=== PATIENT | female | born 1945 | race American Indian/Alaskan Native ===

== ENCOUNTER 2021-04-24 01:42 | Inpatient (IN) ==
[2021-04-24 02:52] LABS: Basophils # (auto) 0.02 K/uL (0-0.2); Basophils % (auto) 0.2 %; Eosinophils # (auto) 0.03 K/uL (0-0.5); Eosinophils % (auto) 0.3 %; Hematocrit (blood only) 36.5 % (37-47); Hemoglobin 12.3 g/dL (12.0-16.0); Immature Granulocytes # (auto) 0.02 K/uL (0.00-0.02); Immature Granulocytes % (auto) 0.2 %; Lymphocytes % (auto) 19.5 %; Mean Corpuscular Hemoglobin 28.2 pg (25-34); Mean Corpuscular Hgb Conc 33.7 g/dL (32-36); Mean Corpuscular Volume 83.7 fL (80-100); Mean Platelet Volume 10.1 fL (7.4-10.4); Monocytes # (auto) 0.61 K/uL (0.11-0.59); Monocytes % (auto) 5.4 %; Neutrophils # (auto) 8.41 K/uL (1.4-6.5); Neutrophils % (auto) 74.4 %; Platelet Count 335 K/uL (130-400); RDW Coefficient of Variation 14.4 % (11.5-14.5); RDW Standard Deviation 44.2 fL (36.4-46.3); Red Blood Count 4.36 M/uL (4.2-5.4); White Blood Count 11.29 K/uL (4.8-10.8)
[2021-04-24 03:00] LABS: Alanine Aminotransferase 16 U/L (12-78); Aspartate Aminotransferase 17 U/L (15-37); BUN Creatinine Ratio 13.5 (10-20); Blood Urea Nitrogen 15 mg/dl (7-18); Calcium 9.3 mg/dl (8.5-10.1); Carbon Dioxide 25 mmol/L (21-32); Chloride 102 mmol/L (98-107); Est GFR (African American) 58.6 ml/min; Est GFR (Non-African American) 50.5 ml/min; Glucose 231 mg/dl (70-99); Magnesium 1.7 mg/dl (1.8-2.4); Potassium 3.6 mmol/L (3.5-5.1); Sodium 136 mmol/L (136-145)
[2021-04-24 03:11] LABS: Albumin Globulin Ratio 0.8 (0.9-2); Alkaline Phosphatase 123 U/L (45-117); Bilirubin,Total 0.8 mg/dl (0.2-1)
[2021-04-24 03:23] LABS: T4 Free Thyroxine 0.98 ng/dl (0.8-1.6)
--- NOTE | 2021-04-24 04:06 | Emergency Department Note ---
Impression & Plan Fall, Hyperglycemia due to diabetes mellitus, Acute on chronic alteration in mental status Admit to the [facility] ED Provider Note NAME: TIP SAVAGE AGE: 76 SEX: F ARRIVES VIA: Ambulance INFORMANT: Patient [id number] ED PROVIDER(S): Arlet Powers DO CHIEF COMPLAINT: Fall PLAN: Disposition: Admit to the [facility] Condition: Stable MEDICAL DECISION MAKING: This is a 76-year-old female patient was found on the floor by her roommate. The patient has had increased falls and weakness over the past couple of weeks. Much of the history was obtained by the patient's brother in law who is at the bedside. He admits that he sees her every 2-3 weeks. Apparently the patient lives with a longtime roommate who is not a load out supervisor but a friend. The patient apparently takes care of her own ADLs and doses her own insulin and checks her own blood sugar. The patient's daily mental status and orientation status is questionable. She does have a history of a traumatic brain injury. She has not been getting out of the house much over the past 18 months according to the jqmijsa-ge-akr. They were concerned tonight because she was found on the floor by the roommate and then fell again prior to getting into bed. The obtgcto-on-lpp does have concern about the patient being able to care for self at home. CT scan of the brain and C-spine was negative for anything acute. The patient was noted to be hyper glycemic but no evidence of DKA. On physical exam, the patient does have significant confusion but this seems to be baseline for her. I discussed the case with the [facility] and they will evaluate for further management. Triage Nursing notes reviewed and agree with them. Additional history obtained from the [id number]-sg-jfi who is at the bedside Vital Signs: reviewed and remarkable for hypertension Differential diagnosis: Hypoglycemia, hyperglycemia, head injury, C-spine injury, stroke Diagnostics interpreted by me: ECG: Normal sinus rhythm at a rate of 62 with T wave inversion in the anterior and lateral leads which is new from the patient's previous EKG which was in 2001. There is no ectopy and no signs of ischemia. Cardiac Monitoring: Normal sinus rhythm at 65 Laboratory studies: See below Imaging studies: As per stat read CT head: Mild diffuse cortical atrophy. Mild chronic ischemic white matter disease. Normal size of the ventricles and extra-axial spaces for the patient's age. Normal basal ganglia and thalamic Normal brainstem Normal cerebellum. There is no demonstrated extra-axial, intraparenchymal intraventricular hemorrhage. There are no findings of an acute ischemic infarction. Normal calvarium. There is no demonstrated fracture. Normal soft tissue structures. Normal visualized paranasal sinuses. 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 Impression: no CT evidence for an acute brain abnormality. CT C-spine: No fracture or malalignment. There is no prevertebral soft tissue swelling. There are mild degenerative changes of the spine. HPI: 76/F arrives for evaluation of fall. The patient was found on the floor by roommate at 8:45 PM. According to the uengbrp-di-anl, the patient has had increased falls and weakness over the past couple weeks. Otherwise, the patient lives with roommate and cares for herself. She typically doses her own insulin. Tonight, the patient did suffer this fall and was found on the floor by the roommate. The kqefyqj-vj-nkd came over and they fed the patient pizza because they thought this could be a sugar issue. Once they found the sugar was high they dosed her with insulin. As they were attempted to get her in bed, she did suffer another slip and fall and found that her sugar was high so they decided to bring her to the emergency department. ROS: See above HPI for pertinent positives & negatives. A total of 10 systems reviewed and were otherwise negative. PAST MEDICAL History:Insulin-dependent diabetes, lupus, traumatic brain injury PAST SURGICAL HISTORY:See Below FAMILY HISTORY:See Below SOCIAL HISTORY:Patient lives with a roommate HOME MEDICATIONS:See list ALLERGIES:See list VITALS:See Below PHYSICAL EXAMINATION: HEENT: Head - normocephalic and atraumatic Pupils are equal, round, and reactive to light. Extraocular eye muscles are intact, and sclera are anicteric. Nose - moist nasal mucosa without discharge. Mouth - moist buccal mucosa. Oropharynx is nonerythematous and there is no tonsillar exudate or edema noted. Neck: Supple; no cervical lymphadenopathy or thyromegaly Heart: Regular rate and rhythm. There is a normal S1 and S2 with no murmurs, clicks, or gallops appreciated. Lungs: Clear to auscultation bilaterally with no wheezes, rales, or rhonchi. Abdomen: Soft, completely nontender, nondistended, with good bowel sounds. There are no palpable pulsatile masses or hepatosplenomegaly. There is no guarding, rigidity, or rebound noted. Extremities: No evidence of cyanosis, clubbing, or edema. There are easily palpable peripheral pulses. Skin: warm and dry with good turgor and no rashes. ED COURSE: Times/Reassessment 0310: The patient was evaluated in room A2. A complete history and physical was performed. An order was placed for continuous cardiac monitoring. The patient was in a normal sinus rhythm at a rate of 65. I had an extensive conversation with the patient's [id number] at the bedside. A twelve-lead EKG was obtained. Laboratory studies were drawn as above. The patient went for CT scan of the brain and cervical spine. I reevaluated the patient after she had been here for some time and her mental status remained unchanged. She was pleasantly confused and slow to answer questions. Her vital signs remained stable. I explained to the patient that she would be admitted to the hospital by the [facility] service. Arlet Powers DO Past Med/Surg History Social History Smoking Status: Unknown if ever smoked Hx Alcohol Use: No Hx Substance Use: No Preferred Language: Tuvaluan Communication Ability: Effective Certified Shorthand Reporter Required: No Current Living Situation: Family Feels Safe at Home: Yes Safety Concerns: Feels Safe At This Time Assistive Devices: Cane and Walker Allergies Allergies Allergy/AdvReac Type Severity Reaction Status Date / Time morphine Allergy Unknown Verified 04/24/21 07:10 esomeprazole AdvReac Unknown Skin Verified 04/24/21 07:10 irritation,swelling,difficulty breathing. sucralfate AdvReac Unknown Skin Verified 04/24/21 07:10 irritation,swelling,difficulty breathing. Home Meds Home Medications Medication Instructions Recorded Confirmed alprazolam 0.5 mg tablet 0.5 mg PO BID PRN 04/24/21 04/24/21 cholecalciferol (vitamin D3) 25 25 mcg PO DAILY 04/24/21 04/24/21 mcg (1,000 unit) capsule (Vitamin D3) fexofenadine 60 mg tablet 60 mg PO DAILY 04/24/21 04/24/21 fluticasone propionate 50 2 spray INTRANASAL DAILY 04/24/21 04/24/21 mcg/actuation nasal spray,suspension folic acid 1 mg tablet 1 mg PO DAILY 04/24/21 04/24/21 furosemide 20 mg tablet 40 mg PO DAILY 04/24/21 04/24/21 insulin aspart U-100 100 unit/mL 0 sliding scale dose SUBCUT UD 04/24/21 04/24/21 subcutaneous solution (Novolog U-100 Insulin aspart) insulin glargine 100 unit/mL 40 unit SUBCUT HS 04/24/21 04/24/21 subcutaneous solution (Lantus U-100 Insulin) lansoprazole 30 mg capsule,delayed 30 mg PO DAILYBB 04/24/21 04/24/21 release levothyroxine 125 mcg tablet 125 mcg PO DAILYBB 04/24/21 04/24/21 lisinopril 20 mg tablet 20 mg PO DAILY 04/24/21 04/24/21 metformin 500 mg tablet,extended 1,000 mg PO QDD 04/24/21 04/24/21 release 24 hr nystatin 100,000 unit/gram topical 1 applic TOPICAL TID 04/24/21 04/24/21 powder tramadol 50 mg tablet 50 mg PO Q6H PRN 04/24/21 04/24/21 Results & Data (ED) Vital Signs Vital Signs - 24 hr 04/24/21 01:59 04/24/21 02:00 04/24/21 02:03 Temperature 36.9 C Temperature Source Oral Pulse Rate 62 66 64 Pulse Rate from SpO2 Sensor 62 61 Respiratory Rate 12 17 16 Blood Pressure 205/107 H Blood Pressure Mean 139 Pulse Oximetry 99 98 100 Oxygen Delivery Method Room Air Sepsis Recent Fever Within 48 Hours No Sepsis New/Unexplained Change in Mental Status No Sepsis Action Taken by Nursing No Action Required 04/24/21 02:30 04/24/21 03:00 04/24/21 03:30 Temperature Temperature Source Pulse Rate 67 71 67 Pulse Rate from SpO2 Sensor Respiratory Rate 18 15 21 Blood Pressure 211/82 H 186/88 H 207/89 H Blood Pressure Mean 125 120 128 Pulse Oximetry 99 96 Oxygen Delivery Method Sepsis Recent Fever Within 48 Hours Sepsis New/Unexplained Change in Mental Status Sepsis Action Taken by Nursing 04/24/21 04:04 04/24/21 04:30 04/24/21 05:00 Temperature Temperature Source Pulse Rate 65 71 70 Pulse Rate from SpO2 Sensor Respiratory Rate 22 20 15 Blood Pressure Blood Pressure Mean Pulse Oximetry Oxygen Delivery Method Sepsis Recent Fever Within 48 Hours Sepsis New/Unexplained Change in Mental Status Sepsis Action Taken by Nursing 04/24/21 05:30 Temperature Temperature Source Pulse Rate 69 Pulse Rate from SpO2 Sensor Respiratory Rate 13 Blood Pressure 171/70 H Blood Pressure Mean 103 Pulse Oximetry Oxygen Delivery Method Sepsis Recent Fever Within 48 Hours Sepsis New/Unexplained Change in Mental Status Sepsis Action Taken by Nursing Laboratory Data Result diagrams: 04/24/21 02:10 04/24/21 02:10 Lab Results 04/24/21 04/24/21 04/24/21 Range/Units 02:10 02:10 02:10 WBC 11.29 H (4.8-10.8) K/uL RBC 4.36 (4.2-5.4) M/uL Hgb 12.3 (12.0-16.0) g/dL Hct 36.5 L (37-47) % MCV 83.7 (80-100) fL MCH 28.2 (25-34) pg MCHC 33.7 (32-36) g/dL RDW Std Deviation 44.2 (36.4-46.3) fL RDW Coeff of Chris 14.4 (11.5-14.5) % Plt Count 335 (130-400) K/uL MPV 10.1 (7.4-10.4) fL Immature Gran % (Auto) 0.2 % Neut % (Auto) 74.4 % Lymph % (Auto) 19.5 % [place] % (Auto) 5.4 % Eos % (Auto) 0.3 % Baso % (Auto) 0.2 % Neut # (Auto) 8.41 H (1.4-6.5) K/uL Lymph # (Auto) 2.20 (1.2-3.4) K/uL [place] # (Auto) 0.61 H (0.11-0.59) K/uL Eos # (Auto) 0.03 (0-0.5) K/uL Baso # (Auto) 0.02 (0-0.2) K/uL Immature Gran # (Auto) 0.02 (0.00-0.02) K/uL Sodium 136 (136-145) mmol/L Potassium 3.6 (3.5-5.1) mmol/L Chloride 102 (98-107) mmol/L Carbon Dioxide 25 (21-32) mmol/L Anion Gap 9.0 (3-11) BUN 15 (7-18) mg/dl Creatinine 1.08 (0.6-1.2) mg/dl Est Cr Clr Drug Dosing Not Reportable Est GFR ( Amer) 58.6 ml/min Est GFR (Non-Af Amer) 50.5 ml/min BUN/Creatinine Ratio 13.5 (10-20) Glucose 231 H (70-99) mg/dl Estimat Average Glucose mg/dl Hemoglobin A1c (4.5-5.6) % Calcium 9.3 (8.5-10.1) mg/dl Magnesium 1.7 L (1.8-2.4) mg/dl Total Bilirubin 0.8 (0.2-1) mg/dl AST 17 (15-37) U/L ALT 16 (12-78) U/L Alkaline Phosphatase 123 H (45-117) U/L Total Creatine Kinase 176 (26-192) U/L Total Protein 7.0 (6.4-8.2) gm/dl Albumin 3.0 L (3.4-5.0) gm/dl Globulin 4.0 (2.5-4.0) gm/dl Albumin/Globulin Ratio 0.8 L (0.9-2) TSH 4.560 H (0.300-4.500) uIu/ml Free T4 0.98 (0.8-1.6) ng/dl Lyme Disease IgG Ab (Negative) Lyme Disease IgM Ab (Negative) SARS-CoV-2, RNA, NAAT (NEGATIVE) 04/24/21 04/24/21 04/24/21 Range/Units 02:10 05:10 05:45 WBC (4.8-10.8) K/uL RBC (4.2-5.4) M/uL Hgb (12.0-16.0) g/dL Hct (37-47) % MCV (80-100) fL MCH (25-34) pg MCHC (32-36) g/dL RDW Std Deviation (36.4-46.3) fL RDW Coeff of Chris (11.5-14.5) % Plt Count (130-400) K/uL MPV (7.4-10.4) fL Immature Gran % (Auto) % Neut % (Auto) % Lymph % (Auto) % [place] % (Auto) % Eos % (Auto) % Baso % (Auto) % Neut # (Auto) (1.4-6.5) K/uL Lymph # (Auto) (1.2-3.4) K/uL [place] # (Auto) (0.11-0.59) K/uL Eos # (Auto) (0-0.5) K/uL Baso # (Auto) (0-0.2) K/uL Immature Gran # (Auto) (0.00-0.02) K/uL Sodium (136-145) mmol/L Potassium (3.5-5.1) mmol/L Chloride (98-107) mmol/L Carbon Dioxide (21-32) mmol/L Anion Gap (3-11) BUN (7-18) mg/dl Creatinine (0.6-1.2) mg/dl Est Cr Clr Drug Dosing Est GFR ( Amer) ml/min Est GFR (Non-Af Amer) ml/min BUN/Creatinine Ratio (10-20) Glucose (70-99) mg/dl Estimat Average Glucose 160 mg/dl Hemoglobin A1c 7.2 H (4.5-5.6) % Calcium (8.5-10.1) mg/dl Magnesium (1.8-2.4) mg/dl Total Bilirubin (0.2-1) mg/dl AST (15-37) U/L ALT (12-78) U/L Alkaline Phosphatase (45-117) U/L Total Creatine Kinase (26-192) U/L Total Protein (6.4-8.2) gm/dl Albumin (3.4-5.0) gm/dl Globulin (2.5-4.0) gm/dl Albumin/Globulin Ratio (0.9-2) TSH (0.300-4.500) uIu/ml Free T4 (0.8-1.6) ng/dl Lyme Disease IgG Ab Negative (Negative) Lyme Disease IgM Ab Equivocal A (Negative) SARS-CoV-2, RNA, NAAT NEGATIVE (NEGATIVE) Administered Medications Doxycycline Hyclate (Doxycycline Hyclate 100 Mg Cap) 100 mg PO BID EDWIGE Stop: 05/04/21 20:59 Last Admin: 04/24/21 20:18 Dose: 100 mg Documented by: [id number] Enoxaparin Sodium (Enoxaparin Inj 40 Mg/0.4 Ml Syr) 40 mg SQ QAM EDWIGE Stop: 05/24/21 08:59 Last Admin: 04/24/21 08:47 Dose: 40 mg Documented by: [id number] Fluticasone Propionate (Fluticasone Propionate Na Spr 16 Gm Btl) 2 sprays NA DAILY EDWIGE Stop: 05/24/21 08:59 Last Admin: 04/24/21 08:47 Dose: 2 sprays Documented by: [id number] Folic Acid (Folic Acid 1 Mg Tab) 1 mg PO DAILY EDWIGE Stop: 05/24/21 08:59 Last Admin: 04/24/21 08:46 Dose: 1 mg Documented by: [id number] Insulin Aspart (Insulin Aspart 100 Units/Ml 3 Ml Pen) 0 units SC ACHS EDWIGE Stop: 05/24/21 07:29 Last Admin: 04/24/21 20:20 Dose: Not Given Documented by: [id number] Cosigned by: [id number] Admin: 04/24/21 20:19 Dose: Not Given Documented by: [id number] Cosigned by: [id number] Admin: 04/24/21 20:16 Dose: 4 units Documented by: [id number] Cosigned by: [id number] Admin: 04/24/21 08:43 Dose: 4 units Documented by: [id number] Cosigned by: [id number] Lansoprazole (Lansoprazole 30 Mg Soltab) 30 mg PO DAILYBB EDWIGE Stop: 05/24/21 07:59 Last Admin: 04/24/21 08:46 Dose: 30 mg Documented by: [id number] Discontinued Medications Aspirin (Aspirin 81 Mg Chew) 324 mg PO NOW STA Stop: 04/24/21 05:51 Last Admin: 04/24/21 06:03 Dose: 324 mg Documented by: [id number] Potassium Chloride/Sodium Chloride (Normal Saline W/20 Meq Kcl) 20 meq in 1,000 mls @ 50 mls/hr IV .Q20H STA Stop: 04/25/21 01:46 Last Infusion: 04/24/21 18:16 Dose: 0 mls/hr Documented by: [id number] Admin: 04/24/21 06:04 Dose: 50 mls/hr Documented by: [id number] Magnesium Sulfate/Dextrose (Magnesium Sulfate / D5w) 1 gm in 100 mls @ 50 mls/hr IV ONE STA Stop: 04/24/21 08:32 Last Infusion: 04/24/21 09:46 Dose: 0 mls/hr Documented by: [id number] Admin: 04/24/21 07:42 Dose: 50 mls/hr Documented by: [id number] Insulin Glargine (Insulin Glargine Solostar 100 Units/Ml 3 Ml Pen) 10 units SC NOW STA Stop: 04/24/21 05:44 Last Admin: 04/24/21 06:03 Dose: 10 units Documented by: [id number] Cosigned by: [id number] Insulin Glargine (Insulin Glargine Solostar 100 Units/Ml 3 Ml Pen) 5 units SC NOW STA Stop: 04/24/21 19:24 Last Admin: 04/24/21 20:17 Dose: 5 units Documented by: [id number] Cosigned by: [id number] Lisinopril (Lisinopril 20 Mg Tab) 20 mg PO NOW STA Stop: 04/24/21 05:19 Last Admin: 04/24/21 05:40 Dose: 20 mg Documented by: [id number] Lisinopril (Lisinopril 5 Mg Tab) 5 mg PO QAM EDWIGE Stop: 05/24/21 08:59 Last Admin: 04/24/21 08:46 Dose: 5 mg Documented by: [id number] Lisinopril (Lisinopril 10 Mg Tab) 10 mg PO NOW STA Stop: 04/24/21 19:22 Last Admin: 04/24/21 20:18 Dose: 10 mg Documented by: [id number] Imaging Data Radiologist's Impression: Brain MRI 04/24/21 06:04 MR brain wo con HISTORY: 76 years-old Female aphasia acute weakness with strokelike symptoms COMPARISON: MRA of the head of same day TECHNIQUE: Multiplanar multisequence MRI of the brain was obtained without the use of IV contrast. FINDINGS: Strip Polisher localizer images demonstrate no gross extracranial abnormality. Study is motion degraded. There is no restricted diffusion to suggest acute or subacute infarct. No acute intracranial hemorrhage, midline shift, abnormal extra-axial collection, hydrocephalus or intracranial mass. No pathologic blooming artifact. Age-related involutional changes with mild ex vacuo ventriculomegaly. Mild T2/FLAIR hyperintensities are noted throughout the white matter. 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 No acute calvarial fracture. The mastoid air cells and paranasal sinuses are clear. Unremarkable orbits and soft tissues. IMPRESSION: 1. No acute intracranial abnormality. No acute or subacute infarct. 2. Age-related involutional changes with mild chronic microvascular ischemic disease. ACT 112: Negative or not required by law. The above report was generated using voice recognition software. It may contain grammatical, syntax or spelling errors. Electronically signed by: Ry Franks M.D. 04/24/2021 4:51 PM Head MRA 04/24/21 06:04 MR ANGIOGRAM OF THE BRAIN CLINICAL HISTORY: Aphasia. Generalized weakness. Falls. COMPARISON STUDY: CT of the brain dated 04/24/2021. TECHNIQUE: 3-D [id number] MR angiography of the intracranial circulation is performed. 3-D tumble views are created and assessed. IV contrast was not administered for this examination. The examination is degraded by motion artifact. FINDINGS: The right A1 segment appears atretic. The internal carotid arteries are patent bilaterally, as are the anterior and middle cerebral arteries. Apparent attenuation of the distal right MCA flow void is likely artifactual. The vertebrobasilar system and posterior cerebral arteries are patent. The left vertebral artery is dominant. There is no aneurysm, high-grade stenosis, or focal vessel cutoff seen throughout the intracranial circulation. The brain parenchyma is normal as visualized. IMPRESSION: Grossly unremarkable MR angiogram of the brain noting a motion compromised examination. ACT 112: Negative or not required by law. Electronically signed by: Bobo Mccarty M.D. 04/24/2021 4:37 PM Discharge Plan Visit Data Chief Complaint: Altered Mental Status Stated Complaint: AMS ED Provider: Arlet Powers Discharge Problem: Fall, Hyperglycemia due to diabetes mellitus, Acute on chronic alteration in mental status Discharge Problem: Fall Qualifiers: Encounter type: initial encounter Qualified Code(s): W19.XXXA - Unspecified fall, initial encounter
[2021-04-24] MEDS ORDERED: lisinopril 20 MG TAB PO STA (05:18)
[2021-04-24] MEDS ORDERED: INSULIN GLARGINE SOLOSTAR 100 UNITS/ML 3 ML PEN SC STA ×2 (05:43→19:23)
--- NOTE | 2021-04-24 05:44 | History & Physical Report ---
Date of Service April 24, 2021 Assessment & Plan (1) Encephalopathy: Plan: Possible aphasia Rule out CVA given patient risk factors Fall ? Possible syncopal event Rule out orthostasis, arrhythmia, obstructive cardiac pathology, seizures (hx traumatic brain injury) hypertension, elevated secondary to illness hyperlipidemia/statin intolerance as per records DM2 insulin requiring, BSGs elevated, recent outpatient hemoglobin A1c of 6.10 February 2020 SLE as per records, patient claims she has had SLE since she was 27 years old. 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 Symptoms attributed to fibromyalgia as per outpatient note from 2019. Hypothyroidism, TSH slightly elevated Possible functional disability, patient not answering calls from outpatient case management the last few months Med telemetry Neurochecks Aspirin for stroke prevention MRI/MRA brain Additional stroke work-up pending MRI results Permissive hypertension until acute stroke ruled out Syncope work-up : Check orthostatic vitals, TTE, EEG Basal insulin, ISS BG goal 1 10-1 40, carb count coverage, update hemoglobin A1c PT OT eval Social service RE discharge planning DVT prophylaxis per Lovenox subcu DNR as per patient's prior directives as per sister, Ms. Beata Garcia. She requests updates from providers through [phone]. Text document was generated using [employer] voice recognition software. It may contain grammatical or spelling errors. Kindly contact undersigned for clarification of any documentation item in question. History of Present Illness Chief Complaint: Fall, confusion as per records Primary Care Provider: Barbara Gill MD History obtained from patient, family, and records. Unable to obtain reliable history from patient secondary to aphasia/disorientation. Medical history significant for hypertension, hyperlipidemia/statin intolerance as per records, DM2 insulin requiring, unspecified SLE as per records, fibromyalgia, history postconcussion syndrome/traumatic brain injury as per records, GERD, PTSD. Patient found by housemate on the floor last night. Increased falling and weakness over the last few weeks. Unclear if patient passing out. Patient unable to qualify questions regarding chest pain, shortness of breath, headache, syncope, abdominal pain symptoms. Patient roommate alerted patient's sister and [id number]. Family noted patient to be disoriented. More confused than usual. Seems to have trouble getting words out. Patient brought to the ER for evaluation. 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 sucralfate AdvReac Unknown Skin Verified 04/24/21 07:10 irritation,swelling,difficulty breathing. Home Medications Medication Instructions Recorded Confirmed Type alprazolam 0.5 mg tablet 0.5 mg PO BID PRN 04/24/21 04/24/21 History cholecalciferol (vitamin D3) 25 25 mcg PO DAILY 04/24/21 04/24/21 History mcg (1,000 unit) capsule (Vitamin D3) fexofenadine 60 mg tablet 60 mg PO DAILY 04/24/21 04/24/21 History fluticasone propionate 50 2 spray INTRANASAL DAILY 04/24/21 04/24/21 History mcg/actuation nasal spray,suspension folic acid 1 mg tablet 1 mg PO DAILY 04/24/21 04/24/21 History furosemide 20 mg tablet 40 mg PO DAILY 04/24/21 04/24/21 History insulin aspart U-100 100 unit/mL 0 sliding scale dose SUBCUT UD 04/24/21 04/24/21 History subcutaneous solution (Novolog U-100 Insulin aspart) insulin glargine 100 unit/mL 40 unit SUBCUT HS 04/24/21 04/24/21 History subcutaneous solution (Lantus U-100 Insulin) lansoprazole 30 mg capsule,delayed 30 mg PO DAILYBB 04/24/21 04/24/21 History release levothyroxine 125 mcg tablet 125 mcg PO DAILYBB 04/24/21 04/24/21 History lisinopril 20 mg tablet 20 mg PO DAILY 04/24/21 04/24/21 History metformin 500 mg tablet,extended 1,000 mg PO QDD 04/24/21 04/24/21 History release 24 hr nystatin 100,000 unit/gram topical 1 applic TOPICAL TID 04/24/21 04/24/21 History powder tramadol 50 mg tablet 50 mg PO Q6H PRN 04/24/21 04/24/21 History Past Med/Surg History Social History Smoking Status: Unknown if ever smoked Feels Safe at Home: Yes Assistive Devices: Cane and Walker Review of Systems Review of Systems: As per HPI, all 10 systems reviewed, all other ROS negative Physical Exam Physical Exam: GENERAL: Disoriented, aphasic, obese, no respiratory distress SKIN: Normal color, warm HEENT: [place] palpebral conjunctivae, no ptosis, dry buccal mucosa NECK : Supple, short neck, no tenderness CHEST : CTA, no tenderness HEART : RRR, no obvious murmurs ABDOMEN: Some distention, nontender EXTREMITIES : Minimal LE swelling, no LE tenderness, no other conspicuous deformities noted NEUROLOGIC : Disoriented, aphasic, no facial asymmetry, gait and stance not assessed Results & Data Results & Data ([facility]) Vital Signs (Past 12 Hours) Vital Signs Temp Pulse Resp BP Pulse Ox 04/24/21 04:04 65 22 04/24/21 03:30 67 21 207/89 H 96 04/24/21 03:00 71 15 186/88 H 04/24/21 02:30 67 18 211/82 H 99 04/24/21 02:03 36.9 C 64 16 205/107 H 100 04/24/21 02:00 66 17 98 04/24/21 01:59 62 12 99 Laboratory Results Laboratory Results WBC 11.29 K/uL (4.8-10.8) H 04/24/21 02:10 RBC 4.36 M/uL (4.2-5.4) 04/24/21 02:10 Hgb 12.3 g/dL (12.0-16.0) 04/24/21 02:10 Hct 36.5 % (37-47) L 04/24/21 02:10 MCV 83.7 fL (80-100) 04/24/21 02:10 MCH 28.2 pg (25-34) 04/24/21 02:10 MCHC 33.7 g/dL (32-36) 04/24/21 02:10 RDW Std Deviation 44.2 fL (36.4-46.3) 04/24/21 02:10 RDW Coeff of Chris 14.4 % (11.5-14.5) 04/24/21 02:10 Plt Count 335 K/uL (130-400) 04/24/21 02:10 MPV 10.1 fL (7.4-10.4) 04/24/21 02:10 Immature Gran % (Auto) 0.2 % 04/24/21 02:10 Neut % (Auto) 74.4 % 04/24/21 02:10 Lymph % (Auto) 19.5 % 04/24/21 02:10 [place] % (Auto) 5.4 % 04/24/21 02:10 Eos % (Auto) 0.3 % 04/24/21 02:10 Baso % (Auto) 0.2 % 04/24/21 02:10 Neut # (Auto) 8.41 K/uL (1.4-6.5) H 04/24/21 02:10 Lymph # (Auto) 2.20 K/uL (1.2-3.4) 04/24/21 02:10 [place] # (Auto) 0.61 K/uL (0.11-0.59) H 04/24/21 02:10 Eos # (Auto) 0.03 K/uL (0-0.5) 04/24/21 02:10 Baso # (Auto) 0.02 K/uL (0-0.2) 04/24/21 02:10 Immature Gran # (Auto) 0.02 K/uL (0.00-0.02) 04/24/21 02:10 Sodium 136 mmol/L (136-145) 04/24/21 02:10 Potassium 3.6 mmol/L (3.5-5.1) 04/24/21 02:10 Chloride 102 mmol/L (98-107) 04/24/21 02:10 Carbon Dioxide 25 mmol/L (21-32) 04/24/21 02:10 Anion Gap 9.0 (3-11) 04/24/21 02:10 BUN 15 mg/dl (7-18) 04/24/21 02:10 Creatinine 1.08 mg/dl (0.6-1.2) 04/24/21 02:10 Est Cr Clr Drug Dosing Not Reportable 04/24/21 02:10 Est GFR ( Amer) 58.6 ml/min 04/24/21 02:10 Est GFR (Non-Af Amer) 50.5 ml/min 04/24/21 02:10 BUN/Creatinine Ratio 13.5 (10-20) 04/24/21 02:10 Glucose 231 mg/dl (70-99) H 04/24/21 02:10 Calcium 9.3 mg/dl (8.5-10.1) 04/24/21 02:10 Magnesium 1.7 mg/dl (1.8-2.4) L 04/24/21 02:10 Total Bilirubin 0.8 mg/dl (0.2-1) 04/24/21 02:10 AST 17 U/L (15-37) 04/24/21 02:10 ALT 16 U/L (12-78) 04/24/21 02:10 Alkaline Phosphatase 123 U/L (45-117) H 04/24/21 02:10 Total Protein 7.0 gm/dl (6.4-8.2) 04/24/21 02:10 Albumin 3.0 gm/dl (3.4-5.0) L 04/24/21 02:10 Globulin 4.0 gm/dl (2.5-4.0) 04/24/21 02:10 Albumin/Globulin Ratio 0.8 (0.9-2) L 04/24/21 02:10 TSH 4.560 uIu/ml (0.300-4.500) H 04/24/21 02:10 Free T4 0.98 ng/dl (0.8-1.6) 04/24/21 02:10 SARS-CoV-2, RNA, NAAT NEGATIVE (NEGATIVE) 04/24/21 05:[address] head initial read: Mild diffuse cortical atrophy. Mild chronic ischemicwhite matter disease. Normal size of the ventricles and extra-axial spaces for the patient's age. Normal basal ganglia and thalami. Normal brainstem. Normal cerebellum. There is no demonstrated extra-axial, intraparenchymal, or intraventricular hemorrhage. There are no findings of an acute ischemic infarction. Normal calvarium. There is no demonstrated fracture. Normal soft tissue structures. Normal visualized paranasal sinuses. 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 CT cervical spine initial read: No fracture or malalignment. There is no prevertebral soft tissue swelling. There are mild degenerative changes of the spine. Chest x-ray as per my interpretation atelectasis EKG as per my interpretation: Rate 60, NSR, LAD, LAFB, diffuse T wave abnormalities
[2021-04-24] MEDS ORDERED: NSS + 20MEQ KCL 20 MEQ/1,000 ML BAG IV STA (05:47)
[2021-04-24] MEDS ORDERED: ASPIRIN 81 MG CHEW PO STA (05:50)
[2021-04-24] MEDS ORDERED: MAGNESIUM SULFATE / D5W 1 GM/100 ML BAG IV STA (06:33)
[2021-04-24] MEDS ORDERED: GLUCOSE 40% GEL 15 GM TUBE PO PRN (06:39)
[2021-04-24] MEDS ORDERED: CARBOHYDRATES FOR HYPOGLYCEMIA PO PRN (06:39)
[2021-04-24] MEDS ORDERED: GLUCOSE 10 TABS/TUBE PO PRN (06:39)
[2021-04-24] MEDS ORDERED: PROMETHAZINE HCL 12.5 MG in SODIUM CHLORIDE 0.9% 50 ML IV PRN (06:39)
[2021-04-24] MEDS ORDERED: GLUCAGON FOR INJ 1 MG VIAL SQ PRN (06:39)
[2021-04-24] MEDS ORDERED: DEXTROSE 50% 50 ML SYRINGE IV PRN (06:39)
--- NOTE | 2021-04-24 07:18 | CT Scan Report ---
HEAD CT NONCONTRAST CT DOSE: 1048.11 mGy.cm HISTORY: fall TECHNIQUE: Multiaxial CT images of the head were performed without the use of intravenous contrast. A utomated exposure control was utilized for this study. A dose lowering technique was utilized adheri ng to the principles of ALARA. Comparison: Head CT 04/16/2011. Findings: The paranasal sinuses and mastoid air cells are clear. The calvarium and skull base are int act. There is no mass, hematoma, midline shift, acute infarct. White matter hypodensity is nonspecifi c but suggestive of microvascular ischemic change. The ventricles and sulci demonstrate mild age-rela celine involutional changes. Impression: No acute intracranial abnormality. Atrophy and microvascular ischemic changes. ACT 112: Negative or not required by law. Electronically signed by: Gamal Humphries M.D. 04/24/2021 7:16 AM
--- NOTE | 2021-04-24 07:21 | CT Scan Report ---
CERVICAL SPINE CT CT DOSE: HISTORY: fall TECHNIQUE: Multiaxial CT images of the cervical spine were performed and reformatted in the sagittal and coronal plane without the use of contrast. A dose lowering technique was utilized adhering to th e principles of ALARA. COMPARISON: None. FINDINGS: No fractures. No subluxation. Prevertebral soft tissues and the C1-C2 interval are intact. No pneumothorax. Degenerative changes within the cervical spine. IMPRESSION: No fractures within the cervical spine. ACT 112: Negative or not required by law. Electronically signed by: Gamal Humphries M.D. 04/24/2021 7:19 AM
--- NOTE | 2021-04-24 08:10 | XRay Report ---
XR chest 1V portable HISTORY: weakness COMPARISON: None. FINDINGS: There are low lung volumes. No pleural effusions. No pneumothorax. The lungs are clear. The heart is borderline enlarged. There is prominence of the right hilum. IMPRESSION: 1. No focal lung consolidations to suggest pneumonia. 2. Right hilar prominence which could be due to the AP portable technique. Follow-up PA and lateral v iews of the chest are recommended to exclude the possibility of a right hilar soft tissue abnormality . ACT 112: Negative or not required by law. Electronically signed by: Gamal Humphries M.D. 04/24/2021 8:09 AM
[2021-04-24 08:41] LABS: Estimated Average Glucose 160 mg/dl; Hemoglobin A1C 7.2 % (4.5-5.6)
[2021-04-24] MEDS: INSULIN ASPART 100 UNITS/ML 3 ML PEN SC SCH ×4 (08:43→20:20)
[2021-04-24] MEDS: FOLIC ACID 1 MG TAB PO SCH (08:46)
[2021-04-24] MEDS: LANSOPRAZOLE 30 MG SOLTAB PO SCH (08:46)
[2021-04-24] MEDS: ENOXAPARIN INJ 40 MG/0.4 ML SYR SQ SCH (08:47)
[2021-04-24] MEDS: FLUTICASONE PROPIONATE NA SPR 16 GM BTL SCH (08:47)
[2021-04-24] MEDS ORDERED: lisinopril 5 MG TAB PO SCH (09:00)
[2021-04-24 09:08] LABS: Lyme Ab IgG w/WB Rflx Negative (Negative)
[2021-04-24 09:19] LABS: Lyme Ab IgM w/WB Rflx Equivocal (Negative)
--- NOTE | 2021-04-24 15:32 | Electroencephalogram ---
EEG Procedure Note Date of Service April 24, 2021 Start / End Times Start Time: 1225 End Time: 1245 Referring Physician Gt Rodrigues MD History Syncope with confusion question seizure Home Medication List Medication Instructions Recorded Confirmed Type alprazolam 0.5 mg tablet 0.5 mg PO BID PRN 04/24/21 04/24/21 History cholecalciferol (vitamin D3) 25 25 mcg PO DAILY 04/24/21 04/24/21 History mcg (1,000 unit) capsule (Vitamin D3) fexofenadine 60 mg tablet 60 mg PO DAILY 04/24/21 04/24/21 History fluticasone propionate 50 2 spray INTRANASAL DAILY 04/24/21 04/24/21 History mcg/actuation nasal spray,suspension folic acid 1 mg tablet 1 mg PO DAILY 04/24/21 04/24/21 History furosemide 20 mg tablet 40 mg PO DAILY 04/24/21 04/24/21 History insulin aspart U-100 100 unit/mL 0 sliding scale dose SUBCUT UD 04/24/21 04/24/21 History subcutaneous solution (Novolog U-100 Insulin aspart) insulin glargine 100 unit/mL 40 unit SUBCUT HS 04/24/21 04/24/21 History subcutaneous solution (Lantus U-100 Insulin) lansoprazole 30 mg capsule,delayed 30 mg PO DAILYBB 04/24/21 04/24/21 History release levothyroxine 125 mcg tablet 125 mcg PO DAILYBB 04/24/21 04/24/21 History lisinopril 20 mg tablet 20 mg PO DAILY 04/24/21 04/24/21 History metformin 500 mg tablet,extended 1,000 mg PO QDD 04/24/21 04/24/21 History release 24 hr nystatin 100,000 unit/gram topical 1 applic TOPICAL TID 04/24/21 04/24/21 History powder tramadol 50 mg tablet 50 mg PO Q6H PRN 04/24/21 04/24/21 History Inpatient Medication List Enoxaparin Sodium (Enoxaparin Inj 40 Mg/0.4 Ml Syr) 40 mg SQ QAM EDWIGE Stop: 05/24/21 08:59 Last Admin: 04/24/21 08:47 Dose: 40 mg Documented by: [id number] Fluticasone Propionate (Fluticasone Propionate Na Spr 16 Gm Btl) 2 sprays NA DAILY EDWIGE Stop: 12/19/21 08:59 Last Admin: 04/24/21 08:47 Dose: 2 sprays Documented by: [id number] Folic Acid (Folic Acid 1 Mg Tab) 1 mg PO DAILY EDWIGE Stop: 05/24/21 08:59 Last Admin: 04/24/21 08:46 Dose: 1 mg Documented by: [id number] Potassium Chloride/Sodium Chloride (Normal Saline W/20 Meq Kcl) 20 meq in 1,000 mls @ 50 mls/hr IV .Q20H STA Stop: 04/25/21 01:46 Last Admin: 04/24/21 06:04 Dose: 50 mls/hr Documented by: [id number] Insulin Aspart (Insulin Aspart 100 Units/Ml 3 Ml Pen) 0 units SC ACHS EDWIGE Stop: 05/24/21 07:29 Last Admin: 04/24/21 08:43 Dose: 4 units Documented by: [id number] Cosigned by: [id number] Lansoprazole (Lansoprazole 30 Mg Soltab) 30 mg PO DAILYBB EDWIGE Stop: 05/24/21 07:59 Last Admin: 04/24/21 08:46 Dose: 30 mg Documented by: [id number] Lisinopril (Lisinopril 5 Mg Tab) 5 mg PO QAM EDWIGE Stop: 05/24/21 08:59 Last Admin: 04/24/21 08:46 Dose: 5 mg Documented by: [id number] Discontinued Medications Aspirin (Aspirin 81 Mg Chew) 324 mg PO NOW STA Stop: 04/24/21 05:51 Last Admin: 04/24/21 06:03 Dose: 324 mg Documented by: [id number] Magnesium Sulfate/Dextrose (Magnesium Sulfate / D5w) 1 gm in 100 mls @ 50 mls/hr IV ONE STA Stop: 04/24/21 08:32 Last Infusion: 04/24/21 09:46 Dose: 0 mls/hr Documented by: [id number] Admin: 04/24/21 07:42 Dose: 50 mls/hr Documented by: [id number] Insulin Glargine (Insulin Glargine Solostar 100 Units/Ml 3 Ml Pen) 10 units SC NOW STA Stop: 04/24/21 05:44 Last Admin: 04/24/21 06:03 Dose: 10 units Documented by: [id number] Cosigned by: [id number] Lisinopril (Lisinopril 20 Mg Tab) 20 mg PO NOW STA Stop: 04/24/21 05:19 Last Admin: 04/24/21 05:40 Dose: 20 mg Documented by: [id number] Description This is a 21 electrode EEG with a single channel dedicated to limited EKG. The electrodes were placed in accordance with the International 10-20 system. This EEG was done as a bedside recording is of good technical quality despite the fact the video analysis demonstrates quite a bit of patient movement and rotation. There are surprisingly little muscle artifact. Drowsiness light sleep not recorded. Photic stimulation was performed. During wakefulness there is evidence for background rhythm in the alpha range which is of up to 9 Hz maximum frequency 30 V maximal amplitude and symmetrical in maximum posterior head regions. Polymorphic slightly lower frequency modest voltage theta activity seen centrally and symmetrically and beta activity seen bifrontally Photic stimulation provokes a minimal driving response No potentially epileptogenic patterns are seen Interpretation Essentially normal EEG during wakefulness without evidence for a focal generalized encephalopathy and without evidence for potentially epileptogenic patterns Clinical Correlation This is a normal EEG without evidence for focal generalized encephalopathy and without evidence for potentially epileptogenic activity Jacques Gray MD
--- NOTE | 2021-04-24 15:56 | XRay Report ---
KUB HISTORY: Screening for MRI For MRI COMPARISON: Abdominal radiograph 04/16/2011 FINDINGS: Nonobstructive bowel gas pattern. Mild fecal retention of the right hemicolon. Calcificatio ns of the right hemipelvis redemonstrated suggestive of calcified uterine fibroid measuring up to 3.3 cm. Arterial calcifications. No opaque foreign bodies. No renal calculi. No ureteral calculi. No pn eumoperitoneum or pneumatosis. Lumbar levoscoliosis. Displaced acute versus subacute fracture of the lateral right ninth rib. IMPRESSION: 1. Nonobstructive bowel gas pattern. 2. No opaque foreign bodies. 3. Displaced acute versus subacute fracture of the lateral right ninth rib. Correlate with point tend daniel. ACT 112: Negative or not required by law. The above report was generated using voice recognition software. It may contain grammatical, syntax o r spelling errors. Electronically signed by: Ry Franks M.D. 04/24/2021 3:54 PM
--- NOTE | 2021-04-24 16:39 | Magnetic Resonance Report ---
MR ANGIOGRAM OF THE BRAIN CLINICAL HISTORY: Aphasia. Generalized weakness. Falls. COMPARISON STUDY: CT of the brain dated 04/24/2021. TECHNIQUE: 3-D [id number] MR angiography of the intracranial circulation is performed. 3-D tumble views are created and assessed. IV contrast was not administered for this examination. The examinati on is degraded by motion artifact. FINDINGS: The right A1 segment appears atretic. The internal carotid arteries are patent bilaterally, as are the anterior and middle cerebral arteries. Apparent attenuation of the distal right MCA flow void is likely artifactual. The vertebrobasilar system and posterior cerebral arteries are patent. Th e left vertebral artery is dominant. There is no aneurysm, high-grade stenosis, or focal vessel cuto ff seen throughout the intracranial circulation. The brain parenchyma is normal as visualized. IMPRESSION: Grossly unremarkable MR angiogram of the brain noting a motion compromised examination. ACT 112: Negative or not required by law. Electronically signed by: Bobo Mccarty M.D. 04/24/2021 4:37 PM
--- NOTE | 2021-04-24 16:53 | Magnetic Resonance Report ---
MR brain wo con HISTORY: 76 years-old Female aphasia acute weakness with strokelike symptoms COMPARISON: MRA of the head of same day TECHNIQUE: Multiplanar multisequence MRI of the brain was obtained without the use of IV contrast. FINDINGS: Segment Block Layer localizer images demonstrate no gross extracranial abnormality. Study is motion degraded. There is no restricted diffusion to suggest acute or subacute infarct. No acute intracranial hemorrhage, m idline shift, abnormal extra-axial collection, hydrocephalus or intracranial mass. No pathologic bloo criss artifact. Age-related involutional changes with mild ex vacuo ventriculomegaly. Mild T2/FLAIR hy perintensities are noted throughout the white matter. 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 No acute calvarial fracture. The mastoid air cells and paranasal sin uses are clear. Unremarkable orbits and soft tissues. IMPRESSION: 1. No acute intracranial abnormality. No acute or subacute infarct. 2. Age-related involutional changes with mild chronic microvascular ischemic disease. ACT 112: Negative or not required by law. The above report was generated using voice recognition software. It may contain grammatical, syntax o r spelling errors. Electronically signed by: Ry Franks M.D. 04/24/2021 4:51 PM
--- NOTE | 2021-04-24 18:19 | Hospitalist Progress Note ---
Date of Service April 24, 2021 Assessment & Plan (1) Encephalopathy: Plan: Encephalopathy H/O traumatic brain injury Unclear Etiology Unknown baseline mental status --MRI Brain:No acute intracranial abnormality. No acute or subacute infarct. Age-related involutional changes with mild chronic microvascular ischemic disease. --MRA:Grossly unremarkable MR angiogram of the brain noting a motion compromised examination. --EEG:Essentially normal EEG during wakefulness without evidence for a focal generalized encephalopathy and without evidence for potentially epileptogenic patterns Follows simple commands Ammonia levels within normal limits TSH normal UA not suggestive of UTI Poor historian Drug screen pending No obvious source of infection Neurology consult next Hold sedative meds (benzos, fexofenadine at home ) for now Equivocal Lyme's disease Follow-up serology Empirically start on doxycycline Fall Possible syncopal event Monitor on telemetry Echo reviewed PT/OT Hypertension Resume home medication Monitor Hyperlipidemia Statin intolerance as per records DM II HbA1c 7.2 Continue insulin therapy SLE as per records [employer] doubtful about diagnosis. Symptoms attributed to fibromyalgia as per outpatient note from 2019. Hypothyroidism Continue levothyroxine Possible functional disability Patient not answering calls from outpatient case management the last few months Management to help with discharge planning Magnesium Replace electrolytes as needed DVT Px: Lovenox SQ Code Status DNR/DNI Admission and Anticipated Discharge Date Admission Date: April 24, 2021 Subjective Patient is seen and examined at bedside Patient unable to provide much history Follows simple commands Has expressive aphasia Review of Systems Review of Systems: Other Physical Exam Physical Exam: Physical Exam: Vitals signs as noted above General Appearance:Morbidly Obese, no apparent distress Head: normocephalic, Atraumatic Eyes: normal inspection, EOMI Neck: supple, Trachea midline Respiratory/Chest: Normal breath sounds, CTA Cardiovascular: S1, S2, No murmur Abdomen/GI:Soft, Non tender, Bowel sounds present Extremities/Musculoskeletal:normal inspection, no edema Neurologic/Psych:AA, grossly no focal neurological deficits, +follows simple commands, + confused Skin: normal color, warm Results & Data Results & Data ([facility]) Vital Signs (Past 12 Hours) Vital Signs Pulse Pulse Resp BP BP Pulse Ox Pulse Ox 04/24/21 14:30 63 17 168/104 H 04/24/21 14:00 61 28 H 182/98 H 04/24/21 13:50 60 20 194/105 H 100 04/24/21 13:00 62 15 100 04/24/21 12:00 64 14 100 04/24/21 11:00 63 17 100 99 04/24/21 09:15 62 18 178/69 H 99 Laboratory Results Short CBC 04/24/21 Range/Units 02:10 WBC 11.29 H (4.8-10.8) K/uL Hgb 12.3 (12.0-16.0) g/dL Hct 36.5 L (37-47) % Plt Count 335 (130-400) K/uL BMP 04/24/21 02:10 Sodium 136 Potassium 3.6 Chloride 102 Carbon Dioxide 25 BUN 15 Creatinine 1.08 Glucose 231 H Calcium 9.3 Cardiac Enzymes 04/24/21 Range/Units 02:10 Total Creatine Kinase 176 (26-192) U/L Liver Function 04/24/21 Range/Units 02:10 Total Bilirubin 0.8 (0.2-1) mg/dl AST 17 (15-37) U/L ALT 16 (12-78) U/L Alkaline Phosphatase 123 H (45-117) U/L Albumin 3.0 L (3.4-5.0) gm/dl
--- NOTE | 2021-04-24 18:30 | Electrocardiogram Report ---
Test Reason : Blood Pressure : / mmHG Vent. Rate : 062 BPM Atrial Rate : 062 BPM P-R Int : 176 ms QRS Dur : 070 ms QT Int : 416 ms P-R-T Axes : 069 -23 041 degrees QTc Int : 422 ms Poor data quality, interpretation may be adversely affected Normal sinus rhythm Abnormal ECG When compared with ECG of 16-APR-2011 17:21, ST now depressed in Anterior leads Nonspecific T wave abnormality, worse in Inferior leads T wave inversion now evident in Anterolateral leads Confirmed by Darci Faulkner ([id number]) on 04/24/2021 6:30:09 PM Referred By: REFERRED SELF Confirmed By:Darci Faulkner
[2021-04-24] MEDS ORDERED: lisinopril 10 MG TAB PO STA (19:21)
[2021-04-24] MEDS: DOXYCYCLINE HYCLATE 100 MG CAP PO SCH (20:18)
[2021-04-25] MEDS: LEVOTHYROXINE SODIUM 125 MCG TABLET PO SCH (06:32)
[2021-04-25] MEDS: LANSOPRAZOLE 30 MG SOLTAB PO SCH (06:32)
[2021-04-25 06:37] LABS: Basophils # (auto) 0.03 K/uL (0-0.2); Basophils % (auto) 0.4 %; Eosinophils # (auto) 0.08 K/uL (0-0.5); Hematocrit (blood only) 32.6 % (37-47); Hemoglobin 10.9 g/dL (12.0-16.0); Immature Granulocytes # (auto) 0.02 K/uL (0.00-0.02); Immature Granulocytes % (auto) 0.3 %; Lymphocytes # (auto) 2.07 K/uL (1.2-3.4); Lymphocytes % (auto) 26.5 %; Mean Corpuscular Hemoglobin 28.2 pg (25-34); Mean Corpuscular Hgb Conc 33.4 g/dL (32-36); Mean Corpuscular Volume 84.5 fL (80-100); Mean Platelet Volume 10.5 fL (7.4-10.4); Monocytes % (auto) 6.4 %; Neutrophils # (auto) 5.12 K/uL (1.4-6.5); Neutrophils % (auto) 65.4 %; Platelet Count 267 K/uL (130-400); RDW Coefficient of Variation 14.7 % (11.5-14.5); RDW Standard Deviation 45.1 fL (36.4-46.3); Red Blood Count 3.86 M/uL (4.2-5.4); White Blood Count 7.82 K/uL (4.8-10.8)
[2021-04-25 07:15] LABS: Calcium 8.8 mg/dl (8.5-10.1); Creatinine Clr Calc Pharmacy 47.7 ml/min; Est GFR (Non-African American) 48.4 ml/min; Magnesium 1.9 mg/dl (1.8-2.4); Potassium 3.2 mmol/L (3.5-5.1)
[2021-04-25] MEDS: INSULIN ASPART 100 UNITS/ML 3 ML PEN SC SCH ×4 (08:18→21:23)
[2021-04-25] MEDS ORDERED: INSULIN GLARGINE SOLOSTAR 100 UNITS/ML 3 ML PEN SC SCH (09:00)
[2021-04-25] MEDS ORDERED: lisinopril 20 MG TAB PO SCH (09:00)
[2021-04-25] MEDS: ASPIRIN 81 MG ECTAB PO SCH (10:00)
[2021-04-25] MEDS: lisinopril 10 MG TAB PO SCH (10:39)
[2021-04-25] MEDS: ENOXAPARIN INJ 40 MG/0.4 ML SYR SQ SCH (10:39)
[2021-04-25] MEDS: DOXYCYCLINE HYCLATE 100 MG CAP PO SCH ×2 (10:39→21:23)
[2021-04-25] MEDS: FOLIC ACID 1 MG TAB PO SCH (10:39)
[2021-04-25] MEDS: FLUTICASONE PROPIONATE NA SPR 16 GM BTL SCH (10:39)
[2021-04-25] MEDS ORDERED: POTASSIUM CHLORIDE CRTAB 20 MEQ TABCR PO STA (12:54)
--- NOTE | 2021-04-25 13:21 | Communication Note ---
Date of Service: April 25, 2021 Eri Sornesen is 76 years old right-handed and theoretically patient of Dr. Joshi but is not seeing her since the spring of this year and at times by case management to get in touch with her have been unsuccessful. She has a number of chronic ongoing medical problems including diabetes hypertension theoretically lupus although there is some question of how valid this diagnosis is, fibromyalgia, GERD, is moderately over nourished, and her medication list includes alprazolam cholecalciferol, fexofenadine, fluticasone, folic acid, Lasix, insulin, lansoprazole, levothyroxine, lisinopril, Metformin, nystatin and tramadol In this setting she was admitted to the hospital because of having been found in a confused state on the floor of her home yesterday and has been in the emergency room ever since. Her mental status is gradually improved and she is now released according to what she tells me back to her normal state but yesterday was dazed confused to the point that she had an EEG done which was normal and an MRI scan which showed some small vessel disease but really was not that impressively abnormal for a woman of her age and with her underlying vascular risk factors There has been some family stress she apparently is not speaking to a lot of her first-order relatives, lives with her , has a car that is inoperable and cannot transport herself will appointments, feels her may have some mental health issues yet denies that she is under stress or that she is depressed although admits to having been depressed She has very little recall of what happened yesterday but claims to have good recall of the days leading up to that and good recall of all events of occurred since her admission to the hospital he shortly afterwards. She is little irritated that she is unable to be permitted to walk to the bathroom by herself but admits that sometimes she has lightheaded episodes when she stands up too quickly and is not clear whether the event yesterday may have been precipitated by 1 of these events which are suggestive of his orthostasis Family history is as outlined in the chart and is largely noncontributory Social history details are also outlined in chart with some of the other issues of family stress and relationship problems outlined above Systems review reveals no recent fever sweats or chills apparently some increased episodes of lightheadedness and falling but no actual head injury, no new issues referable to HEENT cardiovascular pulmonary gastrointestinal genitourinary musculoskeletal dermatologic neurologic systems Exam today reveals blood pressure 172/83 pulse 60 and regular respirations are 16 she is a temperature 36.7 O2 saturation of 95% on room air She is awake alert knows she is in the hospital and tell me the date is Tuesday knows it is football game knows Thanksgiving is next week knows name of her physician but has vague recall what may have happened yesterday Cranial nerves are intact with normal eye movements facial tone and strength facial sensation clear speech I see no tremors tics choreiform activity drift pronation sign. I did not get her up for ambulation but facility rapid repetitive motions in the lower extremities appeared to be normal reflexes were hypoactive at the knees absent at the ankles normal in the upper extremities toes were downgoing no Ralph signs were seen. Strength testing was good without atrophy or fasciculations and sensory examination reveals some vibratory loss proprioception loss of light touch loss consistent with a presumptive diabetic polyneuropathy and limited to the lower extremities EEG was normal MRI is unremarkable for age Laboratory studies have shown a mild anemia, hypokalemia, modest elevation of the glucose levels, and are otherwise unremarkable. I do not see that his CPK TSH B12 have been done and they do not see evidence that there is a urinary tract infection Diagnosis here remains that of a transient encephalopathy of uncertain cause possibly posttraumatic although there is no clear evidence for head injury, possibly due to some orthostatic hypotension with syncope and then a minor closed head injury or possibly seizure although the story is very odd there is no manifestations clinically and EEG is normal There are clearly some underlying family stress issues and one wonders if there is an underlying anxiety and depression issue but she denies this and is not willing or desirous of seeing psychotherapy at present time She clearly has a diabetic neuropathy may have some orthostatic hypotension due to the an autonomic issue My suggestions would be that when she is admitted to the hospital she be seen by physical therapy, have her orthostatic blood pressures checked, and I would check a CPK TSH and a B12 levels for sake of completeness if they have not already been done I will check back with her tomorrow either by computer or by direct visit and may arrange for her to have an outpatient 72-hour EEG monitoring study. Unfortunately her compliance with follow-up is very limited she has no transportation and scheduling this may not be feasible. She clearly needs to get back with her primary care physician for evaluation The above note was generated utilizing voice recognition technology and may have punctuation or spelling errors pronoun usage errors and syntax errors Jacques Gray MD
[2021-04-25] MEDS: INSULIN GLARGINE SOLOSTAR 100 UNITS/ML 3 ML PEN SC SCH (13:28)
--- NOTE | 2021-04-25 21:17 | Hospitalist Progress Note ---
Date of Service April 25, 2021 Assessment & Plan (1) Encephalopathy: Plan: Encephalopathy H/O traumatic brain injury Unclear Etiology Unknown baseline mental status --MRI Brain:No acute intracranial abnormality. No acute or subacute infarct. Age-related involutional changes with mild chronic microvascular ischemic disease. --MRA:Grossly unremarkable MR angiogram of the brain noting a motion compromised examination. --EEG:Essentially normal EEG during wakefulness without evidence for a focal generalized encephalopathy and without evidence for potentially epileptogenic patterns Follows simple commands Ammonia levels within normal limits TSH normal UA not suggestive of UTI Poor historian No obvious source of infection Appreciate Neurology Input Hold sedative meds (benzos, fexofenadine at home ) for now Mental status back to baseline B12 levels pending May need outpatient 72-hour EEG as per neurology Needs follow-up with neurology upon discharge Equivocal Lyme's disease Follow-up serology--pending Empirically start on doxycycline Fall Possible syncopal event Monitor on telemetry Echo reviewed PT/OT Hypertension Resume home medication Monitor Hyperlipidemia Statin intolerance as per records DM II HbA1c 7.2 Continue insulin therapy SLE as per records [facility]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 Symptoms attributed to fibromyalgia as per outpatient note from 2019. Hypothyroidism Continue levothyroxine Possible functional disability Patient not answering calls from outpatient case management the last few months Management to help with discharge planning Magnesium Replace electrolytes as needed DVT Px: Lovenox SQ Code Status DNR/DNI Admission and Anticipated Discharge Date Admission Date: April 24, 2021 Subjective Patient is seen and examined at bedside Ental status seem to be back to baseline States having dizziness intermittently Also reports chronic neuropathic pain in lower extremity Denies any chest pain, shortness of breath, nausea, abdominal pain Offers no other complaints Speech much clear today. Patient could not recollect events prior to admission Review of Systems Review of Systems: All systems reviewed & are unremarkable except as noted in Subjective Physical Exam Physical Exam: Physical Exam: Vitals signs as noted above General Appearance:Morbidly Obese, no apparent distress Head: normocephalic, Atraumatic Eyes: normal inspection, EOMI Neck: supple, Trachea midline Respiratory/Chest: Normal breath sounds, CTA Cardiovascular: S1, S2, No murmur Abdomen/GI:Soft, Non tender, Bowel sounds present Extremities/Musculoskeletal:normal inspection, no edema Neurologic/Psych:AA, grossly no focal neurological deficits Skin: normal color, warm Results & Data Results & Data ([place]) Vital Signs (Past 12 Hours) Vital Signs Temp Pulse Pulse Pulse Resp BP BP 04/25/21 19:03 36.7 C 70 18 04/25/21 15:13 04/25/21 15:03 36.8 C 18 04/25/21 13:30 36.9 C 79 18 173/85 H 04/25/21 13:00 70 16 178/85 H 04/25/21 11:09 68 16 172/83 H 04/25/21 11:00 04/25/21 09:15 36.7 C 74 20 173/72 H BP Pulse Ox Pulse Ox 04/25/21 19:03 163/67 H 96 04/25/21 15:13 99 04/25/21 15:03 98 04/25/21 13:30 97 04/25/21 13:00 98 04/25/21 11:09 95 04/25/21 11:00 98 04/25/21 09:15 98 Laboratory Results Short CBC 04/25/21 Range/Units 05:44 WBC 7.82 (4.8-10.8) K/uL Hgb 10.9 L (12.0-16.0) g/dL Hct 32.6 L (37-47) % Plt Count 267 (130-400) K/uL BMP 04/25/21 05:44 Sodium 141 Potassium 3.2 L Chloride 108 H Carbon Dioxide 26 BUN 11 Creatinine 1.12 Glucose 173 H Calcium 8.8 Cardiac Enzymes 04/25/21 Range/Units 13:54 Total Creatine Kinase 83 (26-192) U/L
[2021-04-25] MEDS: ACETAMINOPHEN 325 MG TAB PO PRN (21:23)
[2021-04-26] MEDS: ACETAMINOPHEN 325 MG TAB PO PRN (02:39)
[2021-04-26 03:05] LABS: Appearance Urine Cloudy (Clear); Bacteria Urine Automated 2+ (Negative); Bilirubin Urine Negative (Negative); Blood Urine 1+ (Negative); Color Urine Yellow; Epithelial Cell Urine Auto >30 /lpf (0-5); Glucose Urine UA Trace (Negative); Ketones Urine Negative (Negative); Leukocyte Esterase Urine 3+ (Negative); Nitrite Urine Negative (Negative); Protein Urine 3+ (Negative); Specific Gravity Urine 1.019 (1.000-1.030); Urobilinogen Urine Negative (Negative); WBC Urine Automated >30 /hpf (0-5)
[2021-04-26 03:17] LABS: Cast Urine Automated 0 /lpf (0-5); RBC Urine Automated 0-4 /hpf (0-4)
[2021-04-26 03:41] LABS: Amphetamines+Metham, Urine Neg (Neg); Barbiturates, Urine Neg (Neg); Benzodiazepine, Urine Neg (Neg); Cocaine, Urine Neg (Neg); MDMA (Ecstacy), Urine Neg (Neg); Methadone, Urine Neg (Neg); Opiate, Urine Neg (Neg); Phencyclidine, Urine Neg (Neg)
[2021-04-26] MEDS: LANSOPRAZOLE 30 MG SOLTAB PO SCH (05:30)
[2021-04-26] MEDS: LEVOTHYROXINE SODIUM 125 MCG TABLET PO SCH (05:30)
[2021-04-26] MEDS: ENOXAPARIN INJ 40 MG/0.4 ML SYR SQ SCH (08:06)
[2021-04-26] MEDS: FLUTICASONE PROPIONATE NA SPR 16 GM BTL SCH (08:06)
[2021-04-26] MEDS: INSULIN ASPART 100 UNITS/ML 3 ML PEN SC SCH ×4 (08:07→20:59)
[2021-04-26] MEDS: FOLIC ACID 1 MG TAB PO SCH (08:07)
[2021-04-26] MEDS: lisinopril 10 MG TAB PO SCH (08:07)
[2021-04-26] MEDS: ASPIRIN 81 MG ECTAB PO SCH (08:07)
[2021-04-26] MEDS: DOXYCYCLINE HYCLATE 100 MG CAP PO SCH ×2 (08:07→21:02)
[2021-04-26] MEDS: INSULIN GLARGINE SOLOSTAR 100 UNITS/ML 3 ML PEN SC SCH (08:08)
[2021-04-26 08:24] LABS: Basophils # (auto) 0.03 K/uL (0-0.2); Basophils % (auto) 0.4 %; Eosinophils # (auto) 0.12 K/uL (0-0.5); Eosinophils % (auto) 1.8 %; Hematocrit (blood only) 32.8 % (37-47); Immature Granulocytes # (auto) 0.03 K/uL (0.00-0.02); Immature Granulocytes % (auto) 0.4 %; Lymphocytes # (auto) 2.37 K/uL (1.2-3.4); Lymphocytes % (auto) 35.5 %; Mean Corpuscular Hemoglobin 28.4 pg (25-34); Mean Corpuscular Hgb Conc 33.5 g/dL (32-36); Mean Corpuscular Volume 84.5 fL (80-100); Mean Platelet Volume 10.7 fL (7.4-10.4); Monocytes # (auto) 0.33 K/uL (0.11-0.59); Monocytes % (auto) 4.9 %; Neutrophils # (auto) 3.79 K/uL (1.4-6.5); Platelet Count 247 K/uL (130-400); RDW Coefficient of Variation 14.6 % (11.5-14.5); RDW Standard Deviation 45.1 fL (36.4-46.3); Red Blood Count 3.88 M/uL (4.2-5.4); White Blood Count 6.67 K/uL (4.8-10.8)
[2021-04-26 08:49] LABS: BUN Creatinine Ratio 16.8 (10-20); Calcium 8.6 mg/dl (8.5-10.1); Creatinine Clr Calc Pharmacy 54.2 ml/min; Est GFR (African American) 70.2 ml/min; Est GFR (Non-African American) 60.5 ml/min; Magnesium 1.7 mg/dl (1.8-2.4); Potassium 3.4 mmol/L (3.5-5.1)
[2021-04-26] MEDS ORDERED: amLODIPine BESYLATE 5 MG TAB PO SCH (09:30)
[2021-04-26] MEDS ORDERED: POTASSIUM CHLORIDE CRTAB 20 MEQ TABCR PO STA (09:35)
[2021-04-26] MEDS ORDERED: MAGNESIUM SULFATE / D5W 1 GM/100 ML BAG IV ONE (10:00)
[2021-04-26] MEDS: cefTRIAXone SODIUM 1,000 MG in DEXTROSE 5% 50 ML IV SCH (10:09)
--- NOTE | 2021-04-26 11:36 | Communication Note ---
Date of Service: April 26, 2021 Mrs. Gallagher is now up on the floor is back to her baseline has some recollection of the confusional events that occurred several days ago prompting her admission and apparently now recalls that she was having trouble urinating and a urinalysis that has just been done is consistent with a urinary tract infection and she is on ceftriaxone. Certainly this could explain the entire picture with an encephalopathy related to urinary tract infection resulting in increasing gait instability superimposed upon her diabetic neuropathy, fall and confusion. Currently she is alert cooperative remembers seeing me in the emergency room is oriented and is beginning to piece together some memories from the day in question when she was admitted and confused state We really do not have any other good explanation so far for her problems her laboratory studies were largely normal with exception of the urinalysis and a B12 is pending. Imaging studies and EEG are normal. My thoughts regarding a 72-hour EEG are now going to be put on the "back burner" as I think the urinary tract infection may be the best overall explanation for her transient encephalopathy 1 can never totally exclude an underlying cognitive impairment issue as individuals who suffer from this are more readily rendered delirious and confused in the setting of an infectious illness and she may require an outpatient evaluation for this issue but not until her current encephalopathy is totally cleared and we do have confirmation of a urinary tract infection with cultures We will check by tomorrow but for now neurology is not recommending any further evaluation and I think the 72-hour EEG suggestion of an outpatient basis can be tabled Jacques Gray MD
--- NOTE | 2021-04-26 19:06 | Hospitalist Progress Note ---
Date of Service April 26, 2021 Assessment & Plan (1) Encephalopathy: Plan: Encephalopathy H/O traumatic brain injury Unclear Etiology Unknown baseline mental status --MRI Brain:No acute intracranial abnormality. No acute or subacute infarct. Age-related involutional changes with mild chronic microvascular ischemic disease. --MRA:Grossly unremarkable MR angiogram of the brain noting a motion compromised examination. --EEG:Essentially normal EEG during wakefulness without evidence for a focal generalized encephalopathy and without evidence for potentially epileptogenic patterns Follows simple commands Ammonia levels within normal limits TSH normal Negative toxicology screen Poor historian Appreciate Neurology Input Hold sedative meds (benzos, fexofenadine at home ) for now Mental status back to baseline B12 levels normal May need outpatient 72-hour EEG as per neurology Needs follow-up with neurology upon discharge Equivocal Lyme's disease Follow-up serology--pending Continue doxycycline for now Suspected UTI Urine culture pending Empirically started on Rocephin Fall Possible syncopal event Monitor on telemetry Echo reviewed PT/OT Hypertension Resume home medication Monitor Hyperlipidemia Statin intolerance as per records DM II HbA1c 7.2 Continue insulin therapy 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 Symptoms attributed to fibromyalgia as per outpatient note from 2019. Hypothyroidism Continue levothyroxine Possible functional disability Patient not answering calls from outpatient case management the last few months Management to help with discharge planning Magnesium Replace electrolytes as needed DVT Px: Lovenox SQ Code Status DNR/DNI Admission and Anticipated Discharge Date Admission Date: April 24, 2021 Subjective Patient is seen and examined at bedside Reports dysuria which is slowly improving No other complaints Denies any chest pain, shortness of breath, nausea, abdominal pain Lyme serology, urine culture pending Review of Systems Review of Systems: All systems reviewed & are unremarkable except as noted in Subjective Physical Exam Physical Exam: Physical Exam: Vitals signs as noted above General Appearance:Morbidly Obese, no apparent distress Head: normocephalic, Atraumatic Eyes: normal inspection, EOMI Neck: supple, Trachea midline Respiratory/Chest: Normal breath sounds, CTA Cardiovascular: S1, S2, No murmur Abdomen/GI:Soft, Non tender, Bowel sounds present Extremities/Musculoskeletal:normal inspection, no edema Neurologic/Psych:AA, grossly no focal neurological deficits Skin: normal color, warm Results & Data Results & Data ([facility]) Vital Signs (Past 12 Hours) Vital Signs Temp Pulse Resp BP Pulse Ox 04/26/21 15:53 36.6 C 71 18 160/67 H 98 04/26/21 11:19 36.8 C 67 18 176/78 H 98 Laboratory Results Short CBC 04/26/21 Range/Units 07:42 WBC 6.67 (4.8-10.8) K/uL Hgb 11.0 L (12.0-16.0) g/dL Hct 32.8 L (37-47) % Plt Count 247 (130-400) K/uL BMP 04/26/21 07:42 Sodium 140 Potassium 3.4 L Chloride 109 H Carbon Dioxide 22 BUN 16 Creatinine 0.93 Glucose 198 H Calcium 8.6 Urine 04/26/21 Range/Units 02:45 Urine Color Yellow Urine Appearance Cloudy A (Clear) Urine pH 6.0 (4.5-7.5) Ur Specific [place] 1.019 (1.000-1.030) Urine Protein 3+ H (Negative) Urine Glucose (UA) Trace H (Negative)
[2021-04-26] MEDS ORDERED: amLODIPine BESYLATE 5 MG TAB PO ONE ×2 (19:30→23:19)
[2021-04-26] MEDS: traMADol HCL 50 MG TABLET PO PRN (23:52)
[2021-04-26] MEDS: MELATONIN 3 MG TAB PO PRN (23:52)
[2021-04-27] MEDS: LIDOCAINE 5% 1 PATCH TD SCH ×2 (01:28→20:39)
[2021-04-27] MEDS: LANSOPRAZOLE 30 MG SOLTAB PO SCH (05:28)
[2021-04-27] MEDS: lisinopril 40 MG TAB PO SCH (05:28)
[2021-04-27] MEDS: LEVOTHYROXINE SODIUM 125 MCG TABLET PO SCH (05:28)
[2021-04-27 08:02] LABS: Basophils # (auto) 0.03 K/uL (0-0.2); Basophils % (auto) 0.4 %; Eosinophils # (auto) 0.21 K/uL (0-0.5); Eosinophils % (auto) 2.9 %; Hematocrit (blood only) 32.7 % (37-47); Hemoglobin 10.8 g/dL (12.0-16.0); Immature Granulocytes # (auto) 0.01 K/uL (0.00-0.02); Immature Granulocytes % (auto) 0.1 %; Lymphocytes # (auto) 2.11 K/uL (1.2-3.4); Lymphocytes % (auto) 28.8 %; Mean Corpuscular Hemoglobin 27.9 pg (25-34); Mean Corpuscular Volume 84.5 fL (80-100); Mean Platelet Volume 10.4 fL (7.4-10.4); Monocytes # (auto) 0.39 K/uL (0.11-0.59); Monocytes % (auto) 5.3 %; Neutrophils # (auto) 4.57 K/uL (1.4-6.5); Neutrophils % (auto) 62.5 %; Platelet Count 220 K/uL (130-400); RDW Coefficient of Variation 14.8 % (11.5-14.5); RDW Standard Deviation 45.5 fL (36.4-46.3); Red Blood Count 3.87 M/uL (4.2-5.4); White Blood Count 7.32 K/uL (4.8-10.8)
[2021-04-27] MEDS: ASPIRIN 81 MG ECTAB PO SCH (08:02)
[2021-04-27] MEDS: FOLIC ACID 1 MG TAB PO SCH (08:02)
[2021-04-27] MEDS: FLUTICASONE PROPIONATE NA SPR 16 GM BTL SCH (08:02)
[2021-04-27] MEDS: amLODIPine BESYLATE 5 MG TAB PO SCH (08:02)
[2021-04-27] MEDS: DOXYCYCLINE HYCLATE 100 MG CAP PO SCH ×2 (08:02→20:39)
[2021-04-27] MEDS: ENOXAPARIN INJ 40 MG/0.4 ML SYR SQ SCH (08:02)
[2021-04-27] MEDS: INSULIN ASPART 100 UNITS/ML 3 ML PEN SC SCH ×4 (08:03→20:38)
[2021-04-27] MEDS: INSULIN GLARGINE SOLOSTAR 100 UNITS/ML 3 ML PEN SC SCH (08:03)
[2021-04-27 08:39] LABS: BUN Creatinine Ratio 15.7 (10-20); Calcium 8.4 mg/dl (8.5-10.1); Creatinine Clr Calc Pharmacy 44.6 ml/min; Est GFR (Non-African American) 48.4 ml/min; Magnesium 1.7 mg/dl (1.8-2.4); Potassium 3.6 mmol/L (3.5-5.1)
[2021-04-27] MEDS ORDERED: amLODIPine BESYLATE 5 MG TAB PO SCH (09:00)
[2021-04-27] MEDS ORDERED: lisinopril 40 MG TAB PO SCH (09:00)
[2021-04-27] MEDS: cefTRIAXone SODIUM 1,000 MG in DEXTROSE 5% 50 ML IV SCH (09:30)
[2021-04-27] MEDS ORDERED: MAGNESIUM SULFATE / D5W 1 GM/100 ML BAG IV ONE (10:00)
[2021-04-27] MEDS: traMADol HCL 50 MG TABLET PO PRN ×2 (15:36→20:40)
--- NOTE | 2021-04-27 16:26 | Communication Note ---
Date of Service: April 27, 2021 Despite the urinalysis which is highly suggestive of a urinary tract infection urine cultures have revealed multiple organisms likely contaminant and urinary tract infection therefore unlikely and probably in retrospect was not the cause for the encephalopathy and resultant confusional episode Patient remains bedbound I think she should start getting physical therapy she should have her orthostatic blood pressures checked and today she is a little vague and has been all along so 1 has to wonder about an underlying cognitive impairment For now neurology really does not have any further suggestions. I doubt this was a seizure with a postictal state. I certainly cannot totally exclude the diagnosis however Clinically this appears to be some form of delirium which is resolving, we have no evidence for a cerebrovascular accident and all we do see on exam is a little diabetic polyneuropathy Again I would emphasize the need to have her evaluated by physical therapy and check her ambulatory status and safety as apparently there were some falls at home performed she was brought in and I think we will arrange to have her follow-up in our clinic in about a month or so after discharge to assess how she is doing after a presumptive delirium has cleared and decide then whether she needs neurocognitive assessment, possibly the 72-hour EEG etc. Neurology is therefore going to sign off the case at this point
[2021-04-27] MEDS: MAGNESIUM CHLORIDE 64MG DELAYED REL TAB PO SCH (18:13)
--- NOTE | 2021-04-27 20:14 | Hospitalist Progress Note ---
Date of Service April 27, 2021 Assessment & Plan (1) Encephalopathy: Plan: Encephalopathy H/O traumatic brain injury Unclear Etiology Unknown baseline mental status --MRI Brain:No acute intracranial abnormality. No acute or subacute infarct. Age-related involutional changes with mild chronic microvascular ischemic disease. --MRA:Grossly unremarkable MR angiogram of the brain noting a motion compromised examination. --EEG:Essentially normal EEG during wakefulness without evidence for a focal generalized encephalopathy and without evidence for potentially epileptogenic patterns Follows simple commands Ammonia levels within normal limits TSH normal Negative toxicology screen Poor historian Appreciate Neurology Input Hold sedative meds (benzos, fexofenadine at home ) for now Mental status back to baseline B12 levels normal May need outpatient 72-hour EEG as per neurology Needs follow-up with neurology upon discharge Needs rehab placement Equivocal Lyme's disease Follow-up serology--pending Continue doxycycline for now Suspected UTI Urine culture negative Received Rocephin empirically Fall Possible syncopal event Monitor on telemetry Echo reviewed PT/OT Hypertension Resume home medication Monitor Hyperlipidemia Statin intolerance as per records DM II HbA1c 7.2 Continue insulin therapy SLE as per records [facility]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 Symptoms attributed to fibromyalgia as per outpatient note from 2019. Hypothyroidism Continue levothyroxine Possible functional disability Patient not answering calls from outpatient case management the last few months Management to help with discharge planning Magnesium Replace electrolytes as needed DVT Px: Lovenox SQ Code Status DNR/DNI Disposition Rehab as able Admission and Anticipated Discharge Date Admission Date: April 24, 2021 Subjective Patient is seen and examined at bedside Mental status seem to be much improved Needs rehab placement Urine culture negative Denies any chest pain, shortness of breath, nausea, abdominal pain Lyme serology pending Review of Systems Review of Systems: All systems reviewed & are unremarkable except as noted in Subjective Physical Exam Physical Exam: Physical Exam: Vitals signs as noted above General Appearance:Morbidly Obese, no apparent distress Head: normocephalic, Atraumatic Eyes: normal inspection, EOMI Neck: supple, Trachea midline Respiratory/Chest: Normal breath sounds, CTA Cardiovascular: S1, S2, No murmur Abdomen/GI:Soft, Non tender, Bowel sounds present Extremities/Musculoskeletal:normal inspection, no edema Neurologic/Psych:AA, grossly no focal neurological deficits Skin: normal color, warm Results & Data Results & Data ([facility]) Vital Signs (Past 12 Hours) Vital Signs Temp Pulse Resp BP Pulse Ox 04/27/21 15:00 36.5 C 73 18 154/84 H 98 Laboratory Results Short CBC 04/27/21 Range/Units 07:46 WBC 7.32 (4.8-10.8) K/uL Hgb 10.8 L (12.0-16.0) g/dL Hct 32.7 L (37-47) % Plt Count 220 (130-400) K/uL BMP 04/27/21 07:46 Sodium 138 Potassium 3.6 Chloride 107 Carbon Dioxide 21 BUN 18 Creatinine 1.12 Glucose 249 H Calcium 8.4 L
[2021-04-27] MEDS: MELATONIN 3 MG TAB PO PRN (20:40)
[2021-04-28] MEDS: LANSOPRAZOLE 30 MG SOLTAB PO SCH (05:48)
[2021-04-28] MEDS: traMADol HCL 50 MG TABLET PO PRN ×2 (05:48→18:19)
[2021-04-28] MEDS: LEVOTHYROXINE SODIUM 125 MCG TABLET PO SCH (05:48)
[2021-04-28] MEDS: MAGNESIUM CHLORIDE 64MG DELAYED REL TAB PO SCH ×2 (08:24→18:19)
[2021-04-28] MEDS: ASPIRIN 81 MG ECTAB PO SCH (08:25)
[2021-04-28] MEDS: FLUTICASONE PROPIONATE NA SPR 16 GM BTL SCH (08:25)
[2021-04-28] MEDS: ENOXAPARIN INJ 40 MG/0.4 ML SYR SQ SCH (08:25)
[2021-04-28] MEDS: amLODIPine BESYLATE 5 MG TAB PO SCH (08:25)
[2021-04-28] MEDS: DOXYCYCLINE HYCLATE 100 MG CAP PO SCH ×2 (08:25→20:03)
[2021-04-28] MEDS: FOLIC ACID 1 MG TAB PO SCH (08:26)
[2021-04-28] MEDS: lisinopril 40 MG TAB PO SCH (08:26)
[2021-04-28] MEDS: INSULIN GLARGINE SOLOSTAR 100 UNITS/ML 3 ML PEN SC SCH (08:30)
[2021-04-28] MEDS: INSULIN ASPART 100 UNITS/ML 3 ML PEN SC SCH ×4 (08:30→20:04)
[2021-04-28] MEDS: cefTRIAXone SODIUM 1,000 MG in DEXTROSE 5% 50 ML IV SCH (08:33)
[2021-04-28 09:23] LABS: Creatinine Clr Calc Pharmacy 51.7 ml/min; Est GFR (African American) 66.7 ml/min; Est GFR (Non-African American) 57.5 ml/min; Potassium 3.8 mmol/L (3.5-5.1)
--- NOTE | 2021-04-28 17:22 | Hospitalist Progress Note ---
Date of Service April 28, 2021 Assessment & Plan (1) Encephalopathy: Plan: Encephalopathy H/O traumatic brain injury Unclear Etiology Unknown baseline mental status --MRI Brain:No acute intracranial abnormality. No acute or subacute infarct. Age-related involutional changes with mild chronic microvascular ischemic disease. --MRA:Grossly unremarkable MR angiogram of the brain noting a motion compromised examination. --EEG:Essentially normal EEG during wakefulness without evidence for a focal generalized encephalopathy and without evidence for potentially epileptogenic patterns Follows simple commands Ammonia levels within normal limits TSH normal Negative toxicology screen Poor historian Appreciate Neurology Input Hold sedative meds (benzos, fexofenadine at home ) for now Mental status back to baseline B12 levels normal May need outpatient 72-hour EEG as per neurology Needs follow-up with neurology upon discharge Plan to discharge to rehab facility once arranged No signs of withdrawal Equivocal Lyme's disease Follow-up serology--pending Continue doxycycline for now Suspected UTI Urine culture negative Received Rocephin empirically Fall Possible syncopal event Monitor on telemetry Echo reviewed PT/OT Hypertension Resume home medication Monitor Hyperlipidemia Statin intolerance as per records DM II HbA1c 7.2 Continue insulin therapy 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 Symptoms attributed to fibromyalgia as per outpatient note from 2019. Hypothyroidism Continue levothyroxine Possible functional disability Patient not answering calls from outpatient case management the last few months Management to help with discharge planning Magnesium Replace electrolytes as needed DVT Px: Lovenox SQ Code Status DNR/DNI Disposition Rehab when arranged Admission and Anticipated Discharge Date Admission Date: April 24, 2021 Subjective Patient is seen and examined at bedside No new complaints Waiting for placement Denies any chest pain, shortness of breath, nausea, abdominal pain Lyme serology pending Review of Systems Review of Systems: All systems reviewed & are unremarkable except as noted in Subjective Physical Exam Physical Exam: Physical Exam: Vitals signs as noted above General Appearance:Morbidly Obese, no apparent distress Head: normocephalic, Atraumatic Eyes: normal inspection, EOMI Neck: supple, Trachea midline Respiratory/Chest: Normal breath sounds, CTA Cardiovascular: S1, S2, No murmur Abdomen/GI:Soft, Non tender, Bowel sounds present Extremities/Musculoskeletal:normal inspection, no edema Neurologic/Psych:AA, grossly no focal neurological deficits Skin: normal color, warm Results & Data Results & Data ([facility]) Vital Signs (Past 12 Hours) Vital Signs Temp Pulse Pulse Resp BP BP Pulse Ox 04/28/21 16:00 36.9 C 65 20 167/61 H 96 04/28/21 14:19 63 04/28/21 11:00 36.7 C 69 20 144/71 H 99 04/28/21 07:15 58 L 04/28/21 07:00 36.7 C 71 20 162/78 H 97 Laboratory Results BMP 04/28/21 08:20 Sodium 138 Potassium 3.8 Chloride 109 H Carbon Dioxide 20 L BUN 18 Creatinine 0.97 Glucose 209 H Calcium 9.0
[2021-04-28] MEDS: LIDOCAINE 5% 1 PATCH TD SCH (20:03)
[2021-04-28] MEDS: ACETAMINOPHEN 325 MG TAB PO PRN (21:00)
[2021-04-29 02:47] LABS: 18KDIGG Band NON-REACTIVE; 23KDIGG Band NON-REACTIVE; 23KDIGM Band NON-REACTIVE; 28KDIGG Band NON-REACTIVE; 30KDIGG Band NON-REACTIVE; 39KDIGG Band NON-REACTIVE; 39KDIGM Band NON-REACTIVE; 41KDIGG Band REACTIVE; 41KDIGM Band NON-REACTIVE; 45KDIGG Band NON-REACTIVE; 58KDIGG Band REACTIVE; 66KDIGG Band NON-REACTIVE; 93KDIGG Band NON-REACTIVE; Lyme Antibodies, WB IgG NEGATIVE (NEGATIVE); Lyme Antibodies, WB IgM NEGATIVE (NEGATIVE)
[2021-04-29] MEDS: ACETAMINOPHEN 325 MG TAB PO PRN ×2 (04:47→14:47)
[2021-04-29] MEDS: LEVOTHYROXINE SODIUM 125 MCG TABLET PO SCH (06:44)
[2021-04-29] MEDS: MAGNESIUM CHLORIDE 64MG DELAYED REL TAB PO SCH ×2 (06:44→17:13)
[2021-04-29 07:23] LABS: BUN Creatinine Ratio 19.6 (10-20); Calcium 8.9 mg/dl (8.5-10.1); Creatinine Clr Calc Pharmacy 40.6 ml/min; Est GFR (African American) 49.1 ml/min; Est GFR (Non-African American) 42.3 ml/min; Magnesium 1.8 mg/dl (1.8-2.4); Potassium 4.1 mmol/L (3.5-5.1)
[2021-04-29] MEDS: amLODIPine BESYLATE 5 MG TAB PO SCH (08:31)
[2021-04-29] MEDS: DOXYCYCLINE HYCLATE 100 MG CAP PO SCH ×2 (08:31→19:44)
[2021-04-29] MEDS: ASPIRIN 81 MG ECTAB PO SCH (08:31)
[2021-04-29] MEDS: ENOXAPARIN INJ 40 MG/0.4 ML SYR SQ SCH (08:31)
[2021-04-29] MEDS: FLUTICASONE PROPIONATE NA SPR 16 GM BTL SCH (08:31)
[2021-04-29] MEDS: FOLIC ACID 1 MG TAB PO SCH (08:32)
[2021-04-29] MEDS: lisinopril 40 MG TAB PO SCH (08:32)
[2021-04-29] MEDS: INSULIN GLARGINE SOLOSTAR 100 UNITS/ML 3 ML PEN SC SCH (08:32)
[2021-04-29] MEDS: INSULIN ASPART 100 UNITS/ML 3 ML PEN SC SCH ×4 (08:33→21:40)
[2021-04-29] MEDS: LANSOPRAZOLE 30 MG SOLTAB PO SCH (08:38)
[2021-04-29] MEDS: traMADol HCL 50 MG TABLET PO PRN (12:39)
[2021-04-29] MEDS: LIDOCAINE 5% 1 PATCH TD SCH (19:44)
--- NOTE | 2021-04-29 19:45 | Hospitalist Progress Note ---
Date of Service April 29, 2021 delayed entry date of service noted above Assessment & Plan (1) Encephalopathy: Plan: per Dr. Artis's notes with addendum: Encephalopathy H/O traumatic brain injury Unclear Etiology Unknown baseline mental status --MRI Brain:No acute intracranial abnormality. No acute or subacute infarct. Age-related involutional changes with mild chronic microvascular ischemic disease. --MRA:Grossly unremarkable MR angiogram of the brain noting a motion compromised examination. --EEG:Essentially normal EEG during wakefulness without evidence for a focal generalized encephalopathy and without evidence for potentially epileptogenic patterns Follows simple commands Ammonia levels within normal limits TSH normal Negative toxicology screen Poor historian Appreciate Neurology Input Hold sedative meds (benzos, fexofenadine at home ) for now Mental status back to baseline B12 levels normal May need outpatient 72-hour EEG as per neurology Needs follow-up with neurology upon discharge Plan to discharge to rehab facility once arranged No signs of withdrawal 04/29 oriented but has intermittent confusion suspect underlying delirium continue delirium prevention strategies awaiting placement to Rehab Equivocal Lyme's disease Follow-up serology--negative d/c Doxycycline Suspected UTI Urine culture negative d/c Ceftriaxone Fall Possible syncopal event Monitor on telemetry Echo reviewed PT/OT Hypertension Resume home medication Monitor Hyperlipidemia Statin intolerance as per records DM II HbA1c 7.2 Continue insulin therapy SLE as per records [facility]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 Symptoms attributed to fibromyalgia as per outpatient note from 2019. Hypothyroidism Continue levothyroxine Possible functional disability Patient not answering calls from outpatient case management the last few months Management to help with discharge planning Magnesium Replace electrolytes as needed DVT Px: Lovenox SQ Code Status DNR/DNI Disposition Rehab when arranged Admission and Anticipated Discharge Date Admission Date: April 24, 2021 Subjective ff up for encephalopathy etc seen with MITCHELL Shankar at bedside throughout whole encounter noticed to be intermittently confused throughout the day alert, cheerful, oriented x 2 answers some questions appropriately, get confused with others no chest pain, dyspnea, palpitations, dizziness no headache, dizziness no other symptoms Review of Systems Review of Systems: all noted and negative except for above Physical Exam Physical Exam: General- oriented x 2, not in distress, speaks in sentences with no effort or accessory muscle use Eyes- anicteric Neck- no JVD Lungs- clear breath sounds bilaterally, no rales/wheezes Heart- normal rate, regular rhythm; no murmurs Abdomen- normal bowel sounds, nondistended, soft, nontender Extremities- no pretibial edema, no calf tenderness Neuro- alert, oriented x 2; no gross focal neurologic deficits Skin- warm & dry Results & Data Results & Data ([facility]) Vital Signs (Past 12 Hours) Vital Signs Temp Pulse Pulse Resp BP BP Pulse Ox 04/29/21 15:35 36.9 C 72 18 158/71 H 96 04/29/21 14:37 72 04/29/21 12:14 37.4 C 82 18 191/83 H 100 04/29/21 08:00 36.6 C 74 18 172/74 H 95 all noted and reviewed including below
[2021-04-30] MEDS: LANSOPRAZOLE 30 MG SOLTAB PO SCH (05:41)
[2021-04-30] MEDS: LEVOTHYROXINE SODIUM 125 MCG TABLET PO SCH (05:41)
[2021-04-30] MEDS: MAGNESIUM CHLORIDE 64MG DELAYED REL TAB PO SCH ×2 (05:41→18:12)
[2021-04-30] MEDS: FOLIC ACID 1 MG TAB PO SCH (08:26)
[2021-04-30] MEDS: lisinopril 40 MG TAB PO SCH (08:26)
[2021-04-30] MEDS: amLODIPine BESYLATE 5 MG TAB PO SCH (08:26)
[2021-04-30] MEDS: INSULIN ASPART 100 UNITS/ML 3 ML PEN SC SCH ×4 (08:27→20:23)
[2021-04-30] MEDS: ASPIRIN 81 MG ECTAB PO SCH (08:27)
[2021-04-30] MEDS: ENOXAPARIN INJ 40 MG/0.4 ML SYR SQ SCH (08:29)
[2021-04-30] MEDS: DOXYCYCLINE HYCLATE 100 MG CAP PO SCH (08:29)
[2021-04-30] MEDS: INSULIN GLARGINE SOLOSTAR 100 UNITS/ML 3 ML PEN SC SCH (08:30)
[2021-04-30] MEDS: FLUTICASONE PROPIONATE NA SPR 16 GM BTL SCH (08:30)
[2021-04-30] MEDS: traMADol HCL 50 MG TABLET PO PRN ×2 (08:57→21:47)
[2021-04-30] MEDS: hydrALAZINE HCL 25 MG TAB PO SCH ×2 (11:45→20:31)
--- NOTE | 2021-04-30 12:58 | Psychiatric Consultation ---
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 It is not surprising that she would decompensate outside of her home setting with ongoing hospitalization even if her delirium is resolving, particularly if underlying cognitive decline as suggested by neuro. Worsening of symptoms at night suggests some sundowning. (1) Paranoid: (2) Acute on chronic alteration in mental status: (3) Hyperglycemia due to diabetes mellitus: patient is being referred to SNF if her paranoia results in behavioral disturbance that impacts care I'd typically recommend Zyprexa 2.5 mg qhs but her blood glucose have been consistently over 200 so either Haldol 1-2 mg or standing Risperdal 0.5 mg hs may be preferred. Risk Factors Assessment Do You Have Access To A Gun?: No Psych History Identifying Data Eri is a 76-year-old female from [place] who was admitted medically with AMS on 04/24/21 s/p fall and noted to be having hallucinations and some behavioral disturbance overnight. Consult is by the [facility] hospitalist service. Chief Complaint "I'm not hearing things but the nurse told me my house is sold and it upset me". History of Present Illness It was felt her AMS/encephalopathy was resolving and work up was relatively unremarkable but now there is concern patient seeing visions of animals or people in her room and seems more paranoid. She became more confused again overnight and was quite irritable with staff. It does not appear from the chart that she was aggressive or required prn medication. She doesn't remember falling and states that she owns her home and her "roommate" lives downstairs and has known her for 8 years. She essentially denies all symptoms and reports she's just upset that no one tells her what is going on and that her sister isn't taking her calls. She admits she relies on her dmdcxgb-pt-gdw for "pretty much everything" related to groceries and transportation. Her is gone for some time and mother May 12, 2020. She denies depression and stated "we don't talk about those things" referring to her family. She whispered at times but otherwise was calm in bed. Additional history was obtained by the liaison from [id number] with patient permission. The patient has a long history of paranoia dating back to a paperwork issue with the bank when she and her were buying a home. Her symptoms became more dramatic in 1998 following a head injury where she fell out of bed. She has never sought psychiatric care or taken medications. Past Psychiatric History Previous Psych History: denied Do You Have Access To A Gun?: No History of Previous Suicide Attempt: No Allergies Allergy/AdvReac Type Severity Reaction Status Date / Time morphine Allergy Unknown Verified 04/24/21 07:10 esomeprazole AdvReac Unknown Skin Verified 04/24/21 07:10 irritation,swelling,difficulty breathing. sucralfate AdvReac Unknown Skin Verified 04/24/21 07:10 irritation,swelling,difficulty breathing. Home Medications Medication Instructions Recorded Confirmed Type alprazolam 0.5 mg tablet 0.5 mg PO BID PRN 04/24/21 04/24/21 History cholecalciferol (vitamin D3) 25 25 mcg PO DAILY 04/24/21 04/24/21 History mcg (1,000 unit) capsule (Vitamin D3) fexofenadine 60 mg tablet 60 mg PO DAILY 04/24/21 04/24/21 History fluticasone propionate 50 2 spray INTRANASAL DAILY 04/24/21 04/24/21 History mcg/actuation nasal spray,suspension folic acid 1 mg tablet 1 mg PO DAILY 04/24/21 04/24/21 History furosemide 20 mg tablet 40 mg PO DAILY 04/24/21 04/24/21 History insulin aspart U-100 100 unit/mL 0 sliding scale dose SUBCUT UD 04/24/21 04/24/21 History subcutaneous solution (Novolog U-100 Insulin aspart) insulin glargine 100 unit/mL 40 unit SUBCUT HS 04/24/21 04/24/21 History subcutaneous solution (Lantus U-100 Insulin) lansoprazole 30 mg capsule,delayed 30 mg PO DAILYBB 04/24/21 04/24/21 History release levothyroxine 125 mcg tablet 125 mcg PO DAILYBB 04/24/21 04/24/21 History lisinopril 20 mg tablet 20 mg PO DAILY 04/24/21 04/24/21 History metformin 500 mg tablet,extended 1,000 mg PO QDD 04/24/21 04/24/21 History release 24 hr nystatin 100,000 unit/gram topical 1 applic TOPICAL TID 04/24/21 04/24/21 History powder tramadol 50 mg tablet 50 mg PO Q6H PRN 04/24/21 04/24/21 History Personal History Highest Grade Completed: High School Graduate Patient History Social History Smoking Status: Unknown if ever smoked Hx Alcohol Use: No Hx Substance Use: No Preferred Language: Faroese Communication Ability: Impaired 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 Current Living Situation: Family Feels Safe at Home: Yes Safety Concerns: Feels Safe At This Time Assistive Devices: Glasses and Walker Physical Exam Psychiatric: Orientation: alert, oriented to person and oriented to place Apperance: appropriately groomed Eye Contact: + fair eye contact Motor Behavior: no abnormal motor movements Speech: normal rate/rhythm/volume of speech (but soft at times) Affect: + constricted affect Mood: + anxious mood Thought Process: + circumstantial thought process and + concrete thought process Thought Content: + paranoid Suicidal Thoughts: denies suicidal thoughts Homicidal Thoughts: denies homicidal thoughts Hallucinations: no auditory hallucinations and no visual hallucinations Cognition: language grossly intact Estimated Intelligence: consistent with education level Insight: + limited insight Judgement: + limited judgement Vital Signs (Past 24 Hours): Last Vital Signs Temp 36.9 C 04/29/21 23:00 Pulse 83 04/30/21 04:14 Resp 18 04/29/21 23:00 BP 180/78 H 04/29/21 23:00 Pulse Ox 95 04/29/21 23:00 Review of Systems Unobtainable due to cognitive status Results & Data ([facility]) Laboratory Results 04/30/21 04/30/21 04/29/21 Range/Units 11:42 07:35 21:32 POC Glucose 268 H 215 H 223 H (70-99) mg/dl 04/29/21 Range/Units 16:30 POC Glucose 197 H (70-99) mg/dl Medications Administered Acetaminophen (Acetaminophen 325 Mg Tab) 650 mg PO Q4H PRN PRN Reason: Pain or Fever Stop: 05/24/21 06:38 Last Admin: 04/29/21 14:47 Dose: 650 mg Documented by: [id number] Admin: 04/29/21 04:47 Dose: 650 mg Documented by: [id number] Admin: 04/28/21 21:00 Dose: 650 mg Documented by: [id number] Admin: 04/26/21 02:39 Dose: 650 mg Documented by: [id number] Admin: 04/25/21 21:23 Dose: 650 mg Documented by: [id number] Amlodipine Besylate (Amlodipine Besylate 5 Mg Tab) 10 mg PO QAM [facility] Stop: 05/27/21 08:59 Last Admin: 04/30/21 08:26 Dose: 10 mg Documented by: [id number] Admin: 04/29/21 08:31 Dose: 10 mg Documented by: [id number] Admin: 04/28/21 08:25 Dose: 10 mg Documented by: [id number] Admin: 04/27/21 08:02 Dose: 10 mg Documented by: [id number] Aspirin (Aspirin 81 Mg Ectab) [facility] [place]: 05/25/21 08:59 Last Admin: 04/30/21 08:27 Dose: 81 mg Documented by: [id number] Admin: 04/29/21 08:31 Dose: 81 mg Documented by: [id number] Admin: 04/28/21 08:25 Dose: 81 mg Documented by: [id number] Admin: 04/27/21 08:02 Dose: 81 mg Documented by: [id number] Admin: 04/26/21 08:07 Dose: 81 mg Documented by: [id number] Admin: 04/25/21 10:00 Dose: 81 mg Documented by: [id number] Doxycycline Hyclate (Doxycycline Hyclate 100 Mg Cap) 100 mg PO BID [facility] Stop: 05/04/21 20:59 Last Admin: 04/30/21 08:29 Dose: 100 mg Documented by: [id number] Admin: 04/29/21 19:44 Dose: 100 mg Documented by: [id number] Admin: 04/29/21 08:31 Dose: 100 mg Documented by: [id number] Admin: 04/28/21 20:03 Dose: 100 mg Documented by: [id number] Admin: 04/28/21 08:25 Dose: 100 mg Documented by: [id number] Admin: 04/27/21 20:39 Dose: 100 mg Documented by: [id number] Admin: 04/27/21 08:02 Dose: 100 mg Documented by: [id number] Admin: 04/26/21 21:02 Dose: 100 mg Documented by: [id number] Admin: 04/26/21 08:07 Dose: 100 mg Documented by: [id number] Admin: 04/25/21 21:23 Dose: 100 mg Documented by: [id number] Admin: 04/25/21 10:39 Dose: 100 mg Documented by: [id number] Admin: 04/24/21 20:18 Dose: 100 mg Documented by: [id number] Enoxaparin Sodium (Enoxaparin Inj 40 Mg/0.4 Ml Syr) 40 mg SQ QAM [facility] Stop: 05/24/21 08:59 Last Admin: 04/30/21 08:29 Dose: 40 mg Documented by: [id number] Admin: 04/29/21 08:31 Dose: 40 mg Documented by: [id number] Admin: 04/28/21 08:25 Dose: 40 mg Documented by: [id number] Admin: 04/27/21 08:02 Dose: 40 mg Documented by: [id number] Admin: 04/26/21 08:06 Dose: 40 mg Documented by: [id number] Admin: 04/25/21 10:39 Dose: 40 mg Documented by: [id number] Admin: 04/24/21 08:47 Dose: 40 mg Documented by: [id number] Fluticasone Propionate (Fluticasone Propionate Na Spr 16 Gm Btl) 2 sprays NA DAILY [facility] Stop: 05/24/21 08:59 Last Admin: 04/30/21 08:30 Dose: 2 sprays Documented by: [id number] Admin: 04/29/21 08:31 Dose: 2 sprays Documented by: [id number] Admin: 04/28/21 08:25 Dose: 2 sprays Documented by: [id number] Admin: 04/27/21 08:02 Dose: 2 sprays Documented by: [id number] Admin: 04/26/21 08:06 Dose: 2 sprays Documented by: [id number] Admin: 04/25/21 10:39 Dose: 2 sprays Documented by: [id number] Admin: 04/24/21 08:47 Dose: 2 sprays Documented by: [id number] Folic Acid (Folic Acid 1 Mg Tab) 1 mg PO DAILY [facility] Stop: 05/24/21 08:59 Last Admin: 04/30/21 08:26 Dose: 1 mg Documented by: [id number] Admin: 04/29/21 08:32 Dose: 1 mg Documented by: [id number] Admin: 04/28/21 08:26 Dose: 1 mg Documented by: [id number] Admin: 04/27/21 08:02 Dose: 1 mg Documented by: [id number] Admin: 04/26/21 08:07 Dose: 1 mg Documented by: [id number] Admin: 04/25/21 10:39 Dose: 1 mg Documented by: [id number] Admin: 04/24/21 08:46 Dose: 1 mg Documented by: [id number] Hydralazine HCl (Hydralazine Hcl 25 Mg Tab) 25 mg PO BID [facility] Stop: 05/30/21 10:44 Last Admin: 04/30/21 11:45 Dose: 25 mg Documented by: [id number] Insulin Aspart (Insulin Aspart 100 Units/Ml 3 Ml Pen) 0 units SC ACHS [facility] Stop: 05/24/21 07:29 Last Admin: 04/30/21 08:27 Dose: 5 units Documented by: [id number] Cosigned by: [id number] Admin: 04/29/21 21:40 Dose: 4 units Documented by: [id number] Cosigned by: [id number] Admin: 04/29/21 17:11 Dose: 6 units Documented by: [id number] Cosigned by: [id number] Admin: 04/29/21 12:42 Dose: 5 units Documented by: [id number] Cosigned by: [id number] Admin: 04/29/21 08:33 Dose: 6 units Documented by: [id number] Cosigned by: [id number] Admin: 04/28/21 20:04 Dose: 2 units Documented by: [id number] Cosigned by: [id number] Admin: 04/28/21 16:57 Dose: 6 units Documented by: [id number] Cosigned by: [id number] Admin: 04/28/21 12:43 Dose: 10 units Documented by: [id number] Cosigned by: [id number] Admin: 04/28/21 08:30 Dose: 7 units Documented by: [id number] Cosigned by: [id number] Admin: 04/27/21 20:38 Dose: 4 units Documented by: [id number] Cosigned by: [id number] Admin: 04/27/21 16:59 Dose: 8 units Documented by: [id number] Cosigned by: [id number] Admin: 04/27/21 12:19 Dose: 7 units Documented by: [id number] Cosigned by: [id number] Admin: 04/27/21 08:03 Dose: 9 units Documented by: [id number] Cosigned by: [id number] Admin: 04/26/21 20:59 Dose: 3 units Documented by: [id number] Cosigned by: [id number] Admin: 04/26/21 17:08 Dose: 6 units Documented by: [id number] Cosigned by: [id number] Admin: 04/26/21 12:10 Dose: 9 units Documented by: [id number] Cosigned by: [id number] Admin: 04/26/21 08:07 Dose: 7 units Documented by: [id number] Cosigned by: [id number] Admin: 04/25/21 21:23 Dose: 5 units Documented by: [id number] Cosigned by: [id number] Admin: 04/25/21 17:02 Dose: 8 units Documented by: [id number] Cosigned by: [id number] Admin: 04/25/21 12:48 Dose: 9 units Documented by: [id number] Cosigned by: [id number] Admin: 04/25/21 08:18 Dose: 2 units Documented by: [id number] Cosigned by: [id number] Admin: 04/24/21 20:20 Dose: Not Given Documented by: [id number] Cosigned by: [id number] Admin: 04/24/21 20:19 Dose: Not Given Documented by: [id number] Cosigned by: [id number] Admin: 04/24/21 20:16 Dose: 4 units Documented by: [id number] Cosigned by: [id number] Admin: 04/24/21 08:43 Dose: 4 units Documented by: [id number] Cosigned by: [id number] Insulin Glargine (Insulin Glargine Solostar 100 Units/Ml 3 Ml Pen) 20 units SC DAILY [facility] Stop: 05/25/21 08:59 Last Admin: 04/30/21 08:30 Dose: 20 units Documented by: [id number] Cosigned by: [id number] Admin: 04/29/21 08:32 Dose: 20 units Documented by: [id number] Cosigned by: [id number] Admin: 04/28/21 08:30 Dose: 20 units Documented by: [id number] Cosigned by: [id number] Admin: 04/27/21 08:03 Dose: 20 units Documented by: [id number] Cosigned by: [id number] Admin: 04/26/21 08:08 Dose: 20 units Documented by: [id number] Cosigned by: [id number] Admin: 04/25/21 13:28 Dose: Not Given Documented by: [id number] Lansoprazole (Lansoprazole 30 Mg Soltab) 30 mg PO DAILYBB [facility] Stop: 05/24/21 07:59 Last Admin: 04/30/21 05:41 Dose: 30 mg Documented by: [id number] Admin: 04/29/21 08:38 Dose: Not Given Documented by: [id number] Admin: 04/28/21 05:48 Dose: 30 mg Documented by: [id number] Admin: 04/27/21 05:28 Dose: 30 mg Documented by: [id number] Admin: 04/26/21 05:30 Dose: 30 mg Documented by: [id number] Admin: 04/25/21 06:32 Dose: 30 mg Documented by: [id number] Admin: 04/24/21 08:46 Dose: 30 mg Documented by: [id number] Levothyroxine Sodium (Levothyroxine Sodium 125 Mcg Tablet) 125 mcg PO DAILYBB [facility] Stop: 05/25/21 06:29 Last Admin: 04/30/21 05:41 Dose: 125 mcg Documented by: [id number] Admin: 04/29/21 06:44 Dose: 125 mcg Documented by: [id number] Admin: 04/28/21 05:48 Dose: 125 mcg Documented by: [id number] Admin: 04/27/21 05:28 Dose: 125 mcg Documented by: [id number] Admin: 04/26/21 05:30 Dose: 125 mcg Documented by: [id number] Admin: 04/25/21 06:32 Dose: 125 mcg Documented by: [id number] Lidocaine (Lidocaine 5% 1 Patch) 1 patch TD HS [facility] Stop: 05/26/21 23:39 Last Admin: 04/29/21 19:44 Dose: 1 patch Documented by: [id number] Admin: 04/28/21 20:03 Dose: 1 patch Documented by: [id number] Admin: 04/27/21 20:39 Dose: 1 patch Documented by: [id number] Admin: 04/27/21 01:28 Dose: 1 patch Documented by: [id number] Lisinopril (Lisinopril 40 Mg Tab) 40 mg PO DAILY [facility] Stop: 05/27/21 04:39 Last Admin: 04/30/21 08:26 Dose: 40 mg Documented by: [id number] Admin: 04/29/21 08:32 Dose: 40 mg Documented by: [id number] Admin: 04/28/21 08:26 Dose: 40 mg Documented by: [id number] Admin: 04/27/21 05:28 Dose: 40 mg Documented by: [id number] Magnesium Chloride (Magnesium Chloride 64mg Delayed Rel Tab) 64 mg PO Q12H [facility] Stop: 05/27/21 18:59 Last Admin: 04/30/21 05:41 Dose: 64 mg Documented by: [id number] Admin: 04/29/21 17:13 Dose: 64 mg Documented by: [id number] Admin: 04/29/21 06:44 Dose: 64 mg Documented by: [id number] Admin: 04/28/21 18:19 Dose: 64 mg Documented by: [id number] Admin: 04/28/21 08:24 Dose: 64 mg Documented by: [id number] Admin: 04/27/21 18:13 Dose: 64 mg Documented by: [id number] Melatonin (Melatonin 3 Mg Tab) 3 mg PO HS PRN PRN Reason: Sleep Stop: 05/26/21 23:38 Last Admin: 04/27/21 20:40 Dose: 3 mg Documented by: [id number] Admin: 04/26/21 23:52 Dose: 3 mg Documented by: [id number] Miscellaneous (Remove Lidoderm Patch) 1 ea N/A QAM [facility] Stop: 05/26/21 09:59 Last Admin: 04/30/21 08:30 Dose: 1 ea Documented by: [id number] Admin: 04/29/21 09:00 Dose: 1 ea Documented by: [id number] Admin: 04/28/21 09:00 Dose: 1 ea Documented by: [id number] Admin: 04/27/21 08:04 Dose: Not Given Documented by: [id number] Admin: 04/27/21 01:36 Dose: Not Given Documented by: [id number] Tramadol HCl (Tramadol Hcl 50 Mg Tablet) 25 mg PO QID PRN PRN Reason: Pain Stop: 05/26/21 23:37 Last Admin: 04/30/21 08:57 Dose: 25 mg Documented by: [id number] Admin: 04/29/21 12:39 Dose: 25 mg Documented by: [id number] Admin: 04/28/21 18:19 Dose: 25 mg Documented by: [id number] Admin: 04/28/21 05:48 Dose: 25 mg Documented by: [id number] Admin: 04/27/21 20:40 Dose: 25 mg Documented by: [id number] Admin: 04/27/21 15:36 Dose: 25 mg Documented by: [id number] Admin: 04/26/21 23:52 Dose: 25 mg Documented by: [id number] Coding Level of Care Code 92995 [facility] Intl Hosp Care Lvl 2 Diagnoses Hyperglycemia due to diabetes mellitus E11.65 Acute on chronic alteration in mental status R41.82 Paranoid F22
--- NOTE | 2021-04-30 13:54 | Hospitalist Progress Note ---
Date of Service April 30, 2021 Assessment & Plan (1) Encephalopathy: Plan: per Dr. Artis's notes with addendum: Encephalopathy H/O traumatic brain injury Unclear Etiology Unknown baseline mental status --MRI Brain:No acute intracranial abnormality. No acute or subacute infarct. Age-related involutional changes with mild chronic microvascular ischemic disease. --MRA:Grossly unremarkable MR angiogram of the brain noting a motion compromised examination. --EEG:Essentially normal EEG during wakefulness without evidence for a focal generalized encephalopathy and without evidence for potentially epileptogenic patterns Follows simple commands Ammonia levels within normal limits TSH normal Negative toxicology screen Poor historian Appreciate Neurology Input Hold sedative meds (benzos, fexofenadine at home ) for now Mental status back to baseline B12 levels normal May need outpatient 72-hour EEG as per neurology Needs follow-up with neurology upon discharge Plan to discharge to rehab facility once arranged No signs of withdrawal 04/30 oriented but has intermittent confusion suspect underlying delirium continue delirium prevention strategies Psych consulted awaiting placement to Rehab Lyme disease ruled out Follow-up serology--negative d/c Doxycycline UTI ruled out Urine culture negative d/c Ceftriaxone Fall Possible syncopal event Monitor on telemetry Echo reviewed PT/OT Hypertension add Hydralazine 25mg BID Monitor Hyperlipidemia Statin intolerance as per records DM II HbA1c 7.2 Continue insulin therapy SLE as per records [facility] 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 Symptoms attributed to fibromyalgia as per outpatient note from 2019. Hypothyroidism Continue levothyroxine Possible functional disability Patient not answering calls from outpatient case management the last few months Management to help with discharge planning Magnesium Replace electrolytes as needed DVT Px: Lovenox SQ Code Status DNR/DNI Disposition Rehab when arranged Admission and Anticipated Discharge Date Admission Date: April 24, 2021 Subjective ff up for encephalopathy, etc seen with RN at bedside throughout whole encounter last night, patient was having hallucinations seen resting in bed, alert, oriented x 2 but mostly confused no chest pain, dyspnea, palpitations, dizziness no headache, dizziness, focal neuro symptoms appetite good no other symptoms Review of Systems Review of Systems: all noted and negative except for above Physical Exam Physical Exam: General- oriented x 1-2, not in distress, speaks in sentences with no effort or accessory muscle use Eyes- anicteric Neck- no JVD Lungs- clear BS BL Heart- normal rate, regular rhythm; no murmurs Abdomen- normal bowel sounds, nondistended, soft, nontender Extremities- no pretibial edema, no calf tenderness Neuro- alert, oriented x 2; no other new gross focal neurologic deficits Skin- warm & dry Results & Data Results & Data ([facility]) Vital Signs (Past 12 Hours) Vital Signs Pulse 04/30/21 04:14 83 all noted and reviewed including below
[2021-04-30] MEDS: LIDOCAINE 5% 1 PATCH TD SCH (20:31)
[2021-04-30] MEDS: MELATONIN 3 MG TAB PO PRN (21:47)
[2021-05-01] MEDS: MAGNESIUM CHLORIDE 64MG DELAYED REL TAB PO SCH ×2 (05:04→17:24)
[2021-05-01] MEDS: LEVOTHYROXINE SODIUM 125 MCG TABLET PO SCH (05:04)
[2021-05-01] MEDS: LANSOPRAZOLE 30 MG SOLTAB PO SCH (05:04)
[2021-05-01] MEDS: hydrALAZINE HCL 25 MG TAB PO SCH ×2 (07:56→22:08)
[2021-05-01] MEDS: ENOXAPARIN INJ 40 MG/0.4 ML SYR SQ SCH (07:56)
[2021-05-01] MEDS: lisinopril 40 MG TAB PO SCH (07:56)
[2021-05-01] MEDS: FOLIC ACID 1 MG TAB PO SCH (07:56)
[2021-05-01] MEDS: ASPIRIN 81 MG ECTAB PO SCH (07:56)
[2021-05-01] MEDS: INSULIN ASPART 100 UNITS/ML 3 ML PEN SC SCH ×4 (07:57→22:06)
[2021-05-01] MEDS: amLODIPine BESYLATE 5 MG TAB PO SCH (07:57)
[2021-05-01] MEDS: FLUTICASONE PROPIONATE NA SPR 16 GM BTL SCH (07:58)
[2021-05-01] MEDS: INSULIN GLARGINE SOLOSTAR 100 UNITS/ML 3 ML PEN SC SCH (07:59)
[2021-05-01] MEDS: traMADol HCL 50 MG TABLET PO PRN (10:03)
[2021-05-01 11:04] LABS: BUN Creatinine Ratio 24.1 (10-20); Calcium 9.1 mg/dl (8.5-10.1); Creatinine Clr Calc Pharmacy 40.7 ml/min; Est GFR (Non-African American) 43.2 ml/min; Potassium 4.5 mmol/L (3.5-5.1)
[2021-05-01] MEDS ORDERED: HALOPERIDOL LACTATE 5 MG/ML 1 ML VIAL IM PRN (15:05)
--- NOTE | 2021-05-01 15:11 | Hospitalist Progress Note ---
Date of Service May 01, 2021 Assessment & Plan (1) Encephalopathy: Plan: per Dr. Artis's notes with addendum: Encephalopathy H/O traumatic brain injury Unclear Etiology Unknown baseline mental status --MRI Brain:No acute intracranial abnormality. No acute or subacute infarct. Age-related involutional changes with mild chronic microvascular ischemic disease. --MRA:Grossly unremarkable MR angiogram of the brain noting a motion compromised examination. --EEG:Essentially normal EEG during wakefulness without evidence for a focal generalized encephalopathy and without evidence for potentially epileptogenic patterns Follows simple commands Ammonia levels within normal limits TSH normal Negative toxicology screen Poor historian Appreciate Neurology Input Hold sedative meds (benzos, fexofenadine at home ) for now Mental status back to baseline B12 levels normal May need outpatient 72-hour EEG as per neurology Needs follow-up with neurology upon discharge Plan to discharge to rehab facility once arranged No signs of withdrawal 05/01 oriented but has intermittent confusion suspect underlying delirium continue delirium prevention strategies Psych consulted- PRN Haldol or Risperdal recommended awaiting placement to Rehab Lyme disease ruled out Follow-up serology--negative d/c Doxycycline UTI ruled out Urine culture negative d/c Ceftriaxone Fall Possible syncopal event Monitor on telemetry Echo reviewed PT/OT Hypertension added Hydralazine 25mg BID Monitor BP Hyperlipidemia Statin intolerance as per records DM II HbA1c 7.2 Continue insulin therapy SLE as per records [facility]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 Symptoms attributed to fibromyalgia as per outpatient note from 2019. Hypothyroidism Continue levothyroxine Possible functional disability Patient not answering calls from outpatient case management the last few months Management to help with discharge planning Magnesium Replace electrolytes as needed DVT Px: Lovenox SQ Code Status DNR/DNI Disposition Rehab when arranged Admission and Anticipated Discharge Date Admission Date: April 24, 2021 Subjective ff up for encephalopathy, etc seen resting in bed, comfortable, sitting up answers most questions appropriately no chest pain, dyspnea, palpitations, dizziness no other new symptoms per RN, no agitation since last night mostly oriented today, but has intermittent confusion appetite is good no other symptoms Review of Systems Review of Systems: all noted and negative except for above Physical Exam Physical Exam: General- oriented x 2, not in distress, speaks in sentences with no effort or accessory muscle use Eyes- anicteric Neck- no JVD Lungs- clear BS BL Heart- normal rate, regular rhythm; no murmurs Abdomen- normal bowel sounds, nondistended, soft, nontender Extremities- no pretibial edema, no calf tenderness Neuro- alert, oriented x 2; no gross focal neurologic deficits Skin- warm & dry Results & Data Results & Data ([facility]) Vital Signs (Past 12 Hours) Vital Signs Temp Pulse Resp BP Pulse Ox 05/01/21 08:00 37 C 67 18 159/79 H 95 all noted and reviewed including below
[2021-05-01] MEDS: LIDOCAINE 5% 1 PATCH TD SCH (22:08)
[2021-05-02] MEDS: LANSOPRAZOLE 30 MG SOLTAB PO SCH (06:20)
[2021-05-02] MEDS: LEVOTHYROXINE SODIUM 125 MCG TABLET PO SCH (06:20)
[2021-05-02] MEDS: MAGNESIUM CHLORIDE 64MG DELAYED REL TAB PO SCH ×2 (06:21→18:18)
[2021-05-02] MEDS: amLODIPine BESYLATE 5 MG TAB PO SCH (08:18)
[2021-05-02] MEDS: INSULIN ASPART 100 UNITS/ML 3 ML PEN SC SCH ×4 (08:18→21:27)
[2021-05-02] MEDS: ENOXAPARIN INJ 40 MG/0.4 ML SYR SQ SCH (08:19)
[2021-05-02] MEDS: ASPIRIN 81 MG ECTAB PO SCH (08:19)
[2021-05-02] MEDS: FLUTICASONE PROPIONATE NA SPR 16 GM BTL SCH (08:19)
[2021-05-02] MEDS: hydrALAZINE HCL 25 MG TAB PO SCH ×2 (08:20→21:26)
[2021-05-02] MEDS: lisinopril 40 MG TAB PO SCH (08:20)
[2021-05-02] MEDS: FOLIC ACID 1 MG TAB PO SCH (08:20)
[2021-05-02] MEDS: INSULIN GLARGINE SOLOSTAR 100 UNITS/ML 3 ML PEN SC SCH (08:20)
[2021-05-02] MEDS: ACETAMINOPHEN 325 MG TAB PO PRN (18:18)
[2021-05-02] MEDS: LIDOCAINE 5% 1 PATCH TD SCH (21:27)
[2021-05-03] MEDS: MAGNESIUM CHLORIDE 64MG DELAYED REL TAB PO SCH ×2 (06:08→17:38)
[2021-05-03] MEDS: LANSOPRAZOLE 30 MG SOLTAB PO SCH (06:08)
[2021-05-03] MEDS: LEVOTHYROXINE SODIUM 125 MCG TABLET PO SCH (06:08)
[2021-05-03] MEDS: amLODIPine BESYLATE 5 MG TAB PO SCH (08:30)
[2021-05-03] MEDS: INSULIN ASPART 100 UNITS/ML 3 ML PEN SC SCH ×4 (08:30→21:48)
[2021-05-03] MEDS: ENOXAPARIN INJ 40 MG/0.4 ML SYR SQ SCH (08:31)
[2021-05-03] MEDS: ASPIRIN 81 MG ECTAB PO SCH (08:31)
[2021-05-03] MEDS: FLUTICASONE PROPIONATE NA SPR 16 GM BTL SCH (08:31)
[2021-05-03] MEDS: hydrALAZINE HCL 25 MG TAB PO SCH ×2 (08:32→21:50)
[2021-05-03] MEDS: lisinopril 40 MG TAB PO SCH (08:32)
[2021-05-03] MEDS: INSULIN GLARGINE SOLOSTAR 100 UNITS/ML 3 ML PEN SC SCH (08:32)
[2021-05-03] MEDS: FOLIC ACID 1 MG TAB PO SCH (08:33)
--- NOTE | 2021-05-03 12:18 | Hospitalist Progress Note ---
Date of Service May 03, 2021 Assessment & Plan (1) Encephalopathy: Plan: per Dr. Artis's notes with addendum: Encephalopathy H/O traumatic brain injury Unclear Etiology Unknown baseline mental status --MRI Brain:No acute intracranial abnormality. No acute or subacute infarct. Age-related involutional changes with mild chronic microvascular ischemic disease. --MRA:Grossly unremarkable MR angiogram of the brain noting a motion compromised examination. --EEG:Essentially normal EEG during wakefulness without evidence for a focal generalized encephalopathy and without evidence for potentially epileptogenic patterns Follows simple commands Ammonia levels within normal limits TSH normal Negative toxicology screen Poor historian Appreciate Neurology Input Hold sedative meds (benzos, fexofenadine at home ) for now Mental status back to baseline B12 levels normal May need outpatient 72-hour EEG as per neurology Needs follow-up with neurology upon discharge Plan to discharge to rehab facility once arranged No signs of withdrawal 05/03 Patient mostly oriented and answers questions appropriately today Does have moments of confusion suspect underlying delirium, improving continue delirium prevention strategies Psych consulted- PRN Haldol or Risperdal recommended awaiting placement to Rehab Lyme disease ruled out Follow-up serology--negative d/c Doxycycline UTI ruled out Urine culture negative d/c Ceftriaxone Fall Possible syncopal event Monitor on telemetry Echo reviewed PT/OT Hypertension added Hydralazine 25mg BID Monitor BP Seems to be improving Hyperlipidemia Statin intolerance as per records DM II HbA1c 7.2 Continue insulin therapy 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 Symptoms attributed to fibromyalgia as per outpatient note from 2019. Hypothyroidism Continue levothyroxine Possible functional disability Patient not answering calls from outpatient case management the last few months Management to help with discharge planning Magnesium Replace electrolytes as needed DVT Px: Lovenox SQ Code Status DNR/DNI Disposition Rehab when arranged Admission and Anticipated Discharge Date Admission Date: April 24, 2021 Subjective Follow-up for encephalopathy, etc. Seen resting in bed, watching TV, not in distress States she feels fine overall Oriented x2, occasionally confused, answers some questions appropriately Aware that there is a new Covid variant named omicron Denies any new symptoms No chest pain, shortness of breath, cough palpitations, dizziness No other symptom Review of Systems Review of Systems: all noted and negative except for above Physical Exam Physical Exam: General- oriented x 2, not in distress, speaks in sentences with no effort or accessory muscle use Pleasant Eyes- anicteric Neck- no JVD Lungs- clear BS BL Heart- normal rate, regular rhythm; no murmurs Abdomen-NABS, nondistended, soft, nontender Extremities- no pretibial edema, no calf tenderness Neuro- alert, oriented x 2; no new gross focal neurologic deficits Skin- warm & dry Results & Data Results & Data ([facility]) Vital Signs (Past 12 Hours) Vital Signs Temp Pulse Resp BP Pulse Ox 05/03/21 08:11 36.6 C 80 16 176/82 H 96 all noted and reviewed including below
[2021-05-03] MEDS: traMADol HCL 50 MG TABLET PO PRN (18:47)
[2021-05-03] MEDS: LIDOCAINE 5% 1 PATCH TD SCH (21:45)
[2021-05-04] MEDS: LANSOPRAZOLE 30 MG SOLTAB PO SCH (06:11)
[2021-05-04] MEDS: MAGNESIUM CHLORIDE 64MG DELAYED REL TAB PO SCH ×2 (06:11→20:06)
[2021-05-04] MEDS: LEVOTHYROXINE SODIUM 125 MCG TABLET PO SCH (06:11)
[2021-05-04] MEDS: INSULIN ASPART 100 UNITS/ML 3 ML PEN SC SCH ×4 (08:32→21:31)
[2021-05-04] MEDS: FOLIC ACID 1 MG TAB PO SCH (08:33)
[2021-05-04] MEDS: lisinopril 40 MG TAB PO SCH (08:33)
[2021-05-04] MEDS: ASPIRIN 81 MG ECTAB PO SCH (08:33)
[2021-05-04] MEDS: amLODIPine BESYLATE 5 MG TAB PO SCH (08:34)
[2021-05-04] MEDS: ENOXAPARIN INJ 40 MG/0.4 ML SYR SQ SCH (08:34)
[2021-05-04] MEDS: hydrALAZINE HCL 25 MG TAB PO SCH ×2 (08:34→21:32)
[2021-05-04] MEDS: FLUTICASONE PROPIONATE NA SPR 16 GM BTL SCH (08:34)
[2021-05-04] MEDS: INSULIN GLARGINE SOLOSTAR 100 UNITS/ML 3 ML PEN SC SCH (08:35)
[2021-05-04] MEDS ORDERED: INSULIN HUMAN REGULAR PER UNIT 4 UNITS in SYRINGE 3.96 ML IV ONE (20:45)
[2021-05-04] MEDS: LIDOCAINE 5% 1 PATCH TD SCH (21:30)
[2021-05-05] MEDS ORDERED: INFLUENZA VACCINE HIGH DOSE PF 65+ 0.7 ML SYR IM ONE (05:21)
[2021-05-05] MEDS: LANSOPRAZOLE 30 MG SOLTAB PO SCH (06:11)
[2021-05-05] MEDS: MAGNESIUM CHLORIDE 64MG DELAYED REL TAB PO SCH ×2 (06:11→19:36)
[2021-05-05] MEDS: LEVOTHYROXINE SODIUM 125 MCG TABLET PO SCH (06:11)
[2021-05-05] MEDS: amLODIPine BESYLATE 5 MG TAB PO SCH (09:04)
[2021-05-05] MEDS: ASPIRIN 81 MG ECTAB PO SCH (09:05)
[2021-05-05] MEDS: ENOXAPARIN INJ 40 MG/0.4 ML SYR SQ SCH (09:05)
[2021-05-05] MEDS: hydrALAZINE HCL 25 MG TAB PO SCH ×2 (09:05→21:00)
[2021-05-05] MEDS: lisinopril 40 MG TAB PO SCH (09:05)
[2021-05-05] MEDS: FLUTICASONE PROPIONATE NA SPR 16 GM BTL SCH (09:05)
[2021-05-05] MEDS: FOLIC ACID 1 MG TAB PO SCH (09:05)
[2021-05-05] MEDS: INSULIN GLARGINE SOLOSTAR 100 UNITS/ML 3 ML PEN SC SCH (09:06)
[2021-05-05] MEDS: INSULIN ASPART 100 UNITS/ML 3 ML PEN SC SCH ×4 (09:06→21:02)
--- NOTE | 2021-05-05 18:14 | Hospitalist Progress Note ---
Date of Service May 05, 2021 Assessment & Plan (1) Encephalopathy: Plan: per Dr. Artis's notes with addendum: Encephalopathy H/O traumatic brain injury Unclear Etiology Unknown baseline mental status --MRI Brain:No acute intracranial abnormality. No acute or subacute infarct. Age-related involutional changes with mild chronic microvascular ischemic disease. --MRA:Grossly unremarkable MR angiogram of the brain noting a motion compromised examination. --EEG:Essentially normal EEG during wakefulness without evidence for a focal generalized encephalopathy and without evidence for potentially epileptogenic patterns Follows simple commands Ammonia levels within normal limits TSH normal Negative toxicology screen Poor historian Appreciate Neurology Input Hold sedative meds (benzos, fexofenadine at home ) for now Mental status back to baseline B12 levels normal May need outpatient 72-hour EEG as per neurology Needs follow-up with neurology upon discharge Plan to discharge to rehab facility once arranged No signs of withdrawal 05/05 Psych consulted- PRN Haldol or Risperdal recommended underlying delirium, improving continue delirium prevention strategies awaiting placement to Rehab Lyme disease ruled out Follow-up serology--negative d/c Doxycycline UTI ruled out Urine culture negative d/c Ceftriaxone Fall Possible syncopal event Monitor on telemetry Echo reviewed PT/OT Hypertension added Hydralazine 25mg BID Monitor BP Seems to be improving Hyperlipidemia Statin intolerance as per records DM II HbA1c 7.2 Continue insulin therapy SLE as per records [facility]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 Symptoms attributed to fibromyalgia as per outpatient note from 2019. Hypothyroidism Continue levothyroxine Possible functional disability Patient not answering calls from outpatient case management the last few months Management to help with discharge planning Magnesium Replace electrolytes as needed DVT Px: Lovenox SQ Code Status DNR/DNI Disposition Rehab when arranged Admission and Anticipated Discharge Date Admission Date: April 24, 2021 Subjective ff up for encephalopathy, etc seen resting in bed, comfortable oriented x 2, answers most questions appropriately no chest pain, dyspnea, palpitations, dizziness no other new symptoms Review of Systems Review of Systems: all noted and negative except for above Physical Exam Physical Exam: General- oriented x 2, not in distress, speaks in sentences with no effort or accessory muscle use Eyes- anicteric Neck- no JVD Lungs- clear breath sounds bilaterally Heart- normal rate, regular rhythm; no murmurs Abdomen- normal bowel sounds, nondistended, soft, nontender Extremities- no pretibial edema, no calf tenderness Neuro- alert, oriented x 2; no new gross focal neurologic deficits Skin- warm & dry Results & Data Results & Data ([facility]) Vital Signs (Past 12 Hours) Vital Signs Temp Pulse Resp BP Pulse Ox 05/05/21 15:13 37.3 C 72 18 133/70 97 05/05/21 07:37 37.0 C 68 18 146/71 H 98 all noted and reviewed including below
[2021-05-05] MEDS: LIDOCAINE 5% 1 PATCH TD SCH (21:00)
[2021-05-05] MEDS: traMADol HCL 50 MG TABLET PO PRN (21:01)
[2021-05-06] MEDS: LEVOTHYROXINE SODIUM 125 MCG TABLET PO SCH (06:05)
[2021-05-06] MEDS: MAGNESIUM CHLORIDE 64MG DELAYED REL TAB PO SCH ×2 (06:06→21:27)
[2021-05-06] MEDS: LANSOPRAZOLE 30 MG SOLTAB PO SCH (06:06)
[2021-05-06] MEDS ORDERED: Influenza Vaccine-High Dose (Fluzone-HD) PF 65+ 0.7 ML SYR IM ONE (08:00)
[2021-05-06] MEDS: ENOXAPARIN INJ 40 MG/0.4 ML SYR SQ SCH (09:21)
[2021-05-06] MEDS: ASPIRIN 81 MG ECTAB PO SCH (09:21)
[2021-05-06] MEDS: amLODIPine BESYLATE 5 MG TAB PO SCH (09:21)
[2021-05-06] MEDS: lisinopril 40 MG TAB PO SCH (09:22)
[2021-05-06] MEDS: FOLIC ACID 1 MG TAB PO SCH (09:22)
[2021-05-06] MEDS: FLUTICASONE PROPIONATE NA SPR 16 GM BTL SCH (09:22)
[2021-05-06] MEDS: hydrALAZINE HCL 25 MG TAB PO SCH ×2 (09:22→21:27)
[2021-05-06] MEDS: INSULIN GLARGINE SOLOSTAR 100 UNITS/ML 3 ML PEN SC SCH (09:22)
[2021-05-06] MEDS: INSULIN ASPART 100 UNITS/ML 3 ML PEN SC SCH ×4 (09:23→21:28)
--- NOTE | 2021-05-06 20:36 | Hospitalist Progress Note ---
Date of Service May 06, 2021 Assessment & Plan (1) Encephalopathy: Plan: Encephalopathy H/O traumatic brain injury Unclear Etiology Unknown baseline mental status --MRI Brain:No acute intracranial abnormality. No acute or subacute infarct. Age-related involutional changes with mild chronic microvascular ischemic disease. --MRA:Grossly unremarkable MR angiogram of the brain noting a motion compromised examination. --EEG:Essentially normal EEG during wakefulness without evidence for a focal generalized encephalopathy and without evidence for potentially epileptogenic patterns Ammonia levels within normal limits TSH normal Negative toxicology screen Appreciate Neurology Input Hold sedative meds (benzos, fexofenadine at home ) B12 levels normal May need outpatient 72-hour EEG as per neurology Needs follow-up with neurology upon discharge Plan to discharge to rehab facility once arranged Intermittently confused at baseline as per family (history of diabetic coma and head trauma) Unsafe to be discharged home Appreciate Psychiatry Input Ruled out Lyme's disease Doxycycline DCed Suspected UTI--Ruled out Urine culture negative Received Rocephin empirically Fall Possible syncopal event Monitor on telemetry Echo reviewed PT/OT Hypertension Added hydralazine Continue current medications Monitor Hyperlipidemia Statin intolerance as per records DM II HbA1c 7.2 Continue insulin therapy SLE as per records [employer]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 Symptoms attributed to fibromyalgia as per outpatient note from 2019. Hypothyroidism Continue levothyroxine Possible functional disability Patient not answering calls from outpatient case management the last few months Management to help with discharge planning Hypomagnesemia Replace electrolytes as needed DVT Px: Lovenox SQ Code Status DNR/DNI Disposition Rehab when arranged Admission and Anticipated Discharge Date Admission Date: April 24, 2021 Subjective Patient is seen and examined at bedside Intermittently confused Updated patient's family over the phone Denies any chest pain, shortness of breath, dizziness, nausea, abdominal pain Waiting for rehab placement Review of Systems Review of Systems: All systems reviewed & are unremarkable except as noted in Subjective Physical Exam Physical Exam: Physical Exam: Vitals signs as noted above General Appearance:Morbidly Obese, no apparent distress Head: normocephalic, Atraumatic Eyes: normal inspection, EOMI Neck: supple, Trachea midline Respiratory/Chest: Normal breath sounds, CTA Cardiovascular: S1, S2, No murmur Abdomen/GI:Soft, Non tender, Bowel sounds present Extremities/Musculoskeletal:normal inspection, no edema Neurologic/Psych:AA, grossly no focal neurological deficits Skin: normal color, warm Results & Data Results & Data ([facility]) Vital Signs (Past 12 Hours) Vital Signs Temp Pulse Resp BP Pulse Ox 05/06/21 14:47 36.9 C 66 18 123/69 99
[2021-05-06] MEDS: MELATONIN 3 MG TAB PO PRN (21:27)
[2021-05-06] MEDS: LIDOCAINE 5% 1 PATCH TD SCH (21:28)
[2021-05-06] MEDS: traMADol HCL 50 MG TABLET PO PRN (21:41)
[2021-05-07] MEDS: MAGNESIUM CHLORIDE 64MG DELAYED REL TAB PO SCH (05:54)
[2021-05-07] MEDS: LANSOPRAZOLE 30 MG SOLTAB PO SCH (05:54)
[2021-05-07] MEDS: LEVOTHYROXINE SODIUM 125 MCG TABLET PO SCH (05:54)
[2021-05-07] MEDS: lisinopril 40 MG TAB PO SCH (08:05)
[2021-05-07] MEDS: amLODIPine BESYLATE 5 MG TAB PO SCH (08:06)
[2021-05-07] MEDS: hydrALAZINE HCL 25 MG TAB PO SCH (08:06)
[2021-05-07] MEDS: FOLIC ACID 1 MG TAB PO SCH (08:06)
[2021-05-07] MEDS: FLUTICASONE PROPIONATE NA SPR 16 GM BTL SCH (08:07)
[2021-05-07] MEDS: ASPIRIN 81 MG ECTAB PO SCH (08:07)
[2021-05-07] MEDS: ENOXAPARIN INJ 40 MG/0.4 ML SYR SQ SCH (08:47)
[2021-05-07] MEDS: INSULIN ASPART 100 UNITS/ML 3 ML PEN SC SCH ×2 (08:55→12:45)
[2021-05-07] MEDS: INSULIN GLARGINE SOLOSTAR 100 UNITS/ML 3 ML PEN SC SCH (10:40)
--- NOTE | 2021-05-07 10:41 | Hospitalist Progress Note ---
Date of Service May 07, 2021 Assessment & Plan (1) Encephalopathy: Plan: Encephalopathy H/O traumatic brain injury Unclear Etiology Unknown baseline mental status --MRI Brain:No acute intracranial abnormality. No acute or subacute infarct. Age-related involutional changes with mild chronic microvascular ischemic disease. --MRA:Grossly unremarkable MR angiogram of the brain noting a motion compromised examination. --EEG:Essentially normal EEG during wakefulness without evidence for a focal generalized encephalopathy and without evidence for potentially epileptogenic patterns Ammonia levels within normal limits TSH normal Negative toxicology screen Appreciate Neurology Input Hold sedative meds (benzos, fexofenadine at home ) B12 levels normal May need outpatient 72-hour EEG as per neurology Needs follow-up with neurology upon discharge Intermittently confused at baseline as per family (history of diabetic coma and head trauma) Unsafe to be discharged home Appreciate Psychiatry Input Plan to discharge to Rehab today Ruled out Lyme's disease Doxycycline DCed Suspected UTI--Ruled out Urine culture negative Received Rocephin empirically Fall Possible syncopal event Monitor on telemetry Echo reviewed PT/OT Hypertension Added hydralazine Continue current medications Monitor Hyperlipidemia Statin intolerance as per records DM II HbA1c 7.2 Continue insulin therapy 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 Symptoms attributed to fibromyalgia as per outpatient note from 2019. Hypothyroidism Continue levothyroxine Possible functional disability Patient not answering calls from outpatient case management the last few months Management to help with discharge planning Hypomagnesemia Replace electrolytes as needed DVT Px: Lovenox SQ Code Status DNR/DNI Disposition Rehab Admission and Anticipated Discharge Date Admission Date: April 24, 2021 Subjective Patient is seen and examined at bedside No confusion today Denies any chest pain, shortness of breath, dizziness, nausea, abdominal pain Plan to discharge to Rehab facility today Review of Systems Review of Systems: All systems reviewed & are unremarkable except as noted in Subjective Physical Exam Physical Exam: Physical Exam: Vitals signs as noted above General Appearance:Morbidly Obese, no apparent distress Head: normocephalic, Atraumatic Eyes: normal inspection, EOMI Neck: supple, Trachea midline Respiratory/Chest: Normal breath sounds, CTA Cardiovascular: S1, S2, No murmur Abdomen/GI:Soft, Non tender, Bowel sounds present Extremities/Musculoskeletal:normal inspection, no edema Neurologic/Psych:AA, grossly no focal neurological deficits Skin: normal color, warm Results & Data Results & Data ([place]) Vital Signs (Past 12 Hours) Vital Signs Temp Pulse Resp BP Pulse Ox 05/07/21 07:23 36.5 C 65 17 160/74 H 98 05/06/21 23:00 37.0 C 64 20 125/68 97
--- NOTE | 2021-05-07 10:53 | Discharge Summary ---
Date of Service May 07, 2021 Admission HPI Per Admitting Provider History obtained from patient, family, and records. Unable to obtain reliable history from patient secondary to aphasia/disorientation. Medical history significant for hypertension, hyperlipidemia/statin intolerance as per records, DM2 insulin requiring, unspecified SLE as per records, fibromyalgia, history postconcussion syndrome/traumatic brain injury as per records, GERD, PTSD. Patient found by housemate on the floor last night. Increased falling and weakness over the last few weeks. Unclear if patient passing out. Patient unable to qualify questions regarding chest pain, shortness of breath, headache, syncope, abdominal pain symptoms. Patient roommate alerted patient's sister and [id number]. Family noted patient to be disoriented. More confused than usual. Seems to have trouble getting words out. Patient brought to the ER for evaluation. 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 Admission Exam Per Admitting Provider Physical Exam Physical Exam: GENERAL: Disoriented, aphasic, obese, no respiratory distress SKIN: Normal color, warm HEENT: [place] palpebral conjunctivae, no ptosis, dry buccal mucosa NECK : Supple, short neck, no tenderness CHEST : CTA, no tenderness HEART : RRR, no obvious murmurs ABDOMEN: Some distention, nontender EXTREMITIES : Minimal LE swelling, no LE tenderness, no other conspicuous deformities noted NEUROLOGIC : Disoriented, aphasic, no facial asymmetry, gait and stance not assessed Principal Diagnosis Encephalopathy Fall Diabetes Mellitus Microvascular ischemic disease Discharge Data Allergies Allergy/AdvReac Type Severity Reaction Status Date / Time morphine Allergy Unknown Verified 04/24/21 07:10 esomeprazole AdvReac Unknown Skin Verified 04/24/21 07:10 irritation,swelling,difficulty breathing. sucralfate AdvReac Unknown Skin Verified 04/24/21 07:10 irritation,swelling,difficulty breathing. Consultations 04/24/21 05:02 ED Decision to Admit Stat 04/24/21 15:41 Consult Neurology Routine 04/30/21 01:47 Consult Psychiatry Routine Ordered Studies 04/24/21 03:35 CT cervical spine wo con Urgent CT head/brain wo con Urgent 04/24/21 06:04 MR angio head wo con Urgent MR brain wo con Urgent Hospital Course (1) Encephalopathy: Encephalopathy H/O traumatic brain injury Unclear Etiology Unknown baseline mental status --MRI Brain:No acute intracranial abnormality. No acute or subacute infarct. Age-related involutional changes with mild chronic microvascular ischemic di sease. --MRA:Grossly unremarkable MR angiogram of the brain noting a motion compromised examination. --EEG:Essentially normal EEG during wakefulness without evidence for a focal generalized encephalopathy and without evidence for potentially epileptogenic patterns Ammonia levels within normal limits TSH normal Negative toxicology screen Appreciate Neurology Input Hold sedative meds (benzos, fexofenadine at home ) B12 levels normal May need outpatient 72-hour EEG as per neurology Needs follow-up with neurology upon discharge Intermittently confused at baseline as per family (history of diabetic coma and head trauma) Unsafe to be discharged home Appreciate Psychiatry Input Plan to discharge to Rehab today Ruled out Lyme's disease Doxycycline DCed Suspected UTI--Ruled out Urine culture negative Received Rocephin empirically Fall Possible syncopal event Monitor on telemetry Echo reviewed PT/OT Hypertension Added hydralazine Continue current medications Monitor Hyperlipidemia Statin intolerance as per records DM II HbA1c 7.2 Continue insulin therapy SLE as per records 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 Symptoms attributed to fibromyalgia as per outpatient note from 2019. Hypothyroidism Continue levothyroxine Possible functional disability Patient not answering calls from outpatient case management the last few months Management to help with discharge planning Hypomagnesemia Replace electrolytes as needed DVT Px: Lovenox SQ Code Status DNR/DNI Disposition Rehab Total Time Total Time Spent Total Time Spent (In Minutes): 45 minutes Discharge Plan Discharge Items Patient Disposition: Transfer Shelter Fac Reason For Visit: ENCEPHALOPATHY Discharge Diagnosis: Encephalopathy Fall Diabetes Mellitus Activity: Per Instructions section Exercise/Sports: Gradually increase as tolerated Non-emergency contact: Primary Care Provider and Neurologist Call non-emergency contact if: you have any medication questions, your symptoms worsen, your pain is concerning for you and you have a fever Follow-up/Referrals: Brabara Gill MD [Primary Care Provider] - Diet: Carb Consistent or DM2 and Heart Healthy Diet Texture: Easy to Chew Addtl Attending Provider Instructions: Follow up with your primary care physician in 1 week upon discharge from rehab facility Follow-up with your neurologist for outpatient 72 Hour EEG and further evaluation. ----Discussed with your physician for further adjustment of your blood pressure medications for better control of your blood pressure. Seek immediate medical attention if your symptoms reoccur or worsen Please take all medications as instructed on discharge list below. Please call if you have any questions or problems. You can reach a [facility] [address] hospitalist on duty at [facility] 24 hours a day by calling [phone] Pending Studies at Discharge: No Stand-Alone Forms: My [facility] Skilled Items Patient informed of condition?: Yes DNR: Yes Discharge Level of Care: Skilled Communicable Disease: No Discharge Prognosis: Stable Lines: None Urinary Catheter: No Medications and DC Order Prescriptions: New lisinopril [Zestril] 40 mg Tablet 40 mg PO DAILY Qty: 30 RF: 0 hydralazine 25 mg Tablet 25 mg PO BID Qty: 60 RF: 0 aspirin 81 mg Tablet,Delayed Release (Dr/Ec) 81 mg PO QAM Qty: 30 RF: 0 magnesium chloride [Mag 64] 64 mg Tablet,Delayed Release (Dr/Ec) 64 mg PO Q12H Qty: 60 RF: 0 amlodipine 5 mg tablet 5 mg PO DAILY Qty: 30 RF: 0 Continued Lantus U-100 Insulin 100 unit/mL solution 40 unit SUBCUT HS RF: 0 tramadol 50 mg tablet 50 mg PO Q6H PRN (Reason: Pain) RF: 0 insulin aspart U-100 [Novolog U-100 Insulin aspart] 100 unit/mL solution 0 sliding scale dose subcut UD RF: 0 levothyroxine 125 mcg tablet 125 mcg PO DAILYBB RF: 0 lansoprazole 30 mg capsule,delayed release(DR/EC) 30 mg PO DAILYBB RF: 0 folic acid 1 mg Tablet 1 mg PO DAILY RF: 0 furosemide 20 mg tablet 40 mg PO DAILY RF: 0 nystatin 100,000 unit/gram Powder 1 applic TOPICAL TID RF: 0 fluticasone propionate 50 mcg/actuation spray,suspension 2 spray INTRANASAL DAILY RF: 0 metformin 500 mg tablet extended release 24 hr 1,000 mg PO QDD RF: 0 cholecalciferol (vitamin D3) [Vitamin D3] 25 mcg (1,000 unit) Capsule 25 mcg PO DAILY RF: 0 Discontinued fexofenadine 60 mg Tablet 60 mg PO DAILY RF: 0 lisinopril 20 mg tablet 20 mg PO DAILY RF: 0 alprazolam 0.5 mg tablet 0.5 mg PO BID PRN (Reason: Anxiety) RF: 0 Discharge Orders: Discharge Order (Routine); Ordered 05/07/21 Ordered By: Vik Moya/Other Patient Handouts: High Blood Sugar (Hyperglycemia), Hypoglycemia (Low Blood Sugar), Managing Type 2 Diabetes Admission Data Admit Date/Time: 04/24/21 06:13 Attending Provider: Vik Artis Admit Provider: Gt Estrella Primary Care Provider: Barbara Gill Other Providers: Vik Artis ; Gt Estrella ; Jacques Gray Erica K. ; Catrina Montes ; Debra Arias ; Troy Espinoza ; [facility]
== END 2021-05-07 14:30 | DRG 71 ==
LOC: ED 01:42 → SUATTDRO 06:13 → EDINP 06:13 → 2W 04-25 13:00

== ENCOUNTER 2022-01-11 17:35 | Inpatient (IN) ==
--- NOTE | 2022-01-11 17:45 | Emergency Department Note ---
Impression & Plan Encephalopathy, hypertensive, Fall, Hyperglycemia due to diabetes mellitus, Acute on chronic alteration in mental status, Urinary tract infection ED Provider Note NAME: TIP SAVAGE AGE: 76 SEX: F : 1945 ARRIVES VIA: Ambulance INFORMANT: Patient, EMS ED PROVIDER(S): Rogelio Thompson DO CHIEF COMPLAINT: Altered mental status HPI: The patient is a 76-year-old female who presented to the emergency department by ambulance. The patient has an unknown downtime but was found on the floor. She was covered in stool as well as urine. Her house was in disarray. There is no definite area where she fell and the prehospital pe rsonnel could not identify a definite injury. The patient was found by the person that delivers her groceries every week. He last saw her a week ago. The patient was found to very elevated blood pressure prior to arrival. There was no reported nausea or vomiting. There is no reported headache or neck pain. There was no reported hip pain. The patient was found to have an abnormal EKG prior to arrival. There was a prehospital notification by the field cane scale clerk. The patient was given a very small fluid bolus and blood sugar was found to be elevated. ROS: See above HPI for pertinent positives & negatives. A total of 10 systems reviewed and were otherwise negative. PAST MEDICAL HISTORY: See Below PAST SURGICAL HISTORY: See Below FAMILY HISTORY: See Below SOCIAL HISTORY: See Below HOME MEDICATIONS: See Below ALLERGIES: See Below VITALS: See Below PHYSICAL EXAMINATION: GENERAL: The patient is awake and alert. The patient is somewhat anxious pain. EYES: The conjunctivae are clear. The pupils are round and reactive. EARS, NOSE, MOUTH AND THROAT: The nose is without any evidence of any deformity. Mucous membranes are dry. NECK: The neck is nontender and supple. RESPIRATORY: Diminished breath sounds are noted throughout. CARDIOVASCULAR: Regular rate and rhythm noted there no murmurs rubs or gallops normal S1 normal S2. GASTROINTESTINAL: The abdomen was soft and mildly distended. There is no tenderness guarding rigidity. BACK: No midline tenderness or or step-off noted range of motion in flexion extension as well as rotation no signs of muscle spasm noted MUSCULOSKELETAL/EXTREMITIES: There is no evidence of gross deformity full range of motion is noted in the hips and shoulders. SKIN: Skin is warm and dry. There is no significant pedal edema. NEUROLOGIC: Patient is awake and oriented to person place but not time. Strength was symmetric. The patient is able to hold each leg off the bed for greater than 5 seconds. MEDICAL DECISION MAKING: The patient is a 76-year-old female who presented to the emergency department for an evaluation after she was found in her home. The patient was confused. She was found to have a very elevated blood pressure. Reportedly she had not taken her medications and was covered in stool and urine. The patient arrived at the emergency department via ALS. She was awake and alert but appeared to be very confused at times. The patient was treated with IV fluids in the emergency department. She was also treated with IV antibiotics for presumed urinary tract infection noted on urinalysis. The patient was found of a very elevated sodium. Clearly she is very dehydrated as she should have some degree of hyponatremia given her elevated blood sugar. She was treated with further IV hydration as well as IV insulin. She was given potassium replacement as well. She was given her outpatient hypertension medications. [facility] Triage Nursing notes reviewed. Prior medical records reviewed Vital Signs: reviewed and remarkable for elevated blood pressure. Differential diagnosis: Infection, hypoglycemia, electrolyte abnormalities, overdose, toxicologic, cardiac sources, intracerebral event, neurologic, trauma, as well as other pathologies. ER treatment provided: See below Diagnostics interpreted by me: ECG: EKG was obtained in the emergency department. My interpretation is normal sinus rhythm at 71 bpm. There is no ectopy. Nonspecific T wave flattening and T wave inversions were noted. This was compared to a tracing from April 24, 2021. No significant changes were noted. Cardiac Monitoring: An order was placed for continuous cardiac monitoring. The monitor shows a rate of 77 bpm with sinus rhythm. Laboratory studies: As stated above and show below. Imaging studies: See below Consultation(s): I discussed this case with Dr. Aponte who [facility] ED COURSE: Procedures: none Critical Care: I have personally spent greater than 45 minutes of critical care time in the direct management of this patient. This includes bedside care, interpretation of diagnostic studies, and testing, discussion with consultants, patient, and family members, and other required patient management activities. This 45 minutes is in excess of all separately billable procedures. 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 Current Living Situation: Family Feels Safe at Home: Yes Allergies Allergies Allergy/AdvReac Type Severity Reaction Status Date / Time atorvastatin [From Lipitor] Allergy Unknown Unknown Verified 01/11/22 20:00 morphine Allergy Unknown Verified 04/24/21 07:10 acetaminophen [From Percocet] AdvReac Unknown Vomiting Verified 01/11/22 20:00 aspirin [From Percodan] AdvReac Unknown Vomiting Verified 01/11/22 20:00 cephalexin AdvReac Unknown Unknown Verified 01/11/22 20:00 codeine AdvReac Unknown Vomiting Verified 01/11/22 20:00 esomeprazole AdvReac Unknown Skin Verified 04/24/21 07:10 irritation,swelling,difficulty breathing. oxycodone [From Percodan] AdvReac Unknown Vomiting Verified 01/11/22 20:00 sucralfate AdvReac Unknown Skin Verified 01/11/22 20:00 irritation,swelling,difficulty breathing. Home Meds Home Medications Medication Instructions Recorded Confirmed cholecalciferol (vitamin D3) 25 25 mcg PO DAILY 04/24/21 04/24/21 mcg (1,000 unit) capsule (Vitamin D3) fluticasone propionate 50 2 spray intranasal DAILY 04/24/21 04/24/21 mcg/actuation nasal spray,suspension folic acid 1 mg tablet 1 mg PO DAILY 04/24/21 04/24/21 furosemide 20 mg tablet 40 mg PO DAILY 04/24/21 04/24/21 insulin aspart U-100 100 unit/mL 0 sliding scale dose subcut UD 04/24/21 subcutaneous solution (Novolog U-100 Insulin aspart) insulin glargine 100 unit/mL 40 unit subcut HS 04/24/21 04/24/21 subcutaneous solution (Lantus U-100 Insulin) lansoprazole 30 mg capsule,delayed 30 mg PO DAILYBB 04/24/21 04/24/21 release levothyroxine 125 mcg tablet 125 mcg PO DAILYBB 04/24/21 04/24/21 metformin 500 mg tablet,extended 1,000 mg PO QDD 04/24/21 04/24/21 release 24 hr nystatin 100,000 unit/gram topical 1 applic topical TID 04/24/21 04/24/21 powder tramadol 50 mg tablet 50 mg PO Q6H PRN Pain 04/24/21 04/24/21 Previous Rx's Medication Instructions Recorded amlodipine 5 mg tablet 5 mg PO DAILY #30 tabs 05/07/21 aspirin 81 mg tablet,delayed 81 mg PO QAM #30 tabs 05/07/21 release hydralazine 25 mg tablet 25 mg PO BID #60 tabs 05/07/21 lisinopril 40 mg tablet (Zestril) 40 mg PO DAILY #30 tabs 05/07/21 magnesium chloride 64 mg 64 mg PO Q12H #60 tabs 05/07/21 (magnesium chloride) tablet,delayed release (Mag 64) Results & Data (ED) Vital Signs Vital Signs - 24 hr 01/11/22 17:41 01/11/22 18:15 01/11/22 18:15 Pulse Rate 75 Pulse Rate [Apical] Pulse Rhythm Respiratory Rate 19 Respiratory Effort / Characteristics Non-Labored Spontaneous Respiratory Depth Normal Respiratory Pattern Regular Blood Pressure 212/142 H Blood Pressure [Right Arm] Blood Pressure Mean 165 Blood Pressure Mean [Right Arm] Blood Pressure Position [Right Arm] Pulse Oximetry 97 99 Oxygen Delivery Method Room Air Room Air Room Air Sepsis Recent Fever Within 48 Hours No Sepsis New/Unexplained Change in Mental Status N/A Sepsis Action Taken by Nursing No Action Required 01/11/22 18:15 01/11/22 19:54 01/11/22 19:54 Pulse Rate 77 Pulse Rate [Apical] 77 Pulse Rhythm Regular Respiratory Rate 20 Respiratory Effort / Characteristics Non-Labored Non-Labored Respiratory Depth Normal Respiratory Pattern Blood Pressure Blood Pressure [Right Arm] 227/95 H Blood Pressure Mean Blood Pressure Mean [Right Arm] 139 Blood Pressure Position [Right Arm] Sitting Pulse Oximetry 99 98 98 Oxygen Delivery Method Room Air Room Air Room Air Sepsis Recent Fever Within 48 Hours Sepsis New/Unexplained Change in Mental Status Sepsis Action Taken by Correction Medications Current Medication List: was personally reviewed by me Laboratory Data Attestation: I reviewed the patient's lab results. Result diagrams: 01/11/22 17:51 01/11/22 17:51 Lab Results 01/11/22 01/11/22 01/11/22 Range/Units 17:51 17:51 17:51 WBC 12.72 H (4.8-10.8) K/ul RBC 4.45 (3.93-5.22) M/uL Hgb 12.8 (12.0-16.0) g/dl Hct 38.7 (34.1-44.9) % MCV 87.0 (80.0-100.0) fL MCH 28.8 (25.0-34.0) pg MCHC 33.1 (32.0-36.0) g/dL RDW Std Deviation 43.2 (36.4-46.3) fL RDW Coeff of Chris 13.7 (11.5-14.5) % Plt Count 342 (130-400) K/uL MPV 11.4 (9.4-12.3) fL Immature Gran % (Auto) 0.5 % Neut % (Auto) 83.7 % Lymph % (Auto) 9.4 % [place] % (Auto) 6.1 % Eos % (Auto) 0.0 % Baso % (Auto) 0.3 % Neut # (Auto) 10.65 H (1.4-6.5) K/uL Lymph # (Auto) 1.20 (1.2-3.4) K/uL [place] # (Auto) 0.77 (0.24-0.82) K/uL Eos # (Auto) 0.00 (0-0.50) K/uL Baso # (Auto) 0.04 (0-0.2) K/uL Immature Gran # (Auto) 0.06 H (0.00-0.02) K/uL ESR 32 H (0-30) mm/hr PT 11.1 (9.0-12.0) Seconds INR 1.0 (0.9-1.1) APTT 25.4 (21.0-31.0) Seconds PTT Ratio 0.9 VBG pH (7.36-7.41) VBG pCO2 (38-50) mmHg VBG pO2 mmHg VBG HCO3 mmol/L VBG O2 Saturation % VBG Base Excess mEq/L Sodium (136-145) mmol/L Potassium (3.5-5.1) mmol/L Chloride (98-107) mmol/L Carbon Dioxide (21-32) mmol/L Anion Gap (3-11) BUN (6-23) mg/dl Creatinine (0.6-1.2) mg/dl Est Cr Clr Drug Dosing ml/min Est GFR ( Amer) ml/min Est GFR (Non-Af Amer) ml/min BUN/Creatinine Ratio (10-20) Glucose (70-99(Fasting)) mg/dl Osmolality (280-300) mOsm/kg Lactate (0.4-2.0) mmol/L Calcium (8.5-10.1) mg/dl Magnesium (1.7-2.4) mg/dl Total Bilirubin (0.2-1.0) mg/dl AST (13-39) U/L ALT (7-52) U/L Alkaline Phosphatase (34-104) U/L Ammonia (18-72) umol/L Total Creatine Kinase (26-192) U/L Troponin I High Sens (0-14) pg/ml C-Reactive Protein (0-0.5) mg/dl Total Protein (6.0-8.3) gm/dl Albumin (3.4-5.0) gm/dl Globulin (2.5-4.0) gm/dl Albumin/Globulin Ratio (0.9-2) Procalcitonin (0-0.5) ng/ml Urine Color Urine Appearance (Clear) Urine pH (4.5-7.5) Ur Specific [place] (1.000-1.030) Urine Protein (Negative) Urine Glucose (UA) (Negative) Urine Ketones (Negative) Urine Blood (Negative) Urine Nitrite (Negative) Urine Bilirubin (Negative) Urine Urobilinogen (Negative) Ur Leukocyte Esterase (Negative) Urine WBC (Auto) (0-5) /hpf Urine RBC (Auto) (0-4) /hpf U Hyaline Cast (Auto) (0-5) /lpf U Epithel Cells (Auto) (0-5) /lpf Urine Bacteria (Auto) (Negative) Urine Osmolality (500-800) mOsm/kg Urine Opiates Screen (Neg) Ur Methadone, Qual (Neg) Urine Barbiturates (Neg) Ur Phencyclidine (PCP) (Neg) U Amphetamin/Meth Scrn (Neg) MDMA (Ecstasy) Screen (Neg) U Benzodiazepines Scrn (Neg) Ur Cocaine Metabolite (Neg) U Marijuana (THC) Screen (Neg) Ethyl Alcohol mg/dL (<10.0) mg/dl SARS-CoV-2, RNA, NAAT (NEGATIVE) 01/11/22 01/11/22 01/11/22 Range/Units 17:51 17:51 17:51 WBC (4.8-10.8) K/ul RBC (3.93-5.22) M/uL Hgb (12.0-16.0) g/dl Hct (34.1-44.9) % MCV (80.0-100.0) fL MCH (25.0-34.0) pg MCHC (32.0-36.0) g/dL RDW Std Deviation (36.4-46.3) fL RDW Coeff of Chris (11.5-14.5) % Plt Count (130-400) K/uL MPV (9.4-12.3) fL Immature Gran % (Auto) % Neut % (Auto) % Lymph % (Auto) % [place] % (Auto) % Eos % (Auto) % Baso % (Auto) % Neut # (Auto) (1.4-6.5) K/uL Lymph # (Auto) (1.2-3.4) K/uL [place] # (Auto) (0.24-0.82) K/uL Eos # (Auto) (0-0.50) K/uL Baso # (Auto) (0-0.2) K/uL Immature Gran # (Auto) (0.00-0.02) K/uL ESR (0-30) mm/hr PT (9.0-12.0) Seconds INR (0.9-1.1) APTT (21.0-31.0) Seconds PTT Ratio VBG pH (7.36-7.41) VBG pCO2 (38-50) mmHg VBG pO2 mmHg VBG HCO3 mmol/L VBG O2 Saturation % VBG Base Excess mEq/L Sodium 150 H (136-145) mmol/L Potassium 3.4 L (3.5-5.1) mmol/L Chloride 116 H (98-107) mmol/L Carbon Dioxide 22 (21-32) mmol/L Anion Gap 12 H (3-11) BUN 20 (6-23) mg/dl Creatinine 1.09 (0.6-1.2) mg/dl Est Cr Clr Drug Dosing 39.3 ml/min Est GFR ( Amer) 57.9 ml/min Est GFR (Non-Af Amer) 50.0 ml/min BUN/Creatinine Ratio 18.3 (10-20) Glucose 424 H* (70-99(Fasting)) mg/dl Osmolality (280-300) mOsm/kg Lactate 1.7 (0.4-2.0) mmol/L Calcium 9.2 (8.5-10.1) mg/dl Magnesium 1.8 (1.7-2.4) mg/dl Total Bilirubin 0.5 (0.2-1.0) mg/dl AST 10 L (13-39) U/L ALT 11 (7-52) U/L Alkaline Phosphatase 95 (34-104) U/L Ammonia 24.0 (18-72) umol/L Total Creatine Kinase 93 (26-192) U/L Troponin I High Sens 12.4 (0-14) pg/ml C-Reactive Protein 3.19 H (0-0.5) mg/dl Total Protein 7.1 (6.0-8.3) gm/dl Albumin 4.0 (3.4-5.0) gm/dl Globulin 3.1 (2.5-4.0) gm/dl Albumin/Globulin Ratio 1.3 (0.9-2) Procalcitonin (0-0.5) ng/ml Urine Color Urine Appearance (Clear) Urine pH (4.5-7.5) Ur Specific [place] (1.000-1.030) Urine Protein (Negative) Urine Glucose (UA) (Negative) Urine Ketones (Negative) Urine Blood (Negative) Urine Nitrite (Negative) Urine Bilirubin (Negative) Urine Urobilinogen (Negative) Ur Leukocyte Esterase (Negative) Urine WBC (Auto) (0-5) /hpf Urine RBC (Auto) (0-4) /hpf U Hyaline Cast (Auto) (0-5) /lpf U Epithel Cells (Auto) (0-5) /lpf Urine Bacteria (Auto) (Negative) Urine Osmolality (500-800) mOsm/kg Urine Opiates Screen (Neg) Ur Methadone, Qual (Neg) Urine Barbiturates (Neg) Ur Phencyclidine (PCP) (Neg) U Amphetamin/Meth Scrn (Neg) MDMA (Ecstasy) Screen (Neg) U Benzodiazepines Scrn (Neg) Ur Cocaine Metabolite (Neg) U Marijuana (THC) Screen (Neg) Ethyl Alcohol mg/dL (<10.0) mg/dl SARS-CoV-2, RNA, NAAT (NEGATIVE) 01/11/22 01/11/22 01/11/22 Range/Units 17:51 17:51 17:51 WBC (4.8-10.8) K/ul RBC (3.93-5.22) M/uL Hgb (12.0-16.0) g/dl Hct (34.1-44.9) % MCV (80.0-100.0) fL MCH (25.0-34.0) pg MCHC (32.0-36.0) g/dL RDW Std Deviation (36.4-46.3) fL RDW Coeff of Chris (11.5-14.5) % Plt Count (130-400) K/uL MPV (9.4-12.3) fL Immature Gran % (Auto) % Neut % (Auto) % Lymph % (Auto) % [place] % (Auto) % Eos % (Auto) % Baso % (Auto) % Neut # (Auto) (1.4-6.5) K/uL Lymph # (Auto) (1.2-3.4) K/uL [place] # (Auto) (0.24-0.82) K/uL Eos # (Auto) (0-0.50) K/uL Baso # (Auto) (0-0.2) K/uL Immature Gran # (Auto) (0.00-0.02) K/uL ESR (0-30) mm/hr PT (9.0-12.0) Seconds INR (0.9-1.1) APTT (21.0-31.0) Seconds PTT Ratio VBG pH 7.38 (7.36-7.41) VBG pCO2 38 (38-50) mmHg VBG pO2 40 mmHg VBG HCO3 23 mmol/L VBG O2 Saturation 72.0 % VBG Base Excess -2.3 mEq/L Sodium (136-145) mmol/L Potassium (3.5-5.1) mmol/L Chloride (98-107) mmol/L Carbon Dioxide (21-32) mmol/L Anion Gap (3-11) BUN (6-23) mg/dl Creatinine (0.6-1.2) mg/dl Est Cr Clr Drug Dosing ml/min Est GFR ( Amer) ml/min Est GFR (Non-Af Amer) ml/min BUN/Creatinine Ratio (10-20) Glucose (70-99(Fasting)) mg/dl Osmolality 338 H (280-300) mOsm/kg Lactate (0.4-2.0) mmol/L Calcium (8.5-10.1) mg/dl Magnesium (1.7-2.4) mg/dl Total Bilirubin (0.2-1.0) mg/dl AST (13-39) U/L ALT (7-52) U/L Alkaline Phosphatase (34-104) U/L Ammonia (18-72) umol/L Total Creatine Kinase (26-192) U/L Troponin I High Sens (0-14) pg/ml C-Reactive Protein (0-0.5) mg/dl Total Protein (6.0-8.3) gm/dl Albumin (3.4-5.0) gm/dl Globulin (2.5-4.0) gm/dl Albumin/Globulin Ratio (0.9-2) Procalcitonin 0.05 (0-0.5) ng/ml Urine Color Urine Appearance (Clear) Urine pH (4.5-7.5) Ur Specific [place] (1.000-1.030) Urine Protein (Negative) Urine Glucose (UA) (Negative) Urine Ketones (Negative) Urine Blood (Negative) Urine Nitrite (Negative) Urine Bilirubin (Negative) Urine Urobilinogen (Negative) Ur Leukocyte Esterase (Negative) Urine WBC (Auto) (0-5) /hpf Urine RBC (Auto) (0-4) /hpf U Hyaline Cast (Auto) (0-5) /lpf U Epithel Cells (Auto) (0-5) /lpf Urine Bacteria (Auto) (Negative) Urine Osmolality (500-800) mOsm/kg Urine Opiates Screen (Neg) Ur Methadone, Qual (Neg) Urine Barbiturates (Neg) Ur Phencyclidine (PCP) (Neg) U Amphetamin/Meth Scrn (Neg) MDMA (Ecstasy) Screen (Neg) U Benzodiazepines Scrn (Neg) Ur Cocaine Metabolite (Neg) U Marijuana (THC) Screen (Neg) Ethyl Alcohol mg/dL (<10.0) mg/dl SARS-CoV-2, RNA, NAAT (NEGATIVE) 01/11/22 01/11/22 01/11/22 Range/Units 17:51 17:51 18:07 WBC (4.8-10.8) K/ul RBC (3.93-5.22) M/uL Hgb (12.0-16.0) g/dl Hct (34.1-44.9) % MCV (80.0-100.0) fL MCH (25.0-34.0) pg MCHC (32.0-36.0) g/dL RDW Std Deviation (36.4-46.3) fL RDW Coeff of Chris (11.5-14.5) % Plt Count (130-400) K/uL MPV (9.4-12.3) fL Immature Gran % (Auto) % Neut % (Auto) % Lymph % (Auto) % [place] % (Auto) % Eos % (Auto) % Baso % (Auto) % Neut # (Auto) (1.4-6.5) K/uL Lymph # (Auto) (1.2-3.4) K/uL [place] # (Auto) (0.24-0.82) K/uL Eos # (Auto) (0-0.50) K/uL Baso # (Auto) (0-0.2) K/uL Immature Gran # (Auto) (0.00-0.02) K/uL ESR (0-30) mm/hr PT (9.0-12.0) Seconds INR (0.9-1.1) APTT (21.0-31.0) Seconds PTT Ratio VBG pH (7.36-7.41) VBG pCO2 (38-50) mmHg VBG pO2 mmHg VBG HCO3 mmol/L VBG O2 Saturation % VBG Base Excess mEq/L Sodium (136-145) mmol/L Potassium (3.5-5.1) mmol/L Chloride (98-107) mmol/L Carbon Dioxide (21-32) mmol/L Anion Gap (3-11) BUN (6-23) mg/dl Creatinine (0.6-1.2) mg/dl Est Cr Clr Drug Dosing ml/min Est GFR ( Amer) ml/min Est GFR (Non-Af Amer) ml/min BUN/Creatinine Ratio (10-20) Glucose (70-99(Fasting)) mg/dl Osmolality (280-300) mOsm/kg Lactate (0.4-2.0) mmol/L Calcium (8.5-10.1) mg/dl Magnesium (1.7-2.4) mg/dl Total Bilirubin (0.2-1.0) mg/dl AST (13-39) U/L ALT (7-52) U/L Alkaline Phosphatase (34-104) U/L Ammonia (18-72) umol/L Total Creatine Kinase (26-192) U/L Troponin I High Sens (0-14) pg/ml C-Reactive Protein (0-0.5) mg/dl Total Protein (6.0-8.3) gm/dl Albumin (3.4-5.0) gm/dl Globulin (2.5-4.0) gm/dl Albumin/Globulin Ratio (0.9-2) Procalcitonin (0-0.5) ng/ml Urine Color Urine Appearance (Clear) Urine pH (4.5-7.5) Ur Specific [place] (1.000-1.030) Urine Protein (Negative) Urine Glucose (UA) (Negative) Urine Ketones (Negative) Urine Blood (Negative) Urine Nitrite (Negative) Urine Bilirubin (Negative) Urine Urobilinogen (Negative) Ur Leukocyte Esterase (Negative) Urine WBC (Auto) (0-5) /hpf Urine RBC (Auto) (0-4) /hpf U Hyaline Cast (Auto) (0-5) /lpf U Epithel Cells (Auto) (0-5) /lpf Urine Bacteria (Auto) (Negative) Urine Osmolality 676 (500-800) mOsm/kg Urine Opiates Screen (Neg) Ur Methadone, Qual (Neg) Urine Barbiturates (Neg) Ur Phencyclidine (PCP) (Neg) U Amphetamin/Meth Scrn (Neg) MDMA (Ecstasy) Screen (Neg) U Benzodiazepines Scrn (Neg) Ur Cocaine Metabolite (Neg) U Marijuana (THC) Screen (Neg) Ethyl Alcohol mg/dL < 10.0 (<10.0) mg/dl SARS-CoV-2, RNA, NAAT NEGATIVE (NEGATIVE) 01/11/22 01/11/22 Range/Units 18:07 18:15 WBC (4.8-10.8) K/ul RBC (3.93-5.22) M/uL Hgb (12.0-16.0) g/dl Hct (34.1-44.9) % MCV (80.0-100.0) fL MCH (25.0-34.0) pg MCHC (32.0-36.0) g/dL RDW Std Deviation (36.4-46.3) fL RDW Coeff of Chris (11.5-14.5) % Plt Count (130-400) K/uL MPV (9.4-12.3) fL Immature Gran % (Auto) % Neut % (Auto) % Lymph % (Auto) % [place] % (Auto) % Eos % (Auto) % Baso % (Auto) % Neut # (Auto) (1.4-6.5) K/uL Lymph # (Auto) (1.2-3.4) K/uL [place] # (Auto) (0.24-0.82) K/uL Eos # (Auto) (0-0.50) K/uL Baso # (Auto) (0-0.2) K/uL Immature Gran # (Auto) (0.00-0.02) K/uL ESR (0-30) mm/hr PT (9.0-12.0) Seconds INR (0.9-1.1) APTT (21.0-31.0) Seconds PTT Ratio VBG pH (7.36-7.41) VBG pCO2 (38-50) mmHg VBG pO2 mmHg VBG HCO3 mmol/L VBG O2 Saturation % VBG Base Excess mEq/L Sodium (136-145) mmol/L Potassium (3.5-5.1) mmol/L Chloride (98-107) mmol/L Carbon Dioxide (21-32) mmol/L Anion Gap (3-11) BUN (6-23) mg/dl Creatinine (0.6-1.2) mg/dl Est Cr Clr Drug Dosing ml/min Est GFR ( Amer) ml/min Est GFR (Non-Af Amer) ml/min BUN/Creatinine Ratio (10-20) Glucose (70-99(Fasting)) mg/dl Osmolality (280-300) mOsm/kg Lactate (0.4-2.0) mmol/L Calcium (8.5-10.1) mg/dl Magnesium (1.7-2.4) mg/dl Total Bilirubin (0.2-1.0) mg/dl AST (13-39) U/L ALT (7-52) U/L Alkaline Phosphatase (34-104) U/L Ammonia (18-72) umol/L Total Creatine Kinase (26-192) U/L Troponin I High Sens (0-14) pg/ml C-Reactive Protein (0-0.5) mg/dl Total Protein (6.0-8.3) gm/dl Albumin (3.4-5.0) gm/dl Globulin (2.5-4.0) gm/dl Albumin/Globulin Ratio (0.9-2) Procalcitonin (0-0.5) ng/ml Urine Color Yellow Urine Appearance Clear (Clear) Urine pH 6.0 (4.5-7.5) Ur Specific [place] 1.032 H (1.000-1.030) Urine Protein 3+ H (Negative) Urine Glucose (UA) 3+ H (Negative) Urine Ketones 1+ H (Negative) Urine Blood 1+ H (Negative) Urine Nitrite Negative (Negative) Urine Bilirubin Negative (Negative) Urine Urobilinogen Negative (Negative) Ur Leukocyte Esterase Negative (Negative) Urine WBC (Auto) >30 H (0-5) /hpf Urine RBC (Auto) 0-4 (0-4) /hpf U Hyaline Cast (Auto) 1-5 (0-5) /lpf U Epithel Cells (Auto) 5-10 H (0-5) /lpf Urine Bacteria (Auto) Negative (Negative) Urine Osmolality (500-800) mOsm/kg Urine Opiates Screen Neg (Neg) Ur Methadone, Qual Neg (Neg) Urine Barbiturates Neg (Neg) Ur Phencyclidine (PCP) Neg (Neg) U Amphetamin/Meth Scrn Neg (Neg) MDMA (Ecstasy) Screen Neg (Neg) U Benzodiazepines Scrn Neg (Neg) Ur Cocaine Metabolite Neg (Neg) U Marijuana (THC) Screen Neg (Neg) Ethyl Alcohol mg/dL (<10.0) mg/dl SARS-CoV-2, RNA, NAAT (NEGATIVE) Imaging Data Radiologist's Impression: Cervical Spine CT 01/11/22 17:43 CT cervical spine wo con CLINICAL HISTORY: Status post fall with neck pain COMPARISON STUDY: 04/24/2021 CT DOSE: 999.92 mGy.cm TECHNIQUE: Standard CT of the Cervical Spine was performed without IV contrast. A dose lowering technique was utilized adhering to the principles of ALARA. FINDINGS: Bones: The bones are osteopenic. There is no evidence for an acute fracture or malalignment. The heights of the vertebral bodies are maintained. The vertebral bodies are in anatomic alignment. The odontoid is intact and the atlantoaxial articulation is within normal limits. Disc spaces: There is moderate to marked disc space narrowing at C5-6 and C6-7 with minimal endplate osteophyte formation again seen. Apophyseal joints: Degenerative apophyseal joint disease present bilaterally. Soft tissues: The prevertebral soft tissues are within normal limits. IMPRESSION: 1. Osteopenia with no acute osseous pathology. 2. Degenerative disc and degenerative joint disease are again seen. ACT 112: Negative or not required by law. Electronically signed by: Gualberto Akins M.D. 01/11/2022 7:09 PM Chest X-Ray 01/11/22 17:43 XR chest 1V portable CLINICAL HISTORY: SEPSIS. Evaluate cardiopulmonary status COMPARISON STUDY: 04/24/2021 TECHNIQUE: 1 view of the chest FINDINGS: Single frontal view of the chest demonstrates the cardiomediastinal silhouette to be within normal limits. The lungs are clear of alveolar opacities. There is no evidence for pleural effusion. There is no evidence for vascular congestion. There is no acute osseous pathology. IMPRESSION: 1. No acute cardiopulmonary disease. ACT 112: Negative or not required by law. Electronically signed by: Gualberto Akins M.D. 01/11/2022 7:[address] 01/11/22 17:43 CT head/brain wo con CLINICAL HISTORY: Status post fall with pain COMPARISON STUDY: 04/24/2021 CT DOSE: TECHNIQUE: Standard CT of the Brain was performed without IV contrast. A dose lowering technique was utilized adhering to the principles of ALARA. FINDINGS: Extraaxial space: There is no evidence for subdural hematoma. There are no extra-axial fluid collections. Ventricles and cisterns: The ventricles are again mildly to moderately dilated bilaterally. There is no evidence for midline shift or mass effect. Parenchyma: There is no subarachnoid or intraparenchymal hemorrhage. There is no evidence for an acute infarct or cerebral edema. There is mild cerebral cortical atrophy and decreased attenuation in the periventricular white matter representing remote small vessel disease. There are no gross mass lesions. Osseous structures: There is no evidence for an acute fracture. The visualized paranasal sinuses are clear. The mastoid air cells are clear bilaterally. Soft tissues: There is no evidence for focal soft tissue swelling. IMPRESSION: 1. No acute intracerebral pathology. 2. Cerebral atrophy and remote small vessel disease are again seen ACT 112: Negative or not required by law. Electronically signed by: Gualberto Akins M.D. 01/11/2022 7:06 PM Pelvis X-Ray 01/11/22 17:43 XR pelvis 1-2V routine CLINICAL HISTORY: Status post fall with pain. COMPARISON STUDY: No previous studies for comparison. TECHNIQUE: [A single AP radiograph was obtained. FINDINGS: Bones are osteopenic. There is no evidence for an acute fracture. There is mild to moderate narrowing of the hip joint spaces bilaterally. Degenerative changes are also present involving the SI joints. The remaining visualized bones of the pelvis are intact. Degenerative changes are seen involving the lower lumbar spine. No focal soft tissue abnormalities identified. IMPRESSION: 1. No acute abnormality. 2. Osteopenia and osteoarthritis. ACT 112: Negative or not required by law. Electronically signed by: Gualberto Akins M.D. 01/11/2022 7:19 PM Discharge Plan Visit Data Chief Complaint: Confusion Stated Complaint: [facility] Provider: Rogelio Thompson Discharge Problem: Encephalopathy, hypertensive, Fall, Hyperglycemia due to diabetes mellitus, Acute on chronic alteration in mental status, Urinary tract infection Patient Disposition: Being Evaluated by Hospitalist Forms Stand Alone Forms: My [facility] [employer] Prescriptions Prescriptions: No Action Lantus U-100 Insulin 100 unit/mL solution 40 unit SUBCUT HS tramadol 50 mg tablet 50 mg PO Q6H PRN (Reason: Pain) insulin aspart U-100 [Novolog U-100 Insulin aspart] 100 unit/mL solution 0 sliding scale dose subcut UD Rx Instructions: Max 150 units daily levothyroxine 125 mcg tablet 125 mcg PO DAILYBB lansoprazole 30 mg capsule,delayed release(DR/EC) 30 mg PO DAILYBB folic acid 1 mg Tablet 1 mg PO DAILY furosemide 20 mg tablet 40 mg PO DAILY nystatin 100,000 unit/gram Powder 1 applic TOPICAL TID Rx Instructions: Apply to affected area 3 times daily if needed for yeast infection fluticasone propionate 50 mcg/actuation spray,suspension 2 spray INTRANASAL DAILY metformin 500 mg tablet extended release 24 hr 1,000 mg PO QDD cholecalciferol (vitamin D3) [Vitamin D3] 25 mcg (1,000 unit) Capsule 25 mcg PO DAILY lisinopril [Zestril] 40 mg Tablet 40 mg PO DAILY Qty: 30 0RF hydralazine 25 mg Tablet 25 mg PO BID Qty: 60 0RF aspirin 81 mg Tablet,Delayed Release (Dr/Ec) 81 mg PO QAM Qty: 30 0RF magnesium chloride [Mag 64] 64 mg Tablet,Delayed Release (Dr/Ec) 64 mg PO Q12H Qty: 60 0RF amlodipine 5 mg tablet 5 mg PO DAILY Qty: 30 0RF Referrals Referrals: Barbara Gill MD [Primary Care Provider] - : Fall Qualifiers: Encounter type: initial encounter Qualified Code(s): W19.XXXA - Unspecified fall, initial encounter Urinary tract infection Qualifiers: Urinary tract infection type: site unspecified Hematuria presence: without hematuria Qualified Code(s): N39.0 - Urinary tract infection, site not specified
[2022-01-11 18:21] LABS: Base Excess VBG -2.3 mEq/L; HCO3 VBG 23 mmol/L; PCO2 VBG 38 mmHg (38-50); PO2 VBG 40 mmHg; pH VBG 7.38 (7.36-7.41)
[2022-01-11 18:26] LABS: Basophils # (auto) 0.04 K/uL (0-0.2); Basophils % (auto) 0.3 %; Hematocrit (blood only) 38.7 % (34.1-44.9); Hemoglobin 12.8 g/dl (12.0-16.0); Immature Granulocytes # (auto) 0.06 K/uL (0.00-0.02); Immature Granulocytes % (auto) 0.5 %; Lymphocytes % (auto) 9.4 %; Mean Corpuscular Hemoglobin 28.8 pg (25.0-34.0); Mean Corpuscular Hgb Conc 33.1 g/dL (32.0-36.0); Mean Platelet Volume 11.4 fL (9.4-12.3); Monocytes # (auto) 0.77 K/uL (0.24-0.82); Monocytes % (auto) 6.1 %; Neutrophils # (auto) 10.65 K/uL (1.4-6.5); Neutrophils % (auto) 83.7 %; Platelet Count 342 K/uL (130-400); RDW Coefficient of Variation 13.7 % (11.5-14.5); RDW Standard Deviation 43.2 fL (36.4-46.3); Red Blood Count 4.45 M/uL (3.93-5.22); White Blood Count 12.72 K/ul (4.8-10.8)
[2022-01-11 18:38] LABS: Partial Thromboplastin Ratio 0.9; Partial Thromboplastin Time 25.4 Seconds (21.0-31.0); Prothrombin Time 11.1 Seconds (9.0-12.0)
[2022-01-11 19:00] LABS: Troponin I High Sensitivity 12.4 pg/ml (0-14)
[2022-01-11 19:05] LABS: Appearance Urine Clear (Clear); Bacteria Urine Automated Negative (Negative); Bilirubin Urine Negative (Negative); Blood Urine 1+ (Negative); Color Urine Yellow; Glucose Urine UA 3+ (Negative); Ketones Urine 1+ (Negative); Leukocyte Esterase Urine Negative (Negative); Nitrite Urine Negative (Negative); Protein Urine 3+ (Negative); RBC Urine Automated 0-4 /hpf (0-4); Specific Gravity Urine 1.032 (1.000-1.030); Urobilinogen Urine Negative (Negative); WBC Urine Automated >30 /hpf (0-5)
--- NOTE | 2022-01-11 19:08 | CT Scan Report ---
CT head/brain wo con CLINICAL HISTORY: Status post fall with pain COMPARISON STUDY: 04/24/2021 CT DOSE: TECHNIQUE: Standard CT of the Brain was performed without IV contrast. A dose lowering technique was utilized adhering to the principles of ALARA. FINDINGS: Extraaxial space: There is no evidence for subdural hematoma. There are no extra-axial fluid collecti ons. Ventricles and cisterns: The ventricles are again mildly to moderately dilated bilaterally. There is no evidence for midline shift or mass effect. Parenchyma: There is no subarachnoid or intraparenchymal hemorrhage. There is no evidence for an acut e infarct or cerebral edema. There is mild cerebral cortical atrophy and decreased attenuation in the periventricular white matter representing remote small vessel disease. There are no gross mass lesio ns. Osseous structures: There is no evidence for an acute fracture. The visualized paranasal sinuses are clear. The mastoid air cells are clear bilaterally. Soft tissues: There is no evidence for focal soft tissue swelling. IMPRESSION: 1. No acute intracerebral pathology. 2. Cerebral atrophy and remote small vessel disease are again seen ACT 112: Negative or not required by law. Electronically signed by: Gualberto Akins M.D. 01/11/2022 7:06 PM
--- NOTE | 2022-01-11 19:12 | CT Scan Report ---
CT cervical spine wo con CLINICAL HISTORY: Status post fall with neck pain COMPARISON STUDY: 04/24/2021 CT DOSE: 999.92 mGy.cm TECHNIQUE: Standard CT of the Cervical Spine was performed without IV contrast. A dose lowering karla hnique was utilized adhering to the principles of ALARA. FINDINGS: Bones: The bones are osteopenic. There is no evidence for an acute fracture or malalignment. The heig hts of the vertebral bodies are maintained. The vertebral bodies are in anatomic alignment. The odont oid is intact and the atlantoaxial articulation is within normal limits. Disc spaces: There is moderate to marked disc space narrowing at C5-6 and C6-7 with minimal endplate osteophyte formation again seen. Apophyseal joints: Degenerative apophyseal joint disease present bilaterally. Soft tissues: The prevertebral soft tissues are within normal limits. IMPRESSION: 1. Osteopenia with no acute osseous pathology. 2. Degenerative disc and degenerative joint disease are again seen. ACT 112: Negative or not required by law. Electronically signed by: Gualberto Akins M.D. 01/11/2022 7:09 PM
[2022-01-11 19:17] LABS: Albumin Globulin Ratio 1.3 (0.9-2); BUN Creatinine Ratio 18.3 (10-20); Bilirubin,Total 0.5 mg/dl (0.2-1.0); C Reactive Protein 3.19 mg/dl (0-0.5); Calcium 9.2 mg/dl (8.5-10.1); Creatinine Clr Calc Pharmacy 39.3 ml/min; Est GFR (African American) 57.9 ml/min; Globulin 3.1 gm/dl (2.5-4.0); Magnesium 1.8 mg/dl (1.7-2.4); Potassium 3.4 mmol/L (3.5-5.1); Total Protein 7.1 gm/dl (6.0-8.3)
--- NOTE | 2022-01-11 19:20 | XRay Report ---
XR chest 1V portable CLINICAL HISTORY: SEPSIS. Evaluate cardiopulmonary status COMPARISON STUDY: 04/24/2021 TECHNIQUE: 1 view of the chest FINDINGS: Single frontal view of the chest demonstrates the cardiomediastinal silhouette to be within normal li mits. The lungs are clear of alveolar opacities. There is no evidence for pleural effusion. There is no evidence for vascular congestion. There is no acute osseous pathology. IMPRESSION: 1. No acute cardiopulmonary disease. ACT 112: Negative or not required by law. Electronically signed by: Gualberto Akins M.D. 01/11/2022 7:19 PM
--- NOTE | 2022-01-11 19:20 | XRay Report ---
XR pelvis 1-2V routine CLINICAL HISTORY: Status post fall with pain. COMPARISON STUDY: No previous studies for comparison. TECHNIQUE: [A single AP radiograph was obtained. FINDINGS: Bones are osteopenic. There is no evidence for an acute fracture. There is mild to moderate narrowing of the hip joint spaces bilaterally. Degenerative changes are also present involving the SI joints. The remaining visualized bones of the pelvis are intact. Degenerative changes are seen involving the lower lumbar spine. No focal soft tissue abnormalities identified. IMPRESSION: 1. No acute abnormality. 2. Osteopenia and osteoarthritis. ACT 112: Negative or not required by law. Electronically signed by: Gualberto Akins M.D. 01/11/2022 7:19 PM
[2022-01-11 19:29] LABS: Amphetamines+Metham, Urine Neg (Neg); Barbiturates, Urine Neg (Neg); Benzodiazepine, Urine Neg (Neg); Cocaine, Urine Neg (Neg); MDMA (Ecstacy), Urine Neg (Neg); Methadone, Urine Neg (Neg); Opiate, Urine Neg (Neg); Phencyclidine, Urine Neg (Neg)
[2022-01-11] MEDS ORDERED: NovoLIN-R INSULIN PER UNIT CHARGE IV STA (19:58)
[2022-01-11] MEDS ORDERED: hydrALAZINE HCL 25 MG TAB PO STA (19:58)
[2022-01-11] MEDS ORDERED: POTASSIUM CHLORIDE 10 MEQ TABCR PO STA (19:58)
[2022-01-11] MEDS ORDERED: amLODIPine BESYLATE 5 MG TAB PO ONE (19:58)
[2022-01-11] MEDS ORDERED: SODIUM CHLORIDE 0.9% 1000ML 1,000 ML IV ONE ×2 (19:58→20:18)
[2022-01-11] MEDS ORDERED: lisinopril 20 MG TAB PO STA (19:58)
[2022-01-11] MEDS ORDERED: PIPERACILLIN/TAZOBACTAM 4.5 GM/120 ML BAG IV ONE (20:01)
[2022-01-11] MEDS ORDERED: POTASSIUM CHLORIDE 20 MEQ/15 ML UDC PO STA (22:29)
[2022-01-11] MEDS ORDERED: NITROGLYCERIN SL 0.4 MG/TAB TAB SL PRN (22:29)
[2022-01-11] MEDS ORDERED: NYSTATIN POWDER 15GM BTL EXT PRN (22:29)
[2022-01-11] MEDS ORDERED: MECLIZINE 12.5 MG TAB PO PRN (22:29)
[2022-01-11] MEDS ORDERED: traMADol HCL 50 MG TABLET PO PRN (22:29)
[2022-01-11] MEDS ORDERED: ONDANSETRON INJ 2 MG/ML 2 ML VIAL IV PRN (22:29)
--- NOTE | 2022-01-11 22:58 | History and Physical Report ---
DATE OF ADMISSION: 01/11/2022. CHIEF COMPLAINT: Confusion. HISTORY OF PRESENT ILLNESS: This is a 76-year-old female with past medical history significant type 2 diabetes, hypothyroidism, hyperlipidemia, chronic kidney disease stage III, diabetic polyneuropathy, hypertension, GERD, vitamin D deficiency, statin myopathy, fibromyalgia, degenerative disk disease, osteoarthritis of the knees, cervical degenerative disk disease, PTSD, generalized anxiety disorder, low folic acid, generalized weakness, presents with confusion. Apparently, the patient lives alone. Last time she was seen well was about 1 week ago. Today, when the person who gives her grocery came to deliver groceries, she was found on the floor and with feces and urine and she seemed confused and she was brought into the hospital. The patient currently alert and awake, can tell her name, does not know her date of and does not think she is in the hospital and confused. She does not know what happened. She states that she is taking all her medications. She denies any headache or blurred visions or sore throat. No cough or nausea. Denies any chest pain or shortness of breath, abdominal pain, but seems poor historian at this time. Tried to call her brother, not able to reach. ALLERGIES: ATORVASTATIN, MORPHINE, PERCOCET, ASPIRIN, CEPHALEXIN, CODEINE, ESOMEPRAZOLE, OXYCODONE, SUCRALFATE. PAST MEDICAL HISTORY: As mentioned above. PAST SURGICAL HISTORY: EMG, tonsillectomy. MEDICATIONS: The patient is on vitamin D 25 mcg p.o. daily, Flonase 2 sprays intranasal daily, folic acid 1 mg p.o. daily, Lantus 30 units subcutaneously a.m., levothyroxine 125 mcg p.o. daily, lisinopril 40 mg p.o. daily, magnesium oxide 120 mg p.o. a.m., meclizine 12.5 mg p.o. t.i.d. p.r.n., metformin 1000 mg p.o. daily, nystatin topical t.i.d. p.r.n., Protonix 40 mg p.o. daily, semaglutide 1 mg subcutaneous weekly, tramadol 50 mg p.o. 6 hours p.r.n. FAMILY HISTORY: Significant for no family history on file. SOCIAL HISTORY: . No smoking, no alcohol, no drug use. REVIEW OF SYSTEMS: As per HPI. Rest of the review of systems is negative. PHYSICAL EXAMINATION: GENERAL: The patient is of moderate build, not in acute distress. VITAL SIGNS: Temperature afebrile, pulse 77, respiratory rate 20, blood pressure 127/95, oxygen 98% on room air. HEENT: Pupils equal, round and reactive to light. Oral mucosa dry. NECK: No JVD, no neck masses. CARDIOVASCULAR: S1 and S2 heard. Regular rate and rhythm. No murmur, no gallop. RESPIRATORY SYSTEM: Normal AP diameter. No accessory muscle use. No wheezing or crackles. ABDOMEN: Soft, bowel sounds present, nontender, no distention. CENTRAL NERVOUS SYSTEM: Alert and awake, oriented to name only. Speech is okay. No facial droop. Obeys simple commands. Moves extremities. EXTREMITIES: No edema, no erythema. LABORATORY DATA: WBC 12.7, hemoglobin 12.8, hematocrit 38.7, platelets 342. ESR 32. PT is 11.1, INR 1, APTT 25.4. Venous blood gas, pH of 7.38, pCO2 of 38, pO2 of 40. Sodium 150, potassium 3.4, chloride 116, CO2 of 22, BUN 20, creatinine 1.09, serum glucose 424. Osmolality 338. Lactate 1.7, calcium 9.2, magnesium 1.8, total bilirubin 0.5, AST 10, ALT 11, alkaline phosphatase 95. Ammonia 24. Troponin I high sensitivity 12.4. C-reactive protein 3.1. Procalcitonin 0.05. Urinalysis, +3 protein, +3 glucose, +1 ketones. Urine drug screen negative. Ethyl alcohol less than 10. SARS-CoV-2 rapid test negative. Pelvic x-ray, no acute findings. CT head, no acute findings. Chest x-ray, no acute findings. Cervical spine CT, no acute findings. EKG: Normal sinus rhythm at a rate of 71. Nonspecific ST abnormalities. ASSESSMENT AND PLAN: This is a 76-year-old female who presents with confusion. 1. Confusion: Etiology unclear, could be from hypernatremia, could be hypertensive encephalopathy. Imaging studies are unremarkable so far. ER empirically started on Zosyn, which will be continued. Blood pressure control. Closely monitor in the hospital. 2. Hypertensive emergency / encephalopathy: Restarting her home medication of lisinopril, placed on IV labetalol p.r.n. Consult cardiology in a.m. Closely monitor in tele floor. 3. Hypernatremia: Possibly because of poor oral intake, getting half-normal saline 100 mL per hour. We will follow the repeat labs. Consult nephrology in the a.m. 4. Diabetes: Sugars are running high. Received insulin in the ER. We will follow with home Lantus and insulin sliding scale. Follow HbA1c. Follow the blood sugars. 5. Hypothyroidism: Continue Synthroid. 6. Chronic kidney disease stage III: Presently creatinine of 1.09. We will follow the labs. 7. Gastroesophageal reflux disease: Continue Protonix. 8. Deep venous thrombosis prophylaxis: Placed on heparin subcutaneous. DISPOSITION: Closely monitor in the tele floor. Level 1 full code. Expect to discharge home and follow with family doctor. Social service to help with discharge planning. Needs more help at home. Job ID: [id number]
[2022-01-11] MEDS ORDERED: DEXTROSE 50% 50 ML SYRINGE IV PRN (23:45)
[2022-01-11] MEDS ORDERED: GLUCOSE 40% GEL 15 GM TUBE PO PRN (23:45)
[2022-01-11] MEDS ORDERED: GLUCOSE 10 TAB/TUBE PO PRN (23:45)
[2022-01-11] MEDS ORDERED: GLUCAGON FOR INJ 1 MG VIAL IM PRN (23:45)
[2022-01-11] MEDS ORDERED: CARBOHYDRATES FOR HYPOGLYCEMIA PO PRN (23:45)
[2022-01-11] MEDS: PIPERACILLIN/TAZOBACTAM 3.375 GM in DEXTROSE 5% 100 ML IV SCH (23:59)
[2022-01-11] MEDS: SODIUM CHLORIDE 0.45 % 1,000 ML IV SCH (23:59)
[2022-01-12 04:54] LABS: Basophils # (auto) 0.04 K/uL (0-0.2); Basophils % (auto) 0.3 %; Hematocrit (blood only) 37.2 % (34.1-44.9); Hemoglobin 12.1 g/dl (12.0-16.0); Immature Granulocytes # (auto) 0.03 K/uL (0.00-0.02); Immature Granulocytes % (auto) 0.3 %; Lymphocytes # (auto) 2.18 K/uL (1.2-3.4); Lymphocytes % (auto) 18.3 %; Mean Corpuscular Hemoglobin 29.1 pg (25.0-34.0); Mean Corpuscular Hgb Conc 32.5 g/dL (32.0-36.0); Mean Corpuscular Volume 89.4 fL (80.0-100.0); Monocytes # (auto) 0.67 K/uL (0.24-0.82); Monocytes % (auto) 5.6 %; Neutrophils # (auto) 9.02 K/uL (1.4-6.5); Neutrophils % (auto) 75.5 %; Platelet Count 256 K/uL (130-400); RDW Coefficient of Variation 13.8 % (11.5-14.5); Red Blood Count 4.16 M/uL (3.93-5.22); White Blood Count 11.94 K/ul (4.8-10.8)
[2022-01-12 05:17] LABS: BUN Creatinine Ratio 13.7 (10-20); Calcium 8.2 mg/dl (8.5-10.1); Creatinine Clr Calc Pharmacy 45.1 ml/min; Est GFR (African American) 68.4 ml/min; Magnesium 1.5 mg/dl (1.7-2.4); Potassium 3.5 mmol/L (3.5-5.1)
[2022-01-12] MEDS: LEVOTHYROXINE SODIUM 125 MCG TABLET PO SCH (06:18)
[2022-01-12 07:40] LABS: Estimated Average Glucose 128 mg/dl; Hemoglobin A1C 6.1 % (4.5-5.6)
[2022-01-12] MEDS: lisinopril 40 MG TAB PO SCH (08:48)
[2022-01-12] MEDS: CHOLECALCIFEROL 1,000 UNITS 25 MCG TAB PO SCH (08:48)
[2022-01-12] MEDS: MAGNESIUM CHLORIDE W/CALCIUM 64MG DELAYED REL TAB PO SCH (08:48)
[2022-01-12] MEDS: FLUTICASONE PROPIONATE NA SPR 16 GM BTL SCH (08:49)
[2022-01-12] MEDS: HEPARIN SOD 5,000 UNIT/0.5 ML VIAL SQ SCH ×2 (08:50→22:07)
[2022-01-12] MEDS: PANTOprazole 40 MG TAB PO SCH (08:50)
[2022-01-12] MEDS: FOLIC ACID 1 MG TAB PO SCH (08:50)
[2022-01-12] MEDS: INSULIN ASPART PER UNIT SC SCH ×4 (09:10→20:52)
[2022-01-12] MEDS: LANTUS PER UNIT CHARGE SQ SCH (09:11)
[2022-01-12] MEDS: PIPERACILLIN/TAZOBACTAM 3.375 GM in DEXTROSE 5% 100 ML IV SCH ×3 (09:11→23:49)
[2022-01-12] MEDS: SODIUM CHLORIDE 0.45 % 1,000 ML IV SCH ×2 (11:10→22:03)
--- NOTE | 2022-01-12 12:10 | Hospitalist Progress Note ---
Date of Service January 12, 2022 Assessment & Plan (1) Encephalopathy, hypertensive: (2) Encephalopathy: (3) Hyperglycemia due to diabetes mellitus: (4) Fall: Plan: This is a 76-year-old female who presents with confusion. 1. Confusion: Etiology unclear on admission, could be from hypernatremia, could be hypertensive encephalopathy.Found bacteremic. Imaging studies are unremarkable so far. ER empirically started on Zosyn, which will be continued. Blood pressure control. Closely monitor in the hospital. Bacteremia Gram-positive cocci in clusters. Repeat blood cultures. Add vancomycin for empiric coverage. Patient will likely need echocardiogram and ID consult. 2. Hypertensive emergency / encephalopathy: Restarting her home medication of lisinopril, placed on IV labetalol p.r.n. Cardio consulted. Blood pressure improved. Closely monitor in tele floor. 3. Hypernatremia: Sodium on admission 150, now 147 Likely because of poor oral intake, getting half-normal saline 100 mL per hour. Follow the repeat labs. Nephrology consulted 4. Diabetes: Blood sugar elevated on admission. Received insulin in the ER. We will follow with home Lantus and insulin sliding scale. Follow HbA1c. Follow the blood sugars. 5. Hypothyroidism: Continue Synthroid. 6. Chronic kidney disease stage III: Presently creatinine of 1.09. We will follow the labs. 7. Gastroesophageal reflux disease: Continue Protonix. DVT prophylaxis: Placed on heparin subcutaneous. DISPOSITION: tele floor. Office of aging contacted. CM following. Code: Full Admission and Anticipated Discharge Date Admission Date: January 11, 2022 Subjective Patient seen in follow-up of altered mental status, hypernatremia, hypertension Found on floor at home Currently in the ED, comfortable, awake. Not able to provide history. Tries to joke about any specific questions. Has no complaints, denies any fevers, chills, chest pain, shortness of breath, abdominal pain, nausea or vomiting. Found bacteremic. Zosyn started in ED on admission. Vancomycin now added. Review of Systems Review of Systems: All systems reviewed & are unremarkable except as noted in Subjective Physical Exam Physical Exam: GENERAL: The patient is of moderate build, not in acute distress. HEENT: NC/AT. EOMI. Pupils equal, round and reactive to light. Oral mucosa dry. NECK: No JVD, no neck masses. CARDIOVASCULAR: S1 and S2 heard. Regular rate and rhythm. No murmur, no gallop. RESPIRATORY SYSTEM: Normal AP diameter. No accessory muscle use. No wheezing or crackles. ABDOMEN: Soft, bowel sounds present, nontender, no distention. NEURO: Alert and awake, but not able to answer more specific questions. Speech is clear. No facial droop.Moves extremities. EXTREMITIES: No edema, no erythema. Results & Data Results & Data ([facility]) Vital Signs (Past 12 Hours) Vital Signs Temp Pulse Resp BP Pulse Ox O2 Del Method 01/12/22 06:30 71 16 172/71 H 98 01/12/22 03:00 68 16 101/83 97 Room Air 01/12/22 00:28 36.9 C 87 24 169/93 H 98 Room Air 01/12/22 00:12 99 H 16 160/93 H 96 Room Air Laboratory Results 01/12/22 01/12/22 01/12/22 Range/Units 08:41 04:41 04:41 WBC (4.8-10.8) K/ul RBC (3.93-5.22) M/uL Hgb (12.0-16.0) g/dl Hct (34.1-44.9) % MCV (80.0-100.0) fL MCH (25.0-34.0) pg MCHC (32.0-36.0) g/dL RDW Std Deviation (36.4-46.3) fL RDW Coeff of Chris (11.5-14.5) % Plt Count (130-400) K/uL MPV (9.4-12.3) fL Immature Gran % (Auto) % Neut % (Auto) % Lymph % (Auto) % Ida % (Auto) % Eos % (Auto) % Baso % (Auto) % Neut # (Auto) (1.4-6.5) K/uL Lymph # (Auto) (1.2-3.4) K/uL Ida # (Auto) (0.24-0.82) K/uL Eos # (Auto) (0-0.50) K/uL Baso # (Auto) (0-0.2) K/uL Immature Gran # (Auto) (0.00-0.02) K/uL ESR (0-30) mm/hr PT (9.0-12.0) Seconds INR (0.9-1.1) APTT (21.0-31.0) Seconds PTT Ratio VBG pH (7.36-7.41) VBG pCO2 (38-50) mmHg VBG pO2 mmHg VBG HCO3 mmol/L VBG O2 Saturation % VBG Base Excess mEq/L Sodium 147 H (136-145) mmol/L Potassium 3.5 (3.5-5.1) mmol/L Chloride 117 H (98-107) mmol/L Carbon Dioxide 21 (21-32) mmol/L Anion Gap 9 (3-11) BUN 13 (6-23) mg/dl Creatinine 0.95 (0.6-1.2) mg/dl Est Cr Clr Drug Dosing 45.1 ml/min Est GFR ( Amer) 68.4 ml/min Est GFR (Non-Af Amer) 59.0 ml/min BUN/Creatinine Ratio 13.7 (10-20) Glucose 262 H (70-99(Fasting)) mg/dl POC Glucose 219 H (70-99) mg/dl Estimat Average Glucose 128 mg/dl Hemoglobin A1c 6.1 H (4.5-5.6) % Osmolality (280-300) mOsm/kg Lactate (0.4-2.0) mmol/L Calcium 8.2 L (8.5-10.1) mg/dl Magnesium 1.5 L (1.7-2.4) mg/dl Total Bilirubin (0.2-1.0) mg/dl AST (13-39) U/L ALT (7-52) U/L Alkaline Phosphatase (34-104) U/L Ammonia (18-72) umol/L Total Creatine Kinase (26-192) U/L Troponin I High Sens (0-14) pg/ml C-Reactive Protein (0-0.5) mg/dl Total Protein (6.0-8.3) gm/dl Albumin (3.4-5.0) gm/dl Globulin (2.5-4.0) gm/dl Albumin/Globulin Ratio (0.9-2) Procalcitonin (0-0.5) ng/ml Urine Color Urine Appearance (Clear) Urine pH (4.5-7.5) Ur Specific [place] (1.000-1.030) Urine Protein (Negative) Urine Glucose (UA) (Negative) Urine Ketones (Negative) Urine Blood (Negative) Urine Nitrite (Negative) Urine Bilirubin (Negative) Urine Urobilinogen (Negative) Ur Leukocyte Esterase (Negative) Urine WBC (Auto) (0-5) /hpf Urine RBC (Auto) (0-4) /hpf U Hyaline Cast (Auto) (0-5) /lpf U Epithel Cells (Auto) (0-5) /lpf Urine Bacteria (Auto) (Negative) Urine Osmolality (500-800) mOsm/kg Urine Opiates Screen (Neg) Ur Methadone, Qual (Neg) Urine Barbiturates (Neg) Ur Phencyclidine (PCP) (Neg) U Amphetamin/Meth Scrn (Neg) MDMA (Ecstasy) Screen (Neg) U Benzodiazepines Scrn (Neg) Ur Cocaine Metabolite (Neg) U Marijuana (THC) Screen (Neg) Ethyl Alcohol mg/dL (<10.0) mg/dl SARS-CoV-2, RNA, NAAT (NEGATIVE) 01/12/22 01/11/22 01/11/22 Range/Units 04:41 18:15 18:07 WBC 11.94 H (4.8-10.8) K/ul RBC 4.16 (3.93-5.22) M/uL Hgb 12.1 (12.0-16.0) g/dl Hct 37.2 (34.1-44.9) % MCV 89.4 (80.0-100.0) fL MCH 29.1 (25.0-34.0) pg MCHC 32.5 (32.0-36.0) g/dL RDW Std Deviation 45.0 (36.4-46.3) fL RDW Coeff of Chris 13.8 (11.5-14.5) % Plt Count 256 (130-400) K/uL MPV 11.0 (9.4-12.3) fL Immature Gran % (Auto) 0.3 % Neut % (Auto) 75.5 % Lymph % (Auto) 18.3 % Ida % (Auto) 5.6 % Eos % (Auto) 0.0 % Baso % (Auto) 0.3 % Neut # (Auto) 9.02 H (1.4-6.5) K/uL Lymph # (Auto) 2.18 (1.2-3.4) K/uL Ida # (Auto) 0.67 (0.24-0.82) K/uL Eos # (Auto) 0.00 (0-0.50) K/uL Baso # (Auto) 0.04 (0-0.2) K/uL Immature Gran # (Auto) 0.03 H (0.00-0.02) K/uL ESR (0-30) mm/hr PT (9.0-12.0) Seconds INR (0.9-1.1) APTT (21.0-31.0) Seconds PTT Ratio VBG pH (7.36-7.41) VBG pCO2 (38-50) mmHg VBG pO2 mmHg VBG HCO3 mmol/L VBG O2 Saturation % VBG Base Excess mEq/L Sodium (136-145) mmol/L Potassium (3.5-5.1) mmol/L Chloride (98-107) mmol/L Carbon Dioxide (21-32) mmol/L Anion Gap (3-11) BUN (6-23) mg/dl Creatinine (0.6-1.2) mg/dl Est Cr Clr Drug Dosing ml/min Est GFR ( Amer) ml/min Est GFR (Non-Af Amer) ml/min BUN/Creatinine Ratio (10-20) Glucose (70-99(Fasting)) mg/dl POC Glucose (70-99) mg/dl Estimat Average Glucose mg/dl Hemoglobin A1c (4.5-5.6) % Osmolality (280-300) mOsm/kg Lactate (0.4-2.0) mmol/L Calcium (8.5-10.1) mg/dl Magnesium (1.7-2.4) mg/dl Total Bilirubin (0.2-1.0) mg/dl AST (13-39) U/L ALT (7-52) U/L Alkaline Phosphatase (34-104) U/L Ammonia (18-72) umol/L Total Creatine Kinase (26-192) U/L Troponin I High Sens (0-14) pg/ml C-Reactive Protein (0-0.5) mg/dl Total Protein (6.0-8.3) gm/dl Albumin (3.4-5.0) gm/dl Globulin (2.5-4.0) gm/dl Albumin/Globulin Ratio (0.9-2) Procalcitonin (0-0.5) ng/ml Urine Color Yellow Urine Appearance Clear (Clear) Urine pH 6.0 (4.5-7.5) Ur Specific [place] 1.032 H (1.000-1.030) Urine Protein 3+ H (Negative) Urine Glucose (UA) 3+ H (Negative) Urine Ketones 1+ H (Negative) Urine Blood 1+ H (Negative) Urine Nitrite Negative (Negative) Urine Bilirubin Negative (Negative) Urine Urobilinogen Negative (Negative) Ur Leukocyte Esterase Negative (Negative) Urine WBC (Auto) >30 H (0-5) /hpf Urine RBC (Auto) 0-4 (0-4) /hpf U Hyaline Cast (Auto) 1-5 (0-5) /lpf U Epithel Cells (Auto) 5-10 H (0-5) /lpf Urine Bacteria (Auto) Negative (Negative) Urine Osmolality (500-800) mOsm/kg Urine Opiates Screen Neg (Neg) Ur Methadone, Qual Neg (Neg) Urine Barbiturates Neg (Neg) Ur Phencyclidine (PCP) Neg (Neg) U Amphetamin/Meth Scrn Neg (Neg) MDMA (Ecstasy) Screen Neg (Neg) U Benzodiazepines Scrn Neg (Neg) Ur Cocaine Metabolite Neg (Neg) U Marijuana (THC) Screen Neg (Neg) Ethyl Alcohol mg/dL (<10.0) mg/dl SARS-CoV-2, RNA, NAAT (NEGATIVE) 01/11/22 01/11/22 01/11/22 Range/Units 18:07 17:51 17:51 WBC (4.8-10.8) K/ul RBC (3.93-5.22) M/uL Hgb (12.0-16.0) g/dl Hct (34.1-44.9) % MCV (80.0-100.0) fL MCH (25.0-34.0) pg MCHC (32.0-36.0) g/dL RDW Std Deviation (36.4-46.3) fL RDW Coeff of Chris (11.5-14.5) % Plt Count (130-400) K/uL MPV (9.4-12.3) fL Immature Gran % (Auto) % Neut % (Auto) % Lymph % (Auto) % Ida % (Auto) % Eos % (Auto) % Baso % (Auto) % Neut # (Auto) (1.4-6.5) K/uL Lymph # (Auto) (1.2-3.4) K/uL Ida # (Auto) (0.24-0.82) K/uL Eos # (Auto) (0-0.50) K/uL Baso # (Auto) (0-0.2) K/uL Immature Gran # (Auto) (0.00-0.02) K/uL ESR (0-30) mm/hr PT (9.0-12.0) Seconds INR (0.9-1.1) APTT (21.0-31.0) Seconds PTT Ratio VBG pH (7.36-7.41) VBG pCO2 (38-50) mmHg VBG pO2 mmHg VBG HCO3 mmol/L VBG O2 Saturation % VBG Base Excess mEq/L Sodium (136-145) mmol/L Potassium (3.5-5.1) mmol/L Chloride (98-107) mmol/L Carbon Dioxide (21-32) mmol/L Anion Gap (3-11) BUN (6-23) mg/dl Creatinine (0.6-1.2) mg/dl Est Cr Clr Drug Dosing ml/min Est GFR ( Amer) ml/min Est GFR (Non-Af Amer) ml/min BUN/Creatinine Ratio (10-20) Glucose (70-99(Fasting)) mg/dl POC Glucose (70-99) mg/dl Estimat Average Glucose mg/dl Hemoglobin A1c (4.5-5.6) % Osmolality (280-300) mOsm/kg Lactate (0.4-2.0) mmol/L Calcium (8.5-10.1) mg/dl Magnesium (1.7-2.4) mg/dl Total Bilirubin (0.2-1.0) mg/dl AST (13-39) U/L ALT (7-52) U/L Alkaline Phosphatase (34-104) U/L Ammonia (18-72) umol/L Total Creatine Kinase (26-192) U/L Troponin I High Sens (0-14) pg/ml C-Reactive Protein (0-0.5) mg/dl Total Protein (6.0-8.3) gm/dl Albumin (3.4-5.0) gm/dl Globulin (2.5-4.0) gm/dl Albumin/Globulin Ratio (0.9-2) Procalcitonin (0-0.5) ng/ml Urine Color Urine Appearance (Clear) Urine pH (4.5-7.5) Ur Specific [place] (1.000-1.030) Urine Protein (Negative) Urine Glucose (UA) (Negative) Urine Ketones (Negative) Urine Blood (Negative) Urine Nitrite (Negative) Urine Bilirubin (Negative) Urine Urobilinogen (Negative) Ur Leukocyte Esterase (Negative) Urine WBC (Auto) (0-5) /hpf Urine RBC (Auto) (0-4) /hpf U Hyaline Cast (Auto) (0-5) /lpf U Epithel Cells (Auto) (0-5) /lpf Urine Bacteria (Auto) (Negative) Urine Osmolality 676 (500-800) mOsm/kg Urine Opiates Screen (Neg) Ur Methadone, Qual (Neg) Urine Barbiturates (Neg) Ur Phencyclidine (PCP) (Neg) U Amphetamin/Meth Scrn (Neg) MDMA (Ecstasy) Screen (Neg) U Benzodiazepines Scrn (Neg) Ur Cocaine Metabolite (Neg) U Marijuana (THC) Screen (Neg) Ethyl Alcohol mg/dL < 10.0 (<10.0) mg/dl SARS-CoV-2, RNA, NAAT NEGATIVE (NEGATIVE) 01/11/22 01/11/22 01/11/22 Range/Units 17:51 17:51 17:51 WBC (4.8-10.8) K/ul RBC (3.93-5.22) M/uL Hgb (12.0-16.0) g/dl Hct (34.1-44.9) % MCV (80.0-100.0) fL MCH (25.0-34.0) pg MCHC (32.0-36.0) g/dL RDW Std Deviation (36.4-46.3) fL RDW Coeff of Chris (11.5-14.5) % Plt Count (130-400) K/uL MPV (9.4-12.3) fL Immature Gran % (Auto) % Neut % (Auto) % Lymph % (Auto) % Ida % (Auto) % Eos % (Auto) % Baso % (Auto) % Neut # (Auto) (1.4-6.5) K/uL Lymph # (Auto) (1.2-3.4) K/uL Ida # (Auto) (0.24-0.82) K/uL Eos # (Auto) (0-0.50) K/uL Baso # (Auto) (0-0.2) K/uL Immature Gran # (Auto) (0.00-0.02) K/uL ESR (0-30) mm/hr PT (9.0-12.0) Seconds INR (0.9-1.1) APTT (21.0-31.0) Seconds PTT Ratio VBG pH 7.38 (7.36-7.41) VBG pCO2 38 (38-50) mmHg VBG pO2 40 mmHg VBG HCO3 23 mmol/L VBG O2 Saturation 72.0 % VBG Base Excess -2.3 mEq/L Sodium (136-145) mmol/L Potassium (3.5-5.1) mmol/L Chloride (98-107) mmol/L Carbon Dioxide (21-32) mmol/L Anion Gap (3-11) BUN (6-23) mg/dl Creatinine (0.6-1.2) mg/dl Est Cr Clr Drug Dosing ml/min Est GFR ( Amer) ml/min Est GFR (Non-Af Amer) ml/min BUN/Creatinine Ratio (10-20) Glucose (70-99(Fasting)) mg/dl POC Glucose (70-99) mg/dl Estimat Average Glucose mg/dl Hemoglobin A1c (4.5-5.6) % Osmolality 338 H (280-300) mOsm/kg Lactate (0.4-2.0) mmol/L Calcium (8.5-10.1) mg/dl Magnesium (1.7-2.4) mg/dl Total Bilirubin (0.2-1.0) mg/dl AST (13-39) U/L ALT (7-52) U/L Alkaline Phosphatase (34-104) U/L Ammonia (18-72) umol/L Total Creatine Kinase (26-192) U/L Troponin I High Sens (0-14) pg/ml C-Reactive Protein (0-0.5) mg/dl Total Protein (6.0-8.3) gm/dl Albumin (3.4-5.0) gm/dl Globulin (2.5-4.0) gm/dl Albumin/Globulin Ratio (0.9-2) Procalcitonin 0.05 (0-0.5) ng/ml Urine Color Urine Appearance (Clear) Urine pH (4.5-7.5) Ur Specific [place] (1.000-1.030) Urine Protein (Negative) Urine Glucose (UA) (Negative) Urine Ketones (Negative) Urine Blood (Negative) Urine Nitrite (Negative) Urine Bilirubin (Negative) Urine Urobilinogen (Negative) Ur Leukocyte Esterase (Negative) Urine WBC (Auto) (0-5) /hpf Urine RBC (Auto) (0-4) /hpf U Hyaline Cast (Auto) (0-5) /lpf U Epithel Cells (Auto) (0-5) /lpf Urine Bacteria (Auto) (Negative) Urine Osmolality (500-800) mOsm/kg Urine Opiates Screen (Neg) Ur Methadone, Qual (Neg) Urine Barbiturates (Neg) Ur Phencyclidine (PCP) (Neg) U Amphetamin/Meth Scrn (Neg) MDMA (Ecstasy) Screen (Neg) U Benzodiazepines Scrn (Neg) Ur Cocaine Metabolite (Neg) U Marijuana (THC) Screen (Neg) Ethyl Alcohol mg/dL (<10.0) mg/dl SARS-CoV-2, RNA, NAAT (NEGATIVE) 01/11/22 01/11/22 01/11/22 Range/Units 17:51 17:51 17:51 WBC (4.8-10.8) K/ul RBC (3.93-5.22) M/uL Hgb (12.0-16.0) g/dl Hct (34.1-44.9) % MCV (80.0-100.0) fL MCH (25.0-34.0) pg MCHC (32.0-36.0) g/dL RDW Std Deviation (36.4-46.3) fL RDW Coeff of Chris (11.5-14.5) % Plt Count (130-400) K/uL MPV (9.4-12.3) fL Immature Gran % (Auto) % Neut % (Auto) % Lymph % (Auto) % Ida % (Auto) % Eos % (Auto) % Baso % (Auto) % Neut # (Auto) (1.4-6.5) K/uL Lymph # (Auto) (1.2-3.4) K/uL Ida # (Auto) (0.24-0.82) K/uL Eos # (Auto) (0-0.50) K/uL Baso # (Auto) (0-0.2) K/uL Immature Gran # (Auto) (0.00-0.02) K/uL ESR (0-30) mm/hr PT (9.0-12.0) Seconds INR (0.9-1.1) APTT (21.0-31.0) Seconds PTT Ratio VBG pH (7.36-7.41) VBG pCO2 (38-50) mmHg VBG pO2 mmHg VBG HCO3 mmol/L VBG O2 Saturation % VBG Base Excess mEq/L Sodium 150 H (136-145) mmol/L Potassium 3.4 L (3.5-5.1) mmol/L Chloride 116 H (98-107) mmol/L Carbon Dioxide 22 (21-32) mmol/L Anion Gap 12 H (3-11) BUN 20 (6-23) mg/dl Creatinine 1.09 (0.6-1.2) mg/dl Est Cr Clr Drug Dosing 39.3 ml/min Est GFR ( Amer) 57.9 ml/min Est GFR (Non-Af Amer) 50.0 ml/min BUN/Creatinine Ratio 18.3 (10-20) Glucose 424 H* (70-99(Fasting)) mg/dl POC Glucose (70-99) mg/dl Estimat Average Glucose mg/dl Hemoglobin A1c (4.5-5.6) % Osmolality (280-300) mOsm/kg Lactate 1.7 (0.4-2.0) mmol/L Calcium 9.2 (8.5-10.1) mg/dl Magnesium 1.8 (1.7-2.4) mg/dl Total Bilirubin 0.5 (0.2-1.0) mg/dl AST 10 L (13-39) U/L ALT 11 (7-52) U/L Alkaline Phosphatase 95 (34-104) U/L Ammonia 24.0 (18-72) umol/L Total Creatine Kinase 93 (26-192) U/L Troponin I High Sens 12.4 (0-14) pg/ml C-Reactive Protein 3.19 H (0-0.5) mg/dl Total Protein 7.1 (6.0-8.3) gm/dl Albumin 4.0 (3.4-5.0) gm/dl Globulin 3.1 (2.5-4.0) gm/dl Albumin/Globulin Ratio 1.3 (0.9-2) Procalcitonin (0-0.5) ng/ml Urine Color Urine Appearance (Clear) Urine pH (4.5-7.5) Ur Specific [place] (1.000-1.030) Urine Protein (Negative) Urine Glucose (UA) (Negative) Urine Ketones (Negative) Urine Blood (Negative) Urine Nitrite (Negative) Urine Bilirubin (Negative) Urine Urobilinogen (Negative) Ur Leukocyte Esterase (Negative) Urine WBC (Auto) (0-5) /hpf Urine RBC (Auto) (0-4) /hpf U Hyaline Cast (Auto) (0-5) /lpf U Epithel Cells (Auto) (0-5) /lpf Urine Bacteria (Auto) (Negative) Urine Osmolality (500-800) mOsm/kg Urine Opiates Screen (Neg) Ur Methadone, Qual (Neg) Urine Barbiturates (Neg) Ur Phencyclidine (PCP) (Neg) U Amphetamin/Meth Scrn (Neg) MDMA (Ecstasy) Screen (Neg) U Benzodiazepines Scrn (Neg) Ur Cocaine Metabolite (Neg) U Marijuana (THC) Screen (Neg) Ethyl Alcohol mg/dL (<10.0) mg/dl SARS-CoV-2, RNA, NAAT (NEGATIVE) 01/11/22 01/11/22 01/11/22 Range/Units 17:51 17:51 17:51 WBC 12.72 H (4.8-10.8) K/ul RBC 4.45 (3.93-5.22) M/uL Hgb 12.8 (12.0-16.0) g/dl Hct 38.7 (34.1-44.9) % MCV 87.0 (80.0-100.0) fL MCH 28.8 (25.0-34.0) pg MCHC 33.1 (32.0-36.0) g/dL RDW Std Deviation 43.2 (36.4-46.3) fL RDW Coeff of Chris 13.7 (11.5-14.5) % Plt Count 342 (130-400) K/uL MPV 11.4 (9.4-12.3) fL Immature Gran % (Auto) 0.5 % Neut % (Auto) 83.7 % Lymph % (Auto) 9.4 % Ida % (Auto) 6.1 % Eos % (Auto) 0.0 % Baso % (Auto) 0.3 % Neut # (Auto) 10.65 H (1.4-6.5) K/uL Lymph # (Auto) 1.20 (1.2-3.4) K/uL Ida # (Auto) 0.77 (0.24-0.82) K/uL Eos # (Auto) 0.00 (0-0.50) K/uL Baso # (Auto) 0.04 (0-0.2) K/uL Immature Gran # (Auto) 0.06 H (0.00-0.02) K/uL ESR 32 H (0-30) mm/hr PT 11.1 (9.0-12.0) Seconds INR 1.0 (0.9-1.1) APTT 25.4 (21.0-31.0) Seconds PTT Ratio 0.9 VBG pH (7.36-7.41) VBG pCO2 (38-50) mmHg VBG pO2 mmHg VBG HCO3 mmol/L VBG O2 Saturation % VBG Base Excess mEq/L Sodium (136-145) mmol/L Potassium (3.5-5.1) mmol/L Chloride (98-107) mmol/L Carbon Dioxide (21-32) mmol/L Anion Gap (3-11) BUN (6-23) mg/dl Creatinine (0.6-1.2) mg/dl Est Cr Clr Drug Dosing ml/min Est GFR ( Amer) ml/min Est GFR (Non-Af Amer) ml/min BUN/Creatinine Ratio (10-20) Glucose (70-99(Fasting)) mg/dl POC Glucose (70-99) mg/dl Estimat Average Glucose mg/dl Hemoglobin A1c (4.5-5.6) % Osmolality (280-300) mOsm/kg Lactate (0.4-2.0) mmol/L Calcium (8.5-10.1) mg/dl Magnesium (1.7-2.4) mg/dl Total Bilirubin (0.2-1.0) mg/dl AST (13-39) U/L ALT (7-52) U/L Alkaline Phosphatase (34-104) U/L Ammonia (18-72) umol/L Total Creatine Kinase (26-192) U/L Troponin I High Sens (0-14) pg/ml C-Reactive Protein (0-0.5) mg/dl Total Protein (6.0-8.3) gm/dl Albumin (3.4-5.0) gm/dl Globulin (2.5-4.0) gm/dl Albumin/Globulin Ratio (0.9-2) Procalcitonin (0-0.5) ng/ml Urine Color Urine Appearance (Clear) Urine pH (4.5-7.5) Ur Specific [place] (1.000-1.030) Urine Protein (Negative) Urine Glucose (UA) (Negative) Urine Ketones (Negative) Urine Blood (Negative) Urine Nitrite (Negative) Urine Bilirubin (Negative) Urine Urobilinogen (Negative) Ur Leukocyte Esterase (Negative) Urine WBC (Auto) (0-5) /hpf Urine RBC (Auto) (0-4) /hpf U Hyaline Cast (Auto) (0-5) /lpf U Epithel Cells (Auto) (0-5) /lpf Urine Bacteria (Auto) (Negative) Urine Osmolality (500-800) mOsm/kg Urine Opiates Screen (Neg) Ur Methadone, Qual (Neg) Urine Barbiturates (Neg) Ur Phencyclidine (PCP) (Neg) U Amphetamin/Meth Scrn (Neg) MDMA (Ecstasy) Screen (Neg) U Benzodiazepines Scrn (Neg) Ur Cocaine Metabolite (Neg) U Marijuana (THC) Screen (Neg) Ethyl Alcohol mg/dL (<10.0) mg/dl SARS-CoV-2, RNA, NAAT (NEGATIVE) Medications Administered Current Inpatient Medications Dextrose (Dextrose 50% 50 Ml Syringe) 25 - 50 ml IV UD PRN; Protocol PRN Reason: Hypoglycemia Protocol Stop: 02/10/22 23:44 Fluticasone Propionate (Fluticasone Propionate Na Spr 16 Gm Btl) 2 sprays NA DAILY EDWIGE Stop: 02/11/22 08:59 Last Admin: 01/12/22 08:49 Dose: 2 sprays Folic Acid (Folic Acid 1 Mg Tab) 1 mg PO QAM EDWIGE Stop: 02/11/22 08:59 Last Admin: 01/12/22 08:50 Dose: 1 mg Glucagon (Glucagon For Inj 1 Mg Vial) 1 mg IM UD PRN; Protocol PRN Reason: Hypoglycemia Protocol Stop: 02/10/22 23:44 Glucose (Glucose 40% Gel 15 Gm Tube) 15 - 30 gm PO UD PRN; Protocol PRN Reason: Hypoglycemia Protocol Stop: 02/10/22 23:44 Glucose (Glucose 10 Tab/Tube) 4 - 8 tab PO UD PRN; Protocol PRN Reason: Hypoglycemia Protocol Stop: 02/10/22 23:44 Heparin Sodium (Porcine) (Heparin Sod 5,000 Unit/0.5 Ml Vial) 5,000 units SQ Q12 EDWIGE Stop: 02/11/22 08:59 Last Admin: 01/12/22 08:50 Dose: 5,000 units Sodium Chloride (1/2 Nss) 1,000 mls @ 100 mls/hr IV .Q10H [facility] Stop: 02/10/22 22:28 Last Admin: 01/12/22 11:10 Dose: 100 mls/hr Piperacillin Sod/Tazobactam (Sod 3.375 gm/ Dextrose) 115 mls @ 28.75 mls/hr IV Q8H [facility]; Protocol Stop: 01/14/22 00:00 Last Admin: 01/12/22 09:11 Dose: 29 mls/hr Magnesium Sulfate/Dextrose (Magnesium Sulfate / D5w) 1 gm in 100 mls @ 50 mls/hr IV ONE ONE Stop: 01/12/22 14:10 Insulin Aspart (Insulin Aspart Per Unit) 0 units SC ACHS [facility] Stop: 02/11/22 07:29 Last Admin: 01/12/22 09:10 Dose: 5 units Insulin Glargine (Lantus Per Unit Charge) 31 units SQ QAM [facility] Stop: 02/11/22 08:59 Last Admin: 01/12/22 09:11 Dose: 31 units Labetalol HCl (Labetalol Hcl Iv 5 Mg/Ml 20ml) 10 mg IV Q4H PRN PRN Reason: Hypertension Stop: 02/10/22 22:28 Lactobacillus Acidophilus (Advanced Probiotic 1250 Mg Capsule) 2 cap PO DAILY [facility] Stop: 02/11/22 12:29 Levothyroxine Sodium (Levothyroxine Sodium 125 Mcg Tablet) 125 mcg PO DAILYBB [facility] Stop: 02/11/22 06:29 Last Admin: 01/12/22 06:18 Dose: 125 mcg Lisinopril (Lisinopril 40 Mg Tab) 40 mg PO DAILY [facility] Stop: 02/11/22 08:59 Last Admin: 01/12/22 08:48 Dose: 40 mg Magnesium Chloride (Magnesium Chloride W/Calcium 64mg Delayed Rel Tab) [facility] Stop: 02/11/22 08:59 Last Admin: 01/12/22 08:48 Dose: 128 mg Meclizine HCl (Meclizine 12.5 Mg Tab) 12.5 mg PO TID PRN PRN Reason: Dizziness Stop: 02/10/22 22:28 Miscellaneous (Carbohydrates For Hypoglycemia ) 15 - 30 gm PO UD PRN PRN Reason: Hypoglycemia Treatment Stop: 02/10/22 23:44 Nitroglycerin (Nitroglycerin Sl 0.4 Mg/Tab Tab) 0.4 mg SL Q5M PRN PRN Reason: Chest Pain Stop: 02/10/22 22:28 Nystatin (Nystatin Powder 15gm Btl) 1 appln EXT TID PRN PRN Reason: yeast infections Stop: 02/10/22 22:28 Ondansetron HCl (Ondansetron Inj 2 Mg/Ml 2 Ml Vial) 4 mg IV Q6H PRN PRN Reason: Nausea Stop: 02/10/22 22:28 Pantoprazole Sodium (Pantoprazole 40 Mg Tab) 40 mg PO QAM [facility] Stop: 02/11/22 08:59 Last Admin: 01/12/22 08:50 Dose: 40 mg Tramadol HCl (Tramadol Hcl 50 Mg Tablet) 50 mg PO Q6H PRN PRN Reason: Pain, Severe 7,8,9,10 Stop: 02/10/22 22:28 Vitamin D (Cholecalciferol 1,000 Units 25 Mcg Tab) 1,000 units PO DAILY EDWIGE Stop: 02/11/22 08:59 Last Admin: 01/12/22 08:48 Dose: 1,000 units (1) Fall Encounter type: initial encounter Qualified Code(s): W19.XXXA - Unspecified fall, initial encounter
[2022-01-12] MEDS ORDERED: MAGNESIUM SULFATE / D5W 1 GM/100 ML BAG IV ONE (12:11)
--- NOTE | 2022-01-12 13:00 | Cardiology Consultation ---
Date of Consultation January 12, 2022 Assessment & Plan (1) Acute on chronic alteration in mental status: (2) Hypertensive urgency: (3) Noncompliance: (4) Urinary tract infection: (5) Hypernatremia: (6) Dehydration: Plan Hypertension, hypertensive urgency. Agree with utilization of ACEI therapy, lisinopril 40 mg/day. Add amlodipine 5 mg/day. Improvement in blood pressures anticipated with treatment of the noncardiac issues. Hypokalemia. Additional oral potassium ordered today. Recheck in AM. Hypomagnesemia. IV magnesium ordered. Recheck in AM. Hypernatremia. Improving. UTI. As per Hospitalist. Dyslipidemia. LDL goal less than 70 mg/dL. Patient with a history of stating intolerance, statin myopathy. Consider a trial of ezetimibe 10 mg/day down the road. DVT prophylaxis. Subcutaneous heparin Supervising Physician Co-Signing Physician Notes Supervising Physician Attestation: I have personally performed a history and physical examination on the patient. I agree with the physician assistant chief engineer's findings and plan as documented with the following additions. Subjective: Patient without complaint at the time my assessment. Exam: Cardiovascular regular rhythm, no murmur, no edema Data: As outlined above EKG performed 01/11/2022 1748 revealed sinus rhythm at 71 bpm, baseline artifact, nonspecific T wave flattening. Assessment and Plan: Hypertension -Apparent nonadherence -Resume oral medications as outlined DVT prophylaxis: Consider adding pharmacologic DVT prophylaxis such as subcutaneous Lovenox Otto Ortiz, DO History of Present Illness Reason for Consultation: Hypertensive urgency, encephalopathy Requesting Physician: Fadi Attending Physician: Jared History of Present Illness Ms. Eri Sorensen is a 76-year-old female who is being seen at the request of Dr. Aponte, evaluation of hypertension, hypertensive urgency, encephalopathy. Information is somewhat difficult to discern from patient. Information obtained from interviewing the patient as well as reviewing both the inpatient and outpatient electronic medical records. Chart review reveals that there has been concern regarding whether or not the patient has been taking her medications since June 17, 2021. Patient lives alone. Patient's [id number] reportedly checks on the patient weekly and delivers her groceries. Yesterday, January 11, 2022, the patient was found on the floor confused, covered in feces and urine, down for an unknown period of time. The house was reported to be in disarray. Blood pressure was found to be markedly elevated. Blood glucose was elevated at 424. Patient transferred to the [facility] ER via EMS where she was evaluated by Dr. Thompson. Blood pressure initial presentation was 212/142. Patient given 40 mg of lisinopril, 5 mg of amlodipine, 25 mg of hydralazine in the ER last evening. Patient received 40 mg of Lisinopril this morning as well. Blood pressure remains uncontrolled. Laboratory work on presentation revealed mild leukocytosis with a white blood cell count of 12.72. H&H were normal at 12.8 and 38.7. Sodium was elevated at 150, felt to be secondary to dehydration. Potassium was mildly low at 3.4. BUN and creatinine were 20 and 1.09. Patient received IV fluids in the ER and was prescribed IV antibiotics for presumed urinary tract infection. Urine and blood cultures obtained, pending. High-sensitivity troponin I was negative at 12.4 pg/mL. EKG revealed normal sinus rhythm at [address]-T wave abnormality. Patient denies chest pain or discomfort, new or worsening shortness of breath, palpitations, cough, chest congestion, orthopnea, PND, lower extremity peripheral edema, headaches, blurred vision, double vision, dizziness, near- syncope, syncope, fevers, rigors, night sweats, melena, hematochezia. She denies prior cardiac history. She specifically denies history of CAD, SC, CHF, arrhythmia, heart murmur, rheumatic fever, or scarlet fever. Resting echocardiography on April 24, 2021, interpreted by Dr. Rojas, revealed normal size left ventricle with mild concentric LVH, sigmoid appearing septum. LV systolic function was normal, ejection fraction 60 to 65%. Abnormal septal wall motion noted, consistent with IVCD, with otherwise normal wall motion. Grade 1 diastolic dysfunction observed along with mild aortic valve sclerosis, without significant stenosis. A small loculated anterior pericardial effusion without hemodynamic significance was also noted. On questioning, she has not been taking medications for months. Allergies Allergy/AdvReac Type Severity Reaction Status Date / Time atorvastatin [From Lipitor] Allergy Unknown Unknown Verified 01/11/22 20:00 morphine Allergy Unknown Verified 04/24/21 07:10 acetaminophen [From Percocet] AdvReac Unknown Vomiting Verified 01/11/22 20:00 aspirin [From Percodan] AdvReac Unknown Vomiting Verified 01/11/22 20:00 cephalexin AdvReac Unknown Unknown Verified 01/11/22 20:00 codeine AdvReac Unknown Vomiting Verified 01/11/22 20:00 esomeprazole AdvReac Unknown Skin Verified 04/24/21 07:10 irritation,swelling,difficulty breathing. oxycodone [From Percodan] AdvReac Unknown Vomiting Verified 01/11/22 20:00 sucralfate AdvReac Unknown Skin Verified 01/11/22 20:00 irritation,swelling,difficulty breathing. Home Medications Medication Instructions Recorded Confirmed Type cholecalciferol (vitamin D3) 25 25 mcg PO DAILY 04/24/21 01/11/22 History mcg (1,000 unit) capsule (Vitamin D3) fluticasone propionate 50 2 spray intranasal DAILY 04/24/21 01/11/22 History mcg/actuation nasal spray,suspension folic acid 1 mg tablet 1 mg PO QAM 04/24/21 01/11/22 History insulin glargine 100 unit/mL 31 unit subcut QAM 04/24/21 01/11/22 History subcutaneous solution (Lantus U-100 Insulin) levothyroxine 125 mcg tablet 125 mcg PO DAILYBB 04/24/21 01/11/22 History metformin 500 mg tablet,extended 1,000 mg PO QDD 04/24/21 01/11/22 History release 24 hr nystatin 100,000 unit/gram topical 1 applic topical TID PRN yeast 04/24/21 01/11/22 History powder infections tramadol 50 mg tablet 50 mg PO Q6H PRN Pain, Severe 04/24/21 01/11/22 History lisinopril 40 mg tablet (Zestril) 40 mg PO DAILY #30 tabs 05/07/21 01/11/22 Rx magnesium chloride 64 mg 128 mg PO QAM 01/11/22 01/11/22 History (magnesium chloride) tablet,delayed release (Mag 64) meclizine 12.5 mg tablet 12.5 mg PO TID PRN Dizziness 01/11/22 01/11/22 History pantoprazole 40 mg tablet,delayed 40 mg PO QAM 01/11/22 01/11/22 History release semaglutide 1 mg/dose (4 mg/3 mL) 1 mg subcut WK 01/11/22 01/11/22 History subcutaneous pen injector (Ozempic) Patient History Medical History Acute on chronic alteration in mental status Encephalopathy Fall Hyperglycemia due to diabetes mellitus Paranoid Social History Smoking Status: Unknown if ever smoked Hx Substance Use: No Preferred Language: Portuguese Communication Ability: Effective Heating Element Repairer Required: No Beliefs That Will Affect Care: None Current Living Situation: Family Feels Safe at Home: Yes Safety Concerns: Feels Safe At This Time Assistive Devices: Walker Review of Systems Review of Systems: A complete and accurate review of systems was unable to be obtained due to the patient's present status Physical Exam Physical Exam: General: Alert to person and place but not to time. No acute distress. Pleasant. Comfortable. Cooperative. HENT: Normocephalic. Atraumatic. Eyes: PER. Conjunctiva pink, sclera clear. No carotid bruits. Neck veins are flat. Heart: egular at 64 bpm. Soft systolic murmur. No diastolic murmur. No rub. Lungs: Clear to auscultation anteriorly and laterally. Abdomen: +BS. Soft. Nontender. No masses or organomegaly. Extremities: No clubbing, cyanosis, or edema. Neurologic, intermittently confused, pleasant. No focal deficit. Pulses: radial=2/4, posterior tibial=1/4. Results & Data ([facility]) Vital Signs (Past 12 Hours) Vital Signs Pulse Resp BP Pulse Ox O2 Del Method 01/12/22 06:30 71 16 172/71 H 98 01/12/22 03:00 68 16 101/83 97 Room Air Laboratory Results Cardiac Enzymes 01/11/22 Range/Units 17:51 AST 10 L (13-39) U/L Troponin I High Sens 12.4 (0-14) pg/ml Coagulation 01/11/22 Range/Units 17:51 PT 11.1 (9.0-12.0) Seconds APTT 25.4 (21.0-31.0) Seconds CBC 01/11/22 01/12/22 Range/Units 17:51 04:41 WBC 12.72 H 11.94 H (4.8-10.8) K/ul RBC 4.45 4.16 (3.93-5.22) M/uL Hgb 12.8 12.1 (12.0-16.0) g/dl Hct 38.7 37.2 (34.1-44.9) % Plt Count 342 256 (130-400) K/uL Neut # (Auto) 10.65 H 9.02 H (1.4-6.5) K/uL Lymph # (Auto) 1.20 2.18 (1.2-3.4) K/uL [place] # (Auto) 0.77 0.67 (0.24-0.82) K/uL Eos # (Auto) 0.00 0.00 (0-0.50) K/uL Baso # (Auto) 0.04 0.04 (0-0.2) K/uL Comprehensive Metabolic Panel 01/11/22 01/12/22 Range/Units 17:51 04:41 Sodium 150 H 147 H (136-145) mmol/L Potassium 3.4 L 3.5 (3.5-5.1) mmol/L Chloride 116 H 117 H (98-107) mmol/L Carbon Dioxide 22 21 (21-32) mmol/L BUN 20 13 (6-23) mg/dl Creatinine 1.09 0.95 (0.6-1.2) mg/dl Glucose 424 H* 262 H (70-99(Fasting)) mg/dl Calcium 9.2 8.2 L (8.5-10.1) mg/dl AST 10 L (13-39) U/L ALT 11 (7-52) U/L Alkaline Phosphatase 95 (34-104) U/L Total Protein 7.1 (6.0-8.3) gm/dl Albumin 4.0 (3.4-5.0) gm/dl (1) Urinary tract infection Hematuria presence: without hematuria Urinary tract infection type: site unspecified Qualified Code(s): N39.0 - Urinary tract infection, site not specified
[2022-01-12] MEDS: THIAMINE HCL 100 MG in SYRINGE 9 ML IV SCH (13:04)
[2022-01-12] MEDS: ADVANCED PROBIOTIC 1250 MG CAPSULE PO SCH (13:04)
[2022-01-12] MEDS: amLODIPine BESYLATE 5 MG TAB PO SCH (13:53)
[2022-01-12] MEDS ORDERED: POTASSIUM CHLORIDE CRTAB 20 MEQ TABCR PO ONE (14:00)
[2022-01-12 16:04] LABS: A calco-baum cmplx NotReported Not Detected (NotDetected); Bact fragilis Not Reported Not Detected (NotDetected); C auris Not Reported Not Detected (NotDetected); Calbicans Not Reported Not Detected (NotDetected); Candida glabrata Not Reported Not Detected (NotDetected); Candida krusei Not Reported Not Detected (NotDetected); Cneoformans/gatti Not Reported Not Detected (NotDetected); Cparapsilosis Not Reported Not Detected (NotDetected); Ctropicalis Not Reported Not Detected (NotDetected); E cloacae compx Not Reported Not Detected (NotDetected); Efaecalis Not Reported Not Detected (NotDetected); Efaecium Not Reported Not Detected (NotDetected); Enterobacterales Not Reported Not Detected (NotDetected); Escherichia coli Not Reported Not Detected (NotDetected); H influenzae Not Reported Not Detected (NotDetected); K aerogenes Not Reported Not Detected (NotDetected); Koxytoca Not Reported Not Detected (NotDetected); Kpneumoniae grp Not Reported Not Detected (NotDetected); Lmonocyt Not Reported Not Detected (NotDetected); N meningitidis Not Reported Not Detected (NotDetected); P aeruginosa Not Reported Not Detected (NotDetected); Proteus spp Not Reported Not Detected (NotDetected); Salmonella spp Not Reported Not Detected (NotDetected); Smarcescens Not Reported Not Detected (NotDetected); Staph lugdunensis Not Reported Not Detected (NotDetected); Staph spp. Not Reported DETECTED (NotDetected); Staphaureus Not Reported Not Detected (NotDetected); Staphepi Not Reported DETECTED (NotDetected); Staphylococcus spp. DETECTED (NotDetected); Stenmaltophilia Not Reported Not Detected (NotDetected); Strep agal(GrpB) Not Reported Not Detected (NotDetected); Strep pneum Not Reported Not Detected (NotDetected); Strep pyog (GrpA) Not Reported Not Detected (NotDetected); Strep spp Not Reported Not Detected (NotDetected); mecAC Resistant Gene DETECTED (NotDetected)
[2022-01-12 17:12] LABS: Staphylococcus epidermidis DETECTED (NotDetected)
[2022-01-12] MEDS ORDERED: VANCOMYCIN CONSULT ACTIVE PRN (18:13)
[2022-01-12] MEDS ORDERED: VANCOMYCIN HCL 1,250 MG in SODIUM CHLORIDE 0.9% 250 ML IV ONE (18:30)
--- NOTE | 2022-01-12 19:27 | Consultation Report ---
NEPHROLOGY CONSULTATION DATE OF SERVICE: 01/12/2022 REASON FOR CONSULTATION: Hypernatremia. HISTORY OF PRESENT ILLNESS: The patient is a 76-year-old female with multiple medical problems, who was brought to the hospital when she was found to be in a very confused state lying on the floor with feces and urine on the floor. The patient lives alone and is a . She could not tell me any hi story as she could not even tell me why she was in the hospital and who she lives with or where her h ome is. ALLERGIES: ALLERGY LIST REVIEWED IN DETAIL AND IS PER THE RECONCILIATION LIST. PAST MEDICAL HISTORY: Type 2 diabetes, hypothyroidism, hyperlipidemia, chronic kidney disease stage III, diabetic polyneuropathy, hypertension, GERD, vitamin D deficiency, fibromyalgia, degenerative di sk disease, osteoarthritis of the knees, posttraumatic stress disorder, generalized anxiety disorder, tonsillectomy. PAST SURGICAL HISTORY: Tonsillectomy. MEDICATIONS: Medication list at home was reviewed in detail and is as per the reconciliation list an d H and P. However, we do not know for sure whether she was taking any of these medications. FAMILY HISTORY: Not able to obtain. SOCIAL HISTORY: She is a . No smoking, no alcohol, no drugs. She lives alone. REVIEW OF SYSTEMS: Unable to obtain as the patient cannot give me any history at all. PHYSICAL EXAMINATION: GENERAL: Elderly white female who is not in any respiratory distress, nor any pain. However, she se emed quite confused and was not able to tell me any medical history at all. In fact, she could not t ell me where her home is and where she lives. She could response to simple question and was alert an d talking. Normal speech. VITAL SIGNS: Blood pressure 172/71, pulse rate 71, temperature 36.9, 98% on room air. HEENT: Mucous membrane is moist. NECK: Supple. No jugular venous distention. CHEST: Bilaterally clear to auscultation, but very poor quality exam. CARDIOVASCULAR: S1 and S2 regular. ABDOMEN: Soft, nontender. EXTREMITIES: Show no edema. GENITOURINARY: Pace catheter in place. NEUROLOGIC: She is awake and alert, not oriented and definitely not able to give me any history. Mo ving all 4 extremities. Speech seems reasonable without any slurring. LABORATORY TEST: Serum sodium was 150 and the repeat is 147. Most recent blood work shows potassium 3.5, BUN 13, creatinine 0.95, glucose 262. Hemoglobin A1c 6.1. Calcium 8.2, magnesium 1.5. Hemoglob in 12.1, WBC count 11,000, platelet count 256. Urine test shows 3+ protein, 1+ blood. Urine culture preliminary is negative. Blood culture preliminary is negative. CT scan of the head shows cerebral atrophy and small vessel disease, but no acute pathology. Chest x -ray, no acute cardiopulmonary disease. X-ray of the pelvis, no fracture noted. ASSESSMENT AND PLAN: A 76-year-old female who was brought to the hospital when she was found to be i n a very confused state lying on the floor with feces and urine on the floor. I have been consulted for hypernatremia. 1. Hypernatremia: By definition, this is free water deficit. Most likely, patient has been confuse d for a while and was not eating and drinking causing the volume depleted-dehydrated state. Serum so dium was 150 at the time of her admission, which although high is obviously not high enough to cause this degree of confusion. It is trending down with the use of half normal saline and I would continu e the same for the time being. She still appears quite confused and I am not so sure how much she ca n eat and drink. No further workup is needed for the hypernatremia. Since serum sodium is only 147, we do not really need to worry about the rate of correction at this point. 2. Confusion of unclear etiology, but I can tell a serum sodium of 150 is almost impossible to cause this degree of profound confusion. Thank you very much for the consult. Job ID: [id number]
[2022-01-13] MEDS: LEVOTHYROXINE SODIUM 125 MCG TABLET PO SCH (05:23)
--- NOTE | 2022-01-13 05:37 | Electrocardiogram Report ---
Test Reason : Blood Pressure : / mmHG Vent. Rate : 071 BPM Atrial Rate : 071 BPM P-R Int : 156 ms QRS Dur : 072 ms QT Int : 438 ms P-R-T Axes : 060 -19 -02 degrees QTc Int : 475 ms Normal sinus rhythm Nonspecific ST and T wave abnormality Abnormal ECG When compared with ECG of 24-APR-2021 02:00, Nonspecific T wave abnormality has replaced inverted T waves in Lateral leads QT has lengthened Confirmed by Jorge Quispe ([id number]) on 01/13/2022 5:37:42 AM Referred By: REFERRED SELF Confirmed By:Jorge Quispe
[2022-01-13 08:14] LABS: Basophils # (auto) 0.07 K/uL (0-0.2); Basophils % (auto) 0.8 %; Eosinophils # (auto) 0.15 K/uL (0-0.50); Eosinophils % (auto) 1.7 %; Hematocrit (blood only) 31.8 % (34.1-44.9); Hemoglobin 10.7 g/dl (12.0-16.0); Immature Granulocytes # (auto) 0.02 K/uL (0.00-0.02); Immature Granulocytes % (auto) 0.2 %; Lymphocytes # (auto) 2.56 K/uL (1.2-3.4); Lymphocytes % (auto) 28.5 %; Mean Corpuscular Hemoglobin 28.5 pg (25.0-34.0); Mean Corpuscular Hgb Conc 33.6 g/dL (32.0-36.0); Mean Corpuscular Volume 84.8 fL (80.0-100.0); Mean Platelet Volume 11.3 fL (9.4-12.3); Monocytes # (auto) 0.64 K/uL (0.24-0.82); Monocytes % (auto) 7.1 %; Neutrophils # (auto) 5.53 K/uL (1.4-6.5); Neutrophils % (auto) 61.7 %; Platelet Count 222 K/uL (130-400); RDW Coefficient of Variation 13.3 % (11.5-14.5); RDW Standard Deviation 40.9 fL (36.4-46.3); Red Blood Count 3.75 M/uL (3.93-5.22); White Blood Count 8.97 K/ul (4.8-10.8)
[2022-01-13 08:46] LABS: Albumin Globulin Ratio 1.4 (0.9-2); Albumin Level 3.1 gm/dl (3.4-5.0); BUN Creatinine Ratio 8.1 (10-20); Bilirubin,Total 0.8 mg/dl (0.2-1.0); Calcium 8.1 mg/dl (8.5-10.1); Creatinine Clr Calc Pharmacy 52.6 ml/min; Est GFR (African American) 65.1 ml/min; Est GFR (Non-African American) 56.1 ml/min; Globulin 2.2 gm/dl (2.5-4.0); Magnesium 1.4 mg/dl (1.7-2.4); Phosphorus 2.1 mg/dl (2.5-4.9); Total Protein 5.3 gm/dl (6.0-8.3)
--- NOTE | 2022-01-13 09:21 | Nephrology Progress Note ---
Date of Service January 13, 2022 Assessment & Plan Admission and Anticipated Discharge Date Admission Date: January 11, 2022 Subjective S--confusion. No new issues. Bp better. PHYSICAL EXAMINATION: GENERAL: Elderly white female who is not in any respiratory distress, nor any pain. However, she seemed quite confused and was not able to tell me any medical history at all. In fact, she could not tell me where her home is and where she lives. She could response to simple question and was alert and talking. Normal speech. HEENT: Mucous membrane is moist. NECK: Supple. No jugular venous distention. CHEST: Bilaterally clear to auscultation, but very poor quality exam. CARDIOVASCULAR: S1 and S2 regular. ABDOMEN: Soft, nontender. EXTREMITIES: Show no edema. GENITOURINARY: Pace catheter in place. NEUROLOGIC: She is awake and alert, not oriented and definitely not able to give me any history. Moving all 4 extremities. Speech seems reasonable without any slurring. LABORATORY TEST: na normal. K is low. ASSESSMENT AND PLAN: A 76-year-old female who was brought to the hospital when she was found to be in a very confused state lying on the floor with feces and urine on the floor. I have been consulted for hypernatremia. 1. Hypernatremia: By definition, this is free water deficit. Most likely, patient has been confused for a while and was not eating and drinking causing the volume depleted-dehydrated state. Serum sodium was 150 at the time of her admission, which although high is obviously not high enough to cause this degree of confusion. It is trending down with the use of half normal saline and I would continue the same for the time being. She still appears quite confused and I am not so sure how much she can eat and drink. No further workup is needed for the hypernatremia. Low k and give 40 meq k.cl for 3 doses at least. 2. Confusion of unclear etiology, but I can tell a serum sodium of 150 is almost impossible to cause this degree of profound confusion. will sign off. Call if issues. Results & Data ([facility]) Vital Signs (Past 12 Hours) Vital Signs Temp Pulse Pulse Resp BP Pulse Ox O2 Del Method 01/13/22 07:48 36.8 C 66 18 158/63 H 94 Room Air 01/13/22 03:00 36.9 C 69 15 168/70 H 99 Room Air 01/12/22 23:29 56 L 01/12/22 23:12 36.8 C 53 L 16 162/80 H 98 Room Air 01/12/22 22:46 65 01/12/22 22:08 36.8 C 57 L 15 168/74 H 98 Room Air
[2022-01-13] MEDS: FOLIC ACID 1 MG TAB PO SCH (09:30)
[2022-01-13] MEDS: lisinopril 40 MG TAB PO SCH (09:30)
[2022-01-13] MEDS: ADVANCED PROBIOTIC 1250 MG CAPSULE PO SCH (09:30)
[2022-01-13] MEDS: THIAMINE HCL 100 MG in SYRINGE 9 ML IV SCH (09:30)
[2022-01-13] MEDS: CHOLECALCIFEROL 1,000 UNITS 25 MCG TAB PO SCH (09:31)
[2022-01-13] MEDS: PANTOprazole 40 MG TAB PO SCH (09:31)
[2022-01-13] MEDS: amLODIPine BESYLATE 5 MG TAB PO SCH (09:31)
--- NOTE | 2022-01-13 09:40 | Cardiology Progress Note ---
Date of Service January 13, 2022 Assessment & Plan (1) Acute on chronic alteration in mental status: (2) Hypertensive urgency: (3) Noncompliance: (4) Urinary tract infection: (5) Hypernatremia: (6) Dehydration: Plan Hypertension, hypertensive urgency. Blood pressure improved from a high of 227/95 down to 158/63 this morning at 07:48. Continue lisinopril 40 mg/day and amlodipine 5 mg/day. Improvement in blood pressures anticipated with treatment of the noncardiac issues. Follow Hypokalemia (3.0 mmol/L) noted on AM labs with oral supplemental potassium ordered by Nephrology. Hypomagnesemia noted as well with replacement ordered. Hypernatremia resolved. UTI. As per Hospitalist. Dyslipidemia. LDL goal less than 70 mg/dL. Patient with a history of stating intolerance, statin myopathy. Consider a trial of ezetimibe 10 mg/day down the road. DVT prophylaxis. Subcutaneous heparin Admission and Anticipated Discharge Date Admission Date: January 11, 2022 Supervising Physician Co-Signing Physician Notes Supervising Physician Attestation: I have personally performed a history and physical examination on the patient. I agree with the physician printing bindery assistant's findings and plan as documented with the following additions. Subjective: Patient still confused, does me that she does not have high blood pressure although her vital signs would suggest otherwise Exam: Cardiovascular regular rhythm, no murmurs rubs or gallops, no edema Data: Potassium 3 mmol/L, magnesium 1.4 Assessment and Plan: As noted above -Continue antihypertensives, anticipate blood pressure will improve. Nephrology input noted and appreciated with regards to electrolyte derangements. DVT prophylaxis: Subcutaneous heparin Otto Ortiz, DO Subjective Patient seen and examined. Patient does not recall meeting me in the ER yesterday. Chart, medications, and telemetry reviewed. Patient denies chest pain, palpitations, shortness of breath, cough, orthopnea, PND, edema, dizziness, subjective fevers or chills Telemetry: Sinus with heart rates in the 50's-70's overnight, currently in the 70's, scattered PVC's. Review of Systems Review of Systems: A complete and accurate review of systems was unable to be obtained. Dementia suspected. Physical Exam Physical Exam: General: Alert to person and place but not to time. No acute distress. HENT: Normocephalic. Atraumatic. Poor dentition Eyes: PER. Conjunctiva pink, sclera clear. No carotid bruits. Neck veins are flat. Heart: Regular at 68 bpm. Soft systolic murmur. No diastolic murmur. No rub. Lungs: Clear to auscultation anteriorly Abdomen: +BS. Soft. Nontender. No masses or organomegaly. Extremities: No clubbing, cyanosis, or edema. Neurologic, No focal deficit. Pulses: radial=2/4, posterior tibial=1/4. Results & Data ([facility]) Vital Signs (Past 12 Hours) Vital Signs Temp Pulse Pulse Resp BP Pulse Ox O2 Del Method 01/13/22 07:48 36.8 C 66 18 158/63 H 94 Room Air 01/13/22 03:00 36.9 C 69 15 168/70 H 99 Room Air 01/12/22 23:29 56 L 01/12/22 23:12 36.8 C 53 L 16 162/80 H 98 Room Air 01/12/22 22:46 65 01/12/22 22:08 36.8 C 57 L 15 168/74 H 98 Room Air Laboratory Results Cardiac Enzymes 01/13/22 Range/Units 07:19 AST 12 L (13-39) U/L CBC 01/13/22 Range/Units 07:19 WBC 8.97 (4.8-10.8) K/ul RBC 3.75 L (3.93-5.22) M/uL Hgb 10.7 L (12.0-16.0) g/dl Hct 31.8 L (34.1-44.9) % Plt Count 222 (130-400) K/uL Neut # (Auto) 5.53 (1.4-6.5) K/uL Lymph # (Auto) 2.56 (1.2-3.4) K/uL [place] # (Auto) 0.64 (0.24-0.82) K/uL Eos # (Auto) 0.15 (0-0.50) K/uL Baso # (Auto) 0.07 (0-0.2) K/uL Comprehensive Metabolic Panel 01/13/22 Range/Units 07:19 Sodium 142 (136-145) mmol/L Potassium 3.0 L (3.5-5.1) mmol/L Chloride 114 H (98-107) mmol/L Carbon Dioxide 20 L (21-32) mmol/L BUN 8 (6-23) mg/dl Creatinine 0.99 (0.6-1.2) mg/dl Glucose 148 H (70-99(Fasting)) mg/dl Calcium 8.1 L (8.5-10.1) mg/dl AST 12 L (13-39) U/L ALT 10 (7-52) U/L Alkaline Phosphatase 70 (34-104) U/L Total Protein 5.3 L D (6.0-8.3) gm/dl Albumin 3.1 L (3.4-5.0) gm/dl (1) Urinary tract infection Hematuria presence: without hematuria Urinary tract infection type: site unspecified Qualified Code(s): N39.0 - Urinary tract infection, site not specified
[2022-01-13] MEDS: INSULIN ASPART PER UNIT SC SCH ×4 (09:41→21:25)
[2022-01-13] MEDS: PIPERACILLIN/TAZOBACTAM 3.375 GM in DEXTROSE 5% 100 ML IV SCH (09:42)
[2022-01-13] MEDS: LANTUS PER UNIT CHARGE SQ SCH (09:42)
[2022-01-13] MEDS: HEPARIN SOD 5,000 UNIT/0.5 ML VIAL SQ SCH ×2 (09:43→21:34)
--- NOTE | 2022-01-13 09:56 | Pharmacy Report ---
Pharmacy PK ABX Note - Date of Service January 13, 2022 - Assessment and Plan Assessment 76 year old F receiving Vancomycin and Zosyn empirically for treatment of bacteremia. * PMHx significant for T2DM. Patient presented with altered mental status. * Blood cultures from 01/11/22 grew Methicillin-Resistant Staph epidermidis in 2/4 bottles, per BCID2 panel. Repeat blood cultures pending. * Afebrile and with resolving leukocytosis. Renal fxn stable. * Messaged attending today to discontinue Zosyn at this point. Plan Vancomycin * Loading dose: 1250 mg IV x 1 * Maintenance dose: 1250 mg IV every 24 hours * Regimen is predicted to achieve target AUC/DAVI of 400-600 mg/L.hr * Random level ordered for: 01/14/22 with AM labs. Given extended dosing interval, want to check level prior to steady state. Zosyn * 4.5 g IV x 1 followed by 3.375 g IV every 8 hours Pharmacy will continue to follow and will adjust dose/frequency as necessary. Thank you. Pharmacy has transitioned to AUC monitoring for vancomycin. AUC/DAVI is the preferred PK/PD target and is associated with decreased risk of nephrotoxicity compared to traditional trough targets.
[2022-01-13] MEDS: POTASSIUM CHLORIDE CRTAB 20 MEQ TABCR PO SCH ×2 (10:36→21:34)
[2022-01-13] MEDS: MAGNESIUM SULFATE / D5W 1 GM/100 ML BAG IV SCH ×2 (10:37→12:04)
[2022-01-13] MEDS: FLUTICASONE PROPIONATE NA SPR 16 GM BTL SCH (10:37)
[2022-01-13] MEDS: VANCOMYCIN HCL 1,250 MG in SODIUM CHLORIDE 0.9% 250 ML IV SCH (12:03)
[2022-01-13] MEDS: SODIUM CHLORIDE 0.45 % 1,000 ML IV SCH ×2 (13:00→16:12)
[2022-01-13] MEDS: MAGNESIUM CHLORIDE W/CALCIUM 64MG DELAYED REL TAB PO SCH (15:23)
--- NOTE | 2022-01-13 17:14 | Hospitalist Progress Note ---
Date of Service January 13, 2022 Assessment & Plan (1) Encephalopathy, hypertensive: (2) Hypertensive urgency: (3) Coagulase negative Staphylococcus bacteremia: (4) Hypernatremia: (5) Hyperglycemia due to diabetes mellitus: (6) Urinary tract infection: (7) Hypothyroidism: (8) CKD (chronic kidney disease), stage III: (9) GERD (gastroesophageal reflux disease): Plan This is a 76-year-old female who presents with confusion. 1. Confusion: Etiology unclear on admission, could be from hypernatremia, could be hypertensive encephalopathy. Also found bacteremic with unclear source. Imaging studies are unremarkable so far. ER empirically started on Vanc and Zosyn. With FINANCIAL EXAMINER growing in blood and clinical improvement (i.e-no evidence of worsening sepsis) Zosyn will be stopped in efforts of antibiotic stewardship. Cont blood pressure control which appears to be adequate given adjustments by cardiology team. Hypernatremia has been corrected. ID consult for antibiotic recommendations given FINANCIAL EXAMINER in blood. Echo ordered given gram positive organism to look at heart valves. 2. Hypertensive emergency / encephalopathy: BP improved today. Cont current medical therapy as outlined by cardiology team. 3. Hypernatremia: Sodium on admission 150-->147--> now normal at 142. She is eating and drinking to thirst. Resolved. 4. Diabetes: Blood sugar elevated on admission. A1C reflects good control at 6.1. Cont Lantus and insulin sliding scale. 5. Hypothyroidism: chronic, stable. Continue Synthroid. 6. Chronic kidney disease stage III: chronic, stable and creatinine at baseline. 7. Gastroesophageal reflux disease: chronic, stable. Continue Protonix per home regimen. DVT prophylaxis: Placed on heparin subcutaneous. DISPOSITION: tele floor. Office of aging contacted. CM following. Code: Full DO Reji Beyer Hospitalist Admission and Anticipated Discharge Date Admission Date: January 11, 2022 Subjective 76-year-old female presented after being found on the floor by her family covered in stool and urine with her house in disarray. It was unknown how long she was on the ground as she was last seen 1 week prior. She was confused on admission and although she is oriented today, she still appears confused and unable to give an accurate history. Conversation is dotted with sarcasm making it difficult to understand her level of comprehension of the situation on arrival she was found to have a very elevated sodium which has been corrected she was also found to have elevated blood pressure contributing to her encephalopathy coag negative staph 2 out of 4 bottles was found on blood cultures and corynebacterium species was seen in the urine. She was placed on Zosyn and vancomycin and has remained afebrile throughout this admission her white blood cell count was mildly elevated on admission to 12.7 and is now normal today. Cardiology was consulted for her hypertensive urgency with great improvement in blood pressure from a high of 227/95 down to 158/63 this morning. She continues on lisinopril 40 and amlodipine 5 mg daily When I arrived the patient was laying flat on her back eating her dinner consisting of meat loaf and other potatoes and vegetables. Her nurse and I readjusted her in the bed so she would sit up straight posing less of an aspiration risk. This did not seem to bother the patient at all that she was laying down flat eating her food. 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 She does not remember how long she laid there and claims that she was laying there for 3 years and has had a urinary tract infection for 3 years. Review of Systems Review of Systems: Review of systems is limited by patient's confusion Physical Exam Physical Exam: CONSTITUTIONAL: WNWD, vitals as above, generally well- appearing, NAD EYES: normal conjunctivae, no scleral icterus ENT: external ear and nose normal, MMM NECK: trachea midline RESPIRATORY: clear to auscultation bilaterally, no crackles, rales or wheezes, normal respiratory effort CARDIOVASCULAR: regular rate and rhythm, S1 and 2 heard without murmurs, gallop s or rubs, no JVD, no peripheral edema CHEST: inspection of chest was normal GASTROINTESTINAL: soft, nontender, ND, no guarding MUSCULOSKELETAL: generalized weakness, moves extremities equally, head is normocephalic and atraumatic, SKIN: warm and dry NEUROLOGIC: patellar DTRs 2+ bilat. No facial palsy, no dysarthria. Touch, pain and proprioception normal. CN 2-12 grossly intact, no sensory deficit, normal cognition, normal speech, no tremor PSYCHIATRIC: alert cooperative and oriented to person, place and time but cannot give accurate historical information on history. Makes good eye contact. Results & Data Results & Data ([facility]) Vital Signs (Past 12 Hours) Vital Signs Temp Pulse Pulse Resp BP Pulse Ox O2 Del Method 01/13/22 16:07 36.7 C 60 18 153/70 H 98 Room Air 01/13/22 16:00 59 L 01/13/22 11:24 36.8 C 62 18 183/84 H 98 01/13/22 08:00 63 01/13/22 07:48 36.8 C 66 18 158/63 H 94 Room Air Laboratory Results Short CBC 01/13/22 Range/Units 07:19 WBC 8.97 (4.8-10.8) K/ul Hgb 10.7 L (12.0-16.0) g/dl Hct 31.8 L (34.1-44.9) % Plt Count 222 (130-400) K/uL [facility] 01/13/22 07:19 Sodium 142 Potassium 3.0 L Chloride 114 H Carbon Dioxide 20 L BUN 8 Creatinine 0.99 Glucose 148 H Calcium 8.1 L Liver Function 01/13/22 Range/Units 07:19 Total Bilirubin 0.8 (0.2-1.0) mg/dl AST 12 L (13-39) U/L ALT 10 (7-52) U/L Alkaline Phosphatase 70 (34-104) U/L Albumin 3.1 L (3.4-5.0) gm/dl Medications Administered Current Inpatient Medications Amlodipine Besylate (Amlodipine Besylate 5 Mg Tab) 5 mg PO QAM [facility]WIG[facility] Stop: 02/11/22 13:44 Last Admin: 01/13/22 09:31 Dose: 5 mg Dextrose (Dextrose 50% 50 Ml Syringe) 25 - 50 ml IV UD PRN; Protocol PRN Reason: Hypoglycemia Protocol Stop: 02/10/22 23:44 Fluticasone Propionate (Fluticasone Propionate Na Spr 16 Gm Btl) 2 sprays NA DAILY [facility] Stop: 02/11/22 08:59 Last Admin: 01/13/22 10:37 Dose: 2 sprays Folic Acid (Folic Acid 1 Mg Tab) 1 mg PO QAM [facility]WIG[facility] Stop: 02/11/22 08:59 Last Admin: 01/13/22 09:30 Dose: 1 mg Glucagon (Glucagon For Inj 1 Mg Vial) 1 mg IM UD PRN; Protocol PRN Reason: Hypoglycemia Protocol Stop: 02/10/22 23:44 Glucose (Glucose 40% Gel 15 Gm Tube) 15 - 30 gm PO UD PRN; Protocol PRN Reason: Hypoglycemia Protocol Stop: 02/10/22 23:44 Glucose (Glucose 10 Tab/Tube) 4 - 8 tab PO UD PRN; Protocol PRN Reason: Hypoglycemia Protocol Stop: 02/10/22 23:44 Heparin Sodium (Porcine) (Heparin Sod 5,000 Unit/0.5 Ml Vial) 5,000 units SQ Q12 [facility] Stop: 02/11/22 08:59 Last Admin: 01/13/22 09:43 Dose: 5,000 units Sodium Chloride (1/2 Nss) 1,000 mls @ 100 mls/hr IV .Q10H [facility] Stop: 02/10/22 22:28 Last Admin: 01/13/22 16:12 Dose: 100 mls/hr Thiamine HCl 100 mg/ Syringe 10 mls @ 2 mls/min IV QAM [facility] Stop: 02/11/22 12:59 Last Admin: 01/13/22 09:30 Dose: 2 mls/min Vancomycin HCl 1,250 mg/ (Sodium Chloride) 275 mls @ 200 mls/hr IV Q24H [facility] Stop: 01/27/22 09:59 Last Infusion: 01/13/22 14:13 Dose: Infused Insulin Aspart (Insulin Aspart Per Unit) 0 units SC ACHS [facility] Stop: 02/11/22 07:29 Last Admin: 01/13/22 16:52 Dose: 4 units Insulin Glargine (Lantus Per Unit Charge) 31 units SQ QAM [facility] Stop: 02/11/22 08:59 Last Admin: 01/13/22 09:42 Dose: 31 units Labetalol HCl (Labetalol Hcl Iv 5 Mg/Ml 20ml) 10 mg IV Q4H PRN PRN Reason: Hypertension Stop: 02/10/22 22:28 Lactobacillus Acidophilus (Advanced Probiotic 1250 Mg Capsule) 2 cap PO DAILY [facility] Stop: 02/11/22 12:29 Last Admin: 01/13/22 09:30 Dose: 2 cap Levothyroxine Sodium (Levothyroxine Sodium 125 Mcg Tablet) 125 mcg PO DAILYBB [facility] Stop: 02/11/22 06:29 Last Admin: 01/13/22 05:23 Dose: 125 mcg Lisinopril (Lisinopril 40 Mg Tab) 40 mg PO DAILY [facility] Stop: 02/11/22 08:59 Last Admin: 01/13/22 09:30 Dose: 40 mg Magnesium Chloride (Magnesium Chloride W/Calcium 64mg Delayed Rel Tab) 128 mg PO QAM [facility] Stop: 02/11/22 08:59 Last Admin: 01/13/22 15:23 Dose: 128 mg Meclizine HCl (Meclizine 12.5 Mg Tab) 12.5 mg PO TID PRN PRN Reason: Dizziness Stop: 02/10/22 22:28 Miscellaneous (Carbohydrates For Hypoglycemia ) 15 - 30 gm PO UD PRN PRN Reason: Hypoglycemia Treatment Stop: 02/10/22 23:44 Miscellaneous Information (Vancomycin Consult Active) 1 each N/A UD PRN PRN Reason: Consult Stop: 02/11/22 18:12 Nitroglycerin (Nitroglycerin Sl 0.4 Mg/Tab Tab) 0.4 mg SL Q5M PRN PRN Reason: Chest Pain Stop: 02/10/22 22:28 Nystatin (Nystatin Powder 15gm Btl) 1 appln EXT TID PRN PRN Reason: yeast infections Stop: 02/10/22 22:28 Ondansetron HCl (Ondansetron Inj 2 Mg/Ml 2 Ml Vial) 4 mg IV Q6H PRN PRN Reason: Nausea Stop: 02/10/22 22:28 Pantoprazole Sodium (Pantoprazole 40 Mg Tab) 40 mg PO QAM [facility] Stop: 02/11/22 08:59 Last Admin: 01/13/22 09:31 Dose: 40 mg Potassium Chloride (Potassium Chloride Crtab 20 Meq Tabcr) 40 meq PO BID [facility] Stop: 02/12/22 09:29 Last Admin: 01/13/22 10:36 Dose: 40 meq Tramadol HCl (Tramadol Hcl 50 Mg Tablet) 50 mg PO Q6H PRN PRN Reason: Pain, Severe 7,8,9,10 Stop: 02/10/22 22:28 Vitamin D (Cholecalciferol 1,000 Units 25 Mcg Tab) 1,000 units PO DAILY [facility] Stop: 02/11/22 08:59 Last Admin: 01/13/22 09:31 Dose: 1,000 units (1) Urinary tract infection Hematuria presence: without hematuria Urinary tract infection type: site unspecified Qualified Code(s): N39.0 - Urinary tract infection, site not specified
[2022-01-13] MEDS ORDERED: VANCOMYCIN HCL 1,250 MG in SODIUM CHLORIDE 0.9% 250 ML IV SCH (20:00)
[2022-01-13] MEDS: LABETALOL HCL IV 5 MG/ML 20ML IV PRN (23:09)
[2022-01-14] MEDS: SODIUM CHLORIDE 0.45 % 1,000 ML IV SCH (01:56)
[2022-01-14] MEDS: LABETALOL HCL IV 5 MG/ML 20ML IV PRN (06:14)
[2022-01-14] MEDS: LEVOTHYROXINE SODIUM 125 MCG TABLET PO SCH (06:25)
[2022-01-14 07:44] LABS: BUN Creatinine Ratio 9.4 (10-20); Calcium 8.1 mg/dl (8.5-10.1); Est GFR (African American) 53.2 ml/min; Est GFR (Non-African American) 45.9 ml/min; Magnesium 1.7 mg/dl (1.7-2.4); Potassium 3.4 mmol/L (3.5-5.1)
[2022-01-14] MEDS: ADVANCED PROBIOTIC 1250 MG CAPSULE PO SCH (08:21)
[2022-01-14] MEDS: THIAMINE HCL 100 MG TAB PO SCH (08:22)
[2022-01-14] MEDS: amLODIPine BESYLATE 5 MG TAB PO SCH (08:22)
[2022-01-14] MEDS: POTASSIUM CHLORIDE CRTAB 20 MEQ TABCR PO SCH ×2 (08:22→20:41)
[2022-01-14] MEDS: FOLIC ACID 1 MG TAB PO SCH (08:23)
[2022-01-14] MEDS: CHOLECALCIFEROL 1,000 UNITS 25 MCG TAB PO SCH (08:23)
[2022-01-14] MEDS: lisinopril 40 MG TAB PO SCH (08:23)
[2022-01-14] MEDS: MAGNESIUM CHLORIDE W/CALCIUM 64MG DELAYED REL TAB PO SCH (08:23)
[2022-01-14] MEDS: PANTOprazole 40 MG TAB PO SCH (08:23)
[2022-01-14] MEDS: FLUTICASONE PROPIONATE NA SPR 16 GM BTL SCH (08:24)
[2022-01-14] MEDS: HEPARIN SOD 5,000 UNIT/0.5 ML VIAL SQ SCH ×2 (08:24→20:41)
[2022-01-14] MEDS: LANTUS PER UNIT CHARGE SQ SCH ×2 (08:29→20:42)
[2022-01-14] MEDS: INSULIN ASPART PER UNIT SC SCH ×4 (08:29→20:44)
[2022-01-14] MEDS ORDERED: VANCOMYCIN RANDOM LEVEL ONE (09:00)
[2022-01-14] MEDS: VANCOMYCIN HCL 1,250 MG in SODIUM CHLORIDE 0.9% 250 ML IV SCH (10:14)
--- NOTE | 2022-01-14 10:34 | Pharmacy Report ---
Pharmacy PK ABX Note - Date of Service January 14, 2022 - Assessment and Plan Assessment 76 year old F receiving Vancomycin and Zosyn empirically for treatment of bacteremia. * PMHx significant for T2DM. Patient presented with altered mental status. * Blood cultures from 01/11/22 grew Methicillin-Resistant Staph epidermidis in 2/4 bottles, per BCID2 panel. Repeat blood cultures with no growth to date. Infectious disease consulted and pending. * Afebrile. Renal fxn continues to increase. Zosyn was discontinued yesterday. Will continue to monitor daily. Plan Vancomycin * Current regimen: 1250 mg IV every 24 hours * Random level obtained 01/14/22 resulted as 10.5 mcg/mL. This is predicted to achieve target AUC/DAVI of 400-600 mg/L.hr * Predicted AUC at steady state: 530 mg/L.hr * Continue 1250 mg IV every 24 hours * Repeat random level ordered for: 01/16/22 Pharmacy will continue to follow and will adjust dose/frequency as necessary. Thank you. Pharmacy has transitioned to AUC monitoring for vancomycin. AUC/DAVI is the pre ferred PK/PD target and is associated with decreased risk of nephrotoxicity compared to traditional trough targets.
--- NOTE | 2022-01-14 11:08 | Cardiology Progress Note ---
Date of Service January 14, 2022 Assessment & Plan (1) Acute on chronic alteration in mental status: (2) Hypertensive urgency: (3) Noncompliance: (4) Urinary tract infection: (5) Hypernatremia: (6) Dehydration: Plan Hypertension, hypertensive urgency. Echo on 01/13/2022 revealed grade I diastolic dysfunction. LV wall thickness was notably normal. EF 55-60%. No significant valve issues observed within the limitations of the imaging modality. Continue lisinopril 40 mg/day. Amlodipine increased to 10 mg/day starting this morning. Patient previously prescribed oral hydralazine. Hypokalemia (3.4 mmol/L), improved. Oral supplemental potassium ordered by Nephrology. Hypomagnesemia, resolved. Hypernatremia, resolved. UTI. As per Hospitalist. Dyslipidemia. LDL goal less than 70 mg/dL. Patient with a history of stating intolerance, statin myopathy. Consider a trial of ezetimibe 10 mg/day down the road. DVT prophylaxis. Subcutaneous heparin Signing off; please contact with any questions or concerns. Admission and Anticipated Discharge Date Admission Date: January 11, 2022 Supervising Physician Co-Signing Physician Notes Supervising Physician Attestation: I have personally performed a history and physical examination on the patient. I agree with the physician assistant golf course superintendent's findings and plan as documented with the following additions. Subjective: No cardiac complaints. SR on telemetry. Exam: Pulm: lungs clear CV: Reg rate, no murmur, no edema Assessment and Plan: as noted. Otto Ortiz, DO Subjective Patient seen and examined. Chart, medications, and telemetry reviewed. Tired. No chest pain, palpitations, or shortness of breath Telemetry: Sinus with heart rates in the 60's. Occasional PVC's. One short run of atrial tachycardia Review of Systems Review of Systems: A complete and accurate review of systems was unable to be obtained. Dementia suspected. Physical Exam Physical Exam: General: Alert to person but not to place or time. No acute distress. HENT: Normocephalic. Atraumatic. Poor dentition Eyes: PER. Conjunctiva pink, sclera clear. No carotid bruits. Neck veins are flat. Heart: Regular at 64 bpm. Soft systolic murmur. No diastolic murmur. No rub. Lungs: Clear to auscultation anteriorly Abdomen: +BS. Soft. Nontender. No masses or organomegaly. Extremities: No clubbing, cyanosis, or edema. Neurologic, No focal deficit. Pulses: radial=2/4, posterior tibial=1/4. Results & Data ([facility]) Vital Signs (Past 12 Hours) Vital Signs Temp Pulse Pulse Resp BP Pulse Ox O2 Del Method 01/14/22 07:00 36.9 C 60 18 165/86 H 98 Room Air 01/14/22 07:36 62 01/14/22 03:28 36.8 C 64 18 184/69 H 96 Room Air Laboratory Results Comprehensive Metabolic Panel 01/14/22 01/14/22 Range/Units 06:57 06:57 Sodium 140 (136-145) mmol/L Potassium 3.4 L (3.5-5.1) mmol/L Chloride 114 H (98-107) mmol/L Carbon Dioxide 22 (21-32) mmol/L BUN 11 (6-23) mg/dl Creatinine Cancelled 1.17 Glucose 198 H (70-99(Fasting)) mg/dl Calcium 8.1 L (8.5-10.1) mg/dl Intake and Output 01/13/22 01/14/22 01/14/22 22:59 06:59 14:59 Intake Total 470 / 3515.833 1083.333 / 3515.833 738.333 / 738.333 Output Total 600 / 1900 700 / 1900 Balance -130 / 1615.833 383.333 / 1615.833 738.333 / 738.333 Intake: IV 320 / 2845.833 963.333 / 2845.833 738.333 / 738.333 Sodium Chloride 0.45 % 1,000 ml 320 / 2283.333 963.333 / 2283.333 738.333 / 738.333 @ 100 mls/hr IV .Q10H [facility] Rx#: [id number] Oral 150 / 670 120 / 670 Output: Urine Amount (Catheter) 600 / 1900 700 / 1900 Pace/Indwelling 600 / 1900 700 / 1900 Other: # Bowel Movement Diapers 1 Weight 76.5 kg Weight Measurement Method Built in [facility] (1) Urinary tract infection Hematuria presence: without hematuria Urinary tract infection type: site unspecified Qualified Code(s): N39.0 - Urinary tract infection, site not specified
[2022-01-14] MEDS ORDERED: LABETALOL HCL IV 5 MG/ML 20ML IV STA (20:10)
--- NOTE | 2022-01-14 20:20 | Hospitalist Progress Note ---
Date of Service January 14, 2022 Assessment & Plan (1) Encephalopathy, hypertensive: (2) Hypertensive urgency: (3) Coagulase negative Staphylococcus bacteremia: (4) Hypernatremia: (5) Hyperglycemia due to diabetes mellitus: (6) Urinary tract infection: (7) Hypothyroidism: (8) CKD (chronic kidney disease), stage III: (9) GERD (gastroesophageal reflux disease): Plan This is a 76-year-old female who presents with confusion. 1. Confusion: Etiology unclear on admission, could be from hypernatremia, could be hypertensive encephalopathy. Also found bacteremic with unclear source. Imaging studies are unremarkable so far. ER empirically started on Vanc and Zosyn. With FLAT FOLDING MACHINE OPERATOR growing in blood and clinical improvement (i.e-no evidence of worsening sepsis) Zosyn will be stopped in efforts of antibiotic stewardship. Cont blood pressure control which appears to be adequate given adjustments by cardiology team. Hypernatremia has been corrected. ID consult for antibiotic recommendations given FLAT FOLDING MACHINE OPERATOR in blood. Echo ordered given gram positive organism to look at heart valves. With new paranoia and persistent confusion despite corrections of metabolic abnormalities will consult psychiatry for thoughts. Also will obtain MRI if she is able to tolerate it. 2. Hypertensive emergency / encephalopathy: BP improved today. Cont current medical therapy with lisinopril 40mg daily and increased amlodipine to 10mg daily. . 3. Hypernatremia: resolved. 4. Diabetes: Blood sugar elevated on admission. A1C reflects good control at 6.1. Cont Lantus and insulin sliding scale. Avoid hypoglycemia. 5. Hypothyroidism: chronic, stable. Continue Synthroid. 6. Chronic kidney disease stage III: chronic, stable and creatinine at baseline. 7. Gastroesophageal reflux disease: chronic, stable. Continue Protonix per home regimen. DVT prophylaxis: Placed on heparin subcutaneous. DISPOSITION: tele floor. Office of aging contacted. CM following. Code: Full DO Reji Beyer Hospitalist Admission and Anticipated Discharge Date Admission Date: January 11, 2022 Subjective 76-year-old female presented after being found on the floor by her family covered in stool and urine with her house in disarray. It was unknown how long she was on the ground as she was last seen 1 week prior. On admission she was found to have a very elevated sodium which has been corrected she was also found to have elevated blood pressure contributing to her encephalopathy, Coag negative staph 2 out of 4 bottles was found on blood cultures and corynebacterium species was seen in the urine. She was placed on Zosyn and vancomycin and has remained afebrile throughout this admission her white blood cell count was mildly elevated on admission to 12.7 and then normalized. BP and sodium have normalized and she is eating well. She remains confused and today was no exception. Today she was able to state her name, but didn't know where she was referring to the hospital as "[place]" and she didn't know the date. She was defensive about the questioning and then became upset when I asked her some more questions. She became almost aggressive and threatening when I was assisting her with putting her spoon and food back down on her tray which she kept picking up during the exam. She did not cooperate with the exam at all and at times seemed to joke and said "Oh, let me have a little fun" when she wasn't able to perform a task like extrraocular eye movements. She then went a little left and started referring to other doctors who were in and asking her questions. She made a guarded face and said that it was "dangerous." When I asked for clarification she said "it is dangerous to answer the questions they were asking." She wasn't able to be more specific. RN corroborates that she has seemed more paranoid today and also thought she was slightly aggressive depending on the examiners approach. Review of Systems Review of Systems: ROS was limited by confusion and lack of participation wtih the exam but she denied any pain. Physical Exam Physical Exam: CONSTITUTIONAL: WNWD, vitals as above, generally well- appearing, NAD EYES: normal conjunctivae, no scleral icterus ENT: external ear and nose normal, MMM NECK: trachea midline RESPIRATORY: clear to auscultation bilaterally, no crackles, rales or wheezes, normal respiratory effort CARDIOVASCULAR: regular rate and rhythm, S1 and 2 heard without murmurs, gallops or rubs, no JVD, no peripheral edema CHEST: inspection of chest was normal GASTROINTESTINAL: soft, nontender, ND, no guarding MUSCULOSKELETAL: generalized weakness, moves extremities equally, head is normocephalic and atraumatic, SKIN: warm and dry NEUROLOGIC: CN 2-12 grossly intact, would not comply with more in depth neuro exam today. No sensory deficit, normal cognition, normal speech, no tremor PSYCHIATRIC: alert, oriented to person. Uncooperative with exam. Results & Data Results & Data ([facility]) Vital Signs (Past 12 Hours) Vital Signs Temp Pulse Pulse Resp BP Pulse Ox O2 Del Method 01/14/22 19:28 36.5 C 67 18 190/80 H 99 Room Air 01/14/22 16:33 36.7 C 68 18 156/81 H 99 Room Air 01/14/22 15:25 67 01/14/22 10:49 36.7 C 69 18 150/83 H 98 Room Air Laboratory Results [facility] 01/14/22 01/14/22 06:57 06:57 Sodium 140 Potassium 3.4 L Chloride 114 H Carbon Dioxide 22 BUN 11 Creatinine Cancelled 1.17 Glucose 198 H Calcium 8.1 L Medications Administered Current Inpatient Medications Amlodipine Besylate (Amlodipine Besylate 5 Mg Tab) 10 mg PO QAM [facility] Stop: 02/13/22 08:59 Last Admin: 01/14/22 08:22 Dose: 10 mg Dextrose (Dextrose 50% 50 Ml Syringe) 25 - 50 ml IV UD PRN; Protocol PRN Reason: Hypoglycemia Protocol Stop: 02/10/22 23:44 Fluticasone Propionate (Fluticasone Propionate Na Spr 16 Gm Btl) 2 sprays NA DAILY [facility] Stop: 02/11/22 08:59 Last Admin: 01/14/22 08:24 Dose: 2 sprays Folic Acid (Folic Acid 1 Mg Tab) 1 mg PO QAM [facility] Stop: 02/11/22 08:59 Last Admin: 01/14/22 08:23 Dose: 1 mg Glucagon (Glucagon For Inj 1 Mg Vial) 1 mg IM UD PRN; Protocol PRN Reason: Hypoglycemia Protocol Stop: 02/10/22 23:44 Glucose (Glucose 40% Gel 15 Gm Tube) 15 - 30 gm PO UD PRN; Protocol PRN Reason: Hypoglycemia Protocol Stop: 02/10/22 23:44 Glucose (Glucose 10 Tab/Tube) 4 - 8 tab PO UD PRN; Protocol PRN Reason: Hypoglycemia Protocol Stop: 02/10/22 23:44 Heparin Sodium (Porcine) (Heparin Sod 5,000 Unit/0.5 Ml Vial) 5,000 units SQ Q12 [facility] Stop: 02/11/22 08:59 Last Admin: 01/14/22 08:24 Dose: 5,000 units Vancomycin HCl 1,250 mg/ (Sodium Chloride) 275 mls @ 200 mls/hr IV Q24H [facility] Stop: 01/27/22 09:59 Last Infusion: 01/14/22 11:38 Dose: Infused Insulin Aspart (Insulin Aspart Per Unit) 0 units SC ACHS [facility] Stop: 02/11/22 07:29 Last Admin: 01/14/22 16:55 Dose: 6 units Insulin Glargine (Lantus Per Unit Charge) 13 units SQ BID [facility] Stop: 02/13/22 20:59 Lactobacillus Acidophilus (Advanced Probiotic 1250 Mg Capsule) 2 cap PO DAILY [facility] Stop: 02/11/22 12:29 Last Admin: 01/14/22 08:21 Dose: 2 cap Levothyroxine Sodium (Levothyroxine Sodium 125 Mcg Tablet) 125 mcg PO DAILYBB [facility] Stop: 02/11/22 06:29 Last Admin: 01/14/22 06:25 Dose: 125 mcg Lisinopril (Lisinopril 40 Mg Tab) 40 mg PO DAILY [facility] Stop: 02/11/22 08:59 Last Admin: 01/14/22 08:23 Dose: 40 mg Magnesium Chloride (Magnesium Chloride W/Calcium 64mg Delayed Rel Tab) 128 mg PO QAM [facility] Stop: 02/11/22 08:59 Last Admin: 01/14/22 08:23 Dose: 128 mg Meclizine HCl (Meclizine 12.5 Mg Tab) 12.5 mg PO TID PRN PRN Reason: Dizziness Stop: 02/10/22 22:28 Miscellaneous (Carbohydrates For Hypoglycemia ) 15 - 30 gm PO UD PRN PRN Reason: Hypoglycemia Treatment Stop: 02/10/22 23:44 Miscellaneous Information (Vancomycin Consult Active) 1 each N/A UD PRN PRN Reason: Consult Stop: 02/11/22 18:12 Nitroglycerin (Nitroglycerin Sl 0.4 Mg/Tab Tab) 0.4 mg SL Q5M PRN PRN Reason: Chest Pain Stop: 02/10/22 22:28 Nystatin (Nystatin Powder 15gm Btl) 1 appln EXT TID PRN PRN Reason: yeast infections Stop: 02/10/22 22:28 Ondansetron HCl (Ondansetron Inj 2 Mg/Ml 2 Ml Vial) 4 mg IV Q6H PRN PRN Reason: Nausea Stop: 02/10/22 22:28 Pantoprazole Sodium (Pantoprazole 40 Mg Tab) 40 mg PO QAM [facility] Stop: 02/11/22 08:59 Last Admin: 01/14/22 08:23 Dose: 40 mg Potassium Chloride (Potassium Chloride Crtab 20 Meq Tabcr) 40 meq PO BID [facility] Stop: 02/12/22 09:29 Last Admin: 01/14/22 08:22 Dose: 40 meq Thiamine HCl (Thiamine Hcl 100 Mg Tab) 100 mg PO QAM [facility] Stop: 02/13/22 08:59 Last Admin: 01/14/22 08:22 Dose: 100 mg Tramadol HCl (Tramadol Hcl 50 Mg Tablet) 50 mg PO Q6H PRN PRN Reason: Pain, Severe 7,8,9,10 Stop: 02/10/22 22:28 Vitamin D (Cholecalciferol 1,000 Units 25 Mcg Tab) 1,000 units PO DAILY [facility] Stop: 02/11/22 08:59 Last Admin: 01/14/22 08:23 Dose: 1,000 units (1) Urinary tract infection Hematuria presence: without hematuria Urinary tract infection type: site unspecified Qualified Code(s): N39.0 - Urinary tract infection, site not specified
[2022-01-15] MEDS: LEVOTHYROXINE SODIUM 125 MCG TABLET PO SCH (05:36)
[2022-01-15 06:19] LABS: Hematocrit (blood only) 33.8 % (34.1-44.9); Hemoglobin 11.3 g/dl (12.0-16.0); Mean Corpuscular Hemoglobin 28.8 pg (25.0-34.0); Mean Corpuscular Hgb Conc 33.4 g/dL (32.0-36.0); Mean Platelet Volume 11.1 fL (9.4-12.3); Platelet Count 207 K/uL (130-400); RDW Coefficient of Variation 13.1 % (11.5-14.5); RDW Standard Deviation 41.3 fL (36.4-46.3); Red Blood Count 3.93 M/uL (3.93-5.22); White Blood Count 8.19 K/ul (4.8-10.8)
[2022-01-15 07:08] LABS: Calcium 8.6 mg/dl (8.5-10.1); Est GFR (African American) 44.3 ml/min; Est GFR (Non-African American) 38.2 ml/min; Potassium 3.9 mmol/L (3.5-5.1)
[2022-01-15] MEDS: INSULIN ASPART PER UNIT SC SCH ×4 (08:13→20:11)
[2022-01-15] MEDS: lisinopril 40 MG TAB PO SCH (08:14)
[2022-01-15] MEDS: ADVANCED PROBIOTIC 1250 MG CAPSULE PO SCH (08:14)
[2022-01-15] MEDS: CHOLECALCIFEROL 1,000 UNITS 25 MCG TAB PO SCH (08:14)
[2022-01-15] MEDS: amLODIPine BESYLATE 5 MG TAB PO SCH (08:14)
[2022-01-15] MEDS: MAGNESIUM CHLORIDE W/CALCIUM 64MG DELAYED REL TAB PO SCH (08:14)
[2022-01-15] MEDS: THIAMINE HCL 100 MG TAB PO SCH (08:14)
[2022-01-15] MEDS: FLUTICASONE PROPIONATE NA SPR 16 GM BTL SCH (08:15)
[2022-01-15] MEDS: POTASSIUM CHLORIDE CRTAB 20 MEQ TABCR PO SCH ×2 (08:15→20:08)
[2022-01-15] MEDS: PANTOprazole 40 MG TAB PO SCH (08:15)
[2022-01-15] MEDS: FOLIC ACID 1 MG TAB PO SCH (08:15)
[2022-01-15] MEDS: HEPARIN SOD 5,000 UNIT/0.5 ML VIAL SQ SCH ×2 (08:15→20:08)
[2022-01-15] MEDS: LANTUS PER UNIT CHARGE SQ SCH ×2 (08:20→20:17)
--- NOTE | 2022-01-15 08:28 | Magnetic Resonance Report ---
MRI OF THE BRAIN WITHOUT CONTRAST CLINICAL HISTORY: persistent confusion, rule out stroke/mass COMPARISON STUDY: MRI of the brain April 24, 2021. Head CT January 11, 2022. TECHNIQUE: Utilizing a 1.5 Kim magnet and dedicated coil, multiplanar, multiecho imaging of the bra in was performed without IV contrast. FINDINGS: There are no foci of restricted diffusion to suggest acute infarct. No acute intracranial h emorrhage, midline shift or mass effect is present. Ventricular system is stable. Basal cisterns are patent. There are no extra-axial collections. Flow-voids for the major intracranial vessels are prese nt. White matter T2 hyperintense foci are similar to previous MRI and favor small vessel disease. 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 This is unchanged. No intracranial serina s identified on this unenhanced exam. Calvarial signal is normal. No evidence for sinusitis. There is no mastoid fluid. IMPRESSION: No acute intracranial findings. No change in appearance of the brain since MRI of [facility] 2020. ACT 112: Negative or not required by law. Electronically signed by: Ryan Patel M.D. 01/15/2022 8:27 AM
[2022-01-15] MEDS: VANCOMYCIN HCL 1,250 MG in SODIUM CHLORIDE 0.9% 250 ML IV SCH (09:56)
--- NOTE | 2022-01-15 11:21 | Psychiatric Consultation ---
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 Agree with neurology recommendations regarding neuropsych workup in outpatient setting if she agrees to this/would have transport/family support for this. From prior consult seems that paranoia is chronic baseline for her, encouragingly did not acutely worsen with delirium/has not had any behavioral emergencies and suspect references to paranoia are consistent with baseline. (1) Paranoia: (2) Acute on chronic alteration in mental status: Plan -If she is distressed by paranoia or becomes acutely agitated in this context could consider seroquel 12.5 mg qhs and can titrate up to 25mg BID for behavioral management as needed; would check EKG QTc routinely -Agree with neurology recommendations including to avoid or limit use of deliriogenic medications (benzodiazepines, opioids, anticholinergics) -Defer to hospitalist and case management but may need home health or additional support to determine baseline status and ability to meet daily needs of self- care though sounds like she has some support from family and other in-home services if she continues to have loosened associations and cognitive deficits. Psych History Identifying Data 76 yo woman with history of paranoia, PTSD, DARIA and multiple medical co- morbidities admitted medically for altered mental status concerning for encephalopathy. Psychiatry consulted for recommendations. Chief Complaint "You work with that other psychiatrist who comes into my house and tells me to be done eating". History of Present Illness Eri was previously seen by psychiatry consult service in April 2021 for encephalopathy, hallucinations and paranoia. For additional collateral inf ormation at that time she was reported to have a long history of paranoia for greater than 25 years she intensified following a possible TBI in 1998. Reportedly had never been on psychiatric medications or required psychiatric care. Ended again to the hospital this time with altered mental status concerning for delirium after she was found on the floor of her apartment with evidence of bowel and bladder incontinence significant confusion. While in the hospital her delirium has been improving and she has been seen by cardiology nephrology and neurology. Yesterday she was more guarded and paranoid particularly regarding evaluations by other physicians in talking with Dr. Bradley. Today on my assessment she is sitting in a chair by the window and very pleasant though speaks in an incredibly soft tone which makes it difficult to follow at times. She responds to prompts to try to speak a bit louder noting that people have told her she has a soft voice for many years. Her thought content is quite difficult to follow she is fully oriented but describes a variety events from the past and present seeming to mix me up with potential home health providers who come into her home who she refers are all psychiatrists. 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 She at times loses her train of thought and forgets what she was talking about. She can recall that she "had fallen" at home thus leading to her hospital admission. She denies any current mood symptoms denies any suicidal ideation or homicidal ideation. When asked about being targeted by others or bothered or followed by anyone she denies any current paranoia. Did not review concerns about banking/finances which had been a topic around which she had paranoia back in April. Past Psychiatric History Previous Psych History: no prior tx, hx of paranoia for many years Outpatient Services: none currently Allergies Allergy/AdvReac Type Severity Reaction Status Date / Time atorvastatin [From Lipitor] Allergy Unknown Unknown Verified 01/11/22 20:00 morphine Allergy Unknown Verified 04/24/21 07:10 acetaminophen [From Percocet] AdvReac Unknown Vomiting Verified 01/11/22 20:00 aspirin [From Percodan] AdvReac Unknown Vomiting Verified 01/11/22 20:00 cephalexin AdvReac Unknown Unknown Verified 01/11/22 20:00 codeine AdvReac Unknown Vomiting Verified 01/11/22 20:00 esomeprazole AdvReac Unknown Skin Verified 04/24/21 07:10 irritation,swelling,difficulty breathing. oxycodone [From Percodan] AdvReac Unknown Vomiting Verified 01/11/22 20:00 sucralfate AdvReac Unknown Skin Verified 01/11/22 20:00 irritation,swelling,difficulty breathing. Home Medications Medication Instructions Recorded Confirmed Type cholecalciferol (vitamin D3) 25 25 mcg PO DAILY 04/24/21 01/11/22 History mcg (1,000 unit) capsule (Vitamin D3) fluticasone propionate 50 2 spray intranasal DAILY 04/24/21 01/11/22 History mcg/actuation nasal spray,suspension folic acid 1 mg tablet 1 mg PO QAM 04/24/21 01/11/22 History insulin glargine 100 unit/mL 31 unit subcut QAM 04/24/21 01/11/22 History subcutaneous solution (Lantus U-100 Insulin) levothyroxine 125 mcg tablet 125 mcg PO DAILYBB 04/24/21 01/11/22 History metformin 500 mg tablet,extended 1,000 mg PO QDD 04/24/21 01/11/22 History release 24 hr nystatin 100,000 unit/gram topical 1 applic topical TID PRN yeast 04/24/21 01/11/22 History powder infections tramadol 50 mg tablet 50 mg PO Q6H PRN Pain, Severe 04/24/21 01/11/22 History lisinopril 40 mg tablet (Zestril) 40 mg PO DAILY #30 tabs 05/07/21 01/11/22 Rx magnesium chloride 64 mg 128 mg PO QAM 01/11/22 01/11/22 History (magnesium chloride) tablet,delayed release (Mag 64) meclizine 12.5 mg tablet 12.5 mg PO TID PRN Dizziness 01/11/22 01/11/22 History pantoprazole 40 mg tablet,delayed 40 mg PO QAM 01/11/22 01/11/22 History release semaglutide 1 mg/dose (4 mg/3 mL) 1 mg subcut WK 01/11/22 01/11/22 History subcutaneous pen injector (Ozempic) Personal History Living Arrangements: Home (alone) Marital Status: Beliefs That Will Affect Care: None Patient History Medical History (Updated 01/15/22 @ 13:40 by Keyanna Rosario MD) Acute on chronic alteration in mental status CKD (chronic kidney disease), stage III Encephalopathy Fall GERD (gastroesophageal reflux disease) Hyperglycemia due to diabetes mellitus Hypothyroidism Paranoia Paranoid Social History Smoking Status: Unknown if ever smoked Hx Substance Use: No Preferred Language: [place] Citizen Communication Ability: Effective Heat Treater Required: No Beliefs That Will Affect Care: None Current Living Situation: Family Feels Safe at Home: Yes Safety Concerns: Feels Safe At This Time Assistive Devices: Walker Physical Exam Psychiatric: Orientation: alert, oriented x 3 and cooperative Apperance: appropriately dressed and + disheveled Eye Contact: good eye contact Motor Behavior: no abnormal motor movements Speech: + abnormal rate/rhythm/volume of speech (very soft) Affect: euthymic affect Mood: no depressed mood, no anxious mood and no irritable mood Thought Process: + tangential thought process and + looseness of associations Thought Content: reality based without delusions Suicidal Thoughts: denies suicidal thoughts Homicidal Thoughts: denies homicidal thoughts Hallucinations: no auditory hallucinations and no visual hallucinations Cognition: remote memory grossly intact; + recent memory not intact, + attention not intact and + language not intact Insight: + severely impaired insight Judgement: + impaired judgement Vital Signs (Past 24 Hours): Last Vital Signs Temp 36.7 C 01/15/22 07:00 Pulse 68 01/15/22 07:49 Resp 14 01/15/22 07:00 BP 181/84 H 01/15/22 07:00 Pulse Ox 98 01/15/22 07:00 O2 Del Method 01/15/22 07:00 Review of Systems Unobtainable due to cognitive status Results & Data (PSY) Medications Administered Amlodipine Besylate (Amlodipine Besylate 5 Mg Tab) 10 mg PO QAM EDWIGE Stop: 02/13/22 08:59 Last Admin: 01/15/22 08:14 Dose: 10 mg Documented By: Admin: 01/14/22 08:22 Dose: 10 mg Documented By: JACKSON Fluticasone Propionate (Fluticasone Propionate Na Spr 16 Gm Btl) 2 sprays NA DAILY EDWIGE Stop: 02/11/22 08:59 Last Admin: 01/15/22 08:15 Dose: 2 sprays Documented By: Admin: 01/14/22 08:24 Dose: 2 sprays Documented By: Admin: 01/13/22 10:37 Dose: 2 sprays Documented By: Admin: 01/12/22 08:49 Dose: 2 sprays Documented By: SABINA Folic Acid (Folic Acid 1 Mg Tab) 1 mg PO QAM EDWIGE Stop: 02/11/22 08:59 Last Admin: 01/15/22 08:15 Dose: 1 mg Documented By: Admin: 01/14/22 08:23 Dose: 1 mg Documented By: Admin: 01/13/22 09:30 Dose: 1 mg Documented By: Admin: 01/12/22 08:50 Dose: 1 mg Documented By: SABINA Heparin Sodium (Porcine) (Heparin Sod 5,000 Unit/0.5 Ml Vial) 5,000 units SQ Q12 EDWIGE Stop: 02/11/22 08:59 Last Admin: 01/15/22 08:15 Dose: 5,000 units Documented By: Admin: 01/14/22 20:41 Dose: 5,000 units Documented By: Admin: 01/14/22 08:24 Dose: 5,000 units Documented By: Admin: 01/13/22 21:34 Dose: 5,000 units Documented By: Admin: 01/13/22 09:43 Dose: 5,000 units Documented By: Admin: 01/12/22 22:07 Dose: 5,000 units Documented By: Admin: 01/12/22 08:50 Dose: 5,000 units Documented By: SABINA Insulin Aspart (Insulin Aspart Per Unit) 0 units SC ACHS EDWIGE Stop: 02/11/22 07:29 Last Admin: 01/15/22 08:13 Dose: Not Given Documented By: Admin: 01/14/22 20:44 Dose: Not Given Documented By: CARLOS Co-signed By: HARRY Admin: 01/14/22 16:55 Dose: 6 units Documented By: JACKSON Co-signed By: SHRUTHI Admin: 01/14/22 12:07 Dose: 7 units Documented By: JACKSON Co-signed By: SHRUTHI Admin: 01/14/22 08:29 Dose: 4 units Documented By: JACKSON Co-signed By: MP Admin: 01/13/22 21:25 Dose: 1 units Documented By: JUANITA Co-signed By: CP Admin: 01/13/22 16:52 Dose: 4 units Documented By: JACKSON Co-signed By: SHARAD Admin: 01/13/22 12:11 Dose: 5 units Documented By: JACKSON Co-signed By: SHARAD Admin: 01/13/22 09:41 Dose: 1 units Documented By: JACKSON Co-signed By: AM Admin: 01/12/22 20:52 Dose: 4 units Documented By: NAVYA Co-signed By: ISABELLE Admin: 01/12/22 20:37 Dose: Not Given Documented By: NAVYA Co-signed By: ISABELLE Admin: 01/12/22 13:52 Dose: 5 units Documented By: SABINA Co-signed By: HUEY Admin: 01/12/22 09:10 Dose: 5 units Documented By: SABINA Co-signed By: AMY Insulin Glargine (Lantus Per Unit Charge) 13 units SQ BID EDWIGE Stop: 02/13/22 20:59 Last Admin: 01/15/22 08:20 Dose: 13 units Documented By: JACKSON Co-signed By: SHRUTHI Admin: 01/14/22 20:42 Dose: 13 units Documented By: CARLOS Co-signed By: HARRY Lactobacillus Acidophilus (Advanced Probiotic 1250 Mg Capsule) 2 cap PO DAILY EDWIGE Stop: 02/11/22 12:29 Last Admin: 01/15/22 08:14 Dose: 2 cap Documented By: Admin: 01/14/22 08:21 Dose: 2 cap Documented By: Admin: 01/13/22 09:30 Dose: 2 cap Documented By: Admin: 01/12/22 13:04 Dose: 2 cap Documented By: SABINA Levothyroxine Sodium (Levothyroxine Sodium 125 Mcg Tablet) 125 mcg PO DAILYBB EDWIGE Stop: 02/11/22 06:29 Last Admin: 01/15/22 05:36 Dose: 125 mcg Documented By: Admin: 01/14/22 06:25 Dose: 125 mcg Documented By: Admin: 01/13/22 05:23 Dose: 125 mcg Documented By: Admin: 01/12/22 06:18 Dose: 125 mcg Documented By: RUSTY Lisinopril (Lisinopril 40 Mg Tab) 40 mg PO DAILY EDWIGE Stop: 02/11/22 08:59 Last Admin: 01/15/22 08:14 Dose: 40 mg Documented By: Admin: 01/14/22 08:23 Dose: 40 mg Documented By: Admin: 01/13/22 09:30 Dose: 40 mg Documented By: Admin: 01/12/22 08:48 Dose: 40 mg Documented By: SABINA Magnesium Chloride (Magnesium Chloride W/Calcium 64mg Delayed Rel Tab) 128 mg PO QAM EDWIGE Stop: 02/11/22 08:59 Last Admin: 01/15/22 08:14 Dose: 128 mg Documented By: Admin: 01/14/22 08:23 Dose: 128 mg Documented By: Admin: 01/13/22 15:23 Dose: 128 mg Documented By: Admin: 01/12/22 08:48 Dose: 128 mg Documented By: SABINA Pantoprazole Sodium (Pantoprazole 40 Mg Tab) 40 mg PO QAM EDWIGE Stop: 02/11/22 08:59 Last Admin: 01/15/22 08:15 Dose: 40 mg Documented By: Admin: 01/14/22 08:23 Dose: 40 mg Documented By: Admin: 01/13/22 09:31 Dose: 40 mg Documented By: Admin: 01/12/22 08:50 Dose: 40 mg Documented By: SABINA Potassium Chloride (Potassium Chloride Crtab 20 Meq Tabcr) 40 meq PO BID EDWIGE Stop: 02/12/22 09:29 Last Admin: 01/15/22 08:15 Dose: 40 meq Documented By: Admin: 01/14/22 20:41 Dose: 40 meq Documented By: Admin: 01/14/22 08:22 Dose: 40 meq Documented By: Admin: 01/13/22 21:34 Dose: 40 meq Documented By: Admin: 01/13/22 10:36 Dose: 40 meq Documented By: JACKSON Thiamine HCl (Thiamine Hcl 100 Mg Tab) 100 mg PO QAM EDWIGE Stop: 02/13/22 08:59 Last Admin: 01/15/22 08:14 Dose: 100 mg Documented By: Admin: 01/14/22 08:22 Dose: 100 mg Documented By: JACKSON Vitamin D (Cholecalciferol 1,000 Units 25 Mcg Tab) 1,000 units PO DAILY EDWIGE Stop: 02/11/22 08:59 Last Admin: 01/15/22 08:14 Dose: 1,000 units Documented By: Admin: 01/14/22 08:23 Dose: 1,000 units Documented By: Admin: 01/13/22 09:31 Dose: 1,000 units Documented By: Admin: 01/12/22 08:48 Dose: 1,000 units Documented By: SABINA Coding Level of Care Code 39505 Inpt Consult Level 3 Diagnoses Paranoia F22 Acute on chronic alteration in mental status R41.82
--- NOTE | 2022-01-15 11:33 | Neurology Consultation ---
Date of Consultation January 15, 2022 Assessment & Plan (1) Encephalopathy, hypertensive: (2) Acute on chronic alteration in mental status: (3) Dehydration: Plan This patient's encephalopathy appears to be significantly improved. She may have a mild underlying dementia. She does not have signs or symptoms that would otherwise suggest meningitis or encephalitis. Her history and clinical presentation is not highly suggestive of seizures. I do not think she requires another EEG or lumbar puncture at this time. Medication compliance will need to be stressed going forward. Would avoid any potentially sedating medications such as narcotic analgesics or benzodiazepines. Outpatient formal neuropsychological evaluation may be of some value in further elucidating whether or not this patient may have mild cognitive impairment or perhaps an evolving degenerative dementia. However, I do have some doubt she would proceed with this type of assessment. She informs me that she no longer drives. She likely will need some assistance for more complex ADLs. 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 Bullard, perhaps in 2011, in the context of posttraumatic stress disorder. If this patient did have a significant traumatic brain injury at that time, it is certainly possible that to some degree, her underlying cognitive difficulties could be related to this remote issue. However, I would not expect her current clinical presentation or previous admission to the [facility] this past April, to be directly related to a remote history of TBI. I do not have any specific treatment recommendations from a neurological standpoint. I do not think a cholinesterase inhibitor or memantine would be indicated at this time. Furthermore, as alluded to above, her clinical presentation is not suggestive of seizures and I do not think another EEG or treatment with an anticonvulsant is indicated at this time. Also, she does not have signs or symptoms of meningitis or encephalitis at this time and she has been clinically improving. Therefore, I do not think a lumbar puncture to pursue these diagnoses is currently necessary. No further immediate recommendations. History of Present Illness Reason for Consultation: confusion, h/o TBI, any recs? Requesting Physician: Tati Bradley DO Attending Physician: Tati Bradley, DO History of Present Illness The patient is a 76-year-old female who presented to the emergency department on January 11, 2022 for further assessment of altered mental status. He was appare ntly found on the floor at home, covered in stool and urine, house in disarray. She was found by the individual who delivers her weekly groceries. She was hypertensive. Denied any headache or neck pain. Patient was admitted for further evaluation and management, history of type 2 diabetes mellitus, hypothyroidism, hyperlipidemia, chronic kidney disease stage III, diabetic polyneuropathy, hypertension, GERD, statin myopathy, fibromyalgia, degenerative disc disease, osteoarthritis of the knees, cervical degenerative disc disease, PTSD, generalized anxiety disorder was noted. Admission diagnoses consisted of confusion, hypertensive encephalopathy, hypernatremia, hyperglycemia. Also found to have bacteremia. Has been treated with antimicrobials, antihypertensives, IV fluids. Has been seen by cardiology, nephrology, and infectious disease via telemedicine yesterday. Note that at that time, patient was not interactive with the ID physician, only occasionally nodding her head, but otherwise saying very little. The ID physician did note a reported history of traumatic brain injury indicated in the medical record with an admission to the hospital in April/May 2021 under similar circumstances. He was recommended to consider obtaining an up-to-date psychiatric and neurology consultation at that time. From an ID perspective, it was not felt that the coagulase-negative Staphylococcus isolate was responsible for her clinical presentation. There was no immediate concern for meningitis or encephalitis although if after consultation with neurology, further infectious work-up was recommended, including lumbar puncture, infectious disease would reassess this case. Upon entering the room, the patient was lying comfortably in bed, legs a bit off to the left-hand side, she was otherwise alert and appropriate. She denied having any fever, chills, headache, neck stiffness or pain. She denied having any difficulty with focal or lateralized weakness, tremors, or clumsiness of the limbs. She does remark that she has been living alone and has been able to ambulate in her home with a walker. She does recall having a fall this past April resulting in [facility] to [facility]. She informs me that she no longer drives and does have some home caregivers that assist her from time to time. She does recall having a brain MRI completed overnight. I did ind ependently review these images, no evidence for acute or subacute infarct. There is chronic small vessel ischemic disease and mild atrophy. 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 A CT of the head completed the time of her presentation, on January 11, 2022 was negative for hemorrhage or acute process and had also revealed cerebral atrophy and chronic small vessel ischemic disease. I independently reviewed these images as well. I see that she was evaluated by Dr. Gray on April 25, 2021. I did review this note/communication report which summarize some of her past medical history including diabetes, hypertension, possible lupus, fibromyalgia, obesity, including details pertaining to her hospitalization at that time such as being found in a confused state, on the floor of her home, with gradually improving mental status. She had an unremarkable EEG and brain MRI at that time as well. There have been some family stressors at that time noted with some logistical difficulties regarding getting to appointments. Looks like she was alert and oriented that time but had vague recall of her history of the preceding events. Diagnoses at that time was of a transient encephalopathy of uncertain etiology, possibly traumatic, although no clear evidence of head injury at that time. I do note this patient carries a diagnosis of posttraumatic stress disorder, diagnosed by Dr. Bullard, post head injury. This diagnosis was noted in March 2012. I cannot find additional details in epic. I did review this patient's previous psychiatric consultation from April 30, 2021 regarding hallucinations and behavioral changes, seeing animals or people in the room, associated paranoia, confusion, irritability, perhaps some aggressiveness with as needed medication. 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 Was not felt to be surprising that she would decompensate outside of her home setting, even in the face of resolving delirium. Underlying cognitive decline suggested by neuro at that time. Allergies Allergy/AdvReac Type Severity Reaction Status Date / Time atorvastatin [From Lipitor] Allergy Unknown Unknown Verified 01/11/22 20:00 morphine Allergy Unknown Verified 04/24/21 07:10 acetaminophen [From Percocet] AdvReac Unknown Vomiting Verified 01/11/22 20:00 aspirin [From Percodan] AdvReac Unknown Vomiting Verified 01/11/22 20:00 cephalexin AdvReac Unknown Unknown Verified 01/11/22 20:00 codeine AdvReac Unknown Vomiting Verified 01/11/22 20:00 esomeprazole AdvReac Unknown Skin Verified 04/24/21 07:10 irritation,swelling,difficulty breathing. oxycodone [From Percodan] AdvReac Unknown Vomiting Verified 01/11/22 20:00 sucralfate AdvReac Unknown Skin Verified 01/11/22 20:00 irritation,swelling,difficulty breathing. Home Medications Medication Instructions Recorded Confirmed Type cholecalciferol (vitamin D3) 25 25 mcg PO DAILY 04/24/21 01/11/22 History mcg (1,000 unit) capsule (Vitamin D3) fluticasone propionate 50 2 spray intranasal DAILY 04/24/21 01/11/22 History mcg/actuation nasal spray,suspension folic acid 1 mg tablet 1 mg PO QAM 04/24/21 01/11/22 History insulin glargine 100 unit/mL 31 unit subcut QAM 04/24/21 01/11/22 History subcutaneous solution (Lantus U-100 Insulin) levothyroxine 125 mcg tablet 125 mcg PO DAILYBB 04/24/21 01/11/22 History metformin 500 mg tablet,extended 1,000 mg PO QDD 04/24/21 01/11/22 History release 24 hr nystatin 100,000 unit/gram topical 1 applic topical TID PRN yeast 04/24/21 01/11/22 History powder infections tramadol 50 mg tablet 50 mg PO Q6H PRN Pain, Severe 04/24/21 01/11/22 History lisinopril 40 mg tablet (Zestril) 40 mg PO DAILY #30 tabs 05/07/21 01/11/22 Rx magnesium chloride 64 mg 128 mg PO QAM 01/11/22 01/11/22 History (magnesium chloride) tablet,delayed release (Mag 64) meclizine 12.5 mg tablet 12.5 mg PO TID PRN Dizziness 01/11/22 01/11/22 History pantoprazole 40 mg tablet,delayed 40 mg PO QAM 01/11/22 01/11/22 History release semaglutide 1 mg/dose (4 mg/3 mL) 1 mg subcut WK 01/11/22 01/11/22 History subcutaneous pen injector (Ozempic) Patient History Medical History Acute on chronic alteration in mental status CKD (chronic kidney disease), stage III Encephalopathy Fall GERD (gastroesophageal reflux disease) Hyperglycemia due to diabetes mellitus Hypothyroidism Paranoid Social History Smoking Status: Unknown if ever smoked Hx Substance Use: No Preferred Language: Occitan Communication Ability: Effective Major Gifts Director Required: No Beliefs That Will Affect Care: None Current Living Situation: Family Feels Safe at Home: Yes Safety Concerns: Feels Safe At This Time Assistive Devices: Walker Review of Systems Constitutional: no fever and no chills Eyes: no blind spots and no diplopia Ear, Nose, Mouth, Throat: no ear pain and no hearing loss Respiratory: no cough and no dyspnea Cardiovascular: no chest pain and no palpitations Gastrointestinal: no nausea and no vomiting Genitourinary: no dysuria Musculoskeletal: no back pain and no neck pain Integumentary: no rash Neurologic: as per Subjective / HPI, + gait abnormality and + memory loss; no headache(s) Psychiatric: as per Subjective / HPI, + irritability and + paranoia Hematologic / Lymphatic: no easy bleeding and no easy bruising Exam (Neuro) Constitutional: well developed and well nourished; no acute distress Eyes: normal visual resendiz by confrontation, PERRL, normal accommodation and EOM intact bilaterally; no fundoscopic abnormality, no nystagmus and no papilledema Cardiovascular: Vessels: normal carotid upstroke; no carotid bruit Neurologic: Oriented to:: Person and Place; negative Time Memory: Remote Intact; negative Short Term Intact (1/3 with delayed recall, 2/3 with cueing) Attention: Span Intact and Concentration Intact Language: Naming Objects and Repeating Phrases Speech Fluency: negative Dysarthria Speech Aphasia: negative Aphasia Fund of Knowledge: Past History and Vocabulary; negative Current Events Cranial Nerves: Normal II (Visual resendiz full to con frontation, visual acuity normal), III, IV, (Pupils equal round reactive to light and accommodation, eye movements normal), V (Facial sensation intact), VII (There is no facial droop or weakness), VIII (Hearing intact), IX, X (Palate elevates to midline), XI (Shoulder shrug intact) and XII (Tongue protrudes to midline) Motor Strength: Normal Lower Extremities and Normal Upper Extremities; negative Pronator Drift Motor Tone: Normal Lower Extremities and Normal Upper Extremities Muscle Bulk/Involuntary Movements: No Involuntary Movements; negative Muscle Atrophy Sensation: Light Touch Intact, Pain/Temperature Intact and Proprioception Intact; negative Vibration Intact Coordination: Normal; negative Dysdiadochokinesia, Finger-Nose Abnormal or Heel- Mike Abnormal Deep Tendon Reflexes: Rt Triceps: 1+, Lt Triceps: 1+, Rt Biceps: 1+, Lt Biceps: 1+, Rt Brachioradialis: 1+, Lt Brachioradialis: 1+, Rt Patellar: 1+, Lt Patellar: 1+, Rt Ankle: 1+ and Lt Ankle: 1+ Special Tests: negative Babinski Present Details: Gait could not be tested in the context of patient's current neurological status. No nuchal rigidity on examination. Patient is alert and appropriate, she is oriented to "[facility]," day of the week, summer. She interacts appropriately, answers questions and is not aphasic. She does not exhibit any abnormal movements. She does have some difficulty with some aspects of cognitive testing such as spelling world backwards and evaluation of short- term memory. She follows multistep commands without difficulty. She is not perseverative or inappropriate at this time. She is nonagitated. Results & Data ([facility]) Vital Signs (Past 12 Hours) Vital Signs Temp Pulse Pulse Pulse Resp BP Pulse Ox 01/15/22 07:49 68 01/15/22 07:00 36.7 C 80 14 181/84 H 98 01/15/22 03:35 36.8 C 62 18 184/78 H 98 01/14/22 23:51 70 01/14/22 23:30 36.6 C 62 18 189/82 H 99 O2 Del Method 01/15/22 07:49 01/15/22 07:00 Room Air 01/15/22 03:35 Room Air 01/14/22 23:51 01/14/22 23:30 Room Air Laboratory Results WBC 8.19, hemoglobin 11.3, hematocrit 33.8, MCV 86.0, platelet count 207, sodium 141, potassium 3.9, BUN 15, creatinine 1.36, glucose 84, calcium 8.6, magnesium 1.7. A TSH from April 16, 2021 was 4.560. A vitamin B12 level from May 03, 2021 was 396. An ammonia level from January 11, 2022 was 24.0, an AST at that time was 10, an ALT was 11. Diagnostic Findings I independently reviewed the brain MRI completed last night, please see HPI for further details. CT of the head completed January 11, 2022 reviewed as well, see HPI for further details. An MRA of the head completed April 24, 2021 was grossly unremarkable, motion compromised examination. A brain MRI at that time was negative for acute or subacute infarct and revealed age-related involutional changes including mild chronic microvascular ischemic disease as well as atrophy with an element of ex vacuo ventriculomegaly. I did independently review these images as well. No restricted diffusion, no blooming artifact. Small lacunar infarct within the left cerebellar hemisphere was again seen. Atrophy pattern not suggestive of NPH per my review. An EEG completed April 24, 2021 was normal, no evidence of encephalopathy or epileptiform abnormalities. Study interpreted by Dr. Gray at that time. Coding Level of Care Code 33258 Initial Inpt Care Lvl 3 Diagnoses Encephalopathy, hypertensive I67.4 Acute on chronic alteration in mental status R41.82 Dehydration E86.0
--- NOTE | 2022-01-15 15:21 | Hospitalist Progress Note ---
Date of Service January 15, 2022 Assessment & Plan (1) Encephalopathy, hypertensive: (2) Hypertensive urgency: (3) Coagulase negative Staphylococcus bacteremia: (4) Hypernatremia: (5) Hyperglycemia due to diabetes mellitus: (6) Urinary tract infection: (7) Hypothyroidism: (8) CKD (chronic kidney disease), stage III: (9) GERD (gastroesophageal reflux disease): Plan This is a 76-year-old female who presents with confusion. 1. Confusion: Etiology unclear on admission, could be from hypernatremia, could be hypertensive encephalopathy. Also found bacteremic with unclear source. Imaging studies are unremarkable so far. ER empirically started on Vanc and Zosyn. 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 Stopping abx now. H/o TBI and some paranoia in the past, Admission in Fall 2020 was similar to this. Psych saw her with recs in case of agitation. Brain MRI was normal. Per neuro there is no further workup needed at this time Will cont to monitor for improvement in confusion with stability and then assess safety to return home with family and OOA. 2. Hypertensive emergency / encephalopathy: BP still uncontrolled despite adding Norvasc 10mg daily to lis 40mg daily. Adding low dose HCTZ at this time. Notable she is eating and drinking well at this time and sodium is normalized. 3. Hypernatremia: resolved. 4. Diabetes: Blood sugar elevated on admission. A1C reflects good control at 6.1. Cont Lantus and insulin sliding scale. Avoid hypoglycemia. 5. Hypothyroidism: chronic, stable. Continue Synthroid. 6. Chronic kidney disease stage III: chronic, stable and creatinine at baseline. 7. Gastroesophageal reflux disease: chronic, stable. Continue Protonix per home regimen. DVT prophylaxis: Placed on heparin subcutaneous. DISPOSITION: tele floor. Office of aging contacted. CM following. Code: Full DO Reji Beyer Hospitalist Admission and Anticipated Discharge Date Admission Date: January 11, 2022 Subjective 76-year-old female admitted for encephalopathy although today she can answer orientation questions appropriately she is still confused started saying "let me tell you what those doctors said" then went on "they were telling me about the kids" when I asked why, she got confused and quiet. spoke with MATTHEW today by phone who says her baseline is A&O x 3 and occasionally may forget someone's name. Review of Systems Review of Systems: ROS was limited by confusion and lack of participation wtih the exam but she denied any pain. Physical Exam Physical Exam: CONSTITUTIONAL: WNWD, vitals as above, generally well- appearing, NAD EYES: normal conjunctivae, no scleral icterus ENT: external ear and nose normal, MMM NECK: trachea midline RESPIRATORY: clear to auscultation bilaterally, no crackles, rales or wheezes, normal respiratory effort CARDIOVASCULAR: regular rate and rhythm, S1 and 2 heard without murmurs, gallops or rubs, no JVD, no peripheral edema CHEST: inspection of chest was normal GASTROINTESTINAL: soft, nontender, ND, no guarding MUSCULOSKELETAL: generalized weakness, moves extremities equally, head is normocephalic and atraumatic, SKIN: warm and dry NEUROLOGIC: CN 2-12 grossly intact, would not comply with more in depth neuro exam today. No sensory deficit, normal cognition, normal speech, no tremor PSYCHIATRIC: alert, oriented to person place and time and could say that she fell at home and didn't know why but that was the reason for the hospital stay. Then started to track off on a tangent about other physicians' assessments and about young children Results & Data Results & Data ([facility]) Vital Signs (Past 12 Hours) Vital Signs Temp Pulse Pulse Pulse Resp BP Pulse Ox 01/15/22 12:25 36.6 C 78 22 142/84 H 98 01/15/22 07:49 68 01/15/22 07:00 36.7 C 80 14 181/84 H 98 01/15/22 03:35 36.8 C 62 18 184/78 H 98 O2 Del Method 01/15/22 12:25 Room Air 01/15/22 07:49 01/15/22 07:00 Room Air 01/15/22 03:35 Room Air Laboratory Results Short CBC 01/15/22 Range/Units 05:27 WBC 8.19 (4.8-10.8) K/ul Hgb 11.3 L (12.0-16.0) g/dl Hct 33.8 L (34.1-44.9) % Plt Count 207 (130-400) K/uL BMP 01/15/22 05:27 Sodium 141 Potassium 3.9 Chloride 114 H Carbon Dioxide 20 L BUN 15 Creatinine 1.36 H Glucose 84 Calcium 8.6 Diagnostic Findings Brain MRI 01/14/22 17:30 MRI OF THE BRAIN WITHOUT CONTRAST CLINICAL HISTORY: persistent confusion, rule out stroke/mass COMPARISON STUDY: MRI of the brain April 24, 2021. Head CT January 11, 2022. TECHNIQUE: Utilizing a 1.5 Kim magnet and dedicated coil, multiplanar, multiecho imaging of the brain was performed without IV contrast. FINDINGS: There are no foci of restricted diffusion to suggest acute infarct. No acute intracranial hemorrhage, midline shift or mass effect is present. Ventricular system is stable. Basal cisterns are patent. There are no extra- axial collections. Flow-voids for the major intracranial vessels are present. White matter T2 hyperintense foci are similar to previous MRI and favor small vessel disease. 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 This is unchanged. No intracranial masses identified on this unenhanced exam. Calvarial signal is normal. No evidence for sinusitis. There is no mastoid fluid. IMPRESSION: No acute intracranial findings. No change in appearance of the brain since MRI of April 24, 2021. ACT 112: Negative or not required by law. Electronically signed by: Ryan Patel M.D. 01/15/2022 8:27 AM Medications Administered Current Inpatient Medications Amlodipine Besylate (Amlodipine Besylate 5 Mg Tab) 10 mg PO QAM [facility] Stop: 02/13/22 08:59 Last Admin: 01/15/22 08:14 Dose: 10 mg Dextrose (Dextrose 50% 50 Ml Syringe) 25 - 50 ml IV UD PRN; Protocol PRN Reason: Hypoglycemia Protocol Stop: 02/10/22 23:44 Fluticasone Propionate (Fluticasone Propionate Na Spr 16 Gm Btl) 2 sprays NA DAILY [facility] Stop: 02/11/22 08:59 Last Admin: 01/15/22 08:15 Dose: 2 sprays Folic Acid (Folic Acid 1 Mg Tab) 1 mg PO QAM [facility] Stop: 02/11/22 08:59 Last Admin: 01/15/22 08:15 Dose: 1 mg Glucagon (Glucagon For Inj 1 Mg Vial) 1 mg IM UD PRN; Protocol PRN Reason: Hypoglycemia Protocol Stop: 02/10/22 23:44 Glucose (Glucose 40% Gel 15 Gm Tube) 15 - 30 gm PO UD PRN; Protocol PRN Reason: Hypoglycemia Protocol Stop: 02/10/22 23:44 Glucose (Glucose 10 Tab/Tube) 4 - 8 tab PO UD PRN; Protocol PRN Reason: Hypoglycemia Protocol Stop: 02/10/22 23:44 Heparin Sodium (Porcine) (Heparin Sod 5,000 Unit/0.5 Ml Vial) 5,000 units SQ Q12 [facility] Stop: 02/11/22 08:59 Last Admin: 01/15/22 08:15 Dose: 5,000 units Insulin Aspart (Insulin Aspart Per Unit) 0 units SC ACHS [facility] Stop: 02/11/22 07:29 Last Admin: 01/15/22 12:04 Dose: 6 units Insulin Glargine (Lantus Per Unit Charge) 13 units SQ BID [facility] Stop: 02/13/22 20:59 Last Admin: 01/15/22 08:20 Dose: 13 units Lactobacillus Acidophilus (Advanced Probiotic 1250 Mg Capsule) 2 cap PO DAILY [facility] Stop: 02/11/22 12:29 Last Admin: 01/15/22 08:14 Dose: 2 cap Levothyroxine Sodium (Levothyroxine Sodium 125 Mcg Tablet) 125 mcg PO DAILYBB [facility] Stop: 02/11/22 06:29 Last Admin: 01/15/22 05:36 Dose: 125 mcg Lisinopril (Lisinopril 40 Mg Tab) 40 mg PO DAILY [facility] Stop: 02/11/22 08:59 Last Admin: 01/15/22 08:14 Dose: 40 mg Magnesium Chloride (Magnesium Chloride W/Calcium 64mg Delayed Rel Tab) 128 mg PO QAM [facility] Stop: 02/11/22 08:59 Last Admin: 01/15/22 08:14 Dose: 128 mg Meclizine HCl (Meclizine 12.5 Mg Tab) 12.5 mg PO TID PRN PRN Reason: Dizziness Stop: 02/10/22 22:28 Miscellaneous (Carbohydrates For Hypoglycemia ) 15 - 30 gm PO UD PRN PRN Reason: Hypoglycemia Treatment Stop: 02/10/22 23:44 Nitroglycerin (Nitroglycerin Sl 0.4 Mg/Tab Tab) 0.4 mg SL Q5M PRN PRN Reason: Chest Pain Stop: 02/10/22 22:28 Nystatin (Nystatin Powder 15gm Btl) 1 appln EXT TID PRN PRN Reason: yeast infections Stop: 02/10/22 22:28 Ondansetron HCl (Ondansetron Inj 2 Mg/Ml 2 Ml Vial) 4 mg IV Q6H PRN PRN Reason: Nausea Stop: 02/10/22 22:28 Pantoprazole Sodium (Pantoprazole 40 Mg Tab) 40 mg PO QAM [facility] Stop: 02/11/22 08:59 Last Admin: 01/15/22 08:15 Dose: 40 mg Potassium Chloride (Potassium Chloride Crtab 20 Meq Tabcr) 40 meq PO BID [facility] Stop: 02/12/22 09:29 Last Admin: 01/15/22 08:15 Dose: 40 meq Thiamine HCl (Thiamine Hcl 100 Mg Tab) 100 mg PO QAM [facility] Stop: 02/13/22 08:59 Last Admin: 01/15/22 08:14 Dose: 100 mg Tramadol HCl (Tramadol Hcl 50 Mg Tablet) 50 mg PO Q6H PRN PRN Reason: Pain, Severe 7,8,9,10 Stop: 02/10/22 22:28 Vitamin D (Cholecalciferol 1,000 Units 25 Mcg Tab) 1,000 units PO DAILY [facility] Stop: 02/11/22 08:59 Last Admin: 01/15/22 08:14 Dose: 1,000 units (1) Urinary tract infection Hematuria presence: without hematuria Urinary tract infection type: site unspecified Qualified Code(s): N39.0 - Urinary tract infection, site not specified
[2022-01-15] MEDS ORDERED: hydroCHLOROthiazide 25 MG TAB PO STA (19:29)
[2022-01-16] MEDS: LEVOTHYROXINE SODIUM 125 MCG TABLET PO SCH (06:40)
[2022-01-16] MEDS ORDERED: hydroCHLOROthiazide 25 MG TAB PO SCH (09:00)
[2022-01-16 09:06] LABS: Hematocrit (blood only) 34.2 % (34.1-44.9); Hemoglobin 11.1 g/dl (12.0-16.0); Mean Corpuscular Hemoglobin 28.1 pg (25.0-34.0); Mean Corpuscular Hgb Conc 32.5 g/dL (32.0-36.0); Mean Corpuscular Volume 86.6 fL (80.0-100.0); Mean Platelet Volume 11.2 fL (9.4-12.3); Platelet Count 199 K/uL (130-400); RDW Coefficient of Variation 13.3 % (11.5-14.5); RDW Standard Deviation 41.8 fL (36.4-46.3); Red Blood Count 3.95 M/uL (3.93-5.22); White Blood Count 9.51 K/ul (4.8-10.8)
[2022-01-16] MEDS: CHOLECALCIFEROL 1,000 UNITS 25 MCG TAB PO SCH (09:18)
[2022-01-16] MEDS: PANTOprazole 40 MG TAB PO SCH (09:18)
[2022-01-16] MEDS: FOLIC ACID 1 MG TAB PO SCH (09:18)
[2022-01-16] MEDS: MAGNESIUM CHLORIDE W/CALCIUM 64MG DELAYED REL TAB PO SCH (09:18)
[2022-01-16] MEDS: ADVANCED PROBIOTIC 1250 MG CAPSULE PO SCH (09:20)
[2022-01-16] MEDS: POTASSIUM CHLORIDE CRTAB 20 MEQ TABCR PO SCH ×2 (09:20→22:11)
[2022-01-16] MEDS: FLUTICASONE PROPIONATE NA SPR 16 GM BTL SCH (09:20)
[2022-01-16] MEDS: HEPARIN SOD 5,000 UNIT/0.5 ML VIAL SQ SCH ×2 (09:20→21:13)
[2022-01-16] MEDS: amLODIPine BESYLATE 5 MG TAB PO SCH (09:20)
[2022-01-16] MEDS: lisinopril 40 MG TAB PO SCH (09:20)
[2022-01-16] MEDS: THIAMINE HCL 100 MG TAB PO SCH (09:20)
[2022-01-16] MEDS: LANTUS PER UNIT CHARGE SQ SCH ×2 (09:28→21:13)
[2022-01-16 09:29] LABS: BUN Creatinine Ratio 16.9 (10-20); Calcium 9.1 mg/dl (8.5-10.1); Creatinine Clr Calc Pharmacy 37.3 ml/min; Est GFR (African American) 42.1 ml/min; Est GFR (Non-African American) 36.3 ml/min; Potassium 4.4 mmol/L (3.5-5.1)
[2022-01-16] MEDS: INSULIN ASPART PER UNIT SC SCH ×4 (09:29→21:13)
--- NOTE | 2022-01-16 18:42 | Hospitalist Progress Note ---
Date of Service January 16, 2022 Assessment & Plan (1) Encephalopathy, hypertensive: (2) Hypertensive urgency: (3) Coagulase negative Staphylococcus bacteremia: (4) Hypernatremia: (5) Hyperglycemia due to diabetes mellitus: (6) Urinary tract infection: (7) Hypothyroidism: (8) CKD (chronic kidney disease), stage III: (9) GERD (gastroesophageal reflux disease): Plan This is a 76-year-old female who presents with confusion. 1. Confusion: Etiology unclear on admission, could be from hypernatremia, could be hypertensive encephalopathy. Also found bacteremic with unclear source. Imaging studies are unremarkable so far. ER empirically started on Vanc and Zosyn. EPIC AMBULATORY ANALYST grew in culture and Vanc stopped ID cnsulted and feels this is a contaminant. Stopped abx and she is still doing well clinically. Appears improved from a confusion standpoint today Impulsive and cannot trust her without a bed alarm (per RN) but independently transferring bed to chair. H/o TBI and some paranoia in the past, Admission in Fall 2020 was similar to this. Psych saw her with recs in case of agitation. Brain MRI was normal. Per neuro there is no further workup needed at this time Will cont to monitor for improvement in confusion with stability and then assess safety to return home with family and OOA. 2. Hypertensive emergency / encephalopathy: Better control now that HCTZ added to Norvasc 10 and lis 40. On lisinopril 40mg monotherapy at home. 3. Hypernatremia: resolved. 4. Diabetes: Blood sugar elevated on admission. A1C reflects good control at 6.1. Cont Lantus and insulin sliding scale. Avoid hypoglycemia. 5. Hypothyroidism: chronic, stable. Continue Synthroid. 6. Chronic kidney disease stage III: chronic, stable and creatinine at baseline. 7. Gastroesophageal reflux disease: chronic, stable. Continue Protonix per home regimen. DVT prophylaxis: Placed on heparin subcutaneous. DISPOSITION: Remain hospitalized until returns to baseline mental status. Office of aging contacted. CM following. Code: Full DO Reji Beyer Hospitalist Admission and Anticipated Discharge Date Admission Date: January 11, 2022 Subjective 76-year-old female admitted for encephalopathy Still appears confused today Has dropped food all over her floor and doesn't seem to mind that her bare feet are in it Answering questions appropriately but will still give coy answers with some inclination toward a tangent that doesn't make sense. Transferring independently chair to bed. BP improved after addition of HCTZ overnight. Repeat is 125/85 at bedside during this exam. Review of Systems Review of Systems: All systems were reviewed and negative except as indicated on subjective above. . Physical Exam Physical Exam: CONSTITUTIONAL: WNWD, vitals as above, generally well- appearing, NAD EYES: normal conjunctivae, no scleral icterus ENT: external ear and nose normal, MMM NECK: trachea midline RESPIRATORY: clear to auscultation bilaterally, no crackles, rales or wheezes, normal respiratory effort CARDIOVASCULAR: regular rate and rhythm, S1 and 2 heard without murmurs, gallops or rubs, no JVD, no peripheral edema CHEST: inspection of chest was normal GASTROINTESTINAL: soft, nontender, ND, no guarding MUSCULOSKELETAL: 5/5 strength throughout, moves extremities equally, head is normocephalic and atraumatic, SKIN: warm and dry NEUROLOGIC: CN 2-12 grossly intact, would not comply with more in depth neuro exam today. No sensory deficit, normal cognition, normal speech, no tremor PSYCHIATRIC: alert, answering questions appropriately Results & Data Results & Data ([facility]) Vital Signs (Past 12 Hours) Vital Signs Temp Pulse Resp BP Pulse Ox O2 Del Method 01/16/22 16:00 36.4 C L 73 18 154/76 H 98 Room Air 01/16/22 14:30 18 124/78 98 Room Air 01/16/22 07:30 37.1 C 72 20 182/75 H 99 Room Air Laboratory Results Short CBC 01/16/22 Range/Units 08:32 WBC 9.51 (4.8-10.8) K/ul Hgb 11.1 L (12.0-16.0) g/dl Hct 34.2 (34.1-44.9) % Plt Count 199 (130-400) K/uL BMP 01/16/22 08:32 Sodium 138 Potassium 4.4 Chloride 110 H Carbon Dioxide 20 L BUN 24 H Creatinine 1.42 H Glucose 200 H Calcium 9.1 Medications Administered Current Inpatient Medications Amlodipine Besylate (Amlodipine Besylate 5 Mg Tab) 10 mg PO QAM [facility] Stop: 02/13/22 08:59 Last Admin: 01/16/22 09:20 Dose: 10 mg Dextrose (Dextrose 50% 50 Ml Syringe) 25 - 50 ml IV UD PRN; Protocol PRN Reason: Hypoglycemia Protocol Stop: 02/10/22 23:44 Fluticasone Propionate (Fluticasone Propionate Na Spr 16 Gm Btl) 2 sprays NA DAILY [facility] Stop: 02/11/22 08:59 Last Admin: 01/16/22 09:20 Dose: 2 sprays Folic Acid (Folic Acid 1 Mg Tab) 1 mg PO QAM [facility] Stop: 02/11/22 08:59 Last Admin: 01/16/22 09:18 Dose: 1 mg Glucagon (Glucagon For Inj 1 Mg Vial) 1 mg IM UD PRN; Protocol PRN Reason: Hypoglycemia Protocol Stop: 02/10/22 23:44 Glucose (Glucose 40% Gel 15 Gm Tube) 15 - 30 gm PO UD PRN; Protocol PRN Reason: Hypoglycemia Protocol Stop: 02/10/22 23:44 Glucose (Glucose 10 Tab/Tube) 4 - 8 tab PO UD PRN; Protocol PRN Reason: Hypoglycemia Protocol Stop: 02/10/22 23:44 Heparin Sodium (Porcine) (Heparin Sod 5,000 Unit/0.5 Ml Vial) 5,000 units SQ Q12 [facility] Stop: 02/11/22 08:59 Last Admin: 01/16/22 09:20 Dose: 5,000 units Hydrochlorothiazide (Hydrochlorothiazide 25 Mg Tab) 12.5 mg PO QAM [facility] Stop: 02/15/22 08:59 Last Admin: 01/16/22 09:19 Dose: 12.5 mg Insulin Aspart (Insulin Aspart Per Unit) 0 units SC ACHS [facility] Stop: 02/11/22 07:29 Last Admin: 01/16/22 17:42 Dose: Not Given Insulin Glargine (Lantus Per Unit Charge) 13 units SQ BID [facility] Stop: 02/13/22 20:59 Last Admin: 01/16/22 09:28 Dose: 13 units Lactobacillus Acidophilus (Advanced Probiotic 1250 Mg Capsule) 2 cap PO DAILY [facility] Stop: 02/11/22 12:29 Last Admin: 01/16/22 09:20 Dose: 2 cap Levothyroxine Sodium (Levothyroxine Sodium 125 Mcg Tablet) 125 mcg PO DAILYBB [facility] Stop: 02/11/22 06:29 Last Admin: 01/16/22 06:40 Dose: 125 mcg Lisinopril (Lisinopril 40 Mg Tab) 40 mg PO DAILY [facility] Stop: 02/11/22 08:59 Last Admin: 01/16/22 09:20 Dose: 40 mg Magnesium Chloride (Magnesium Chloride W/Calcium 64mg Delayed Rel Tab) 128 mg PO QAM [facility] Stop: 02/11/22 08:59 Last Admin: 01/16/22 09:18 Dose: 128 mg Meclizine HCl (Meclizine 12.5 Mg Tab) 12.5 mg PO TID PRN PRN Reason: Dizziness Stop: 02/10/22 22:28 Miscellaneous (Carbohydrates For Hypoglycemia ) 15 - 30 gm PO UD PRN PRN Reason: Hypoglycemia Treatment Stop: 02/10/22 23:44 Nitroglycerin (Nitroglycerin Sl 0.4 Mg/Tab Tab) 0.4 mg SL Q5M PRN PRN Reason: Chest Pain Stop: 02/10/22 22:28 Nystatin (Nystatin Powder 15gm Btl) 1 appln EXT TID PRN PRN Reason: yeast infections Stop: 02/10/22 22:28 Ondansetron HCl (Ondansetron Inj 2 Mg/Ml 2 Ml Vial) 4 mg IV Q6H PRN PRN Reason: Nausea Stop: 02/10/22 22:28 Pantoprazole Sodium (Pantoprazole 40 Mg Tab) [facility] [place] [facility]: 02/11/22 08:59 Last Admin: 01/16/22 09:18 Dose: 40 mg Potassium Chloride (Potassium Chloride Crtab 20 Meq Tabcr) 40 meq PO BID [facility] Stop: 02/12/22 09:29 Last Admin: 01/16/22 09:20 Dose: 40 meq Thiamine HCl (Thiamine Hcl 100 Mg Tab) 100 mg PO QAM [facility] Stop: 02/13/22 08:59 Last Admin: 01/16/22 09:20 Dose: 100 mg Tramadol HCl (Tramadol Hcl 50 Mg Tablet) 50 mg PO Q6H PRN PRN Reason: Pain, Severe 7,8,9,10 Stop: 02/10/22 22:28 Vitamin D (Cholecalciferol 1,000 Units 25 Mcg Tab) 1,000 units PO DAILY [facility] Stop: 02/11/22 08:59 Last Admin: 01/16/22 09:18 Dose: 1,000 units (1) Urinary tract infection Hematuria presence: without hematuria Urinary tract infection type: site unspecified Qualified Code(s): N39.0 - Urinary tract infection, site not specified
[2022-01-17] MEDS: LEVOTHYROXINE SODIUM 125 MCG TABLET PO SCH (05:44)
[2022-01-17 09:17] LABS: Hematocrit (blood only) 40.6 % (34.1-44.9); Mean Corpuscular Volume 90.4 fL (80.0-100.0); Mean Platelet Volume 11.3 fL (9.4-12.3); Platelet Count 213 K/uL (130-400); RDW Coefficient of Variation 13.6 % (11.5-14.5); RDW Standard Deviation 44.2 fL (36.4-46.3); Red Blood Count 4.49 M/uL (3.93-5.22); White Blood Count 9.41 K/ul (4.8-10.8)
[2022-01-17 09:22] LABS: BUN Creatinine Ratio 19.2 (10-20); Calcium 9.4 mg/dl (8.5-10.1); Creatinine Clr Calc Pharmacy 42.4 ml/min; Est GFR (African American) 49.1 ml/min; Est GFR (Non-African American) 42.3 ml/min
[2022-01-17] MEDS: LANTUS PER UNIT CHARGE SQ SCH ×2 (09:22→21:13)
[2022-01-17] MEDS: INSULIN ASPART PER UNIT SC SCH ×4 (09:22→20:49)
[2022-01-17] MEDS: POTASSIUM CHLORIDE CRTAB 20 MEQ TABCR PO SCH ×2 (09:23→20:46)
[2022-01-17] MEDS: THIAMINE HCL 100 MG TAB PO SCH (09:24)
[2022-01-17] MEDS: PANTOprazole 40 MG TAB PO SCH (09:24)
[2022-01-17] MEDS: FOLIC ACID 1 MG TAB PO SCH (09:25)
[2022-01-17] MEDS: amLODIPine BESYLATE 5 MG TAB PO SCH (09:26)
[2022-01-17] MEDS: ADVANCED PROBIOTIC 1250 MG CAPSULE PO SCH (09:26)
[2022-01-17] MEDS: CHOLECALCIFEROL 1,000 UNITS 25 MCG TAB PO SCH (09:27)
[2022-01-17] MEDS: MAGNESIUM CHLORIDE W/CALCIUM 64MG DELAYED REL TAB PO SCH (09:28)
[2022-01-17] MEDS: HEPARIN SOD 5,000 UNIT/0.5 ML VIAL SQ SCH ×2 (09:30→20:45)
[2022-01-17] MEDS: FLUTICASONE PROPIONATE NA SPR 16 GM BTL SCH (13:38)
--- NOTE | 2022-01-17 15:08 | Hospitalist Progress Note ---
Date of Service January 17, 2022 Assessment & Plan (1) Encephalopathy, hypertensive: (2) Hypertensive urgency: (3) Coagulase negative Staphylococcus bacteremia: (4) Hypernatremia: (5) Hyperglycemia due to diabetes mellitus: (6) Urinary tract infection: (7) Hypothyroidism: (8) CKD (chronic kidney disease), stage III: (9) GERD (gastroesophageal reflux disease): Plan This is a 76-year-old female who presents with confusion. 1. Confusion: Etiology unclear on admission, could be from hypernatremia, could be hypertensive encephalopathy. Also found bacteremic with unclear source. Imaging studies are unremarkable so far. ER empirically started on Vanc and Zosyn. KEYBOARDING CLERK grew in culture and Vanc stopped ID cnsulted and feels this is a contaminant. Stopped abx and she is still doing well clinically. Appears improved from a confusion standpoint today Impulsive and cannot trust her without a bed alarm (per RN) but independently transferring bed to chair. H/o TBI and some paranoia in the past, Admission in Fall 2020 was similar to this. Psych saw her with recs in case of agitation. Brain MRI was normal. Per neuro there is no further workup needed at this time Will cont to monitor for improvement in confusion with stability and then assess safety to return home with family and OOA. 2. Hypertensive emergency / encephalopathy: Better control now that HCTZ added to Norvasc 10 and lis 40. Held lisinopril and HCTZ pending improvement in creatinine. 3. Hypernatremia: resolved. 4. Diabetes: Blood sugar elevated on admission. A1C reflects good control at 6.1. Cont Lantus and insulin sliding scale. Avoid hypoglycemia. 5. Hypothyroidism: chronic, stable. Continue Synthroid. 6. Chronic kidney disease stage III: chronic, stable and creatinine at baseline. 7. Gastroesophageal reflux disease: chronic, stable. Continue Protonix per home regimen. DVT prophylaxis: Placed on heparin subcutaneous. DISPOSITION: Remain hospitalized until returns to baseline mental status. Office of aging contacted. CM following. Code: Full DO Reji Beyer Hospitalist Admission and Anticipated Discharge Date Admission Date: January 11, 2022 Supervising Physician Co-Signing Physician Notes Supervising Physician Attestation: I have personally performed a history and physical examination on the patient. I agree with the physician carpenter assistant installer's findings and plan as documented with the following additions. Subjective: No cardiac complaints. SR on telemetry. Exam: Pulm: lungs clear CV: Reg rate, no murmur, no edema Assessment and Plan: as noted. Otto Ortiz, DO Subjective 76-year-old female admitted for encephalopathy Still appears confused today Knows that Rosa is president but cannot say the date or the year Still isn't sure what caused her fall and cannot recall details from her event at home prior to arrival BP 139/76 Again impulsive today Review of Systems Review of Systems: ROS was limited by confusion and lack of participation wtih the exam but she denied any pain. Physical Exam Physical Exam: CONSTITUTIONAL: WNWD, vitals as above, generally well- appearing, NAD EYES: normal conjunctivae, no scleral icterus ENT: external ear and nose normal, MMM NECK: trachea midline RESPIRATORY: clear to auscultation bilaterally, no crackles, rales or wheezes, normal respiratory effort CARDIOVASCULAR: regular rate and rhythm, S1 and 2 heard without murmurs, gallops or rubs, no JVD, no peripheral edema CHEST: inspection of chest was normal GASTROINTESTINAL: soft, nontender, ND, no guarding MUSCULOSKELETAL: 5/5 strength throughout, moves extremities equally, head is normocephalic and atraumatic, SKIN: warm and dry NEUROLOGIC: CN 2-12 grossly intact, would not comply with more in depth neuro exam today. No sensory deficit, normal cognition, normal speech, no tremor PSYCHIATRIC: alert, answering questions appropriately Results & Data Results & Data ([facility]) Vital Signs (Past 12 Hours) Vital Signs Temp Pulse Resp BP Pulse Ox O2 Del Method 01/17/22 07:30 36.9 C 78 18 169/77 H 98 Room Air Laboratory Results Short CBC 01/17/22 Range/Units 08:24 WBC 9.41 (4.8-10.8) K/ul Hgb 13.0 (12.0-16.0) g/dl Hct 40.6 (34.1-44.9) % Plt Count 213 (130-400) K/uL BMP 01/17/22 08:24 Sodium 138 Potassium 5.0 Chloride 111 H Carbon Dioxide 19 L BUN 24 H Creatinine 1.25 H Glucose 125 H Calcium 9.4 Medications Administered Current Inpatient Medications Amlodipine Besylate (Amlodipine Besylate 5 Mg Tab) 10 mg PO QAM [facility] Stop: 02/13/22 08:59 Last Admin: 01/17/22 09:26 Dose: 10 mg Dextrose (Dextrose 50% 50 Ml Syringe) 25 - 50 ml IV UD PRN; Protocol PRN Reason: Hypoglycemia Protocol Stop: 02/10/22 23:44 Fluticasone Propionate (Fluticasone Propionate Na Spr 16 Gm Btl) 2 sprays NA DAILY [facility] Stop: 02/11/22 08:59 Last Admin: 01/17/22 13:38 Dose: 2 sprays Folic Acid (Folic Acid 1 Mg Tab) 1 mg PO QAM [facility] Stop: 02/11/22 08:59 Last Admin: 01/17/22 09:25 Dose: 1 mg Glucagon (Glucagon For Inj 1 Mg Vial) 1 mg IM UD PRN; Protocol PRN Reason: Hypoglycemia Protocol Stop: 02/10/22 23:44 Glucose (Glucose 40% Gel 15 Gm Tube) 15 - 30 gm PO UD PRN; Protocol PRN Reason: Hypoglycemia Protocol Stop: 02/10/22 23:44 Glucose (Glucose 10 Tab/Tube) 4 - 8 tab PO UD PRN; Protocol PRN Reason: Hypoglycemia Protocol Stop: 02/10/22 23:44 Heparin Sodium (Porcine) (Heparin Sod 5,000 Unit/0.5 Ml Vial) 5,000 units SQ Q12 [facility] Stop: 02/11/22 08:59 Last Admin: 01/17/22 09:30 Dose: 5,000 units Hydrochlorothiazide (Hydrochlorothiazide 25 Mg Tab) 12.5 mg PO QAM [facility] Stop: 02/15/22 08:59 Last Admin: 01/16/22 09:19 Dose: 12.5 mg Insulin Aspart (Insulin Aspart Per Unit) 0 units SC ACHS [facility] Stop: 02/11/22 07:29 Last Admin: 01/17/22 13:36 Dose: 5 units Insulin Glargine (Lantus Per Unit Charge) 13 units SQ BID [facility] Stop: 02/13/22 20:59 Last Admin: 01/17/22 09:22 Dose: 13 units Lactobacillus Acidophilus (Advanced Probiotic 1250 Mg Capsule) 2 cap PO DAILY [facility] Stop: 02/11/22 12:29 Last Admin: 01/17/22 09:26 Dose: 2 cap Levothyroxine Sodium (Levothyroxine Sodium 125 Mcg Tablet) 125 mcg PO DAILYBB [facility] Stop: 02/11/22 06:29 Last Admin: 01/17/22 05:44 Dose: 125 mcg Lisinopril (Lisinopril 40 Mg Tab) 40 mg PO DAILY [facility] Stop: 02/11/22 08:59 Last Admin: 01/16/22 09:20 Dose: 40 mg Magnesium Chloride (Magnesium Chloride W/Calcium 64mg Delayed Rel Tab) 128 mg PO QAM [facility] Stop: 02/11/22 08:59 Last Admin: 01/17/22 09:28 Dose: 128 mg Meclizine HCl (Meclizine 12.5 Mg Tab) 12.5 mg PO TID PRN PRN Reason: Dizziness Stop: 02/10/22 22:28 Miscellaneous (Carbohydrates For Hypoglycemia ) 15 - 30 gm PO UD PRN PRN Reason: Hypoglycemia Treatment Stop: 02/10/22 23:44 Nitroglycerin (Nitroglycerin Sl 0.4 Mg/Tab Tab) 0.4 mg SL Q5M PRN PRN Reason: Chest Pain Stop: 02/10/22 22:28 Nystatin (Nystatin Powder 15gm Btl) 1 appln EXT TID PRN PRN Reason: yeast infections Stop: 02/10/22 22:28 Ondansetron HCl (Ondansetron Inj 2 Mg/Ml 2 Ml Vial) 4 mg IV Q6H PRN PRN Reason: Nausea Stop: 02/10/22 22:28 Pantoprazole Sodium (Pantoprazole 40 Mg Tab) 40 mg PO QAM [facility] Stop: 02/11/22 08:59 Last Admin: 01/17/22 09:24 Dose: 40 mg Potassium Chloride (Potassium Chloride Crtab 20 Meq Tabcr) 40 meq PO BID [facility] Stop: 02/12/22 09:29 Last Admin: 01/17/22 09:23 Dose: 40 meq Thiamine HCl (Thiamine Hcl 100 Mg Tab) 100 mg PO QAM [facility] Stop: 02/13/22 08:59 Last Admin: 01/17/22 09:24 Dose: 100 mg Tramadol HCl (Tramadol Hcl 50 Mg Tablet) 50 mg PO Q6H PRN PRN Reason: Pain, Severe 7,8,9,10 Stop: 02/10/22 22:28 Vitamin D (Cholecalciferol 1,000 Units 25 Mcg Tab) 1,000 units PO DAILY [facility] Stop: 02/11/22 08:59 Last Admin: 01/17/22 09:27 Dose: 1,000 units (1) Urinary tract infection Hematuria presence: without hematuria Urinary tract infection type: site unspecified Qualified Code(s): N39.0 - Urinary tract infection, site not specified
[2022-01-18] MEDS: LEVOTHYROXINE SODIUM 125 MCG TABLET PO SCH (05:56)
[2022-01-18] MEDS: INSULIN ASPART PER UNIT SC SCH ×4 (08:27→20:57)
[2022-01-18] MEDS: LANTUS PER UNIT CHARGE SQ SCH ×2 (08:29→21:01)
[2022-01-18] MEDS: PANTOprazole 40 MG TAB PO SCH (08:41)
[2022-01-18] MEDS: MAGNESIUM CHLORIDE W/CALCIUM 64MG DELAYED REL TAB PO SCH (08:42)
[2022-01-18] MEDS: THIAMINE HCL 100 MG TAB PO SCH (08:42)
[2022-01-18] MEDS: FOLIC ACID 1 MG TAB PO SCH (08:43)
[2022-01-18] MEDS: ADVANCED PROBIOTIC 1250 MG CAPSULE PO SCH (08:43)
[2022-01-18] MEDS: CHOLECALCIFEROL 1,000 UNITS 25 MCG TAB PO SCH (08:44)
[2022-01-18] MEDS: POTASSIUM CHLORIDE CRTAB 20 MEQ TABCR PO SCH (08:45)
[2022-01-18] MEDS: amLODIPine BESYLATE 5 MG TAB PO SCH (08:46)
[2022-01-18] MEDS: FLUTICASONE PROPIONATE NA SPR 16 GM BTL SCH (08:47)
[2022-01-18] MEDS: HEPARIN SOD 5,000 UNIT/0.5 ML VIAL SQ SCH ×2 (08:48→19:56)
[2022-01-18 09:29] LABS: BUN Creatinine Ratio 18.9 (10-20); Calcium 9.2 mg/dl (8.5-10.1); Creatinine Clr Calc Pharmacy 30.2 ml/min; Est GFR (African American) 36.7 ml/min; Est GFR (Non-African American) 31.7 ml/min; Potassium 5.4 mmol/L (3.5-5.1)
--- NOTE | 2022-01-18 13:46 | Hospitalist Progress Note ---
Date of Service January 18, 2022 Assessment & Plan (1) Encephalopathy, hypertensive: (2) Hypertensive urgency: (3) Coagulase negative Staphylococcus bacteremia: (4) Hypernatremia: (5) Hyperglycemia due to diabetes mellitus: (6) Urinary tract infection: (7) Hypothyroidism: (8) CKD (chronic kidney disease), stage III: (9) GERD (gastroesophageal reflux disease): Plan This is a 76-year-old female who presents with confusion. She has a significant PMH of T2DM, HN, HLD, Hypothyroidism, CKD 3, Fibromyalgia, DDD who presents to ED 2/2 to confusion Confusion Etiology unclear on admission, could be from hypernatremia, could be hypertensive encephalopathy. Also found bacteremic with unclear source. Imaging studies are unremarkable so far. ER empirically started on Vanc and Zosyn. MEDICAL PHOTOGRAPHER grew in culture and Vanc stopped ID consulted and feels this is a contaminant. Stopped abx and she is still doing well clinically. Appears improved from a confusion standpoint today Impulsive and cannot trust her without a bed alarm (per RN) but independently transferring bed to chair. H/o TBI and some paranoia in the past, Admission in Fall 2020 was similar to this. Psych saw her with recs in case of agitation. Brain MRI was normal. Per neuro there is no further workup needed at this time Will cont to monitor for improvement in confusion with stability and then assess safety to return home with family and OOA. Hypertensive emergency / encephalopathy/HTN 114/73, currently on monotherapy with norvasc 2/2 to gunner and now hyperkalemia Held lisinopril and HCTZ pending improvement in creatinine. Echo 01/13/22, EF 55-60%, grade 1 DD, moderate mitral annual calcification Hyperkalemia likely due to over supplementation in setting of hctz being on hold as well as initial low potassium on admission KCL 40meq was given prior to lab work being complete this a.m. so expect it to rise further repeat BMP at 1700 Hypernatremia: resolved. Diabetes, type 2: Blood sugar elevated on admission. A1C reflects good control at 6.1. Cont Lantus and insulin sliding scale. Avoid hypoglycemia. Hypothyroidism: chronic, stable. Continue Synthroid. Chronic kidney disease stage III: chronic, cr up to 1.59 today, pt is not on nephrotoxic agents, hctz/abilio on hold, per nurse good intake, possible effects from hctz, will repeat in a.m. Gastroesophageal reflux disease: chronic, stable. Continue Protonix per home regimen. DVT prophylaxis: Placed on heparin subcutaneous. DISPOSITION: Remain hospitalized until returns to baseline mental status.CM following, PT recommends rehab stay, per CM centre care and [facility] contacted Code: Full PCP: Chao Pt was seen and examined in collaboration with Dr. Bradley, please see addendum Admission and Anticipated Discharge Date Admission Date: January 11, 2022 Supervising Physician Co-Signing Physician Notes I have seen and examined the patient and have discussed the case with the provider above. I agree with the assessment and plan as stated. She is disooriented today but is pleasant. She is snot asking what she is sdoing here or when she will be retunring home. Conversation is limited and answers are one word or very short. Denies pain or other issues. Tolerating PO. Physical exam is unreemarkable. VSS, BP improved. Labs reflect slightly worsening creatinine, so HCTZ and lisinopril held. Hyperkalemia with K 5.6 so lisinopril held. Did receive morning potassium prior to holding. Repeat K later today. Agree with plan above for plan to transition to SNF. DO Severo Bradley Pt was seen and examined in room 352-1. Follow up confusion. Pt is confused today. When asked questions is unable to answer. ROS unobtainable. Review of Systems Review of Systems: All systems reviewed & are unremarkable except as noted in HPI & below Physical Exam Physical Exam: Gen: WD/WN, elderly, F, NAD, alert but not oriented HEENT: Normocephalic, atraumatic, conjunctivae moist, sclerae anicteric, mucous membranes moist. Lung: Clear to Auscultation bilaterally, diminished at bases b/l due to poor inspiratory effort, no wheezes/rales/rhonchi Heart: Regular rate, regular rhythm, no murmurs, rubs, or gallops Abdomen: Soft, NT, ND +BS x 4 Extremities: No edema Skin: Warm, no rash, negative turgor. Results & Data Results & Data ([facility]) Vital Signs (Past 12 Hours) Vital Signs Temp Pulse Resp BP Pulse Ox O2 Del Method 01/18/22 07:31 37.4 C 85 20 144/76 H 98 Room Air Laboratory Results [facility] 01/18/22 08:33 Sodium 137 Potassium 5.4 H Chloride 109 H Carbon Dioxide 21 BUN 30 H Creatinine 1.59 H D Glucose 153 H Calcium 9.2 Medications Administered Current Inpatient Medications Amlodipine Besylate (Amlodipine Besylate 5 Mg Tab) 10 mg PO QAM [facility] Stop: 02/13/22 08:59 Last Admin: 01/18/22 08:46 Dose: 10 mg Dextrose (Dextrose 50% 50 Ml Syringe) 25 - 50 ml IV UD PRN; Protocol PRN Reason: Hypoglycemia Protocol Stop: 02/10/22 23:44 Fluticasone Propionate (Fluticasone Propionate Na Spr 16 Gm Btl) 2 sprays NA DAILY [facility] Stop: 02/11/22 08:59 Last Admin: 01/18/22 08:47 Dose: 2 sprays Folic Acid (Folic Acid 1 Mg Tab) 1 mg PO QAM [facility] Stop: 02/11/22 08:59 Last Admin: 01/18/22 08:43 Dose: 1 mg Glucagon (Glucagon For Inj 1 Mg Vial) 1 mg IM UD PRN; Protocol PRN Reason: Hypoglycemia Protocol Stop: 02/10/22 23:44 Glucose (Glucose 40% Gel 15 Gm Tube) 15 - 30 gm PO UD PRN; Protocol PRN Reason: Hypoglycemia Protocol Stop: 02/10/22 23:44 Glucose (Glucose 10 Tab/Tube) 4 - 8 tab PO UD PRN; Protocol PRN Reason: Hypoglycemia Protocol Stop: 02/10/22 23:44 Heparin Sodium (Porcine) (Heparin Sod 5,000 Unit/0.5 Ml Vial) 5,000 units SQ Q12 [facility] Stop: 02/11/22 08:59 Last Admin: 01/18/22 08:48 Dose: 5,000 units Hydrochlorothiazide (Hydrochlorothiazide 25 Mg Tab) 12.5 mg PO QAM [facility] Stop: 02/15/22 08:59 Last Admin: 01/16/22 09:19 Dose: 12.5 mg Insulin Aspart (Insulin Aspart Per Unit) 0 units SC ACHS [facility] Stop: 02/11/22 07:29 Last Admin: 01/18/22 13:00 Dose: 2 units Insulin Glargine (Lantus Per Unit Charge) 13 units SQ BID [facility] Stop: 02/13/22 20:59 Last Admin: 01/18/22 08:29 Dose: 13 units Lactobacillus Acidophilus (Advanced Probiotic 1250 Mg Capsule) 2 cap PO DAILY [facility] Stop: 02/11/22 12:29 Last Admin: 01/18/22 08:43 Dose: 2 cap Levothyroxine Sodium (Levothyroxine Sodium 125 Mcg Tablet) 125 mcg PO DAILYBB [facility] Stop: 02/11/22 06:29 Last Admin: 01/18/22 05:56 Dose: 125 mcg Lisinopril (Lisinopril 40 Mg Tab) 40 mg PO DAILY [facility] Stop: 02/11/22 08:59 Last Admin: 01/16/22 09:20 Dose: 40 mg Magnesium Chloride (Magnesium Chloride W/Calcium 64mg Delayed Rel Tab) [facility] Stop: 02/11/22 08:59 Last Admin: 01/18/22 08:42 Dose: 128 mg Meclizine HCl (Meclizine 12.5 Mg Tab) 12.5 mg PO TID PRN PRN Reason: Dizziness Stop: 02/10/22 22:28 Miscellaneous (Carbohydrates For Hypoglycemia ) 15 - 30 gm PO UD PRN PRN Reason: Hypoglycemia Treatment Stop: 02/10/22 23:44 Nitroglycerin (Nitroglycerin Sl 0.4 Mg/Tab Tab) 0.4 mg SL Q5M PRN PRN Reason: Chest Pain Stop: 02/10/22 22:28 Nystatin (Nystatin Powder 15gm Btl) 1 appln EXT TID PRN PRN Reason: yeast infections Stop: 02/10/22 22:28 Ondansetron HCl (Ondansetron Inj 2 Mg/Ml 2 Ml Vial) 4 mg IV Q6H PRN PRN Reason: Nausea Stop: 02/10/22 22:28 Pantoprazole Sodium (Pantoprazole 40 Mg Tab) 40 mg PO QAM [facility] Stop: 02/11/22 08:59 Last Admin: 01/18/22 08:41 Dose: 40 mg Potassium Chloride (Potassium Chloride Crtab 20 Meq Tabcr) 40 meq PO BID [facility] Stop: 02/12/22 09:29 Last Admin: 01/18/22 08:45 Dose: 40 meq Thiamine HCl (Thiamine Hcl 100 Mg Tab) 100 mg PO QAM [facility] Stop: 02/13/22 08:59 Last Admin: 01/18/22 08:42 Dose: 100 mg Tramadol HCl (Tramadol Hcl 50 Mg Tablet) 50 mg PO Q6H PRN PRN Reason: Pain, Severe 7,8,9,10 Stop: 02/10/22 22:28 Vitamin D (Cholecalciferol 1,000 Units 25 Mcg Tab) 1,000 units PO DAILY [facility] Stop: 02/11/22 08:59 Last Admin: 01/18/22 08:44 Dose: 1,000 units (1) Urinary tract infection Hematuria presence: without hematuria Urinary tract infection type: site unspecified Qualified Code(s): N39.0 - Urinary tract infection, site not specified
[2022-01-18 17:36] LABS: BUN Creatinine Ratio 17.2 (10-20); Calcium 8.9 mg/dl (8.5-10.1); Est GFR (African American) 29.2 ml/min; Est GFR (Non-African American) 25.2 ml/min; Potassium 5.6 mmol/L (3.5-5.1)
[2022-01-18] MEDS ORDERED: SODIUM CHLORIDE 0.9% 1000ML 1,000 ML IV SCH (20:15)
[2022-01-19] MEDS: LEVOTHYROXINE SODIUM 125 MCG TABLET PO SCH (05:28)
[2022-01-19 08:00] LABS: Hematocrit (blood only) 31.2 % (34.1-44.9); Hemoglobin 10.5 g/dl (12.0-16.0); Mean Corpuscular Hemoglobin 29.2 pg (25.0-34.0); Mean Corpuscular Hgb Conc 33.7 g/dL (32.0-36.0); Mean Corpuscular Volume 86.9 fL (80.0-100.0); Mean Platelet Volume 11.4 fL (9.4-12.3); Platelet Count 235 K/uL (130-400); RDW Coefficient of Variation 13.7 % (11.5-14.5); RDW Standard Deviation 42.7 fL (36.4-46.3); Red Blood Count 3.59 M/uL (3.93-5.22); White Blood Count 7.85 K/ul (4.8-10.8)
[2022-01-19] MEDS: INSULIN ASPART PER UNIT SC SCH ×4 (08:26→21:05)
[2022-01-19] MEDS: LANTUS PER UNIT CHARGE SQ SCH ×2 (08:28→21:17)
[2022-01-19 08:35] LABS: BUN Creatinine Ratio 22.2 (10-20); Calcium 8.8 mg/dl (8.5-10.1); Creatinine Clr Calc Pharmacy 29.6 ml/min; Est GFR (African American) 35.9 ml/min; Est GFR (Non-African American) 30.9 ml/min
[2022-01-19] MEDS: HEPARIN SOD 5,000 UNIT/0.5 ML VIAL SQ SCH ×2 (08:35→20:10)
[2022-01-19] MEDS: FLUTICASONE PROPIONATE NA SPR 16 GM BTL SCH (08:36)
[2022-01-19] MEDS: MAGNESIUM CHLORIDE W/CALCIUM 64MG DELAYED REL TAB PO SCH (08:36)
[2022-01-19] MEDS: CHOLECALCIFEROL 1,000 UNITS 25 MCG TAB PO SCH (08:37)
[2022-01-19] MEDS: PANTOprazole 40 MG TAB PO SCH (08:38)
[2022-01-19] MEDS: FOLIC ACID 1 MG TAB PO SCH (08:38)
[2022-01-19] MEDS: amLODIPine BESYLATE 5 MG TAB PO SCH (08:38)
[2022-01-19] MEDS: THIAMINE HCL 100 MG TAB PO SCH (08:38)
[2022-01-19] MEDS: ADVANCED PROBIOTIC 1250 MG CAPSULE PO SCH (08:39)
[2022-01-19] MEDS ORDERED: SODIUM CHLORIDE 0.9% 1000ML 1,000 ML IV SCH (09:00)
--- NOTE | 2022-01-19 13:21 | Hospitalist Progress Note ---
Date of Service January 19, 2022 Assessment & Plan (1) Encephalopathy, hypertensive: (2) Hypertensive urgency: (3) Coagulase negative Staphylococcus bacteremia: (4) Hypernatremia: (5) Hyperglycemia due to diabetes mellitus: (6) Urinary tract infection: (7) Hypothyroidism: (8) CKD (chronic kidney disease), stage III: (9) GERD (gastroesophageal reflux disease): Plan This is a 76-year-old female who presents with confusion. She has a significant PMH of T2DM, HN, HLD, Hypothyroidism, CKD 3, Fibromyalgia, DDD who presents to ED / to confusion Confusion Etiology unclear on admission, could be from hypernatremia, could be hypertensive encephalopathy. Also found bacteremic with unclear source. Imaging studies are unremarkable so far. ER empirically started on Vanc and Zosyn. 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 Stopped abx and she is still doing well clinically. Appears improved from a confusion standpoint today Impulsive and cannot trust her without a bed alarm (per RN) but independently transferring bed to chair. H/o TBI and some paranoia in the past, Admission in Fall 2020 was similar to this. Psych saw her with recs in case of agitation. Brain MRI was normal. Per neuro there is no further workup needed at this time Will cont to monitor for improvement in confusion with stability and then assess safety to return home with family and OOA. Pt is more alert and less confused today, ivf may be providing some benefit will encourage PT/OT to work with patient today Hypertensive emergency / encephalopathy/HTN 163/70, currently on monotherapy with norvasc 2/2 to gunner and now hyperkalemia (which has resolved) BP has been labile Held lisinopril and HCTZ pending improvement in creatinine. Echo 01/13/22, EF 55-60%, grade 1 DD, moderate mitral annual calcification Hyperkalemia likely due to over supplementation in setting of hctz being on hold as well as initial low potassium on admission potassium peaked to 5.6 yesterday, asymptomatic, ekg okay s/p 1L of IVF, K today 5.0 continue to hold K supplements, monitor labs Acute on Chronic kidney disease stage III: chronic, cr up to 1.92 yesterday, she received 1 L of IVF, today is 1.62. Will continue additional 1L. Repeat labs in a.m., pt is not on nephrotoxic agents, hctz/abilio on hold, per nurse good intake, possible effects from hctz, will repeat in a.m. baseline around 1 Hypernatremia: resolved. Diabetes, type 2: Blood sugar elevated on admission. A1C reflects good control at 6.1. Cont Lantus and insulin sliding scale. Avoid hypoglycemia. Hypothyroidism: chronic, stable. Continue Synthroid. Gastroesophageal reflux disease: chronic, stable. Continue Protonix per home regimen. DVT prophylaxis: Placed on heparin subcutaneous. DISPOSITION: Pt improving, renal function continues to improve. CM working on referrals. PT recommends rehab stay, per [facility] care and [facility] Code: Full PCP: Chao Pt was seen and examined in collaboration with Dr. Bradley, please see addendum Admission and Anticipated Discharge Date Admission Date: January 11, 2022 Supervising Physician Co-Signing Physician Notes I have seen and examined the patient and have discussed the case with the provider above. I agree with the assessment and plan as stated. Potassium returned to high normal range this morning and creatinine is improving. BP remains stable in the 140s systolic. She is still intermittently confused. No change in physical exam. Awaiting placement and will proceed wtih discharge once creatinine closer to baseline (recent lis and HCTZ use). DO Severo Bradley Pt was seen and examined in room 352-1. Follow up confusion. Pt is more alert and arousable today. She denies pain and states she overall feels good. Denies f/c/s, chest pain, sob, n/v/d, abd pain. Review of Systems Review of Systems: All systems reviewed & are unremarkable except as noted in HPI & below Physical Exam Physical Exam: Gen: WD/WN, elderly, F, NAD, alert and oriented x 2 HEENT: Normocephalic, atraumatic, conjunctivae moist, sclerae anicteric, mucous membranes moist. Lung: Clear to Auscultation bilaterally, diminished at bases b/l due to poor inspiratory effort, no wheezes/rales/rhonchi Heart: Regular rate, regular rhythm, no murmurs, rubs, or gallops Abdomen: Soft, NT, ND +BS x 4 Extremities: No edema Skin: Warm, no rash, negative turgor. Results & Data Results & Data ([facility]) Vital Signs (Past 12 Hours) Vital Signs Temp Pulse Resp BP Pulse Ox O2 Del Method 01/19/22 07:31 36.8 C 69 14 163/70 H 98 Room Air Laboratory Results Short CBC 01/19/22 Range/Units 07:39 WBC 7.85 (4.8-10.8) K/ul Hgb 10.5 L (12.0-16.0) g/dl Hct 31.2 L (34.1-44.9) % Plt Count 235 (130-400) K/uL BMP 01/18/22 01/19/22 16:58 07:39 Sodium 136 137 Potassium 5.6 H 5.0 Chloride 109 H 110 H Carbon Dioxide 20 L 20 L BUN 33 H 36 H Creatinine 1.92 H D 1.62 H D Glucose 160 H 140 H Calcium 8.9 8.8 Medications Administered Current Inpatient Medications Amlodipine Besylate (Amlodipine Besylate 5 Mg Tab) 10 mg PO QAM [facility] Stop: 02/13/22 08:59 Last Admin: 01/19/22 08:38 Dose: 10 mg Dextrose (Dextrose 50% 50 Ml Syringe) 25 - 50 ml IV UD PRN; Protocol PRN Reason: Hypoglycemia Protocol Stop: 02/10/22 23:44 Fluticasone Propionate (Fluticasone Propionate Na Spr 16 Gm Btl) 2 sprays NA DAILY [facility] Stop: 02/11/22 08:59 Last Admin: 01/19/22 08:36 Dose: 2 sprays Folic Acid (Folic Acid 1 Mg Tab) 1 mg PO QAM [facility] Stop: 02/11/22 08:59 Last Admin: 01/19/22 08:38 Dose: 1 mg Glucagon (Glucagon For Inj 1 Mg Vial) 1 mg IM UD PRN; Protocol PRN Reason: Hypoglycemia Protocol Stop: 02/10/22 23:44 Glucose (Glucose 40% Gel 15 Gm Tube) 15 - 30 gm PO UD PRN; Protocol PRN Reason: Hypoglycemia Protocol Stop: 02/10/22 23:44 Glucose (Glucose 10 Tab/Tube) 4 - 8 tab PO UD PRN; Protocol PRN Reason: Hypoglycemia Protocol Stop: 02/10/22 23:44 Heparin Sodium (Porcine) (Heparin Sod 5,000 Unit/0.5 Ml Vial) 5,000 units SQ Q12 [facility] Stop: 02/11/22 08:59 Last Admin: 01/19/22 08:35 Dose: 5,000 units Hydrochlorothiazide (Hydrochlorothiazide 25 Mg Tab) 12.5 mg PO QAM [facility] Stop: 02/15/22 08:59 Last Admin: 01/16/22 09:19 Dose: 12.5 mg Sodium Chloride (Nss 1000ml) 1,000 mls @ 80 mls/hr IV .[id number] [facility] Stop: 01/19/22 21:29 Last Admin: 01/19/22 10:18 Dose: 80 mls/hr Insulin Aspart (Insulin Aspart Per Unit) 0 units SC ACHS [facility] Stop: 02/11/22 07:29 Last Admin: 01/19/22 13:05 Dose: 2 units Insulin Glargine (Lantus Per Unit Charge) 13 units SQ BID [facility] Stop: 02/13/22 20:59 Last Admin: 01/19/22 08:28 Dose: 13 units Lactobacillus Acidophilus (Advanced Probiotic 1250 Mg Capsule) 2 cap PO DAILY [facility] Stop: 02/11/22 12:29 Last Admin: 01/19/22 08:39 Dose: 2 cap Levothyroxine Sodium (Levothyroxine Sodium 125 Mcg Tablet) 125 mcg PO DAILYBB [facility] Stop: 02/11/22 06:29 Last Admin: 01/19/22 05:28 Dose: 125 mcg Lisinopril (Lisinopril 40 Mg Tab) 40 mg PO DAILY [facility] Stop: 02/11/22 08:59 Last Admin: 01/16/22 09:20 Dose: 40 mg Magnesium Chloride (Magnesium Chloride W/Calcium 64mg Delayed Rel Tab) [facility] Stop: 02/11/22 08:59 Last Admin: 01/19/22 08:36 Dose: 128 mg Meclizine HCl (Meclizine 12.5 Mg Tab) 12.5 mg PO TID PRN PRN Reason: Dizziness Stop: 02/10/22 22:28 Miscellaneous (Carbohydrates For Hypoglycemia ) 15 - 30 gm PO UD PRN PRN Reason: Hypoglycemia Treatment Stop: 02/10/22 23:44 Nitroglycerin (Nitroglycerin Sl 0.4 Mg/Tab Tab) 0.4 mg SL Q5M PRN PRN Reason: Chest Pain Stop: 02/10/22 22:28 Nystatin (Nystatin Powder 15gm Btl) 1 appln EXT TID PRN PRN Reason: yeast infections Stop: 02/10/22 22:28 Ondansetron HCl (Ondansetron Inj 2 Mg/Ml 2 Ml Vial) 4 mg IV Q6H PRN PRN Reason: Nausea Stop: 02/10/22 22:28 Pantoprazole Sodium (Pantoprazole 40 Mg Tab) 40 mg PO QAM [facility] Stop: 02/11/22 08:59 Last Admin: 01/19/22 08:38 Dose: 40 mg Potassium Chloride (Potassium Chloride Crtab 20 Meq Tabcr) 40 meq PO BID [facility] Stop: 02/12/22 09:29 Last Admin: 01/18/22 08:45 Dose: 40 meq Thiamine HCl (Thiamine Hcl 100 Mg Tab) 100 mg PO QAM [facility] Stop: 02/13/22 08:59 Last Admin: 01/19/22 08:38 Dose: 100 mg Tramadol HCl (Tramadol Hcl 50 Mg Tablet) 50 mg PO Q6H PRN PRN Reason: Pain, Severe 7,8,9,10 Stop: 02/10/22 22:28 Vitamin D (Cholecalciferol 1,000 Units 25 Mcg Tab) 1,000 units PO DAILY [facility] Stop: 02/11/22 08:59 Last Admin: 01/19/22 08:37 Dose: 1,000 units (1) Urinary tract infection Hematuria presence: without hematuria Urinary tract infection type: site unspecified Qualified Code(s): N39.0 - Urinary tract infection, site not specified
--- NOTE | 2022-01-19 14:47 | Electrocardiogram Report ---
Test Reason : Blood Pressure : / mmHG Vent. Rate : 081 BPM Atrial Rate : 081 BPM P-R Int : 160 ms QRS Dur : 072 ms QT Int : 362 ms P-R-T Axes : 050 -19 021 degrees QTc Int : 420 ms Normal sinus rhythm Inferior infarct , age undetermined Nonspecific T wave abnormality Abnormal ECG When compared with ECG of 11-JAN-2022 17:48, Inferior infarct is now Present Nonspecific T wave abnormality has replaced inverted T waves in Anterior leads QT has shortened Confirmed by Rogelio Sabillon ([id number]) on 01/19/2022 2:46:37 PM Referred By: REFERRED SELF Confirmed By:Rogelio Sabillon
[2022-01-20] MEDS: LEVOTHYROXINE SODIUM 125 MCG TABLET PO SCH (05:53)
[2022-01-20] MEDS: INSULIN ASPART PER UNIT SC SCH ×4 (08:35→20:22)
[2022-01-20] MEDS: LANTUS PER UNIT CHARGE SQ SCH ×2 (08:36→20:21)
[2022-01-20] MEDS: PANTOprazole 40 MG TAB PO SCH (08:43)
[2022-01-20] MEDS: amLODIPine BESYLATE 5 MG TAB PO SCH (08:43)
[2022-01-20] MEDS: THIAMINE HCL 100 MG TAB PO SCH (08:43)
[2022-01-20] MEDS: CHOLECALCIFEROL 1,000 UNITS 25 MCG TAB PO SCH (08:43)
[2022-01-20] MEDS: FOLIC ACID 1 MG TAB PO SCH (08:43)
[2022-01-20] MEDS: ADVANCED PROBIOTIC 1250 MG CAPSULE PO SCH (08:43)
[2022-01-20] MEDS: HEPARIN SOD 5,000 UNIT/0.5 ML VIAL SQ SCH ×2 (08:43→20:22)
[2022-01-20] MEDS: MAGNESIUM CHLORIDE W/CALCIUM 64MG DELAYED REL TAB PO SCH (08:44)
[2022-01-20 09:32] LABS: BUN Creatinine Ratio 22.8 (10-20); Calcium 9.1 mg/dl (8.5-10.1); Creatinine Clr Calc Pharmacy 31.1 ml/min; Est GFR (African American) 34.6 ml/min; Est GFR (Non-African American) 29.8 ml/min; Potassium 4.1 mmol/L (3.5-5.1)
[2022-01-20] MEDS: FLUTICASONE PROPIONATE NA SPR 16 GM BTL SCH (10:15)
--- NOTE | 2022-01-20 14:11 | Hospitalist Progress Note ---
Date of Service January 20, 2022 Assessment & Plan (1) Encephalopathy, hypertensive: (2) Hypertensive urgency: (3) Coagulase negative Staphylococcus bacteremia: (4) Hypernatremia: (5) Hyperglycemia due to diabetes mellitus: (6) Urinary tract infection: (7) Hypothyroidism: (8) CKD (chronic kidney disease), stage III: (9) GERD (gastroesophageal reflux disease): Plan This is a 76-year-old female who presents with confusion. She has a significant PMH of T2DM, HN, HLD, Hypothyroidism, CKD 3, Fibromyalgia, DDD who presents to ED 2/2 to confusion Confusion Etiology unclear on admission, could be from hypernatremia, could be hypertensive encephalopathy. Also found bacteremic with unclear source. Imaging studies are unremarkable so far. ER empirically started on Vanc and Zosyn. 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 Stopped abx and she is still doing well clinically. Appears improved from a confusion standpoint today Impulsive and cannot trust her without a bed alarm (per RN) but independently transferring bed to chair. H/o TBI and some paranoia in the past, Admission in Fall 2020 was similar to this. Psych saw her with recs in case of agitation. Brain MRI was normal. Per neuro there is no further workup needed at this time Will cont to monitor for improvement in confusion with stability and then assess safety to return home with family and OOA. Pt worked with PT today, tires easily but making progress Hypertensive emergency / encephalopathy/HTN 163/72, currently on monotherapy with norvasc 2/2 to lela and now hyperkalemia (which has resolved) BP has been labile Held lisinopril and HCTZ pending improvement in creatinine. Echo 01/13/22, EF 55-60%, grade 1 DD, moderate mitral annual calcification Hyperkalemia likely due to over supplementation in setting of hctz being on hold as well as initial low potassium on admission potassium peaked to 5.6 yesterday, asymptomatic, ekg okay s/p 1L of IVF K improving, 4.1 continue to hold K supplements, monitor labs Acute on Chronic kidney disease stage III: chronic, cr peak tto 1.92 , she received 1 L of IVF, today is 1.67. s/p additional 1L Per nurse she is eating/drinking well Repeat labs in a.m. pt is not on nephrotoxic agents, hctz/abilio on hold, possible effects from abilio or HCTZ baseline around 1 will obtain renal US Hypernatremia: resolved. Diabetes, type 2: Blood sugar elevated on admission. A1C reflects good control at 6.1. Cont Lantus and insulin sliding scale. Avoid hypoglycemia. Hypothyroidism: chronic, stable. Continue Synthroid. Gastroesophageal reflux disease: chronic, stable. Continue Protonix per home regimen. DVT prophylaxis: Placed on heparin subcutaneous. DISPOSITION: Pt improving, renal function still at 1.67, will obtain renal US, likely to take time to recover. CM working on referrals. PT recommends rehab sta y, per [facility] and [facility]. Pace to be removed today Code: Full PCP: Chao Pt was seen and examined in collaboration with Dr. Bradley, please see addendum Admission and Anticipated Discharge Date Admission Date: January 11, 2022 Supervising Physician Co-Signing Physician Notes I have seen and examined the patient and have discussed the case with the provider above. I agree with the assessment and plan as stated. No changes today. No reports of any issues. Awaiting bed at local facility. DO Severo Bradley Pt was seen and examined in room 352-1. Follow up confusion, LELA and hyperkalemia. Pt is sleeping. Does arouse to verbal stimuli. ROS unreliable in setting of confusion. Denies pain, f/c/s, chest pain, sob, n/v/d. Not as conversive today. Review of Systems Review of Systems: All systems reviewed & are unremarkable except as noted in HPI & below Physical Exam Physical Exam: Gen: WD/WN, elderly, F, NAD, alert and oriented x 2, drowsy HEENT: Normocephalic, atraumatic, conjunctivae moist, sclerae anicteric, mucous membranes moist. Lung: Clear to Auscultation bilaterally, diminished at bases b/l due to poor inspiratory effort, no wheezes/rales/rhonchi Heart: Regular rate, regular rhythm, no murmurs, rubs, or gallops Abdomen: Soft, NT, ND +BS x 4 Extremities: No edema Skin: Warm, no rash, negative turgor. : Pace cath in place Results & Data Results & Data ([facility]) Vital Signs (Past 12 Hours) Vital Signs Temp Pulse Resp BP Pulse Ox O2 Del Method 01/20/22 07:30 36.9 C 74 20 163/72 H 97 Room Air Laboratory Results [facility] 01/20/22 08:51 Sodium 136 Potassium 4.1 Chloride 111 H Carbon Dioxide 18 L BUN 38 H Creatinine 1.67 H Glucose 154 H Calcium 9.1 Medications Administered Current Inpatient Medications Amlodipine Besylate (Amlodipine Besylate 5 Mg Tab) 10 mg PO QAM [facility] Stop: 02/13/22 08:59 Last Admin: 01/20/22 08:43 Dose: 10 mg Dextrose (Dextrose 50% 50 Ml Syringe) 25 - 50 ml IV UD PRN; Protocol PRN Reason: Hypoglycemia Protocol Stop: 02/10/22 23:44 Fluticasone Propionate (Fluticasone Propionate Na Spr 16 Gm Btl) 2 sprays NA DAILY [facility] Stop: 02/11/22 08:59 Last Admin: 01/20/22 10:15 Dose: 2 sprays Folic Acid (Folic Acid 1 Mg Tab) 1 mg PO QAM [facility] Stop: 02/11/22 08:59 Last Admin: 01/20/22 08:43 Dose: 1 mg Glucagon (Glucagon For Inj 1 Mg Vial) 1 mg IM UD PRN; Protocol PRN Reason: Hypoglycemia Protocol Stop: 02/10/22 23:44 Glucose (Glucose 40% Gel 15 Gm Tube) 15 - 30 gm PO UD PRN; Protocol PRN Reason: Hypoglycemia Protocol Stop: 02/10/22 23:44 Glucose (Glucose 10 Tab/Tube) 4 - 8 tab PO UD PRN; Protocol PRN Reason: Hypoglycemia Protocol Stop: 02/10/22 23:44 Heparin Sodium (Porcine) (Heparin Sod 5,000 Unit/0.5 Ml Vial) 5,000 units SQ Q12 [facility] Stop: 02/11/22 08:59 Last Admin: 01/20/22 08:43 Dose: 5,000 units Hydrochlorothiazide (Hydrochlorothiazide 25 Mg Tab) 12.5 mg PO QAM [facility] Stop: 02/15/22 08:59 Last Admin: 01/16/22 09:19 Dose: 12.5 mg Insulin Aspart (Insulin Aspart Per Unit) 0 units SC ACHS [facility] Stop: 02/11/22 07:29 Last Admin: 01/20/22 12:27 Dose: 6 units Insulin Glargine (Lantus Per Unit Charge) 13 units SQ BID [facility] Stop: 02/13/22 20:59 Last Admin: 01/20/22 08:36 Dose: 13 units Lactobacillus Acidophilus (Advanced Probiotic 1250 Mg Capsule) 2 cap PO DAILY [facility] Stop: 02/11/22 12:29 Last Admin: 01/20/22 08:43 Dose: 2 cap Levothyroxine Sodium (Levothyroxine Sodium 125 Mcg Tablet) 125 mcg PO DAILYBB [facility] Stop: 02/11/22 06:29 Last Admin: 01/20/22 05:53 Dose: 125 mcg Lisinopril (Lisinopril 40 Mg Tab) 40 mg PO DAILY [facility] Stop: 02/11/22 08:59 Last Admin: 01/16/22 09:20 Dose: 40 mg Magnesium Chloride (Magnesium Chloride W/Calcium 64mg Delayed Rel Tab) [facility] [place] Stop: 02/11/22 08:59 Last Admin: 01/20/22 08:44 Dose: 128 mg Meclizine HCl (Meclizine 12.5 Mg Tab) 12.5 mg PO TID PRN PRN Reason: Dizziness Stop: 02/10/22 22:28 Miscellaneous (Carbohydrates For Hypoglycemia ) 15 - 30 gm PO UD PRN PRN Reason: Hypoglycemia Treatment Stop: 02/10/22 23:44 Nitroglycerin (Nitroglycerin Sl 0.4 Mg/Tab Tab) 0.4 mg SL Q5M PRN PRN Reason: Chest Pain Stop: 02/10/22 22:28 Nystatin (Nystatin Powder 15gm Btl) 1 appln EXT TID PRN PRN Reason: yeast infections Stop: 02/10/22 22:28 Ondansetron HCl (Ondansetron Inj 2 Mg/Ml 2 Ml Vial) 4 mg IV Q6H PRN PRN Reason: Nausea Stop: 02/10/22 22:28 Pantoprazole Sodium (Pantoprazole 40 Mg Tab) 40 mg PO QAM [facility] Stop: 02/11/22 08:59 Last Admin: 01/20/22 08:43 Dose: 40 mg Potassium Chloride (Potassium Chloride Crtab 20 Meq Tabcr) 40 meq PO BID [facility] Stop: 02/12/22 09:29 Last Admin: 01/18/22 08:45 Dose: 40 meq Thiamine HCl (Thiamine Hcl 100 Mg Tab) 100 mg PO QAM [facility] Stop: 02/13/22 08:59 Last Admin: 01/20/22 08:43 Dose: 100 mg Tramadol HCl (Tramadol Hcl 50 Mg Tablet) 50 mg PO Q6H PRN PRN Reason: Pain, Severe 7,8,9,10 Stop: 02/10/22 22:28 Vitamin D (Cholecalciferol 1,000 Units 25 Mcg Tab) 1,000 units PO DAILY [facility] Stop: 02/11/22 08:59 Last Admin: 01/20/22 08:43 Dose: 1,000 units (1) Urinary tract infection Hematuria presence: without hematuria Urinary tract infection type: site unspecified Qualified Code(s): N39.0 - Urinary tract infection, site not specified
[2022-01-20 14:43] LABS: Creatinine Urine Random 73.6 mg/dl
--- NOTE | 2022-01-20 16:07 | Ultrasound Report ---
ULTRASOUND KIDNEYS AND BLADDER CLINICAL HISTORY: Acute renal insufficiency. COMPARISON STUDY: Abdominal radiograph dated 04/24/2021. TECHNIQUE: Real-time, grayscale, and color flow sonography of the kidneys and bladder is performed. I mages are reviewed in the transverse and longitudinal planes. FINDINGS: Kidneys: The kidneys demonstrate cortical atrophy. Echotexture is normal. The right kidney measures 8 .8 cm in length and the left kidney measures 10.5 cm in length. There is no hydronephrosis. Foci of cortical scarring are noted in both kidneys. No shadowing renal calculi are identified. There is no s onographic evidence of contour deforming renal mass lesion. No perinephric fluid is identified. Bladder: The bladder is decompressed and grossly unremarkable. Ureteral jets were not seen. Adnexa: There are complex bilateral adnexal masses. This measures 6.5 x 3.2 x 4.6 cm on the left and 5.0 x 4.7 x 3.1 cm on the right. IMPRESSION: 1. The kidneys demonstrate cortical atrophy and are without hydronephrosis. 2. The bladder was decompressed and not well evaluated. 3. Indeterminant bilateral adnexal masses are identified. When correlated with the prior abdominal ra diographs, some of this may be related to calcified uterine fibroids. Correlation with a contrast-enh anced CT of the abdomen and pelvis is recommended for further assessment. ACT 112: Negative or not required by law. Electronically signed by: Bobo Mccarty M.D. 01/20/2022 4:05 PM
--- NOTE | 2022-01-20 17:58 | Nephrology Consultation ---
Date of Consultation January 20, 2022 Assessment & Plan (1) Worsening renal function: baseline creatinine is 1.1. She was at baseline on admission w/ upcreep in creatinine progressively since then to peak on 01/18 at 1.9, w/ reading at 1.7 today. She did receive full dose lisinopril through 01/16. Also had one dose hctz on 01/16. yesterday she had 1 L NS. She has zosyn from 01/11-01/13; had vanco from 01/12-01/15 with 01/14 level of 11. chemistries, volume status acceptable; current meds appropriate. LELA cause unclear but doubt abtx this far out from their admin; could relate to ischemic aTn from HTN and other meds like diuretic HTN remaisn challenging but angelique ebetter control las t few days tted 01/11 w/ confusion and HTN urgency/emergency and found to be bacteremic (2/4 bottles w/ CoNS) and hypernatremic; blood cxs cleared, sNa wnl now -added repeat UA to w/u so far -cont current meds and daily bmp -f/u imaging for adnexal lesions after d/c History of Present Illness Reason for Consultation: LELA/ ? ATN from vanco/zosyn Requesting Physician: Dr Bradley Attending Physician: Tati Bradley, DO History of Present Illness 76 y/o F whom I'm asked to see for LELA was admitted 01/11 w/ confusion and HTN urgency/emergency and found to be bacteremic (2/4 bottles w/ CoNS) and hypernatremic. PMH includes DM2, HTN, HL, Hypothyroidism, CKD 3, Fibromyalgia, DDD. Her baseline creatinine is 1.1. She was at baseline on admission w/ upcreep in creatinine progressively since then to peak on 01/18 at 1.9, w/ reading at 1.7 today. She did receive full dose lisinopril through 01/16. Also had one dose hctz on 01/16. yesterday she had 1 L NS. She has zosyn from 01/11-01/13; had vanco from 01/12-01/15 with 01/14 level of 11. Pt's confusion per primary service notes has not been fully explained but is improving. pt is w/o c/o > no sob, no uncontrolled musculoskeletal pain, no edema, no n/v or abd pain or diarrhea; no new/worrisome voiding sx. Allergies Allergy/AdvReac Type Severity Reaction Status Date / Time atorvastatin [From Lipitor] Allergy Unknown Unknown Verified 01/11/22 20:00 morphine Allergy Unknown Verified 04/24/21 07:10 acetaminophen [From Percocet] AdvReac Unknown Vomiting Verified 01/11/22 20:00 aspirin [From Percodan] AdvReac Unknown Vomiting Verified 01/11/22 20:00 cephalexin AdvReac Unknown Unknown Verified 01/11/22 20:00 codeine AdvReac Unknown Vomiting Verified 01/11/22 20:00 esomeprazole AdvReac Unknown Skin Verified 04/24/21 07:10 irritation,swelling,difficulty breathing. oxycodone [From Percodan] AdvReac Unknown Vomiting Verified 01/11/22 20:00 sucralfate AdvReac Unknown Skin Verified 01/11/22 20:00 irritation,swelling,difficulty breathing. Home Medications Medication Instructions Recorded Confirmed Type cholecalciferol (vitamin D3) 25 25 mcg PO DAILY 04/24/21 01/11/22 History mcg (1,000 unit) capsule (Vitamin D3) fluticasone propionate 50 2 spray intranasal DAILY 04/24/21 01/11/22 History mcg/actuation nasal spray,suspension folic acid 1 mg tablet 1 mg PO QAM 04/24/21 01/11/22 History insulin glargine 100 unit/mL 31 unit subcut QAM 04/24/21 01/11/22 History subcutaneous solution (Lantus U-100 Insulin) levothyroxine 125 mcg tablet 125 mcg PO DAILYBB 04/24/21 01/11/22 History metformin 500 mg tablet,extended 1,000 mg PO QDD 04/24/21 01/11/22 History release 24 hr nystatin 100,000 unit/gram topical 1 applic topical TID PRN yeast 04/24/21 01/11/22 History powder infections tramadol 50 mg tablet 50 mg PO Q6H PRN Pain, Severe 04/24/21 01/11/22 History lisinopril 40 mg tablet (Zestril) 40 mg PO DAILY #30 tabs 05/07/21 01/11/22 Rx magnesium chloride 64 mg 128 mg PO QAM 01/11/22 01/11/22 History (magnesium chloride) tablet,delayed release (Mag 64) meclizine 12.5 mg tablet 12.5 mg PO TID PRN Dizziness 01/11/22 01/11/22 History pantoprazole 40 mg tablet,delayed 40 mg PO QAM 01/11/22 01/11/22 History release semaglutide 1 mg/dose (4 mg/3 mL) 1 mg subcut WK 01/11/22 01/11/22 History subcutaneous pen injector (Ozempic) Patient History Medical History Acute on chronic alteration in mental status CKD (chronic kidney disease), stage III Encephalopathy Fall GERD (gastroesophageal reflux disease) Hyperglycemia due to diabetes mellitus Hypothyroidism Paranoia Paranoid Social History Smoking Status: Unknown if ever smoked Hx Substance Use: No Preferred Language: Yakut Communication Ability: Effective Electronic Console Display Operator Required: No Beliefs That Will Affect Care: None Current Living Situation: Family Feels Safe at Home: Yes Safety Concerns: Feels Safe At This Time Assistive Devices: Walker Review of Systems Review of Systems: All systems reviewed & are unremarkable except as noted in HPI & below and Unobtainable due to cognitive status (limited by her confusion and perseverance) Physical Exam Constitutional: well developed (lying flat in bed on RA) and well nourished; no acute distress Eyes: EOM intact bilaterally ENMT: Ears: no external ear abnormality Nose: no external nose abnormality Mouth: + dry oral mucous membranes Neck: no nuchal rigidity Respiratory: normal respiratory effort Auscultation: + diminished lung sounds Cardiovascular: RRR, no murmur, no edema Gastrointestinal (Abdomen): Inspection/Auscultation: normal bowel sounds Percussion/Palpation: abdomen soft; abdomen nontender Musculoskeletal: Extremities: strength 5/5 throughout Skin: no rashes, warm and dry no rashes Neurologic: garcia, fluent speech, no tremor Psychiatric: Orientation: alert and oriented x 3 Speech: normal rate/rhythm/volume of speech Affect: euthymic affect Thought Process: + circumstantial thought process and + tangential thought process Results & Data ([facility]) Vital Signs (Past 12 Hours) Vital Signs Temp Pulse Resp BP Pulse Ox O2 Del Method 01/20/22 15:00 36.6 C 75 18 129/73 97 Room Air 01/20/22 07:30 36.9 C 74 20 163/72 H 97 Room Air Laboratory Results 01/19/22 07:39 01/20/22 08:51 Diagnostic Findings renal u/s this admission Kidneys: The kidneys demonstrate cortical atrophy. Echotexture is normal. The right kidney measures 8.8 cm in length and the left kidney measures 10.5 cm in length. There is no hydronephrosis. Foci of cortical scarring are noted in both kidneys. No shadowing renal calculi are identified. There is no sonographic evidence of contour deforming renal mass lesion. No perinephric fluid is alice ntified. Bladder: The bladder is decompressed and grossly unremarkable. Ureteral jets were not seen. Adnexa: There are complex bilateral adnexal masses. This measures 6.5 x 3.2 x 4.6 cm on the left and 5.0 x 4.7 x 3.1 cm on the right. IMPRESSION: 1. The kidneys demonstrate cortical atrophy and are without hydronephrosis. 2. The bladder was decompressed and not well evaluated. 3. Indeterminant bilateral adnexal masses are identified. When correlated with the prior abdominal radiographs, some of this may be related to calcified uterine fibroids. Correlation with a contrast-enhanced CT of the abdomen and pelvis is recommended for further assessment.
[2022-01-21] MEDS: LEVOTHYROXINE SODIUM 125 MCG TABLET PO SCH (05:45)
[2022-01-21] MEDS: PANTOprazole 40 MG TAB PO SCH (07:34)
[2022-01-21] MEDS: CHOLECALCIFEROL 1,000 UNITS 25 MCG TAB PO SCH (07:34)
[2022-01-21] MEDS: FOLIC ACID 1 MG TAB PO SCH (07:34)
[2022-01-21] MEDS: amLODIPine BESYLATE 5 MG TAB PO SCH (07:34)
[2022-01-21] MEDS: ADVANCED PROBIOTIC 1250 MG CAPSULE PO SCH (07:34)
[2022-01-21] MEDS: MAGNESIUM CHLORIDE W/CALCIUM 64MG DELAYED REL TAB PO SCH (07:34)
[2022-01-21] MEDS: THIAMINE HCL 100 MG TAB PO SCH (07:35)
[2022-01-21] MEDS: FLUTICASONE PROPIONATE NA SPR 16 GM BTL SCH (07:35)
[2022-01-21] MEDS: HEPARIN SOD 5,000 UNIT/0.5 ML VIAL SQ SCH ×2 (07:35→20:19)
[2022-01-21] MEDS: INSULIN ASPART PER UNIT SC SCH ×4 (09:01→20:52)
[2022-01-21] MEDS: LANTUS PER UNIT CHARGE SQ SCH ×2 (09:01→20:52)
--- NOTE | 2022-01-21 15:29 | Hospitalist Progress Note ---
Date of Service January 21, 2022 Assessment & Plan (1) Encephalopathy, hypertensive: (2) Hypertensive urgency: (3) Coagulase negative Staphylococcus bacteremia: (4) Hypernatremia: (5) Hyperglycemia due to diabetes mellitus: (6) Urinary tract infection: (7) Hypothyroidism: (8) CKD (chronic kidney disease), stage III: (9) GERD (gastroesophageal reflux disease): Plan This is a 76-year-old female who presents with confusion. She has a significant PMH of T2DM, HN, HLD, Hypothyroidism, CKD 3, Fibromyalgia, DDD who presents to ED 2/ to confusion Confusion --> resolving Etiology unclear on admission, could be from hypernatremia, could be hypertensive encephalopathy. Also found bacteremic with unclear source. Imaging studies are unremarkable so far. ER empirically started on Vanc and Zosyn. SWAMPER grew in culture and Vanc stopped ID consulted and feels this is a contaminant Stopped abx and she is still doing well clinically Appears improved from a confusion standpoint today Impulsive and cannot trust her without a bed alarm (per RN) but independently transferring bed to chair. H/o TBI and some paranoia in the past Admission in Fall 2020 was similar to this. Psych saw her with recs in case of agitation. Brain MRI was normal. Per neuro there is no further workup needed at this time Will cont to monitor for improvement in confusion with stability and then assess safety to return home with family and OOA Pt worked with PT today, tires easily but making progress Hypertensive emergency / encephalopathy/HTN 163/72, currently on monotherapy with norvasc 2/2 to lela and now hyperkalemia (which has resolved) BP has been labile Held lisinopril and HCTZ pending improvement in creatinine Echo 01/13/22, EF 55-60%, grade 1 DD, moderate mitral annual calcification Hyperkalemia Likely due to over supplementation in setting of hctz being on hold as well as initial low potassium on admission potassium peaked to 5.6 yesterday, asymptomatic, ekg okay K improving, 4.1 continue to hold K supplements, monitor labs Acute on Chronic kidney disease stage III: Cr peak tto 1.92 (baseline ~1.1), she received 1 L of IVF, today is 1.67. s/p additional 1L Not on nephrotoxic agents, hctz/abilio on hold, possible effects from bailio or HCTZ FeNa calculated and found to be 1.1% concerning for more intrinsic cause of LELA Did have some improvement with IVF (2L NSS total since 01/18) After further chart review, pt was empirically started on IV Vanco/Zosyn due to blood culture showing SWAMPER. This was continued starting 01/11 through 01/14 and Cr increased on 01/15, now downtrending Renal ultrasound from 01/20- the kidneys demonstrate cortical atrophy and are without hydronephrosis. The bladder was decompressed and not well evaluated. Indeterminant bilateral adnexal masses are identified. When correlated with the prior abdominal radiographs, some of this may be related to calcified uterine fibroids. Correlation with a contrast-enhanced CT of the abdomen and pelvis is recommended for further assessment. Nephro evaluated - volume status acceptable, current medications ok. Could related to relate to ischemic aTn from HTN and other meds like diuretic Repeat BMP pending F/u imaging for adnexal lesions upon discharge (contrast-enhanced CT of the abdomen and pelvis) Hypernatremia: resolved. Diabetes, type 2: Blood sugar elevated on admission. A1C reflects good control at 6.1. Cont Lantus and insulin sliding scale. Avoid hypoglycemia. Hypothyroidism: chronic, stable. Continue Synthroid. Gastroesophageal reflux disease: chronic, stable. Continue Protonix per home regimen. DVT prophylaxis: Placed on heparin subcutaneous. DISPOSITION: Pt improving, renal function still at 1.67, will obtain renal US, likely to take time to recover. CM working on referrals. PT recommends rehab stay, per CM [facility] care and [facility] contacted. Pace removed Code: Full PCP: Chao Pt was seen and examined in collaboration with Dr. Fields, please see addendum. Admission and Anticipated Discharge Date Admission Date: January 11, 2022 Supervising Physician Co-Signing Physician Notes This is an attending cosign note for full reports and documentation please see the full dictation by DEJA following is a synopsis. This is a 76-year-old female who presents with confusion. Etiology of confusion likely multifactorial due to hypernatremia and possible hypertensive encephalopathy. Confusion has resolved with resolution of electrolyte abnormalities and better control of blood pressure. 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 Was also initially found to be bacteremic with SWAMPER growing on culture but ID consulted and felt it was a contaminant. Had worsening renal function during admission first attributed to antibiotics and possibly antihypertensives as well. Nephrology consulted and felt worsening creatinine function may be due to ischemic ATN from hypertension and diuretic vs antibiotics. Continue to hold lisinopril, discontinued hctz, no NSAIDs, weekly BMP and nephrology follow up in 3-4 weeks. On renal ultrasound, presence of indeterminant bilateral adnexal masses. Recommend follow-up imaging for adnexal lesions upon discharge with contrast-enhanced CT of the abdomen and pelvis (once renal function back to baseline). Subjective Pt was seen and examined in room 352-1 in follow up for confusion, LELA and hyperkalemia. Patient much more alert today. Unsure of why she is in hospital but feeling more comfortable. Some neuropathic pain in feet. No fever, chills, CP, SOB, N/V, abdominal pain, dysuria, diarrhea or constipation. Review of Systems Review of Systems: At least ten systems reviewed and negative except as noted in the HPI. Physical Exam Physical Exam: Gen: WD/WN, elderly, F, NAD, alert and oriented x 2 HEENT: Normocephalic, atraumatic, conjunctivae moist, sclerae anicteric, mucous membranes moist. Lung: Clear to Auscultation bilaterally, diminished at bases b/l due to poor inspiratory effort, no wheezes/rales/rhonchi Heart: Regular rate, regular rhythm, no murmurs, rubs, or gallops Abdomen: Soft, NT, ND +BS x 4 Extremities: No edema Skin: Warm, no rash : Pace cath in place Results & Data Results & Data ([facility] [place]) Vital Signs (Past 12 Hours) Vital Signs Temp Pulse Resp BP Pulse Ox O2 Del Method 01/21/22 14:56 36.9 C 72 16 155/69 H 98 Room Air 01/21/22 07:08 36.8 C 79 18 142/76 H 98 Room Air Laboratory Results Cardiac Enzymes 01/21/22 Range/Units 07:34 Total Creatine Kinase 29 (26-192) U/L Diagnostic Findings Cervical Spine CT 01/11/22 17:43 CT cervical spine wo con CLINICAL HISTORY: Status post fall with neck pain COMPARISON STUDY: 04/24/2021 CT DOSE: 999.92 mGy.cm TECHNIQUE: Standard CT of the Cervical Spine was performed without IV contrast. A dose lowering technique was utilized adhering to the principles of ALARA. FINDINGS: Bones: The bones are osteopenic. There is no evidence for an acute fracture or malalignment. The heights of the vertebral bodies are maintained. The vertebral bodies are in anatomic alignment. The odontoid is intact and the atlantoaxial articulation is within normal limits. Disc spaces: There is moderate to marked disc space narrowing at C5-6 and C6-7 with minimal endplate osteophyte formation again seen. Apophyseal joints: Degenerative apophyseal joint disease present bilaterally. Soft tissues: The prevertebral soft tissues are within normal limits. IMPRESSION: 1. Osteopenia with no acute osseous pathology. 2. Degenerative disc and degenerative joint disease are again seen. ACT 112: Negative or not required by law. Electronically signed by: Gualberto Akins M.D. 01/11/2022 7:09 PM Chest X-Ray 01/11/22 17:43 XR chest 1V portable CLINICAL HISTORY: SEPSIS. Evaluate cardiopulmonary status COMPARISON STUDY: 04/24/2021 TECHNIQUE: 1 view of the chest FINDINGS: Single frontal view of the chest demonstrates the cardiomediastinal silhouette to be within normal limits. The lungs are clear of alveolar opacities. There is no evidence for pleural effusion. There is no evidence for vascular congestion. There is no acute osseous pathology. IMPRESSION: 1. No acute cardiopulmonary disease. ACT 112: Negative or not required by law. Electronically signed by: Gualberto Akins M.D. 01/11/2022 7:[address] 01/11/22 17:43 CT head/brain wo con CLINICAL HISTORY: Status post fall with pain COMPARISON STUDY: 04/24/2021 CT DOSE: TECHNIQUE: Standard CT of the Brain was performed without IV contrast. A dose lowering technique was utilized adhering to the principles of ALARA. FINDINGS: Extraaxial space: There is no evidence for subdural hematoma. There are no extra-axial fluid collections. Ventricles and cisterns: The ventricles are again mildly to moderately dilated bilaterally. There is no evidence for midline shift or mass effect. Parenchyma: There is no subarachnoid or intraparenchymal hemorrhage. There is no evidence for an acute infarct or cerebral edema. There is mild cerebral cortical atrophy and decreased attenuation in the periventricular white matter representing remote small vessel disease. There are no gross mass lesions. Osseous structures: There is no evidence for an acute fracture. The visualized paranasal sinuses are clear. The mastoid air cells are clear bilaterally. Soft tissues: There is no evidence for focal soft tissue swelling. IMPRESSION: 1. No acute intracerebral pathology. 2. Cerebral atrophy and remote small vessel disease are again seen ACT 112: Negative or not required by law. Electronically signed by: Gualberto Akins M.D. 01/11/2022 7:06 PM Pelvis X-Ray 01/11/22 17:43 XR pelvis 1-2V routine CLINICAL HISTORY: Status post fall with pain. COMPARISON STUDY: No previous studies for comparison. TECHNIQUE: [A single AP radiograph was obtained. FINDINGS: Bones are osteopenic. There is no evidence for an acute fracture. There is mild to moderate narrowing of the hip joint spaces bilaterally. Degenerative changes are also present involving the SI joints. The remaining visualized bones of the pelvis are intact. Degenerative changes are seen involving the lower lumbar spine. No focal soft tissue abnormalities identified. IMPRESSION: 1. No acute abnormality. 2. Osteopenia and osteoarthritis. ACT 112: Negative or not required by law. Electronically signed by: Gualberto Akins M.D. 01/11/2022 7:19 PM Brain MRI 01/14/22 17:30 MRI OF THE BRAIN WITHOUT CONTRAST CLINICAL HISTORY: persistent confusion, rule out stroke/mass COMPARISON STUDY: MRI of the brain April 24, 2021. Head CT January 11, 2022. TECHNIQUE: Utilizing a 1.5 Kim magnet and dedicated coil, multiplanar, multiecho imaging of the brain was performed without IV contrast. FINDINGS: There are no foci of restricted diffusion to suggest acute infarct. No acute intracranial hemorrhage, midline shift or mass effect is present. Ventricular system is stable. Basal cisterns are patent. There are no extra- axial collections. Flow-voids for the major intracranial vessels are present. White matter T2 hyperintense foci are similar to previous MRI and favor small vessel disease. 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 This is unchanged. No intracranial masses identified on this unenhanced exam. Calvarial signal is normal. No evidence for sinusitis. There is no mastoid fluid. IMPRESSION: No acute intracranial findings. No change in appearance of the brain since MRI of April 24, 2021. ACT 112: Negative or not required by law. Electronically signed by: Ryan Patel M.D. 01/15/2022 8:27 AM Renal Ultrasound 01/20/22 14:12 ULTRASOUND KIDNEYS AND BLADDER CLINICAL HISTORY: Acute renal insufficiency. COMPARISON STUDY: Abdominal radiograph dated 04/24/2021. TECHNIQUE: Real-time, grayscale, and color flow sonography of the kidneys and bladder is performed. Images are reviewed in the transverse and longitudinal planes. FINDINGS: Kidneys: The kidneys demonstrate cortical atrophy. Echotexture is normal. The right kidney measures 8.8 cm in length and the left kidney measures 10.5 cm in length. There is no hydronephrosis. Foci of cortical scarring are noted in both kidneys. No shadowing renal calculi are identified. There is no sonographic evidence of contour deforming renal mass lesion. No perinephric fluid is identified. Bladder: The bladder is decompressed and grossly unremarkable. Ureteral jets were not seen. Adnexa: There are complex bilateral adnexal masses. This measures 6.5 x 3.2 x 4.6 cm on the left and 5.0 x 4.7 x 3.1 cm on the right. IMPRESSION: 1. The kidneys demonstrate cortical atrophy and are without hydronephrosis. 2. The bladder was decompressed and not well evaluated. 3. Indeterminant bilateral adnexal masses are identified. When correlated with the prior abdominal radiographs, some of this may be related to calcified uterine fibroids. Correlation with a contrast-enhanced CT of the abdomen and pelvis is recommended for further assessment. ACT 112: Negative or not required by law. Electronically signed by: Bobo Mccarty M.D. 01/20/2022 4:05 PM (1) Urinary tract infection Hematuria presence: without hematuria Urinary tract infection type: site unspecified Qualified Code(s): N39.0 - Urinary tract infection, site not specified
[2022-01-21 20:20] LABS: Appearance Urine Turbid (Clear); Bacteria Urine Automated 4+ (Negative); Bilirubin Urine Negative (Negative); Blood Urine Trace (Negative); Color Urine Yellow; Epithelial Cell Urine Auto >30 /lpf (0-5); Glucose Urine UA Negative (Negative); Ketones Urine Negative (Negative); Leukocyte Esterase Urine 3+ (Negative); Nitrite Urine Positive (Negative); Protein Urine Trace (Negative); RBC Urine Automated >30 /hpf (0-4); Specific Gravity Urine 1.014 (1.000-1.030); Urobilinogen Urine Negative (Negative); WBC Urine Automated >30 /hpf (0-5)
[2022-01-22] MEDS: LEVOTHYROXINE SODIUM 125 MCG TABLET PO SCH (06:10)
[2022-01-22 07:59] LABS: BUN Creatinine Ratio 22.6 (10-20); Calcium 9.2 mg/dl (8.5-10.1); Creatinine Clr Calc Pharmacy 30.2 ml/min; Est GFR (African American) 36.7 ml/min; Est GFR (Non-African American) 31.7 ml/min; Potassium 4.1 mmol/L (3.5-5.1)
[2022-01-22] MEDS ORDERED: cefTRIAXone SODIUM 1,000 MG in DEXTROSE 5% 50 ML IV ONE (08:15)
[2022-01-22] MEDS: INSULIN ASPART PER UNIT SC SCH ×2 (08:39→12:39)
[2022-01-22] MEDS: LANTUS PER UNIT CHARGE SQ SCH (08:39)
[2022-01-22] MEDS: THIAMINE HCL 100 MG TAB PO SCH (09:08)
[2022-01-22] MEDS: HEPARIN SOD 5,000 UNIT/0.5 ML VIAL SQ SCH (09:08)
[2022-01-22] MEDS: ADVANCED PROBIOTIC 1250 MG CAPSULE PO SCH (09:08)
[2022-01-22] MEDS: CHOLECALCIFEROL 1,000 UNITS 25 MCG TAB PO SCH (09:08)
[2022-01-22] MEDS: FOLIC ACID 1 MG TAB PO SCH (09:09)
[2022-01-22] MEDS: PANTOprazole 40 MG TAB PO SCH (09:09)
[2022-01-22] MEDS: amLODIPine BESYLATE 5 MG TAB PO SCH (09:09)
[2022-01-22] MEDS: FLUTICASONE PROPIONATE NA SPR 16 GM BTL SCH (09:09)
[2022-01-22] MEDS: MAGNESIUM CHLORIDE W/CALCIUM 64MG DELAYED REL TAB PO SCH (09:09)
[2022-01-22] MEDS ORDERED: SODIUM BICARBONATE 8.4% 75 MEQ in DEXTROSE 5% 1,000 ML IV SCH (11:00)
--- NOTE | 2022-01-22 11:01 | Nephrology Progress Note ---
Date of Service January 22, 2022 Assessment & Plan (1) Worsening renal function: Plan: baseline creatinine is 1.1.She was at baseline on admission w/ upcreep in creatinine progressively since then to peak on 01/18 at 1.9, w/ reading at 1.6 today. She did receive full dose lisinopril through 01/16. Also had one dose hctz on 01/16. on 01/19 she had 1 L NS. She has zosyn from 01/11-01/13; had vanco from 01/12-01/15 with 01/14 level of 11. chemistries, volume status acceptable; current meds appropriate. LELA cause unclear but doubt abtx this far out from their admin; could relate to ischemic ATN from HTN and other meds like diuretic. urine specimen may be UTI but may also simply reflect skin/perineal contamination > await culture HTN remains challenging but some better control last few days admitted 01/11 w/ confusion and HTN urgency/emergency and found to be bacteremic (2/4 bottles w/ CoNS) and hypernatremic; blood cxs cleared, sNa wnl now -f/u pending urine culture; on empiric ceftriaxone >>PLS ORDER/recommend bladder scans q shift WA as she's not had a jacobs/ no good reason to get UTI -cont current meds and daily bmp > hctz, ACEI, K suppls all on hold >ordered D5W+75 mEq/L sodium bicarb at 80 ml/hr continuous to see if this improv es chemistries; should not affect BP -f/u imaging for adnexal lesions after d/c For possible d/c today; ok from nephro standpoint and if d/c recommend: -HOSPITAL DISCHARGE f/u appt in 3-4 wks w/ [employer] -weekly bmp to be ordered by Nephro RN -hold lisinopril at hospital d/c -start amlodipine 5 mg daily at d/c -no nsaids now or after d/c Admission and Anticipated Discharge Date Admission Date: January 11, 2022 Subjective pt was discharged before I saw her on 01/22; recommendatiosn from this note were d/w hospitalist Physical Exam Eyes: EOM intact bilaterally Results & Data ([facility]) Vital Signs (Past 12 Hours) Vital Signs Temp Pulse Pulse Resp BP BP Pulse Ox 01/22/22 08:54 82 145/79 H 01/22/22 06:44 36.5 C 78 18 157/66 H 98 O2 Del Method 01/22/22 08:54 01/22/22 06:44 Room Air Laboratory Results 01/19/22 07:39 01/22/22 06:56
--- NOTE | 2022-01-22 14:57 | Discharge Summary ---
Date of Service January 22, 2022 Admission HPI Per Admitting Provider HISTORY OF PRESENT ILLNESS: This is a 76-year-old female with past medical history significant type 2 diabetes, hypothyroidism, hyperlipidemia, chronic kidney disease stage III, diabetic polyneuropathy, hypertension, GERD, vitamin D deficiency, statin myopathy, fibromyalgia, degenerative disk disease, osteoarthritis of the knees, cervical degenerative disk disease, PTSD, generalized anxiety disorder, low folic acid, generalized weakness, presents with confusion. Apparently, the patient lives alone. Last time she was seen well was about 1 week ago. Today, when the person who gives her grocery came to deliver groceries, she was found on the floor and with feces and urine and she seemed confused and she was brought into the hospital. The patient currently alert and awake, can tell her name, does not know her date of and does not think she is in the hospital and confused. She does not know what happened. She states that she is taking all her medications. She denies any headache or blurred visions or sore throat. No cough or nausea. Denies any chest pain or shortness of breath, abdominal pain, but seems poor historian at this time. Tried to call her brother, not able to reach. Admission Exam Per Admitting Provider GENERAL: The patient is of moderate build, not in acute distress. VITAL SIGNS: Temperature afebrile, pulse 77, respiratory rate 20, blood pressure 127/95, oxygen 98% on room air. HEENT: Pupils equal, round and reactive to light. Oral mucosa dry. NECK: No JVD, no neck masses. CARDIOVASCULAR: S1 and S2 heard. Regular rate and rhythm. No murmur, no gallop. RESPIRATORY SYSTEM: Normal AP diameter. No accessory muscle use. No wheezing or crackles. ABDOMEN: Soft, bowel sounds present, nontender, no distention. CENTRAL NERVOUS SYSTEM: Alert and awake, oriented to name only. Speech is okay. No facial droop. Obeys simple commands. Moves extremities. EXTREMITIES: No edema, no erythema. Principal Diagnosis hypernatremia, LELA on CKD, possible UTI,confusion Discharge Exam Gen: WD/WN, elderly, F, NAD, alert and oriented x 2 HEENT: Normocephalic, atraumatic, conjunctivae moist, sclerae anicteric, mucous membranes moist. Lung: Clear to Auscultation bilaterally, diminished at bases b/l due to poor inspiratory effort, no wheezes/rales/rhonchi Heart: Regular rate, regular rhythm, no murmurs, rubs, or gallops Abdomen: Soft, NT, ND +BS x 4 Extremities: No edema Skin: Warm, no rash : Pace cath in place Discharge Data Allergies Allergy/AdvReac Type Severity Reaction Status Date / Time atorvastatin [From Lipitor] Allergy Unknown Unknown Verified 01/11/22 20:00 morphine Allergy Unknown Verified 04/24/21 07:10 acetaminophen [From Percocet] AdvReac Unknown Vomiting Verified 01/11/22 20:00 aspirin [From Percodan] AdvReac Unknown Vomiting Verified 01/11/22 20:00 cephalexin AdvReac Unknown Unknown Verified 01/11/22 20:00 codeine AdvReac Unknown Vomiting Verified 01/11/22 20:00 esomeprazole AdvReac Unknown Skin Verified 04/24/21 07:10 irritation,swelling,difficulty breathing. oxycodone [From Percodan] AdvReac Unknown Vomiting Verified 01/11/22 20:00 sucralfate AdvReac Unknown Skin Verified 01/11/22 20:00 irritation,swelling,difficulty breathing. Consultations 01/11/22 20:15 ED Decision to Admit Stat 01/12/22 08:00 Consult Cardiology Routine Consult Nephrology Routine 01/13/22 11:27 Consult Infectious Diseases Routine 01/14/22 17:24 Consult Psychiatry Routine 01/15/22 10:09 Consult Neurology Routine 01/20/22 16:00 Consult Nephrology Routine Ordered Studies 01/11/22 17:43 CT cervical spine wo con Stat CT head/brain wo con Stat 01/14/22 17:30 MR brain wo con Routine 01/20/22 14:12 US Renal Bladder [US renal/blad retro comp] Routine Hospital Course (1) Encephalopathy, hypertensive: (2) Hypertensive urgency: (3) Coagulase negative Staphylococcus bacteremia: (4) Hypernatremia: (5) Hyperglycemia due to diabetes mellitus: (6) Urinary tract infection: (7) Hypothyroidism: (8) CKD (chronic kidney disease), stage III: (9) GERD (gastroesophageal reflux disease): Plan This is a 76-year-old female who presents with confusion. She has a significant PMH of T2DM, HN, HLD, Hypothyroidism, CKD 3, Fibromyalgia, DDD who presents to ED / to confusion. Etiology of confusion likely multifactorial due to hypernatremia and possible hypertensive encephalopathy. Confusion has resolved with resolution of electrolyte abnormalities and better control of blood pressure. 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 Vancomycin was stopped. Had worsening renal function during admission first attributed to antibiotics and possibly antihypertensives as well. Lisinopril and hydrochlorothiazide have been held with improved creatinine. Downtrended from 1.92 -> 1.59 (baseline ~1.1). Nephrology consulted and felt worsening creatinine function may be due to ischemic ATN from hypertension and diuretic vs antibiotics. Continue to hold lisinopril, discontinued hctz, no NSAIDs, weekly BMP and nephrology follow up in 3-4 weeks. On renal ultrasound, presence of indeterminant bilateral adnexal masses. Recommend follow-up imaging for adnexal lesions upon discharge with cont rast-enhanced CT of the abdomen and pelvis (once renal function back to baseline). Repeat UA from 01/21 abnormal with possible infection. Continue IV Rocephin for 7 days total; ultrasound guided line placed. Follow culture results. Discharged to [facility]. Total Time Total Time Spent Total Time Spent (In Minutes): 60 Discharge Plan Discharge Items Patient Disposition: Transfer [facility] Reason For Visit: CONFUSION Discharge Diagnosis: hypernatremia, LELA on CKD, possible UTI,confusion Activity: Resume your previous activity Non-emergency contact: Primary Care Provider Call non-emergency contact if: you have any medication questions, your symptoms worsen, your pain is not controlled and you have a fever Follow-up/Referrals: Chidi Gill MD [Surgeon] - (Date & Time 03/17/2022 1:00 PM Provider Chidi Gill MD Department Nephrology, [facility] ) Barbara Gill MD [Primary Care Provider] - Diet: Carb Consistent or DM2 Addtl Attending Provider Instructions: You were admitted for confusion in the setting of electrolyte abnormalities, possible infection and elevated blood pressure. Confusion has resolved with correction of above. Lisinopril held and hydrochlorothiazide discontinued with improvement of kidney function. Weekly BMP lab work with nephrology nurse. Follow-up with medical coding technician in 3 to 4 weeks. Continue 7-day treatment of IV Rocephin upon discharge. Incidental lesions found on CT of abdomen pelvis. Follow-up with PCP for CT abd/pelvis with IV contrast once kidney function back to normal. MEDICATION CHANGES: Lisinopril discontinued Started on amlodipine 5mg daily Continue IV Rocephin 1,000mg daily for next 6 days RECOMMENDATIONS FOR FOLLOW-UP: Follow up with PCP and medical coding technician as directed above OTHER INSTRUCTIONS: Seek medical attention if you have: * temperature above 101 * chest pain or trouble breathing * abdominal pain, nausea, vomiting * diarrhea, dark stools or bloody stools * any unanswered questions or concerns Call 911 if symptoms are severe. Please take good care of yourself. Call if you have any questions or problems. You can reach a [facility] hospitalist on duty at [facility] 24 hours a day by calling [phone]. Terese Stafford PA-C [facility] Hospitalist Pending Studies at Discharge: Yes Studies:: urine culture Stand-Alone Forms: My [facility] Skilled Items Patient informed of condition?: Yes DNR: No Discharge Level of Care: Skilled Communicable Disease: No Discharge Prognosis: Stable Lines: None Urinary Catheter: No Medications and DC Order Prescriptions: New amlodipine 5 mg tablet 5 mg PO DAILY Qty: 30 0RF Continued tramadol 50 mg tablet 50 mg PO Q6H PRN (Reason: Pain, Severe) Qty: 30 0RF insulin glargine [Lantus U-100 Insulin] 100 unit/mL solution 31 unit SUBCUT QAM Qty: 10 0RF meclizine 12.5 mg tablet 12.5 mg PO TID PRN (Reason: Dizziness) Qty: 20 0RF Rx Instructions: may take morning,noon and evening for dizziness pantoprazole 40 mg tablet,delayed release (DR/EC) 40 mg PO QAM Qty: 30 0RF levothyroxine 125 mcg tablet 125 mcg PO DAILYBB Qty: 30 0RF folic acid 1 mg Tablet 1 mg PO QAM Qty: 30 0RF nystatin 100,000 unit/gram Powder 1 applic TOPICAL TID PRN (Reason: yeast infections) Qty: 15 0RF Rx Instructions: Apply to affected area 3 times daily if needed for yeast infection fluticasone propionate 50 mcg/actuation spray,suspension 2 spray INTRANASAL DAILY Qty: 16 0RF metformin 500 mg tablet extended release 24 hr 1,000 mg PO QDD Qty: 60 0RF cholecalciferol (vitamin D3) [Vitamin D3] 25 mcg (1,000 unit) Capsule 25 mcg PO DAILY Qty: 30 0RF Ozempic 1 mg/dose (4 mg/3 mL) pen injector 1 mg SUBCUT WK Qty: 4 0RF Changed Mag 64 64 mg tablet,delayed release (DR/EC) 128 mg PO QAM Qty: 30 0RF Rx Instructions: take 2 tablets Discontinued lisinopril [Zestril] 40 mg Tablet 40 mg PO DAILY Qty: 30 0RF Discharge Orders: Discharge Order (Routine); Ordered 01/22/22 Ordered By: Terese Stafford Admission Data Admit Date/Time: 01/11/22 21:08 Attending Provider: Chris Fields Admit Provider: Mohan Aponte Primary Care Provider: Barbara Gill Other Providers: [place] ; [facility], ; Mohan Aponte ; Linwood Rojas ; Otto Ortiz ; Kole Yo ; Adam Sweeney ; Jonah Stanley ; Sven Salgado ; Cynthia Reed ; Estela Andrew ; Iva Bradshaw ; Brennan Ng ; Bubba Garcia ; Estee Woodruff ; Gal Stafford I. ; Kendrick Cabrera II ; Laura Mcclelland ; Sven Cates ; Alejandro Hoffman ; Keyanna Rosario ; Catrina Montes ; Debra Arias ; Holden Bah ; Ilana Russell ; Tati Bradley ; Terese Stafford Other Interventions: Discharge Summary Assessment (RN) Last Done: 01/22/22 16:19 Supervising Physician Co-Signing Physician Notes This is an attending cosign note for full reports and documentation please see the full dictation by DEJA following is a synopsis. This is a 76-year-old female who presents with confusion. Etiology of confusion likely multifactorial due to hypernatremia and possible hypertensive encephalopathy. Confusion has resolved with resolution of electrolyte abnormalities and better control of blood pressure. 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 Had worsening renal function during admission first attributed to antibiotics and possibly antihypertensives as well. Nephrology consulted and felt worsening creatinine function may be due to ischemic ATN from hypertension and diuretic vs antibiotics. Continue to hold lisinopril, discontinued hctz, no NSAIDs, weekly BMP and nephrology follow up in 3-4 weeks. On renal ultrasound, presence of indeterminant bilateral adnexal masses. Recommend follow-up imaging for adnexal lesions upon discharge with contrast-enhanced CT of the abdomen and pelvis (once renal function back to baseline). Discharged to [facility].
[2022-01-22 15:32] LABS: Hematocrit (blood only) 29.2 % (34.1-44.9); Hemoglobin 10.1 g/dl (12.0-16.0); Mean Corpuscular Hemoglobin 29.7 pg (25.0-34.0); Mean Corpuscular Hgb Conc 34.6 g/dL (32.0-36.0); Mean Corpuscular Volume 85.9 fL (80.0-100.0); Mean Platelet Volume 11.5 fL (9.4-12.3); Platelet Count 288 K/uL (130-400); RDW Coefficient of Variation 13.8 % (11.5-14.5); RDW Standard Deviation 41.8 fL (36.4-46.3); White Blood Count 8.05 K/ul (4.8-10.8)
[2022-01-22 15:52] LABS: BUN Creatinine Ratio 23.2 (10-20); Calcium 9.1 mg/dl (8.5-10.1); Est GFR (African American) 37.8 ml/min; Est GFR (Non-African American) 32.6 ml/min
[2022-01-23] MEDS ORDERED: cefTRIAXone SODIUM 1,000 MG in DEXTROSE 5% 50 ML IV SCH (09:00)
== END 2022-01-22 16:36 | DRG 77 ==
LOC: ED 17:35 → EDINP 21:08 → SUATTDRO 21:08 → 2S 22:43 → 3W 01-15 22:30